=== PATIENT | female | born 1945 | race Two or more races ===

== ENCOUNTER 2021-02-27 16:23 | Emergency (ER) | payer OTHER, SELFPAY ==
--- NOTE | ~2021-02-27 | XR_ITS ---
EXAMINATION: PORTABLE CHEST 1 VIEW CLINICAL INFORMATION: chest pain . COMPARISON: 10/30/2006. TECHNIQUE: Portable frontal view of the chest was obtained. FINDINGS: The lungs are well expanded. No focal infiltrate, effusion, edema, or pneumothorax. Cardiac and mediastinal silhouettes are within normal limits for size. The patient is status post sternotomy and CABG. No acute bony abnormality seen. XR/XR chest 1V IMPRESSION: No evidence of acute disease.
[2021-02-27 17:27] VITALS: BP 169/50; PULSE 72; RESP 18; TEMP 37.1; O2SAT 98; BMI 29.7
[2021-02-27 18:56] VITALS: BP 138/44; PULSE 62; RESP 16; TEMP 36.8
--- NOTE | 2021-02-27 19:01 | ECG_ITS ---
Test Reason : CHEST PAIN Blood Pressure : / mmHG Vent. Rate : 067 BPM Atrial Rate : 067 BPM P-R Int : 152 ms QRS Dur : 080 ms QT Int : 372 ms P-R-T Axes : 002 014 095 degrees QTc Int : 393 ms Normal sinus rhythm Moderate voltage criteria for LVH, may be normal variant Nonspecific T wave abnormality Abnormal ECG When compared with ECG of 01-DEC-2007 13:55, Criteria for Inferior infarct are no longer Present Nonspecific T wave abnormality, worse in Inferior leads Referred By: Generic ED Physician Electronically Signed By:CHRISTA LAWLER MD
[2021-02-27 19:03] VITALS: PULSE 62
[2021-02-27 19:26] LABS: MANUAL DIFF FLAG NO
[2021-02-27 19:28] LABS: Basophils Absolute Auto 0.1 X10*3/uL (0.0-0.2); Basophils Percent Auto 0.5 % (0-2); Eosinophils Absolute Auto 0.1 X10*3/uL (0.0-0.4); Eosinophils Percent Auto 1.4 % (0-4); Hemoglobin 11.1 g/dl (12.0-16.0); Imm Gran Abs Auto 0.04 X10*3/uL (0.00-0.03); Imm Gran Pct Auto 0.4 % (0.0-0.4); Lymphocytes Absolute Auto 3.5 X10*3/uL (1.2-4.9); Lymphocytes Percent Auto 37.9 % (20-40); Mean Corpuscular HGB Conc 31.7 g/dl (31.0-35.0); Mean Corpuscular Hemoglobin 28.5 pg (27.0-33.0); Monocytes Absolute Auto 1.2 X10*3/uL (0.1-1.2); Monocytes Percent Auto 12.9 % (2-11); Neutrophils Absolute Auto 4.3 X10*3/uL (2.0-8.3); Neutrophils Percent Auto 46.9 % (45-73); Platelet Count 233 X10*3/uL (160-400); Red Blood Count 3.89 X10*6/uL (4.20-5.50); Red Cell Distribution Width 14.2 % (11.0-16.0); White Blood Count 9.2 X10*3/uL (4.8-10.8)
[2021-02-27 19:29] LABS: Glucose Urine UA NEG (NEG); Leukocyte Esterase Urine 1+ (NEG); Nitrite Urine NEG (NEG); PH 7.5 (5.0-8.0); UACC Culture Trigger YES; Urine Blood NEG (NEG); Urine Ketones NEG (NEG); Urine Protein NEG (NEG-TRACE)
[2021-02-27 19:30] LABS: Appearance Urine CLEAR; Color Urine YELLOW
--- NOTE | 2021-02-27 19:34 | ED.CHESTPAIN ---
HPI - Chest Pain General Chief Complaint: Chest Pain Stated Complaint: swelling in legs Time Seen by Provider: 02/27/21 19:34 Source: patient Mode of arrival: ambulatory Limitations: no limitations History of Present Illness HPI narrative: 75-year-old female with history of CHF, diabetes, hypertension who presents to the emergency department with reports of bilateral lower extremity edema. Patient thought that she could control this at home with Lasix but states over the last 2 days she feels like her symptoms are getting worse. Denies chest pain or shortness of breath that is new. Denies abdominal pain nausea or vomiting. Denies recent fevers or chills. Admits to chronic cough. Patient states at baseline she urinates in excess denies change in this, denies any recent changes in bowel movements. Related Data Allergies Allergy/AdvReac Type Severity Reaction Status Date / Time Penicillins Allergy Severe RASH Unverified 06/26/20 17:24 Review of Systems Review of Systems: Constitutional : No Weight loss, No Fever, No Chills, No Night Sweats, No Fatigue, No Malaise ENT/Mouth : No Hearing loss, No Ear Pain, No Nasal Congestion, No Sinus Pain, No Hoarseness, No sore throat, No Rhinorrhea, No Swallowing Difficulty Eyes: No Eye Pain, No Swelling, No Redness, No Foreign Body, No Discharge, No Vision Changes Cardiovascular : No Chest Pain, No SOB, No Dyspnea on Exertion, No Orthopnea, + LE Edema, No Palpitations Respiratory : No Cough, No Sputum, No Wheezing, No Smoke Exposure, No Dyspnea Gastrointestinal : No Nausea, No Vomiting, No Diarrhea, No Constipation, No abdominal Pain, No Hematochezia, No Melena Genitourinary : no irregular bleeding, No Dysuria, No Urinary Frequency, No Hematuria, No Urinary Incontinence, No Urgency, No Flank Pain, No Urinary Flow Changes, No Hesitancy Musculoskeletal : No joint pain, No Myalgias, No Joint Swelling Skin : No Skin Lesions, No rash Neuro : No Weakness, No Numbness, No Paresthesias, No Loss of Consciousness, No Dizziness, No Headache Psych : No Anxiety/Panic, No Depression, No SI/HI/AH/VH, No Social Issues, Heme/Lymph: No Bruising, No Bleeding,No Lymphadenopathy Endocrine : No Polyuria, No Polydipsia, No Temperature Intolerance [facility] Past Medical History Attestation statement: The following information was validated with the patient. Source: old records reviewed and nursing notes reviewed Medical History (Updated 02/27/21 @ 21:28 by CARLOTTA Neff) Congestive heart failure Diabetes Hypertension Surgical History (Updated 02/27/21 @ 17:32 by Latrell Ruth) H/O heart bypass surgery Social History Social History Advance Directives: No Advance Directives Information Provided: Yes Physical Exam Vital Signs: Vital Signs: Last Vital Signs Temp 98.3 F 02/27/21 18:56 Pulse 62 02/27/21 18:56 Resp 16 02/27/21 18:56 BP 138/44 L 02/27/21 18:56 Pulse Ox 98 02/27/21 17:27 Body Mass Index 29.7 vital signs have been reviewed as normal and appeared to be correct. Blood pressure normal. Heart rate normal. Respiration rate normal. Temperature normal. Oxygen saturation normal. Appearance: Alert. Oriented X3. No acute distress. Head: Normal external exam. Normocephalic. Atraumatic. No Gupta signs noted. No raccoon eyes noted Eyes: PERRLA. EOMI. Conjunctiva and sclera normal. Eyelids normal. ENT: EAC normal. TM's Normal. Pharynx normal. Uvula midline. Moist mucous membranes. No trismus noted. No drooling noted. No muffled voice noted. Neck: Normal inspection. Neck supple. FROM. No adenopathy. Thyroid Normal. No meningeal signs. No neck mass noted. CVS: Normal heart rate and rhythm. Heart sound normal. No murmurs noted. Pulses normal throughout. Respiratory: No respiratory distress. Painless inspiration. Breath sounds normal. No wheezes/rales/rhonchi noted. Chest nontender. No accessory muscle usage noted or decreased air movement noted. Abdomen: Soft and nontender. Bowel sounds normal in all 4 quadrants. No distention noted. No organomegaly noted. No visible injury noted. Back: No CVA tenderness. Full range of motion noted. Skin: Skin warm and dry. Normal skin color. Normal skin turgor. No rashes/lesions/lacerations noted. Extremities: 1+ bilateral lower extremity edema. Extremities exhibit normal range of motion. Extremities nontender. Neuro: Oriented X 3. No motor deficit. No sensory deficit. Reflexes normal. Course Reevaluation(s) Reevaluation #1: Patient's blood work and chest x-ray returned without acute findings feel that discharge is safe with close outpatient follow-up and strict return precautions. Potassium ever so slightly elevated at 5.2 no EKG changes patient is safe for discharge. MDM - Chest Pain MDM Narrative Medical decision making narrative: Patient's vital signs are stable and she is afebrile. Patient presenting to the ED for bilateral lower extremity and edema no complaints of chest pain or shortness of breath. On exam patient with 1+ pitting edema is on Lasix may need an increase in dosing no posterior calf tenderness no acute concern for DVT. Will check basic blood work including a proBNP will also obtain a chest x-ray and EKG. Patient awake alert appropriate well-appearing in no acute distress no signs of cellulitis or other acute infection will continue to monitor pending the above. Feel this is likely mild lower extremity edema secondary to known CHF. Differential Diagnosis Differential diagnosis: CHF exacerbation, LE edema Medical Records Data Attestation: I reviewed the patient's medical records. Lab Data Attestation: I reviewed the patient's lab results. Result diagrams: 02/27/21 19:19 02/27/21 19:19 Labs: Lab Results 02/27/21 02/27/21 02/27/21 Range/Units 19:19 19:19 19:19 WBC 9.2 (4.8-10.8) X10*3/uL RBC 3.89 L (4.20-5.50) X10*6/uL Hgb 11.1 L (12.0-16.0) g/dl Hct 35.0 L (37-47) % MCV 90.0 (80-98) fL MCH 28.5 (27.0-33.0) pg MCHC 31.7 (31.0-35.0) g/dl RDW 14.2 (11.0-16.0) % Plt Count 233 (160-400) X10*3/uL MPV 11.0 (9.4-12.3) fL Immature Gran % (Auto) 0.4 (0.0-0.4) % Neut % (Auto) 46.9 (45-73) % Lymph % (Auto) 37.9 (20-40) % [place] % (Auto) 12.9 H (2-11) % Eos % (Auto) 1.4 (0-4) % Baso % (Auto) 0.5 (0-2) % Lymph # (Auto) 3.5 (1.2-4.9) X10*3/uL [place] # (Auto) 1.2 (0.1-1.2) X10*3/uL Eos # (Auto) 0.1 (0.0-0.4) X10*3/uL Baso # (Auto) 0.1 (0.0-0.2) X10*3/uL Abs Immat Gran (auto) 0.04 H (0.00-0.03) X10*3/uL Absolute Neuts (auto) 4.3 (2.0-8.3) X10*3/uL Absolute Nucleated RBC 0.000 (0.0-0.012) X10*3/uL Nucleated RBC % (auto) 0.0 (0.0-0.2) /100WBC Hold Blue Top SEE NOTE Sodium 143 (135-145) mmol/L Potassium 5.2 H (3.3-5.1) mmol/L Chloride 107 (96-108) mmol/L Carbon Dioxide 29 (22-29) mmol/L Anion Gap 12 (12-20) BUN 38 H (9-16) mg/dL Creatinine 1.26 (0.5-1.4) mg/dL Estim Creat Clear Calc 37.7 Estimated GFR 41 Random Glucose 76 (60-115) mg/dL Calcium 9.8 (8.4-10.2) mg/dL Troponin I High Sens (<3.5-17.0) ng/L B-Natriuretic Peptide (<100) pg/mL Urine Color Urine Appearance Urine pH (5.0-8.0) Ur Specific [place]emp (1.005-1.025) Urine Protein (NEG-TRACE) MG/DL Urine Glucose (UA) (NEG) MG/DL Urine Ketones (NEG) MG/DL Urine Blood (NEG) Urine Nitrite (NEG) Ur Leukocyte Esterase (NEG) Urine RBC (0) /HPF Urine WBC (0-4) /HPF Ur Squamous Epith Cells /LPF Urine Bacteria /LPF 02/27/21 02/27/21 Range/Units 19:19 19:19 WBC (4.8-10.8) X10*3/uL RBC (4.20-5.50) X10*6/uL Hgb (12.0-16.0) g/dl Hct (37-47) % MCV (80-98) fL MCH (27.0-33.0) pg MCHC (31.0-35.0) g/dl RDW (11.0-16.0) % Plt Count (160-400) X10*3/uL MPV (9.4-12.3) fL Immature Gran % (Auto) (0.0-0.4) % Neut % (Auto) (45-73) % Lymph % (Auto) (20-40) % [place] % (Auto) (2-11) % Eos % (Auto) (0-4) % Baso % (Auto) (0-2) % Lymph # (Auto) (1.2-4.9) X10*3/uL [place] # (Auto) (0.1-1.2) X10*3/uL Eos # (Auto) (0.0-0.4) X10*3/uL Baso # (Auto) (0.0-0.2) X10*3/uL Abs Immat Gran (auto) (0.00-0.03) X10*3/uL Absolute Neuts (auto) (2.0-8.3) X10*3/uL Absolute Nucleated RBC (0.0-0.012) X10*3/uL Nucleated RBC % (auto) (0.0-0.2) /100WBC Hold Blue Top Sodium (135-145) mmol/L Potassium (3.3-5.1) mmol/L Chloride (96-108) mmol/L Carbon Dioxide (22-29) mmol/L Anion Gap (12-20) BUN (9-16) mg/dL Creatinine (0.5-1.4) mg/dL Estim Creat Clear Calc Estimated GFR Random Glucose (60-115) mg/dL Calcium (8.4-10.2) mg/dL Troponin I High Sens 3.8 (<3.5-17.0) ng/L B-Natriuretic Peptide 106 H (<100) pg/mL Urine Color YELLOW Urine Appearance CLEAR Urine pH 7.5 (5.0-8.0) Ur Specific [place]emp 1.010 (1.005-1.025) Urine Protein NEG (NEG-TRACE) MG/DL Urine Glucose (UA) NEG (NEG) MG/DL Urine Ketones NEG (NEG) MG/DL Urine Blood NEG (NEG) Urine Nitrite NEG (NEG) Ur Leukocyte Esterase 1+ H (NEG) Urine RBC 0 (0) /HPF Urine WBC 0-2 (0-4) /HPF Ur Squamous Epith Cells 1+ /LPF Urine Bacteria NONE /LPF Discharge Plan Discharge Clinical Impression: Bilateral edema of lower extremity Patient Disposition: Home, Self-Care Instructions: Leg Edema (ED) Additional Instructions: You were seen in the emergency department today for swelling of the legs. Your Lasix likely needs to be increased slightly however there was no signs of severe fluid overload. Follow-up with your doctor in the next 2-3 days. Referrals: Physician,Unknown [Primary Care Provider] - 2 days (your PCP) Print Language: Setswana
[2021-02-27 19:39] LABS: RBC Urine 0 /HPF (0); Squamous Epithelial Cell Urine 1+ /LPF; UACC CULT YES; WBC Urine 0-2 /HPF (0-4)
[2021-02-27 19:56] LABS: Anion Gap 12 (12-20); Blood Urea Nitrogen 38 mg/dL (9-16); Calcium 9.8 mg/dL (8.4-10.2); Carbon Dioxide 29 mmol/L (22-29); Chloride 107 mmol/L (96-108); Creatinine Clr Calc Pharmacy 37.7; Estimated Glomerular Filt Rate 41; Glucose Random 76 mg/dL (60-115); Potassium 5.2 mmol/L (3.3-5.1); Sodium 143 mmol/L (135-145)
[2021-02-27 20:02] LABS: Troponin-I High Sensitivity 3.8 ng/L (<3.5-17.0)
[2021-02-27 21:08] LABS: B Type Natriuretic Peptide 106 pg/mL (<100)
== END 2021-02-27 22:21 | disposition home or self-care (01) ==
PROVIDERS: Emergency Provider Emergency Medicine
DX: R07.9 Chest pain, unspecified (principal); R60.0 Localized edema; I10 Essential (primary) hypertension; Z79.899 Other long term (current) drug therapy
CPT/HCPCS: 36415; 71045; 80048; 81001; 83880; 84484; 85025; 87086; 93005; 99284

== ENCOUNTER 2021-03-03 13:52 | Emergency (ER) | payer OTHER, SELFPAY ==
--- NOTE | ~2021-03-03 | MR_ITS ---
EXAMINATION: MR BRAIN WITHOUT CONTRAST CLINICAL INFORMATION: Headache. Dizziness. COMPARISON: CT head from 03/03/2021. TECHNIQUE: MRI of the brain was obtained using routine sequences without contrast. FINDINGS: No focal restricted diffusion is demonstrated to suggest acute or subacute cerebral ischemia. No evidence of acute or chronic hemorrhagic products on heme-sensitive imaging. Chronic encephalomalacia of the right precentral gyrus. Scattered periventricular and deep white matter T2 FLAIR hyperintensities consistent with mild underlying microangiopathy. 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 The ventricles are normal in morphology and size. No abnormal mass effect. No midline shift. The sella turcica is mildly expanded and partially empty. Normal positioning of the cerebellar tonsils. Normal arterial and venous vascular flow voids are present. Normal, homogeneous marrow signal. Moderate mucosal thickening of the paranasal sinuses. No signal abnormalities within the mastoids. MR/MR head/brain wo con IMPRESSION: 1. No acute intracranial abnormalities. 2. Chronic encephalomalacia within the right precentral gyrus. Chronic lacunar infarcts of the cerebellum. Mild underlying microangiopathy.
--- NOTE | ~2021-03-03 | CT_ITS ---
EXAMINATION: CT HEAD WITHOUT CONTRAST CLINICAL INFORMATION: Dizziness and headache. COMPARISON: None TECHNIQUE: Contiguous axial imaging was performed from the skull base to vertex without intravenous administration of contrast. This CT examination was performed using dose optimization techniques as appropriate, variously including the following: *Automated exposure control *Adjustment of mA and/or kV according to patient size (this includes techniques or standardized protocols for targeted exams where dose is matched to indication/reason for exam; i.e. extremities or head) *Use of iterative reconstruction technique DLP: 758 mGy-cm FINDINGS: There is no evidence of acute intracranial hemorrhage or territorial infarction. No abnormal mass effect or midline shift is seen. Michael to white matter differentiation is well preserved. No extra-axial fluid collections are identified. The ventricles are normal in size. There is no abnormal attenuation within the brain parenchyma. The osseous structures and soft tissues are normal. The mastoid air cells and visualized portions of the paranasal sinuses are well aerated. CT/CT head/brain wo con IMPRESSION: No acute intracranial process seen.
--- NOTE | ~2021-03-03 | XR_ITS ---
EXAMINATION: XR CHEST CLINICAL INFORMATION: Dizziness COMPARISON: Previous chest x-ray 02/27/2021 TECHNIQUE: Frontal view of the chest was obtained. FINDINGS: The cardiac and mediastinal contours are stable. 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 The lungs are clear. There is no pleural effusion. There are degenerative changes of the spine. XR/XR chest 1V IMPRESSION: No evidence for acute disease in the chest.
[2021-03-03 14:05] VITALS: BP 111/50; BP 140/63; PULSE 74; PULSE 79; RESP 18; TEMP 36.6; O2SAT 98; O2SAT 99; BMI 63.1
--- NOTE | 2021-03-03 14:23 | PC.NURSE ---
pt assisted to the bathroom. she is able to walk with a steady gait with assist of one and verbal encouragement
--- NOTE | 2021-03-03 14:58 | ECG_ITS ---
Test Reason : DIZZINESS Blood Pressure : / mmHG Vent. Rate : 067 BPM Atrial Rate : 067 BPM P-R Int : 152 ms QRS Dur : 068 ms QT Int : 382 ms P-R-T Axes : 034 010 107 degrees QTc Int : 403 ms Sinus rhythm with Premature atrial complexes Moderate voltage criteria for LVH, may be normal variant ST & T wave abnormality, consider lateral ischemia Abnormal ECG When compared with ECG of 27-FEB-2021 17:40, Premature atrial complexes are now Present Referred By: Cassidy Pierre Electronically Signed By:EDWARD POWELL
[2021-03-03 15:32] LABS: MANUAL DIFF FLAG NO
[2021-03-03 15:34] LABS: Basophils Absolute Auto 0.1 X10*3/uL (0.0-0.2); Basophils Percent Auto 0.8 % (0-2); Eosinophils Absolute Auto 0.1 X10*3/uL (0.0-0.4); Eosinophils Percent Auto 1.2 % (0-4); Hematocrit 38.1 % (37-47); Hemoglobin 12.3 g/dl (12.0-16.0); Imm Gran Abs Auto 0.04 X10*3/uL (0.00-0.03); Imm Gran Pct Auto 0.4 % (0.0-0.4); Lymphocytes Percent Auto 32.7 % (20-40); Mean Corpuscular HGB Conc 32.3 g/dl (31.0-35.0); Mean Corpuscular Hemoglobin 28.9 pg (27.0-33.0); Mean Corpuscular Volume 89.6 fL (80-98); Mean Platelet Volume 10.6 fL (9.4-12.3); Monocytes Absolute Auto 0.9 X10*3/uL (0.1-1.2); Monocytes Percent Auto 10.1 % (2-11); Neutrophils Percent Auto 54.8 % (45-73); Platelet Count 264 X10*3/uL (160-400); Red Blood Count 4.25 X10*6/uL (4.20-5.50); Red Cell Distribution Width 14.1 % (11.0-16.0); White Blood Count 9.1 X10*3/uL (4.8-10.8)
[2021-03-03 15:52] LABS: COVID-19 Test Negative (Negative)
[2021-03-03 15:54] LABS: Prothrombin Time 11.5 SEC (10.8-13.0)
[2021-03-03 15:57] LABS: Partial Thromboplastin Time 29.6 SEC (24.1-38.0)
[2021-03-03 16:03] LABS: B Type Natriuretic Peptide 52 pg/mL (<100); Troponin-I High Sensitivity < 3.5 ng/L (<3.5-17.0)
[2021-03-03] MEDS: diphenhydrAMINE HCL 50 MG/ML VIAL 25 MG IVPUSH (16:19)
[2021-03-03] MEDS: Meclizine HCl 25 MG TABLET PO (16:19)
[2021-03-03] MEDS: ondansetron HCL 4 MG/2 ML VIAL IVPUSH (16:19)
[2021-03-03 16:29] LABS: Alanine Aminotransferase 15 U/L (0-31); Albumin Level 4.2 g/dL (3.5-5.0); Alkaline Phosphatase 98 U/L (39-117); Anion Gap 15 (12-20); Aspartate Amino Transferase 14 U/L (5-31); Bilirubin Direct < 0.2 mg/dL (0.0-0.5); Bilirubin Total 0.5 mg/dL (0.0-1.0); Blood Urea Nitrogen 32 mg/dL (9-16); Calcium 9.6 mg/dL (8.4-10.2); Carbon Dioxide 25 mmol/L (22-29); Chloride 105 mmol/L (96-108); Creatinine Clr Calc Pharmacy 57.9; Estimated Glomerular Filt Rate 39; Glucose Random 82 mg/dL (60-115); Magnesium 2.3 mg/dL (1.6-2.6); Potassium 4.9 mmol/L (3.3-5.1); Sodium 140 mmol/L (135-145); Total Protein 7.6 g/dL (6.5-8.0)
--- NOTE | 2021-03-03 17:21 | ED_ITS ---
HPI - Weakness General Chief complaint: Weakness <CARLOTTA Anglin Last Filed: 03/03/21 17:50> Stated complaint: GENERAL MALAISE PER EMS <CARLOTTA Anglin Last Filed: 03/03/21 17:50> Time Seen by Provider: 03/03/21 14:43 <CAROLTTA Anglin Last Filed: 03/03/21 17:50> Source: patient and EMS <CARLOTTA Anglin Last Filed: 03/03/21 17:50> Mode of arrival: ambulatory <CARLOTTA Anglin Last Filed: 03/03/21 17:50> History of Present Illness HPI Narrative: 75-year-old female with a past medical history of CHF, diabetes, hy pertension presenting to the ED complaining of dizziness described as rocking back and forth since waking this morning. Reports associated headache, generalized fatigue. Admits to feeling anxious/nervous about her blood sugar. States had difficulty ambulating at home secondary to dizziness. Patient takes ASA, no other anticoagulation. Denies head trauma/falls, visual changes, CP/SOB, abdominal pain, nausea/vomiting, numbness, tingling, fever, chills <CARLOTTA Anglin Last Filed: 03/03/21 17:50> MD Complaint: difficulty walking <CARLOTTA Anglin Last Filed: 03/03/21 17:50> Related Data Home medications: Home Medications Medication Instructions Recorded Confirmed acetaminophen [Mapap Arthritis 2 tab PO BID PRN 03/03/21 03/03/21 Pain] amlodipine 1 tab PO DAILY 03/03/21 atorvastatin 40 mg PO BEDTIME 03/03/21 03/03/21 docusate sodium [Stool Softener] 1 cap PO BID 03/03/21 03/03/21 furosemide 1 tab PO DAILY PRN 03/03/21 03/03/21 gabapentin 1 cap PO BID 03/03/21 03/03/21 isosorbide mononitrate 1 tab PO QPM 03/03/21 03/03/21 losartan 1 tab PO DAILY 03/03/21 03/03/21 metformin 1 tab PO DAILY 03/03/21 03/03/21 metoprolol succinate 1 tab PO DAILY 03/03/21 03/03/21 nitroglycerin 1 tab SUBLINGUAL NEEDED PRN 03/03/21 03/03/21 sertraline 1 tab PO DAILY 03/03/21 03/03/21 Previous Rx's Medication Instructions Recorded meclizine 25 mg PO TID PRN #30 tab 03/03/21 <CARLOTTA Anglin - Last Filed: 03/03/21 17:50> Allergies/Adverse reactions: Allergies Allergy/AdvReac Type Severity Reaction Status Date / Time Penicillins Allergy Severe RASH Verified 03/03/21 20:12 <CARLOTTA Anglin - Last Filed: 03/03/21 17:50> Review of Systems Review of Systems: Constitutional: No Fever, No Chills, + Fatigue, No Malaise ENT/Mouth: No Hearing loss, No Ear Pain, No sore throat Eyes: No Eye Pain, No Vision Changes Cardiovascular: No Chest Pain, No SOB, No Edema Respiratory: No Cough, No Dyspnea Gastrointestinal: No Nausea, No Vomiting, No Abdominal pain Genitourinary:No Dysuria, No Urinary Frequency, No Hematuria, No Flank Pain Musculoskeletal: No joint pain, No Myalgias, No Joint Swelling Skin: No Skin Lesions, No rash Neuro: No Weakness, No Numbness, No Paresthesias, No Loss of Consciousness, + Dizziness, + Headache <CARLOTTA Anglin Last Filed: 03/03/21 17:50> Yes all other systems are reviewed and are negative <CARLOTTA Anglin - Last Filed: 03/03/21 17:50> Neurologic: Denies Abnormal speech present and Denies Sensory deficit (Neuro) <CARLOTTA Anglin Last Filed: 03/03/21 17:50> [facility]LY [facility] Past Medical History Attestation statement: The following information was validated with the patient. <CARLOTTA Anglin - Last Filed: 03/03/21 17:50> Medical History: Medical History (Updated 03/04/21 @ 00:01 by Jose Narayanan) Congestive heart failure Diabetes Hypertension <CARLOTTA Anglin Last Filed: 03/03/21 17:50> Surgical History: Surgical History (Updated 02/27/21 @ 17:32 by Latrell Ruth) H/O heart bypass surgery <CARLOTTA Anglin Last Filed: 03/03/21 17:50> Social History Social History: Social History Alcohol intake: never Smoking Status: Never smoker Use of substances other than those prescribed or required for medical reasons: No Advance Directives: No Advance Directives Information Provided: No <CARLOTTA Anglin - Last Filed: 03/03/21 17:50> Physical Exam Vital Signs: Vital Signs: Last Vital Signs Temp 97.7 F 03/03/21 20:11 Pulse 64 03/03/21 23:10 Resp 18 03/03/21 23:10 BP 124/34 L 03/03/21 23:10 Pulse Ox 97 03/03/21 23:10 Body Mass Index 63.1 <CARLOTTA Anglin - Last Filed: 03/03/21 17:50> Vital Signs: Last Vital Signs Temp 97.7 F 03/03/21 20:11 Pulse 64 03/03/21 23:10 Resp 18 03/03/21 23:10 BP 124/34 L 03/03/21 23:10 Pulse Ox 97 03/03/21 23:10 Body Mass Index 63.1 <CARLOTTA Leyva - Last Filed: 03/04/21 01:16> Const: General: cooperative, healthy appearing and no acute distress <CARLOTTA Anglin - Last Filed: 03/03/21 17:50> Orientation/consciousness: patient oriented x3 <CARLOTTA Anglin - Last Filed: 03/03/21 17:50> Limitations: no limitations <CARLOTTA Anglin - Last Filed: 03/03/21 17:50> HENMT: Head: Yes normal to inspection <CARLOTTA Anglin - Last Filed: 03/03/21 17:50> Ears: hearing grossly normal bilaterally <CARLOTTA Anglin - Last Filed: 03/03/21 17:50> General nose exam: Normal external nose present <CARLOTTA Anglin - Last Filed: 03/03/21 17:50> Face and sinus: Yes normal facial exam <CARLOTTA Anglin - Last Filed: 03/03/21 17:50> Eyes: General: appearance normal, both eyes and all related structures <CARLOTTA Anglin - Last Filed: 03/03/21 17:50> Pupils: Equal, round and reactive pupils present <CARLOTTA Anglin - Last Filed: 03/03/21 17:50> EOM: EOMs intact bilaterally <Cassidy Gabby IA - Last Filed: 03/03/21 17:50> Neck: Neck: Yes normal visual inspection and Yes no meningeal signs <Cassidy Gabby [facility] Last Filed: 03/03/21 17:50> Chest: Chest palpation & inspection: normal inspection of the chest <Cassidy Pierre [facility] Last Filed: 03/03/21 17:50> Resp: Effort & Inspection: normal respiratory effort and not labored <Cassidy Gabby [facility] Last Filed: 03/03/21 17:50> Auscultation: clear to auscultation bilaterally <Cassidy Pierre IA - Last Filed: 03/03/21 17:50> Cardio: Rate: regular rate <Cassidy Gabby [facility] Last Filed: 03/03/21 17:50> Heart sounds: S1 normal heart sound present and S2 normal heart sound present <Cassidy Gabby IA - Last Filed: 03/03/21 17:50> GI: Inspection: Yes normal to inspection <Cassidy Gabby [facility] Last Filed: 03/03/21 17:50> Palpation (GI): Soft to palpation, nontender, no guarding and not rigid <Cassidy Gabby IA - Last Filed: 03/03/21 17:50> Skin: Rashes: no rashes <Cassidy Gabby [facility] Last Filed: 03/03/21 17:50> Wounds: no wounds <Cassidy Gabby [facility] Last Filed: 03/03/21 17:50> Neuro: Other: Patient unable to stand secondary to dizziness <Cassidy Gabby [facility] Last Filed: 03/03/21 17:50> General: patient oriented x3, gait normal, tone normal, moves all extremities, no meningeal signs, no focal motor deficits, CN's II-XI intact bilaterally and Unable to assess gait <Cassidy Gabby [facility] Last Filed: 03/03/21 17:50> Cranial nerves: Yes CN's II-XII intact bilaterally and Yes Equal, round and reactive pupils present <Cassidy Pierre IA - Last Filed: 03/03/21 17:50> Cognition (Neuro): normal cognition <CARLOTTA Anglin Last Filed: 03/03/21 17:50> Speech: No Abnormal speech present <CARLOTTA Anglin Last Filed: 03/03/21 17:50> Gait exam (Neuro): Unable to assess gait <CARLOTTA Anglin Last Filed: 03/03/21 17:50> Motor exam (neuro): 5/5 motor strength present throughout, Pronator motor function not present and no tremor noted <CARLOTTA Anglin Last Filed: 03/03/21 17:50> Sensory Exam: No Sensory deficit (Neuro) <CARLOTTA Anglin Last Filed: 03/03/21 17:50> Extrem: General: Yes normal to inspection and Yes no pedal edema <CARLOTTA Anglin Last Filed: 03/03/21 17:50> Course Course Course Narrative: -BUN chronically elevated, labs otherwise unremarkable, troponin negative, random glucose 82 -UA not infected XR chest 1V IMPRESSION: No evidence for acute disease in the chest. CT head/brain wo con IMPRESSION: No acute intracranial process seen. -1727--patient is still reporting dizziness sensation of rocking back and forth, is unable to stand or ambulate. Ativan ordered. >> will obtain MRI to rule out subacute stroke -1800--ED care transferred to CARLOTTA Urena pending MRI results and re-evaluation <CARLOTTA Anglin - Last Filed: 03/03/21 17:50> Patient's MRI negative for stroke. Patient usually ambulates with a walker. Patient able to ambulate around the ER with a walker all on her own without any help. Patient does not need any admission. patient no longer has dizziness. Patient will contact CLINICAL RESOURCE COORDINATOR to see if CLINICAL RESOURCE COORDINATOR can pick her up. <CARLOTTA Leyva - Last Filed: 03/04/21 01:16> MDM - Weakness MDM Narrative Medical decision making narrative: 75-year-old female with a past medical history of CHF, diabetes, hypertension presenting to the ED complaining of dizziness described as rocking back and forth since waking this morning. Reports associated headache, generalized fatigue. Admits to feeling anxious/nervous about her blood sugar. On exam VSS, NAD, nontoxic appearing, appears dizzy/unable to stand secondary to dizziness. No focal neuro deficits. Concern for subacute CVA, patient is out of the window for tPA vs BPPV/vertigo vs metabolic abnormalities. Rule out ACS an infectious etiology Plan: EKG, labs, UA, head CT, IVF, symptomatic treatment, reassess <CARLOTTA Anglin - Last Filed: 03/03/21 17:50> Medical Records Attestation: I reviewed the patient's medical records. <CARLOTTA Anglin - Last Filed: 03/03/21 17:50> Lab Data Attestation: I reviewed the patient's lab results. <CARLOTTA Angiln - Last Filed: 03/03/21 17:50> Result diagrams: : 03/03/21 15:21 03/03/21 15:51 <CARLOTTA Anglin - Last Filed: 03/03/21 17:50> Labs: Lab Results 03/03/21 03/03/21 03/03/21 Range/Units 15:21 15:21 15:21 WBC 9.1 (4.8-10.8) X10*3/uL RBC 4.25 (4.20-5.50) X10*6/uL Hgb 12.3 (12.0-16.0) g/dl Hct 38.1 (37-47) % MCV 89.6 (80-98) fL MCH 28.9 (27.0-33.0) pg MCHC 32.3 (31.0-35.0) g/dl RDW 14.1 (11.0-16.0) % Plt Count 264 (160-400) X10*3/uL MPV 10.6 (9.4-12.3) fL Immature Gran % (Auto) 0.4 (0.0-0.4) % Neut % (Auto) 54.8 (45-73) % Lymph % (Auto) 32.7 (20-40) % Grant % (Auto) 10.1 (2-11) % Eos % (Auto) 1.2 (0-4) % Baso % (Auto) 0.8 (0-2) % Lymph # (Auto) 3.0 (1.2-4.9) X10*3/uL Grant # (Auto) 0.9 (0.1-1.2) X10*3/uL Eos # (Auto) 0.1 (0.0-0.4) X10*3/uL Baso # (Auto) 0.1 (0.0-0.2) X10*3/uL Abs Immat Gran (auto) 0.04 H (0.00-0.03) X10*3/uL Absolute Neuts (auto) 5.0 (2.0-8.3) X10*3/uL Absolute Nucleated RBC 0.000 (0.0-0.012) X10*3/uL Nucleated RBC % (auto) 0.0 (0.0-0.2) /100WBC PT 11.5 (10.8-13.0) SEC INR 1.0 (0.9-1.1) APTT 29.6 (24.1-38.0) SEC Sodium (135-145) mmol/L Potassium (3.3-5.1) mmol/L Chloride (96-108) mmol/L Carbon Dioxide (22-29) mmol/L Anion Gap (12-20) BUN (9-16) mg/dL Creatinine (0.5-1.4) mg/dL Estim Creat Clear Calc Estimated GFR Random Glucose (60-115) mg/dL Calcium (8.4-10.2) mg/dL Magnesium (1.6-2.6) mg/dL Total Bilirubin (0.0-1.0) mg/dL Direct Bilirubin (0.0-0.5) mg/dL AST (5-31) U/L ALT (0-31) U/L Alkaline Phosphatase (39-117) U/L Troponin I High Sens < 3.5 (<3.5-17.0) ng/L B-Natriuretic Peptide 52 (<100) pg/mL Total Protein (6.5-8.0) g/dL Albumin (3.5-5.0) g/dL Urine Color Urine Appearance Urine pH (5.0-8.0) Ur Specific Larimer (1.005-1.025) Urine Protein (NEG-TRACE) MG/DL Urine Glucose (UA) (NEG) MG/DL Urine Ketones (NEG) MG/DL Urine Blood (NEG) Urine Nitrite (NEG) Ur Leukocyte Esterase (NEG) COVID-19 (DELMY) (Negative) COVID-19 Clin Com 03/03/21 03/03/21 03/03/21 Range/Units 15:21 15:51 20:36 WBC (4.8-10.8) X10*3/uL RBC (4.20-5.50) X10*6/uL Hgb (12.0-16.0) g/dl Hct (37-47) % MCV (80-98) fL MCH (27.0-33.0) pg MCHC (31.0-35.0) g/dl RDW (11.0-16.0) % Plt Count (160-400) X10*3/uL MPV (9.4-12.3) fL Immature Gran % (Auto) (0.0-0.4) % Neut % (Auto) (45-73) % Lymph % (Auto) (20-40) % Grant % (Auto) (2-11) % Eos % (Auto) (0-4) % Baso % (Auto) (0-2) % Lymph # (Auto) (1.2-4.9) X10*3/uL Grant # (Auto) (0.1-1.2) X10*3/uL Eos # (Auto) (0.0-0.4) X10*3/uL Baso # (Auto) (0.0-0.2) X10*3/uL Abs Immat Gran (auto) (0.00-0.03) X10*3/uL Absolute Neuts (auto) (2.0-8.3) X10*3/uL Absolute Nucleated RBC (0.0-0.012) X10*3/uL Nucleated RBC % (auto) (0.0-0.2) /100WBC PT (10.8-13.0) SEC INR (0.9-1.1) APTT (24.1-38.0) SEC Sodium 140 (135-145) mmol/L Potassium 4.9 (3.3-5.1) mmol/L Chloride 105 (96-108) mmol/L Carbon Dioxide 25 (22-29) mmol/L Anion Gap 15 (12-20) BUN 32 H (9-16) mg/dL Creatinine 1.32 (0.5-1.4) mg/dL Estim Creat Clear Calc 57.9 Estimated GFR 39 Random Glucose 82 (60-115) mg/dL Calcium 9.6 (8.4-10.2) mg/dL Magnesium 2.3 (1.6-2.6) mg/dL Total Bilirubin 0.5 (0.0-1.0) mg/dL Direct Bilirubin < 0.2 (0.0-0.5) mg/dL AST 14 (5-31) U/L ALT 15 (0-31) U/L Alkaline Phosphatase 98 (39-117) U/L Troponin I High Sens (<3.5-17.0) ng/L B-Natriuretic Peptide (<100) pg/mL Total Protein 7.6 (6.5-8.0) g/dL Albumin 4.2 (3.5-5.0) g/dL Urine Color YELLOW Urine Appearance CLEAR Urine pH 7.5 (5.0-8.0) Ur Specific Larimer 1.010 (1.005-1.025) Urine Protein NEG (NEG-TRACE) MG/DL Urine Glucose (UA) NEG (NEG) MG/DL Urine Ketones NEG (NEG) MG/DL Urine Blood NEG (NEG) Urine Nitrite NEG (NEG) Ur Leukocyte Esterase NEG (NEG) COVID-19 (DELMY) Negative (Negative) COVID-19 Clin Com See Note <CARLOTTA Anglin - Last Filed: 03/03/21 17:50> Lab Results 03/03/21 03/03/21 03/03/21 Range/Units 15:21 15:21 15:21 WBC 9.1 (4.8-10.8) X10*3/uL RBC 4.25 (4.20-5.50) X10*6/uL Hgb 12.3 (12.0-16.0) g/dl Hct 38.1 (37-47) % MCV 89.6 (80-98) fL MCH 28.9 (27.0-33.0) pg MCHC 32.3 (31.0-35.0) g/dl RDW 14.1 (11.0-16.0) % Plt Count 264 (160-400) X10*3/uL MPV 10.6 (9.4-12.3) fL Immature Gran % (Auto) 0.4 (0.0-0.4) % Neut % (Auto) 54.8 (45-73) % Lymph % (Auto) 32.7 (20-40) % Grant % (Auto) 10.1 (2-11) % Eos % (Auto) 1.2 (0-4) % Baso % (Auto) 0.8 (0-2) % Lymph # (Auto) 3.0 (1.2-4.9) X10*3/uL Grant # (Auto) 0.9 (0.1-1.2) X10*3/uL Eos # (Auto) 0.1 (0.0-0.4) X10*3/uL Baso # (Auto) 0.1 (0.0-0.2) X10*3/uL Abs Immat Gran (auto) 0.04 H (0.00-0.03) X10*3/uL Absolute Neuts (auto) 5.0 (2.0-8.3) X10*3/uL Absolute Nucleated RBC 0.000 (0.0-0.012) X10*3/uL Nucleated RBC % (auto) 0.0 (0.0-0.2) /100WBC PT 11.5 (10.8-13.0) SEC INR 1.0 (0.9-1.1) APTT 29.6 (24.1-38.0) SEC Sodium (135-145) mmol/L Potassium (3.3-5.1) mmol/L Chloride (96-108) mmol/L Carbon Dioxide (22-29) mmol/L Anion Gap (12-20) BUN (9-16) mg/dL Creatinine (0.5-1.4) mg/dL Estim Creat Clear Calc Estimated GFR Random Glucose (60-115) mg/dL Calcium (8.4-10.2) mg/dL Magnesium (1.6-2.6) mg/dL Total Bilirubin (0.0-1.0) mg/dL Direct Bilirubin (0.0-0.5) mg/dL AST (5-31) U/L ALT (0-31) U/L Alkaline Phosphatase (39-117) U/L Troponin I High Sens < 3.5 (<3.5-17.0) ng/L B-Natriuretic Peptide 52 (<100) pg/mL Total Protein (6.5-8.0) g/dL Albumin (3.5-5.0) g/dL Urine Color Urine Appearance Urine pH (5.0-8.0) Ur Specific Larimer (1.005-1.025) Urine Protein (NEG-TRACE) MG/DL Urine Glucose (UA) (NEG) MG/DL Urine Ketones (NEG) MG/DL Urine Blood (NEG) Urine Nitrite (NEG) Ur Leukocyte Esterase (NEG) COVID-19 (DELMY) (Negative) COVID-19 Clin Com 03/03/21 03/03/21 03/03/21 Range/Units 15:21 15:51 20:36 WBC (4.8-10.8) X10*3/uL RBC (4.20-5.50) X10*6/uL Hgb (12.0-16.0) g/dl Hct (37-47) % MCV (80-98) fL MCH (27.0-33.0) pg MCHC (31.0-35.0) g/dl RDW (11.0-16.0) % Plt Count (160-400) X10*3/uL MPV (9.4-12.3) fL Immature Gran % (Auto) (0.0-0.4) % Neut % (Auto) (45-73) % Lymph % (Auto) (20-40) % Grant % (Auto) (2-11) % Eos % (Auto) (0-4) % Baso % (Auto) (0-2) % Lymph # (Auto) (1.2-4.9) X10*3/uL Grant # (Auto) (0.1-1.2) X10*3/uL Eos # (Auto) (0.0-0.4) X10*3/uL Baso # (Auto) (0.0-0.2) X10*3/uL Abs Immat Gran (auto) (0.00-0.03) X10*3/uL Absolute Neuts (auto) (2.0-8.3) X10*3/uL Absolute Nucleated RBC (0.0-0.012) X10*3/uL Nucleated RBC % (auto) (0.0-0.2) /100WBC PT (10.8-13.0) SEC INR (0.9-1.1) APTT (24.1-38.0) SEC Sodium 140 (135-145) mmol/L Potassium 4.9 (3.3-5.1) mmol/L Chloride 105 (96-108) mmol/L Carbon Dioxide 25 (22-29) mmol/L Anion Gap 15 (12-20) BUN 32 H (9-16) mg/dL Creatinine 1.32 (0.5-1.4) mg/dL Estim Creat Clear Calc 57.9 Estimated GFR 39 Random Glucose 82 (60-115) mg/dL Calcium 9.6 (8.4-10.2) mg/dL Magnesium 2.3 (1.6-2.6) mg/dL Total Bilirubin 0.5 (0.0-1.0) mg/dL Direct Bilirubin < 0.2 (0.0-0.5) mg/dL AST 14 (5-31) U/L ALT 15 (0-31) U/L Alkaline Phosphatase 98 (39-117) U/L Troponin I High Sens (<3.5-17.0) ng/L B-Natriuretic Peptide (<100) pg/mL Total Protein 7.6 (6.5-8.0) g/dL Albumin 4.2 (3.5-5.0) g/dL Urine Color YELLOW Urine Appearance CLEAR Urine pH 7.5 (5.0-8.0) Ur Specific Larimer 1.010 (1.005-1.025) Urine Protein NEG (NEG-TRACE) MG/DL Urine Glucose (UA) NEG (NEG) MG/DL Urine Ketones NEG (NEG) MG/DL Urine Blood NEG (NEG) Urine Nitrite NEG (NEG) Ur Leukocyte Esterase NEG (NEG) COVID-19 (DELMY) Negative (Negative) COVID-19 Clin Com See Note <CARLOTTA Leyva - Last Filed: 03/04/21 01:16> Discharge Plan Discharge Clinical Impression: Dizziness <CARLOTTA Anglin - Last Filed: 03/03/21 17:50> Patient Disposition: Home, Self-Care <CARLOTTA Anglin Last Filed: 03/03/21 17:50> Instructions: Dizziness (ED) <CARLOTTA Anglin - Last Filed: 03/03/21 17:50> Additional Instructions: Return to the ED for slurred speech, facial droop, paralysis of extre mities, chest pain, shortness of breath, return of worsening dizziness, or any other concerning symptoms. <CARLOTTA Anglin - Last Filed: 03/03/21 17:50> Prescriptions: New meclizine 25 mg tablet,chewable 25 mg PO TID PRN (Reason: dizziness) Qty: 30 RF: 0 No Action atorvastatin 40 mg tablet 40 mg PO BEDTIME RF: 0 metformin 500 mg tablet 1 tab PO DAILY RF: 0 metoprolol succinate 50 mg tablet extended release 24 hr 1 tab PO DAILY RF: 0 isosorbide mononitrate 30 mg tablet extended release 24 hr 1 tab PO QPM RF: 0 acetaminophen [Mapap Arthritis Pain] 650 mg tablet extended release 2 tab PO BID PRN (Reason: pain) RF: 0 nitroglycerin 0.4 mg tablet, sublingual 1 tab sublingual NEEDED PRN (Reason: Angina) RF: 0 docusate sodium [Stool Softener] 100 mg capsule 1 cap PO BID RF: 0 sertraline 25 mg tablet 1 tab PO DAILY RF: 0 furosemide 20 mg tablet 1 tab PO DAILY PRN (Reason: Edema) RF: 0 gabapentin 100 mg capsule 1 cap PO BID RF: 0 losartan 100 mg tablet 1 tab PO DAILY RF: 0 amlodipine 10 mg tablet 1 tab PO DAILY RF: 0 <CARLOTTA Anglin - Last Filed: 03/03/21 17:50> Referrals: Jaylene Somers DO [Primary Care Provider] - 2 days (Dizziness. Troponins negative. Chest x-ray normal. Head CT normal. MRI normal. UA negative for UTI) <CARLOTTA Anglin - Last Filed: 03/03/21 17:50> Interventions: ED Discharge Assessment Last Done: 03/03/21 23:49 <CARLOTTA Anglin Last Filed: 03/03/21 17:50> Discharge Date/Time: 03/03/21 23:50 <CARLOTTA Anglin Last Filed: 03/03/21 17:50> Print Language: Tuvaluan <CARLOTTA Anglin Last Filed: 03/03/21 17:50>
--- NOTE | 2021-03-03 19:51 | PC.NURSE ---
Pt alton returned to dept from MRI
[2021-03-03 20:11] VITALS: BP 122/50; PULSE 69; RESP 18; TEMP 36.5; O2SAT 99
[2021-03-03] MEDS: 0.9 % Sodium Chloride 500 ML 999 ML IV (20:13)
[2021-03-03] MEDS: LORazepam 1 MG TABLET PO (20:28)
[2021-03-03 20:31] VITALS: BP 101/79; BP 115/43; PULSE 73; PULSE 80
[2021-03-03 20:34] VITALS: BP 121/58; PULSE 76
[2021-03-03 20:43] LABS: Appearance Urine CLEAR; Color Urine YELLOW; Glucose Urine UA NEG (NEG); Leukocyte Esterase Urine NEG (NEG); Nitrite Urine NEG (NEG); PH 7.5 (5.0-8.0); Urine Blood NEG (NEG); Urine Ketones NEG (NEG); Urine Protein NEG (NEG-TRACE)
--- NOTE | 2021-03-03 21:29 | HE.PHANOTE ---
Pharmacy Consult ? Medication Reconciliation Pharmacy has completed the medication reconciliation and the following issue requires provider intervention: Patient and MANAGER LOCATION state patient takes Amlodipine but the refill history suggest non-adherence
[2021-03-03 23:10] VITALS: BP 124/34; PULSE 64; RESP 18; O2SAT 97
== END 2021-03-03 23:50 | disposition home or self-care (01) ==
PROVIDERS: Physician Assistant; Emergency Provider Internal Medicine; PCP Pediatrics
DX: R42 Dizziness and giddiness (principal); Z20.822 Contact with and (suspected) exposure to COVID-19; I11.0 Hypertensive heart disease with heart failure; I50.9 Heart failure, unspecified; E11.9 Type 2 diabetes mellitus without complications; Z79.02 Long term (current) use of antithrombotics/antiplatelets; Z79.84 Long term (current) use of oral hypoglycemic drugs; Z79.899 Other long term (current) drug therapy
CPT/HCPCS: 36415; 70450; 70551; 71045; 80048; 80076; 81003; 83735; 83880; 84484; 85025; 85610; 85730; 87635; 93005; 96361; 96374; 96375; 99285; J1200; J2405

== ENCOUNTER 2021-07-16 09:47 | Emergency (ER) | payer OTHER, SELFPAY ==
--- NOTE | ~2021-07-16 | XR_ITS ---
EXAMINATION: SOFT TISSUE NECK AND CHEST. CLINICAL INFORMATION: Difficulty swallowing. COMPARISON: None TECHNIQUE: Chest 2 views. Soft tissue neck 2 views. FINDINGS: SOFT TISSUE NECK: There is mild straightening of cervical lordosis. The vertebral heights and alignment is normal. The disc heights are preserved. There is bilateral facet joint arthropathy C3-C4 through C7-T1 disc levels. No visible acute fracture, dislocation or subluxation seen. prevertebral, retropharyngeal soft tissues are normal. The airway is widely patent. CHEST: The lungs are somewhat expanded and clear. The heart size and pulmonary vascularity is normal. There are median sternotomy sutures from previous intervention. No gross bony abnormality seen. XR/XR soft tissue neck IMPRESSION: Degenerative facet joint arthropathy C3-C7 vertebral levels. No acute fracture. The airway is widely patent. No soft tissue mass seen. Unremarkable chest exam.
--- NOTE | ~2021-07-16 | XR_ITS ---
EXAMINATION: SOFT TISSUE NECK AND CHEST. CLINICAL INFORMATION: Difficulty swallowing. COMPARISON: None TECHNIQUE: Chest 2 views. Soft tissue neck 2 views. FINDINGS: SOFT TISSUE NECK: There is mild straightening of cervical lordosis. The vertebral heights and alignment is normal. The disc heights are preserved. There is bilateral facet joint arthropathy C3-C4 through C7-T1 disc levels. No visible acute fracture, dislocation or subluxation seen. prevertebral, retropharyngeal soft tissues are normal. The airway is widely patent. CHEST: The lungs are somewhat expanded and clear. The heart size and pulmonary vascularity is normal. There are median sternotomy sutures from previous intervention. No gross bony abnormality seen. XR/XR chest 2V IMPRESSION: Degenerative facet joint arthropathy C3-C7 vertebral levels. No acute fracture. The airway is widely patent. No soft tissue mass seen. Unremarkable chest exam.
[2021-07-16 10:45] VITALS: BP 131/40; PULSE 82; RESP 18; TEMP 37.1; O2SAT 98; BMI 28.1
[2021-07-16 11:14] LABS: IDNOW Serial# 08D9AD1C; Strep A Nucleic Acid Negative (Negative)
--- NOTE | 2021-07-16 12:47 | ED.URI ---
HPI - URI/Sore Throat General Chief Complaint: Upper Respiratory Symptoms Stated Complaint: DIFF BREATHING COUGH Time Seen by Provider: 07/16/21 12:45 Source: patient Mode of arrival: ambulatory Limitations: no limitations Related Data Home Medications Medication Instructions Recorded Confirmed acetaminophen 650 mg 2 tab PO BID PRN 03/03/21 03/03/21 tablet,extended release (Mapap Arthritis Pain) amlodipine 10 mg tablet 1 tab PO DAILY 03/03/21 atorvastatin 40 mg tablet 40 mg PO BEDTIME 03/03/21 03/03/21 docusate sodium 100 mg capsule 1 cap PO BID 03/03/21 03/03/21 (Stool Softener) furosemide 20 mg tablet 1 tab PO DAILY PRN 03/03/21 03/03/21 gabapentin 100 mg capsule 1 cap PO BID 03/03/21 03/03/21 isosorbide mononitrate 30 mg 1 tab PO QPM 03/03/21 03/03/21 tablet,extended release 24 hr losartan 100 mg tablet 1 tab PO DAILY 03/03/21 03/03/21 metformin 500 mg tablet 1 tab PO DAILY 03/03/21 03/03/21 metoprolol succinate 50 mg 1 tab PO DAILY 03/03/21 03/03/21 tablet,extended release 24 hr nitroglycerin 0.4 mg sublingual 1 tab SUBLINGUAL NEEDED PRN 03/03/21 03/03/21 tablet sertraline 25 mg tablet 1 tab PO DAILY 03/03/21 03/03/21 Previous Rx's Medication Instructions Recorded meclizine 25 mg chewable tablet 25 mg PO TID PRN #30 tab 03/03/21 Allergies Allergy/AdvReac Type Severity Reaction Status Date / Time Penicillins Allergy Severe RASH Verified 07/16/21 10:45 [facility] Past Medical History Medical History Congestive heart failure Diabetes Hypertension Surgical History H/O heart bypass surgery Social History Social History Alcohol intake: never Advance Directives: Yes Advance Directives Information Provided: Yes Advance Directives on File: No Physical Exam Vital Signs: Vital Signs: Last Vital Signs Temp 98.8 F 07/16/21 10:45 Pulse 82 07/16/21 10:45 Resp 18 07/16/21 10:45 BP 131/40 L 07/16/21 10:45 Pulse Ox 98 07/16/21 10:45 Body Mass Index 28.1 MDM - URI/Sore Throat Lab Data Labs: Lab Results 07/16/21 Range/Units 10:51 S. pyogenes GrpA CHACHA Negative (Negative) Discharge Plan Discharge Prescriptions: No Action atorvastatin 40 mg tablet 40 mg PO BEDTIME RF: 0 metformin 500 mg tablet 1 tab PO DAILY RF: 0 metoprolol succinate 50 mg tablet extended release 24 hr 1 tab PO DAILY RF: 0 isosorbide mononitrate 30 mg tablet extended release 24 hr 1 tab PO QPM RF: 0 acetaminophen [Mapap Arthritis Pain] 650 mg tablet extended release 2 tab PO BID PRN (Reason: pain) RF: 0 nitroglycerin 0.4 mg tablet, sublingual 1 tab sublingual NEEDED PRN (Reason: Angina) RF: 0 docusate sodium [Stool Softener] 100 mg capsule 1 cap PO BID RF: 0 sertraline 25 mg tablet 1 tab PO DAILY RF: 0 furosemide 20 mg tablet 1 tab PO DAILY PRN (Reason: Edema) RF: 0 gabapentin 100 mg capsule 1 cap PO BID RF: 0 losartan 100 mg tablet 1 tab PO DAILY RF: 0 amlodipine 10 mg tablet 1 tab PO DAILY RF: 0 meclizine 25 mg tablet,chewable 25 mg PO TID PRN (Reason: dizziness) Qty: 30 RF: 0
--- NOTE | 2021-07-16 13:31 | ED.URI ---
HPI - URI/Sore Throat General Chief Complaint: Upper Respiratory Symptoms Stated Complaint: DIFF BREATHING COUGH Time Seen by Provider: 07/16/21 12:45 Source: patient Mode of arrival: ambulatory History of Present Illness HPI Narrative: 75-year-old female with a past medical history of CHF, DM, gastric bypass, HTN, presenting to the ED complaining of bumps noted on tongue x awhile which she feels are spreading and causing difficulty/inability to swallow. Reports bumps are causing her to cough/choke. Reports she is unable to eat. Admits saw her PCP for similar instance who recommended her to see ENT which she has not seen. Reports mild SOB. Denies fever, chills, sore throat, painful swallowing, CP, COVID-19 exposure MD elicited complaint: cough Related Data Home Medications Medication Instructions Recorded Confirmed acetaminophen 650 mg 2 tab PO BID PRN 03/03/21 03/03/21 tablet,extended release (Mapap Arthritis Pain) amlodipine 10 mg tablet 1 tab PO DAILY 03/03/21 atorvastatin 40 mg tablet 40 mg PO BEDTIME 03/03/21 03/03/21 docusate sodium 100 mg capsule 1 cap PO BID 03/03/21 03/03/21 (Stool Softener) furosemide 20 mg tablet 1 tab PO DAILY PRN 03/03/21 03/03/21 gabapentin 100 mg capsule 1 cap PO BID 03/03/21 03/03/21 isosorbide mononitrate 30 mg 1 tab PO QPM 03/03/21 03/03/21 tablet,extended release 24 hr losartan 100 mg tablet 1 tab PO DAILY 03/03/21 03/03/21 metformin 500 mg tablet 1 tab PO DAILY 03/03/21 03/03/21 metoprolol succinate 50 mg 1 tab PO DAILY 03/03/21 03/03/21 tablet,extended release 24 hr nitroglycerin 0.4 mg sublingual 1 tab SUBLINGUAL NEEDED PRN 03/03/21 03/03/21 tablet sertraline 25 mg tablet 1 tab PO DAILY 03/03/21 03/03/21 Previous Rx's Medication Instructions Recorded meclizine 25 mg chewable tablet 25 mg PO TID PRN #30 tab 03/03/21 aluminum-mag hydroxide-simethicone 5 ml PO 5XD PRN #30 ml 10/07/21 200 mg-200 mg-20 mg/5 mL oral susp (Maalox Advanced) lidocaine HCl 2 % mucosal solution 1 appl MUCOUS MEMBRANE TID PRN 07/16/21 (Lidocaine Viscous) #100 ml Allergies Allergy/AdvReac Type Severity Reaction Status Date / Time Penicillins Allergy Severe RASH Verified 07/16/21 10:45 Review of Systems Review of Systems: Constitutional: No Fever, No Chills, No Fatigue, No Malaise ENT/Mouth: No Ear Pain, No Nasal Congestion, No Hoarseness, No sore throat, No Rhinorrhea, + Swallowing Difficulty Eyes: No Eye Pain, No Swelling Cardiovascular: No Chest Pain, + SOB, No Dyspnea on Exertion, No Orthopnea Respiratory: + Cough, No Dyspnea Gastrointestinal: No Nausea, No Vomiting, No Abdominal pain Musculoskeletal: No joint pain, No Myalgias Skin: No Skin Lesions, No rash Neuro: No Weakness, No Numbness, No Headache Yes all other systems are reviewed and are negative [facility] Past Medical History Attestation statement: The following information was validated with the patient. Medical History (Updated 07/16/21 @ 14:49 by CARLOTTA Anglin) Congestive heart failure Diabetes Hypertension Surgical History H/O heart bypass surgery Social History Social History Alcohol intake: never Patient Tobacco Use Status: Never used Tobacco Use of substances other than those prescribed or required for medical reasons: No Advance Directives: Yes Advance Directives Information Provided: Yes Advance Directives on File: No Physical Exam Vital Signs: Vital Signs: Last Vital Signs Temp 96.5 F L 07/16/21 14:47 Pulse 75 07/16/21 14:47 Resp 16 07/16/21 14:47 BP 136/63 07/16/21 14:47 Pulse Ox 97 07/16/21 14:47 Body Mass Index 28.1 Const: Other: + posterior tongue papillae. Bilateral tonsils without erythema/swelling or exudates. Talking in complete sentences, no respiratory distress, no drooling, no posterior oropharyngeal swelling General: cooperative, healthy appearing and no acute distress Orientation/consciousness: patient oriented x3 Limitations: no limitations HENMT: Head: Yes normal to inspection Ears: hearing grossly normal bilaterally General nose exam: Normal external nose present Face and sinus: Yes normal facial exam Mouth: Normal oral and palatal mucosa present, no drooling and no muffled voice Throat: Yes uvula midline, No peritonsillar mass, No uvula laterally displaced and No uvular edema Eyes: General: appearance normal, both eyes and all related structures EOM: EOMs intact bilaterally Neck: Neck: Yes normal visual inspection, Yes no lymphadenopathy, Yes no meningeal signs, Yes trachea midline, Yes supple and No anterior neck swelling Resp: Effort & Inspection: normal respiratory effort and no stridor Auscultation: clear to auscultation bilaterally and no wheezes Cardio: Rate: regular rate Heart sounds: S1 normal heart sound present and S2 normal heart sound present GI: Inspection: Yes normal to inspection Palpation (GI): Soft to palpation, nontender, no guarding and not rigid Skin: Rashes: no rashes Wounds: no wounds Neuro: General: patient oriented x3 and no meningeal signs Gait exam (Neuro): Normal gait present Extrem: General: Yes normal to inspection Course Course Course Narrative: XR chest 2V / XR soft tissue neck IMPRESSION: Degenerative facet joint arthropathy C3-C7 vertebral levels. No acute fracture. The airway is widely patent. No soft tissue mass seen. Unremarkable chest exam. > rapid strep negative. Will give viscous lidocaine, Maalox, Tessalon Perles, and p.o. challenge >>1532--patient tolerated p.o. pudding without nausea/vomiting or choking MDM - URI/Sore Throat [facility] Narrative Medical decision making narrative: 75-year-old female with a past medical history of CHF, DM, gastric bypass, HTN, presenting to the ED complaining of bumps noted on tongue x awhile which she feels are spreading and causing difficulty/inability to swallow. Reports bumps are causing her to cough/choke. On exam VSS, NAD, well appearing, posterior tongue a papilaer noted, no appreciable intraoral swelling, uvula midline, tonsils WNL, no anterior neck swelling, lungs CTA. Concern for viral syndrome vs ?Esophageal stricture or spasming vs ?Mass although lower on differential due to length of symptoms Plan: Rapid strep, neck soft tissue x-ray and CXR, p.o. challenge Medical Records Attestation: I reviewed the patient's medical records. Lab Data Attestation: I reviewed the patient's lab results. Labs: Lab Results 07/16/21 Range/Units 10:51 S. pyogenes GrpA CHACHA Negative (Negative) Discharge Plan Discharge Clinical Impression: Throat irritation Patient Disposition: Home, Self-Care Instructions: Pharyngitis (ED) Additional Instructions: Your x-rays were unremarkable your rapid strep was negative Viscous lidocaine will help numb the back your throat Maalox will help with acid reduction Is important for you to follow-up with ENT specialist. if your symptoms persist or worsen please return to the ED Prescriptions: New alum-mag hydroxide-simeth [Maalox Advanced] 200-200-20 mg/5 mL suspension 5 ml PO 5XD PRN (Reason: dyspepsia) Qty: 30 RF: 0 lidocaine HCl [Lidocaine Viscous] 2 % solution 1 appl mucous membrane TID PRN (Reason: pain) Qty: 100 RF: 0 No Action atorvastatin 40 mg tablet 40 mg PO BEDTIME RF: 0 metformin 500 mg tablet 1 tab PO DAILY RF: 0 metoprolol succinate 50 mg tablet extended release 24 hr 1 tab PO DAILY RF: 0 isosorbide mononitrate 30 mg tablet extended release 24 hr 1 tab PO QPM RF: 0 acetaminophen [Mapap Arthritis Pain] 650 mg tablet extended release 2 tab PO BID PRN (Reason: pain) RF: 0 nitroglycerin 0.4 mg tablet, sublingual 1 tab sublingual NEEDED PRN (Reason: Angina) RF: 0 docusate sodium [Stool Softener] 100 mg capsule 1 cap PO BID RF: 0 sertraline 25 mg tablet 1 tab PO DAILY RF: 0 furosemide 20 mg tablet 1 tab PO DAILY PRN (Reason: Edema) RF: 0 gabapentin 100 mg capsule 1 cap PO BID RF: 0 losartan 100 mg tablet 1 tab PO DAILY RF: 0 amlodipine 10 mg tablet 1 tab PO DAILY RF: 0 meclizine 25 mg tablet,chewable 25 mg PO TID PRN (Reason: dizziness) Qty: 30 RF: 0 Referrals: Fredrick Hays [Physician] - 2 days Taya Villalta MD [Physician] - 2 days
[2021-07-16] MEDS: Benzonatate 100 MG CAPSULE 200 MG PO (14:35)
[2021-07-16] MEDS: Lidocaine HCl Viscous 2 % 15 ML SOLUTION MUCOUS MEM (14:37)
[2021-07-16] MEDS: Magnesium Hydrox/Alum Hydrox 30 ML ORAL.SUSP PO (14:37)
[2021-07-16 14:47] VITALS: BP 136/63; PULSE 75; RESP 16; TEMP 35.8; O2SAT 97
== END 2021-07-16 15:54 | disposition home or self-care (01) ==
PROVIDERS: Emergency Provider Emergency Medicine; PCP Pediatrics
DX: J02.9 Acute pharyngitis, unspecified (principal); E11.9 Type 2 diabetes mellitus without complications; I11.0 Hypertensive heart disease with heart failure; I50.9 Heart failure, unspecified; Z79.84 Long term (current) use of oral hypoglycemic drugs; Z79.899 Other long term (current) drug therapy; Z98.84 Bariatric surgery status
CPT/HCPCS: 36415; 70360; 71046; 87651; 99283; 99284

== ENCOUNTER 2022-01-27 07:59 | Emergency (ER) | payer OTHER, SELFPAY ==
--- NOTE | ~2022-01-27 | XR_ITS ---
EXAMINATION: XR HIP, LEFT CLINICAL INFORMATION: Left hip pain. COMPARISON: None TECHNIQUE: Two views of the left hip. FINDINGS: Mild left hip degenerative joint changes are seen. There is no acute fracture or dislocation. The left hemipelvis is intact. The soft tissues are unremarkable. XR/XR hip LT w PEL1V IMPRESSION: Mild left hip degenerative joint changes suggesting osteoarthritis. No acute fracture.
[2022-01-27 08:06] VITALS: BP 161/56; BP 168/68; PULSE 70; PULSE 72; RESP 16; TEMP 36.8; O2SAT 98; O2SAT 99; BMI 28.3
--- NOTE | 2022-01-27 08:15 | ED_ITS ---
HPI - General Adult General Chief complaint: Extremity Problem <CARLOTTA Evans Last Filed: 01/27/22 10:55> Stated complaint: hip pain <CARLOTTA Evans - Last Filed: 01/27/22 10:55> Time Seen by Provider: 01/27/22 08:15 <CARLOTTA Evans Last Filed: 01/27/22 10:55> Source: patient <CARLOTTA Evans Last Filed: 01/27/22 10:55> Mode of arrival: ambulatory <CARLOTTA Evans Last Filed: 01/27/22 10:55> Limitations: no limitations <CARLOTTA Evans Last Filed: 01/27/22 10:55> History of Present Illness HPI narrative: Patient is a 76 year old female presenting to the emergency department today with left hip pain. Patient states that the pain woke her out of her sleep and starts in her left low back, radiates through her left hip, down to her left leg. Patient rates the pain at a 5/10 and describes it as dull. Patient denies any dizziness, lightheadedness, abdominal pain, nausea, vomiting, fever, chills, blurry vision, double vision, loss of vision, chest pain, difficulty breathing, shortness of breath, night sweats, pain with urination, increased urinary frequency, increased urinary urgency, blood in her urine or stool, syncope or a near syncopal episode, recent trauma or falls, bowel incontinence, bladder incontinence, bowel retention, bladder retention, or any other complaints at this time. <CARLOTTA Evans - Last Filed: 01/27/22 10:55> Onset (ago): hour(s) <CARLOTTA Evans - Last Filed: 01/27/22 10:55> Location: back, left and lower extremity <CARLOTTA Evans Last Filed: 01/27/22 10:55> Radiation: extremity <CARLOTTA Evans Last Filed: 01/27/22 10:55> Severity: mild <CARLOTTA Evans Last Filed: 01/27/22 10:55> Severity scale (1-10): 5 <CARLOTTA Evans Last Filed: 01/27/22 10:55> Quality: dull <CARLOTTA Evans - Last Filed: 01/27/22 10:55> Pain Consistency: intermittent <CARLOTTA Evans Last Filed: 01/27/22 10:55> Relieving factors: none <CARLOTTA Evans Last Filed: 01/27/22 10:55> Exacerbating factors: none <CARLOTTA Evans Last Filed: 01/27/22 10:55> Associated symptoms: denies other symptoms <CARLOTTA Evans Last Filed: 01/27/22 10:55> Treatments prior to arrival: none <CARLOTTA Evans Last Filed: 01/27/22 10:55> Related Data Home medications: Home Medications Medication Instructions Recorded Confirmed acetaminophen 650 mg 2 tab PO BID PRN 03/03/21 03/03/21 tablet,extended release (Mapap Arthritis Pain) amlodipine 10 mg tablet 1 tab PO DAILY 03/03/21 atorvastatin 40 mg tablet 40 mg PO BEDTIME 03/03/21 03/03/21 docusate sodium 100 mg capsule 1 cap PO BID 03/03/21 03/03/21 (Stool Softener) furosemide 20 mg tablet 1 tab PO DAILY PRN 03/03/21 03/03/21 gabapentin 100 mg capsule 1 cap PO BID 03/03/21 03/03/21 isosorbide mononitrate 30 mg 1 tab PO QPM 03/03/21 03/03/21 tablet,extended release 24 hr losartan 100 mg tablet 1 tab PO DAILY 03/03/21 03/03/21 metformin 500 mg tablet 1 tab PO DAILY 03/03/21 03/03/21 metoprolol succinate 50 mg 1 tab PO DAILY 03/03/21 03/03/21 tablet,extended release 24 hr nitroglycerin 0.4 mg sublingual 1 tab SUBLINGUAL NEEDED PRN 03/03/21 03/03/21 tablet sertraline 25 mg tablet 1 tab PO DAILY 03/03/21 03/03/21 Previous Rx's Medication Instructions Recorded meclizine 25 mg chewable tablet 25 mg PO TID PRN #30 tab 03/03/21 aluminum-mag hydroxide-simethicone 5 ml PO 5XD PRN #30 ml 07/16/21 200 mg-200 mg-20 mg/5 mL oral susp (Maalox Advanced) lidocaine HCl 2 % mucosal solution 1 appl MUCOUS MEMBRANE TID PRN 07/16/21 (Lidocaine Viscous) #100 ml <CARLOTTA Evans Last Filed: 01/27/22 10:55> Allergies/adverse reactions: Allergies Allergy/AdvReac Type Severity Reaction Status Date / Time Penicillins Allergy Severe RASH Verified 07/16/21 10:45 <CARLOTTA Evans Last Filed: 01/27/22 10:55> Review of Systems Constitutional: Constitutional: Reports no additional constitutional complaints, Denies chills, Denies fever(s) and Denies night sweats <CARLOTTA Evans Last Filed: 01/27/22 10:55> Eyes: Eyes: Reports no additional eye complaints, Denies blurry vision, Denies change in vision, Denies diplopia, Denies eye discharge, Denies loss of vision and Denies eye pain <CARLOTTA Evans Last Filed: 01/27/22 10:55> ENT: Denies dizziness <CARLOTTA Evans Last Filed: 01/27/22 10:55> Cardiovascular: Cardiovascular: Reports no additional cardiovascular complaints, Denies chest pain, Denies lightheadedness, Denies Loss of Consciousness and Denies dyspnea <CARLOTTA Evans Last Filed: 01/27/22 10:55> Respiratory: Respiratory: Reports no additional respiratory complaints and Denies dyspnea <CARLOTTA Evans Last Filed: 01/27/22 10:55> Gastrointestinal: Gastrointestinal: Reports no additional gastrointestinal complaints, Denies abdominal pain, Denies melena, Denies hematochezia, Denies change in bowel habits and Denies change in stool character <CARLOTTA Evans Last Filed: 01/27/22 10:55> Genitourinary: Genitourinary: Denies hematuria, Denies urinary frequency, Denies dysuria, Denies urinary incontinence, Denies urinary hesitancy and Denies urinary urgency <CARLOTTA Evans Last Filed: 01/27/22 10:55> Musculoskeletal: Musculoskeletal: Reports no additional musculoskeletal complaints, Reports back pain, Denies numbness and Denies tingling <ACRLOTTA Evans Last Filed: 01/27/22 10:55> Comments: left hip pain <CARLOTTA Evans - Last Filed: 01/27/22 10:55> Neurologic: Denies dizziness, Denies loss of vision, Denies numbness and Denies tingling <CARLOTTA Evans - Last Filed: 01/27/22 10:55> Psychiatric: Psychiatric: Reports no additional psychiatric complaints <CARLOTTA Evans - Last Filed: 01/27/22 10:55> Endocrine: Endocrine: Reports no additional endocrine complaints <CARLOTTA Evans - Last Filed: 01/27/22 10:55> Hematologic/Lymphatic: Hematologic/Lymphatic: Reports no additional hematologic/lymphatic complaints <CARLOTTA Evans - Last Filed: 01/27/22 10:55> Allergic/Immunologic: Allergic/Immunologic: Reports no additional allergic/immunologic complaints <CARLOTTA Evans - Last Filed: 01/27/22 10:55> PMFSH Past Medical History Attestation statement: The following information was validated with the patient. <CARLOTTA Evans - Last Filed: 01/27/22 10:55> Source: old records reviewed <CARLOTTA Evans - Last Filed: 01/27/22 10:55> Medical History: Medical History Congestive heart failure Diabetes Hypertension <CARLOTTA Evans - Last Filed: 01/27/22 10:55> Surgical History: Surgical History H/O heart bypass surgery <CARLOTTA Evans - Last Filed: 01/27/22 10:55> Social History Social History: Social History Alcohol intake: never Patient Tobacco Use Status: Never used Tobacco Use of substances other than those prescribed or required for medical reasons: No Advance Directives: No Advance Directives Information Provided: No <CARLTOTA Evans - Last Filed: 01/27/22 10:55> Physical Exam ED Vital Signs: Vital Signs - 24 hr 01/27/22 08:06 01/27/22 09:20 01/27/22 10:39 Temperature 98.2 F 97.7 F 97.9 F Pulse Rate 72 63 60 Respiratory Rate 16 17 16 Blood Pressure 161/56 H 159/67 H 137/60 Pulse Oximetry 98 95 96 BMI result Body Mass Index 28.3 <CARLOTTA Evans - Last Filed: 01/27/22 10:55> Medical Decision Making MDM Narrative Medical decision making narrative: Patient is a 76 year old female presenting to the emergency department today with left hip pain. Patient's physical exam was unremarkable. Patient's blood work was unremarkable. Patient's left hip and pelvis x-ray showed no acute process but did show osteoarthritis. I explained my physical exam findings as well as all test results to the patient. I answered all questions asked by the patient. Patient received PO Flexeril and IM Toradol which she stated helped her symptoms significantly. I stressed the importance of the patient taking her medication as prescribed. I stressed the importance of the patient following up with her primary care provider and with an orthopedic provider. I stressed the importance of the patient returning to the emergency department immediately if her symptoms were to worsen or if she were to develop any dizziness, shortness of breath, difficulty breathing, chest pain, blurry vision, loss of vision, nausea, vomiting, abdominal pain, fever, chills, back pain, or any other complaints. Patient verbalized agreement and understanding with this treatment plan and discharge. <CARLOTTA Evans - Last Filed: 01/27/22 10:55> Differential Diagnosis Differential Diagnosis: osteoarthritis, left hip pain <CARLOTTA Evans - Last Filed: 01/27/22 10:55> Medical Records Medical records reviewed: Yes I reviewed the patient's medical records. <CARLOTTA Evans - Last Filed: 01/27/22 10:55> Lab Data Lab results reviewed: Yes I reviewed the patient's lab results. <CARLOTTA Evans - Last Filed: 01/27/22 10:55> Result diagrams: : 01/27/22 09:16 01/27/22 09:16 <CARLOTTA Evans - Last Filed: 01/27/22 10:55> Labs: Lab Results 01/27/22 01/27/22 01/27/22 Range/Units 09:16 09:16 09:16 WBC 7.1 (4.8-10.8) X10*3/uL RBC 4.32 (4.20-5.50) X10*6/uL Hgb 12.2 (12.0-16.0) g/dl Hct 38.3 (37.0-47.0) % MCV 88.7 (80.0-98.0) fL MCH 28.2 (27.0-33.0) pg MCHC 31.9 (31.0-35.0) g/dl RDW 13.9 (11.0-16.0) % Plt Count 242 (160-400) X10*3/uL MPV 10.5 (9.4-12.3) fL Immature Gran % (Auto) 0.6 H (0.0-0.4) % Neut % (Auto) 55.7 (45-73) % Lymph % (Auto) 29.0 (20-40) % [place] % (Auto) 12.2 H (2-11) % Eos % (Auto) 1.8 (0-4) % Baso % (Auto) 0.7 (0-2) % Lymph # (Auto) 2.1 (1.2-4.9) X10*3/uL [place] # (Auto) 0.9 (0.1-1.2) X10*3/uL Eos # (Auto) 0.1 (0.0-0.4) X10*3/uL Baso # (Auto) 0.1 (0.0-0.2) X10*3/uL Abs Immat Gran (auto) 0.04 H (0.00-0.03) X10*3/uL Absolute Neuts (auto) 4.0 (2.0-8.3) x10*3/uL Absolute Nucleated RBC 0.000 (0.0-0.012) X10*3/uL Nucleated RBC % (auto) 0.0 (0.0-0.2) /100WBC Sodium 139 (135-145) mmol/L Potassium 5.4 H (3.3-5.1) mmol/L Chloride 107 (96-108) mmol/L Carbon Dioxide 25 (22-29) mmol/L Anion Gap 12 (12-20) BUN 21 H (9-16) mg/dL Creatinine 1.11 (0.5-1.4) mg/dL Estim Creat Clear Calc 41.1 Estimated GFR 48 Random Glucose 118 H (60-115) mg/dL Calcium 9.6 (8.4-10.2) mg/dL Total Bilirubin 0.3 (0.0-1.0) mg/dL AST 19 (5-31) U/L ALT 22 (0-31) U/L Alkaline Phosphatase 106 (39-117) U/L Total Protein 7.6 (6.5-8.0) g/dL Albumin 4.0 (3.5-5.0) g/dL Urine Color STRAW Urine Appearance CLEAR Urine pH 7.0 (5.0-8.0) Ur Specific [place] 1.010 (1.005-1.025) Urine Protein NEG (NEG-TRACE) MG/DL Urine Glucose (UA) NEG (NEG) MG/DL Urine Ketones NEG (NEG) MG/DL Urine Blood NEG (NEG) Urine Nitrite NEG (NEG) Ur Leukocyte Esterase 1+ H (NEG) Urine RBC 0 (0) /HPF Urine WBC 1-4 (0-4) /HPF Ur Squamous Epith Cells 1+ /LPF Ur Renal Epithelial Cell 1+ /LPF Urine Bacteria NONE /LPF <CARLOTTA Evans - Last Filed: 01/27/22 10:55> Imaging Data Left hip and pelvis x-ray: Attestation: I personally reviewed and interpreted this imaging study as follows: <CARLOTTA Evans - Last Filed: 01/27/22 10:55> My impression: No acute fracture. <CARLOTTA Evans - Last Filed: 01/27/22 10:55> Radiologist's impression: EXAMINATION: XR HIP, LEFT CLINICAL INFORMATION: Left hip pain. COMPARISON: None TECHNIQUE: Two views of the left hip. FINDINGS: Mild left hip degenerative joint changes are seen. There is no acute fracture or dislocation. The left hemipelvis is intact. The soft tissues are unremarkable. XR/XR hip LT w PEL1V IMPRESSION: Mild left hip degenerative joint changes suggesting osteoarthritis. No acute fracture. ? Dictated By: Mateo Avitia MD Signed By: Electronically signed by Mateo Avitia MD 01/27/22 0910 <CARLOTTA Evans - Last Filed: 01/27/22 10:55> Discharge Plan Discharge Clinical Impression: Osteoarthritis <CARLOTTA Evans - Last Filed: 01/27/22 10:55> Patient Disposition: Home, Self-Care <CARLOTTA Evans - Last Filed: 01/27/22 10:55> Instructions: Osteoarthritis (DC) <CARLOTTA Evans - Last Filed: 01/27/22 10:55> Additional Instructions: Call to schedule a follow up appointment with an Orthopedic provider. Follow up with your primary care provider. Return to the emergency department immediately if your symptoms worsen or if you develop any dizziness, shortness of breath, difficulty breathing, chest pain, blurry vision, loss of vision, nausea, vomiting, abdominal pain, fever, chills, back pain, or any other complaints. <CARLOTTA Evans - Last Filed: 01/27/22 10:55> Prescriptions: No Action atorvastatin 40 mg tablet 40 mg PO BEDTIME 0RF metformin 500 mg tablet 1 tab PO DAILY 0RF metoprolol succinate 50 mg tablet extended release 24 hr 1 tab PO DAILY 0RF isosorbide mononitrate 30 mg tablet extended release 24 hr 1 tab PO QPM 0RF acetaminophen [Mapap Arthritis Pain] 650 mg tablet extended release 2 tab PO BID PRN (Reason: pain) 0RF nitroglycerin 0.4 mg tablet, sublingual 1 tab sublingual NEEDED PRN (Reason: Angina) 0RF docusate sodium [Stool Softener] 100 mg capsule 1 cap PO BID 0RF sertraline 25 mg tablet 1 tab PO DAILY 0RF furosemide 20 mg tablet 1 tab PO DAILY PRN (Reason: Edema) 0RF gabapentin 100 mg capsule 1 cap PO BID 0RF losartan 100 mg tablet 1 tab PO DAILY 0RF amlodipine 10 mg tablet 1 tab PO DAILY 0RF meclizine 25 mg tablet,chewable 25 mg PO TID PRN (Reason: dizziness) Qty: 30 0RF alum-mag hydroxide-simeth [Maalox Advanced] 200-200-20 mg/5 mL suspension 5 ml PO 5XD PRN (Reason: dyspepsia) Qty: 30 0RF Rx Instructions: administer between meals and at bedtime lidocaine HCl [Lidocaine Viscous] 2 % solution 1 appl mucous membrane TID PRN (Reason: pain) Qty: 100 0RF <CARLOTTA Evans - Last Filed: 01/27/22 10:55> Referrals: [facility] [place] [facility] [Provider Group] (Follow up with an orthopedic provider. ) Physician,Unknown J [Primary Care Provider] - (Follow up with your PCP. ) <CARLOTTA Evans - Last Filed: 01/27/22 10:55> Interventions: ED Discharge Assessment Last Done: 01/27/22 11:30 <CARLOTTA Evans - Last Filed: 01/27/22 10:55> Discharge Date/Time: 01/27/22 11:31 <CARLOTTA Evans - Last Filed: 01/27/22 10:55> Print Language: Frisian <CARLOTTA Evans - Last Filed: 01/27/22 10:55>
[2022-01-27] MEDS: Ketorolac Tromethamine 30 MG/ML VIAL IM (08:46)
[2022-01-27] MEDS: Cyclobenzaprine HCl 5 MG TABLET PO (08:46)
[2022-01-27 09:20] VITALS: BP 159/67; PULSE 63; RESP 17; TEMP 36.5; O2SAT 95
[2022-01-27 09:32] LABS: MANUAL DIFF FLAG NO
[2022-01-27 09:36] LABS: Appearance Urine CLEAR; Color Urine STRAW; Glucose Urine UA NEG (NEG); Leukocyte Esterase Urine 1+ (NEG); Nitrite Urine NEG (NEG); UACC Culture Trigger YES; Urine Blood NEG (NEG); Urine Ketones NEG (NEG); Urine Protein NEG (NEG-TRACE)
[2022-01-27 09:39] LABS: Basophils Absolute Auto 0.1 X10*3/uL (0.0-0.2); Basophils Percent Auto 0.7 % (0-2); Eosinophils Absolute Auto 0.1 X10*3/uL (0.0-0.4); Eosinophils Percent Auto 1.8 % (0-4); Hematocrit 38.3 % (37.0-47.0); Hemoglobin 12.2 g/dl (12.0-16.0); Imm Gran Abs Auto 0.04 X10*3/uL (0.00-0.03); Imm Gran Pct Auto 0.6 % (0.0-0.4); Lymphocytes Absolute Auto 2.1 X10*3/uL (1.2-4.9); Mean Corpuscular HGB Conc 31.9 g/dl (31.0-35.0); Mean Corpuscular Hemoglobin 28.2 pg (27.0-33.0); Mean Corpuscular Volume 88.7 fL (80.0-98.0); Mean Platelet Volume 10.5 fL (9.4-12.3); Monocytes Absolute Auto 0.9 X10*3/uL (0.1-1.2); Monocytes Percent Auto 12.2 % (2-11); Neutrophils Percent Auto 55.7 % (45-73); Platelet Count 242 X10*3/uL (160-400); Red Blood Count 4.32 X10*6/uL (4.20-5.50); Red Cell Distribution Width 13.9 % (11.0-16.0); White Blood Count 7.1 X10*3/uL (4.8-10.8)
[2022-01-27 09:57] LABS: Alanine Aminotransferase 22 U/L (0-31); Alkaline Phosphatase 106 U/L (39-117); Anion Gap 12 (12-20); Aspartate Amino Transferase 19 U/L (5-31); Bilirubin Total 0.3 mg/dL (0.0-1.0); Blood Urea Nitrogen 21 mg/dL (9-16); Calcium 9.6 mg/dL (8.4-10.2); Carbon Dioxide 25 mmol/L (22-29); Chloride 107 mmol/L (96-108); Creatinine Clr Calc Pharmacy 41.1; Estimated Glomerular Filt Rate 48; Glucose Random 118 mg/dL (60-115); Potassium 5.4 mmol/L (3.3-5.1); Sodium 139 mmol/L (135-145); Total Protein 7.6 g/dL (6.5-8.0)
[2022-01-27 10:09] LABS: RBC Urine 0 /HPF (0)
[2022-01-27 10:10] LABS: Renal Epithelial Cells Urine 1+ /LPF; Squamous Epithelial Cell Urine 1+ /LPF
[2022-01-27 10:39] VITALS: BP 137/60; PULSE 60; RESP 16; TEMP 36.6; O2SAT 96
== END 2022-01-27 11:31 | disposition home or self-care (01) ==
PROVIDERS: Physician Assistant Medical; Emergency Provider Emergency Medicine
DX: M16.12 Unilateral primary osteoarthritis, left hip (principal); I11.0 Hypertensive heart disease with heart failure; I50.9 Heart failure, unspecified; E11.9 Type 2 diabetes mellitus without complications
CPT/HCPCS: 36415; 73502; 80053; 81001; 85025; 87086; 96372; 99284; J1885

== ENCOUNTER 2022-10-23 17:15 | Emergency (ER) | payer OTHER, SELFPAY ==
--- NOTE | ~2022-10-23 | XR_ITS ---
EXAMINATION: XR CHEST CLINICAL INFORMATION: Chest pain COMPARISON: Chest x-ray 07/16/2021 TECHNIQUE: Frontal view of the chest was obtained. FINDINGS: The lungs appear clear. No airspace consolidation. No pleural effusion or pneumothorax. Heart size at the upper limits normal. Status post median sternotomy with intact sternal wires. Normal pulmonary vascularity. No evidence of pulmonary edema. No acute osseous injury identified. XR/XR chest 1V IMPRESSION: No acute pulmonary process.
[2022-10-23 17:23] VITALS: BP 142/58; BP 164/97; PULSE 75; PULSE 76; RESP 18; TEMP 36.7; O2SAT 100; O2SAT 96
--- NOTE | 2022-10-23 17:29 | ECG_ITS ---
Test Reason : cx pain Blood Pressure : / mmHG Vent. Rate : 070 BPM Atrial Rate : 070 BPM P-R Int : 164 ms QRS Dur : 066 ms QT Int : 384 ms P-R-T Axes : 043 -03 117 degrees QTc Int : 414 ms Normal sinus rhythm Minimal voltage criteria for LVH, may be normal variant ( R in aVL ) T wave abnormality, consider lateral ischemia Abnormal ECG When compared to the previous EKG of No significant changes seen Referred By: Brielle Oscar Electronically Signed By:Kahlil Grider
--- NOTE | 2022-10-23 17:31 | ED_ITS ---
HPI - Chest Pain General Chief Complaint: Chest Pain Stated Complaint: SOB, chest pain, pain in arm/back per EMS Time Seen by Provider: 10/23/22 17:17 Source: patient and EMS Mode of arrival: EMS Limitations: no limitations History of Present Illness HPI narrative: Patient comes to the emergency room complaining of chest pain that starts under the left breast and radiates towards the back. Patient states that earlier today, she was asymptomatic, patient was sitting in the toilet, accidentally dropped the toilet paper, patient chased the rolling toilet paper, when she got to it and bend over and stood up, patient had a sharp stabbing pain to the left side of the chest. Patient states the pain has been constant since then, approximately has been hurting an hour now. 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 Prior to EMS arrival, patient took her morning dose of baby aspirin and sublingual nitroglycerin. The patient said something about shortness of breath to EMS, but when I asked the patient, she denies shortness of breath Related Data Home Medications Medication Instructions Recorded Confirmed acetaminophen 650 mg 2 tab PO BID PRN pain 03/03/21 03/03/21 tablet,extended release (Mapap Arthritis Pain) amlodipine 10 mg tablet 1 tab PO DAILY 03/03/21 atorvastatin 40 mg tablet 40 mg PO BEDTIME 03/03/21 03/03/21 docusate sodium 100 mg capsule 1 cap PO BID 03/03/21 03/03/21 (Stool Softener) furosemide 20 mg tablet 1 tab PO DAILY PRN Edema 03/03/21 03/03/21 gabapentin 100 mg capsule 1 cap PO BID 03/03/21 03/03/21 isosorbide mononitrate 30 mg 1 tab PO QPM 03/03/21 03/03/21 tablet,extended release 24 hr losartan 100 mg tablet 1 tab PO DAILY 03/03/21 03/03/21 metformin 500 mg tablet 1 tab PO DAILY 03/03/21 03/03/21 metoprolol succinate 50 mg 1 tab PO DAILY 03/03/21 03/03/21 tablet,extended release 24 hr nitroglycerin 0.4 mg sublingual 1 tab sublingual NEEDED PRN 03/03/21 03/03/21 tablet Angina sertraline 25 mg tablet 1 tab PO DAILY 03/03/21 03/03/21 Previous Rx's Medication Instructions Recorded meclizine 25 mg chewable tablet 25 mg PO TID PRN dizziness #30 tabs 03/03/21 aluminum-mag hydroxide-simethicone 5 ml PO 5XD PRN dyspepsia #30 mL 07/16/21 200 mg-200 mg-20 mg/5 mL oral susp (Maalox Advanced) lidocaine HCl 2 % mucosal solution 1 appl mucous membrane TID PRN 07/16/21 (Lidocaine Viscous) pain #100 mL Allergies Allergy/AdvReac Type Severity Reaction Status Date / Time Penicillins Allergy Severe RASH Verified 10/23/22 17:22 Review of Systems Review of Systems: Constitutional : No Weight loss, No Fever, No Chills, No Night Sweats, No Fatigue, No Malaise ENT/Mouth : No Hearing loss, No Ear Pain, No Nasal Congestion, No Sinus Pain, No Hoarseness, No sore throat, No Rhinorrhea, No Swallowing Difficulty Eyes: No Eye Pain, No Swelling, No Redness, No Foreign Body, No Discharge, No Vision Changes Cardiovascular : Complaining of sharp left-sided chest pain radiating towards the neck, pain aggravated by upper torso movement, No SOB, No Dyspnea on Exertion, No Orthopnea, No Edema, No Palpitations Respiratory : No Cough, No Sputum, No Wheezing, No Smoke Exposure, No Dyspnea Gastrointestinal : No Nausea, No Vomiting, No Diarrhea, No Constipation, No abdominal Pain, No Hematochezia, No Melena Genitourinary : no irregular bleeding, No Dysuria, No Urinary Frequency, No Hematuria, No Urinary Incontinence, No Urgency, No Flank Pain, No Urinary Flow Changes, No Hesitancy Musculoskeletal : No joint pain, No Myalgias, No Joint Swelling Skin : No Skin Lesions, No rash Neuro : No Weakness, No Numbness, No Paresthesias, No Loss of Consciousness, No Dizziness, No Headache Psych : No Anxiety/Panic, No Depression, No SI/HI/AH/VH, No Social Issues, Heme/Lymph: No Bruising, No Bleeding,No Lymphadenopathy Endocrine : No Polyuria, No Polydipsia, No Temperature Intolerance [facility] Past Medical History Medical History Congestive heart failure Diabetes Hypertension Surgical History H/O heart bypass surgery Social History Social History Alcohol intake: never Patient Tobacco Use Status: Never used Tobacco Smoked in Last 30 Days: No Use of substances other than those prescribed or required for medical reasons: No Advance Directives: No Physical Exam Vital Signs: Vital Signs: Last Vital Signs Temp 98.1 F 10/23/22 18:47 Pulse 70 10/23/22 20:18 Resp 18 10/23/22 20:18 BP 124/57 L 10/23/22 20:18 Pulse Ox 97 10/23/22 20:18 O2 Del Method 10/23/22 20:18 BMI result Body Mass Index 30.0 Const: Other: Appearance: Alert. Oriented X3. No acute distress, laying on her right side because she has pain to touch on the left side Eyes: Pupils equal, round and reactive to light. ENT: Pharynx normal. Neck: Normal inspection. Neck supple. No lymph nodes noted. No crepitus CVS: Normal heart rate and rhythm. Pulses normal. Normal S1 and S2, reproducible chest pain to palpation on the left side of the chest Respiratory: No respiratory distress. Breath sounds normal. No Wheezing. No rales Abdomen: Soft and nontender. No rigidity. No distention. Skin: Skin warm and dry. Normal skin color. Normal skin turgor. Extremities: No lower extremity edema. No Lacerations. No Rash Neuro: Oriented X 3. No motor deficit. No sensory deficit. Moving all extremities. No slurred speech. CN 2 through 12 grossly intact Psych: calm, cooperative, very anxious Course Course Course Narrative: -patient received here in the hospital full-dose aspirin, patient took nitroglycerin before EMS arrived patient's residence -patient has reproducible chest pain, significant anxiety, but she does have sig nificant cardiac history. -labs pending, EKG being done at this time. Discussed with the patient that she will be staying for several hours, we will get a 2nd set of troponin -troponin x2 negative, EKG shows no acute findings Medications Administered Discontinued Medications Generic Name Dose Route Start Last Admin Trade Name Freq PRN Reason Stop Dose Admin Aspirin 325 mg 10/23/22 17:33 10/23/22 17:51 Aspirin Enteric Coated 325 Mg Tablet. PO 10/23/22 17:34 325 mg ONCE ONE Administration Tramadol HCl 50 mg 10/23/22 20:28 10/23/22 21:00 Tramadol Hcl 50 Mg Tablet PO 10/23/22 20:29 50 mg ONCE ONE Administration Medical Decision Making Medical Decision Making [facility] Narrative: D-dimer negative, troponin x2 negative, EKG within normal limits, chest x-ray negative, physical exam consistent with musculoskeletal pain -patient feeling better, ready for discharge Differential Diagnosis Differential Diagnoses: The differential diagnosis associated with the presentation includes (ACS, costochondritis, musculoskeletal pain) Lab Data [facility] Lab Attestation statement: I reviewed the patient's lab results. 10/23/22 18:22 10/23/22 18:22 Labs: Lab Results 10/23/22 10/23/22 10/23/22 Range/Units 18:22 18:22 18:22 WBC 9.1 (4.8-10.8) X10*3/uL RBC 4.69 (4.20-5.50) X10*6/uL Hgb 12.8 (12.0-16.0) g/dl Hct 40.0 (37.0-47.0) % MCV 85.3 (80.0-98.0) fL MCH 27.3 (27.0-33.0) pg MCHC 32.0 (31.0-35.0) g/dl RDW 14.5 (11.0-16.0) % Plt Count 327 D (160-400) X10*3/uL MPV 11.2 (9.4-12.3) fL Immature Gran % (Auto) 0.4 (0.0-0.4) % Neut % (Auto) 51.6 (45-73) % Lymph % (Auto) 34.4 (20-40) % [place] % (Auto) 11.3 H (2-11) % Eos % (Auto) 1.8 (0-4) % Baso % (Auto) 0.5 (0-2) % Lymph # (Auto) 3.1 (1.2-4.9) X10*3/uL [place] # (Auto) 1.0 (0.1-1.2) X10*3/uL Eos # (Auto) 0.2 (0.0-0.4) X10*3/uL Baso # (Auto) 0.1 (0.0-0.2) X10*3/uL Abs Immat Gran (auto) 0.04 H (0.00-0.03) X10*3/uL Absolute Neuts (auto) 4.7 (2.0-8.3) x10*3/uL Absolute Nucleated RBC 0.000 (0.0-0.012) X10*3/uL Nucleated RBC % (auto) 0.0 (0.0-0.2) /100WBC PT (10.0-13.1) SEC INR (0.9-1.1) D-Dimer High Sensitivty NG/ML Sodium 140 (135-145) mmol/L Potassium 4.4 (3.3-5.1) mmol/L Chloride 105 (96-108) mmol/L Carbon Dioxide 25 (22-29) mmol/L Anion Gap 14 (12-20) BUN 21 H (9-16) mg/dL Creatinine 1.20 (0.5-1.4) mg/dL Estim Creat Clear Calc 40.0 Estimated GFR 44 Random Glucose 91 (60-115) mg/dL Calcium 10.2 D (8.4-10.2) mg/dL Magnesium 2.0 (1.6-2.6) mg/dL Total Bilirubin 0.4 (0.0-1.0) mg/dL Direct Bilirubin 0.2 (0.0-0.5) mg/dL AST 19 (5-31) U/L ALT 25 (0-31) U/L Alkaline Phosphatase 145 H (39-117) U/L Total Creatine Kinase 67 (26-140) U/L Troponin I High Sens < 3.5 (<3.5-17.0) ng/L B-Natriuretic Peptide (<100) pg/mL Total Protein 8.5 H (6.5-8.0) g/dL Albumin 4.4 (3.5-5.0) g/dL COVID-19 (DELMY) (Negative) COVID-19 Clin Com 10/23/22 10/23/22 10/23/22 Range/Units 18:22 18:22 18:22 WBC (4.8-10.8) X10*3/uL RBC (4.20-5.50) X10*6/uL Hgb (12.0-16.0) g/dl Hct (37.0-47.0) % MCV (80.0-98.0) fL MCH (27.0-33.0) pg MCHC (31.0-35.0) g/dl RDW (11.0-16.0) % Plt Count (160-400) X10*3/uL MPV (9.4-12.3) fL Immature Gran % (Auto) (0.0-0.4) % Neut % (Auto) (45-73) % Lymph % (Auto) (20-40) % [place] % (Auto) (2-11) % Eos % (Auto) (0-4) % Baso % (Auto) (0-2) % Lymph # (Auto) (1.2-4.9) X10*3/uL [place] # (Auto) (0.1-1.2) X10*3/uL Eos # (Auto) (0.0-0.4) X10*3/uL Baso # (Auto) (0.0-0.2) X10*3/uL Abs Immat Gran (auto) (0.00-0.03) X10*3/uL Absolute Neuts (auto) (2.0-8.3) x10*3/uL Absolute Nucleated RBC (0.0-0.012) X10*3/uL Nucleated RBC % (auto) (0.0-0.2) /100WBC PT 10.5 (10.0-13.1) SEC INR 0.9 (0.9-1.1) D-Dimer High Sensitivty 151 NG/ML Sodium (135-145) mmol/L Potassium (3.3-5.1) mmol/L Chloride (96-108) mmol/L Carbon Dioxide (22-29) mmol/L Anion Gap (12-20) BUN (9-16) mg/dL Creatinine (0.5-1.4) mg/dL Estim Creat Clear Calc Estimated GFR Random Glucose (60-115) mg/dL Calcium (8.4-10.2) mg/dL Magnesium (1.6-2.6) mg/dL Total Bilirubin (0.0-1.0) mg/dL Direct Bilirubin (0.0-0.5) mg/dL AST (5-31) U/L ALT (0-31) U/L Alkaline Phosphatase (39-117) U/L Total Creatine Kinase (26-140) U/L Troponin I High Sens (<3.5-17.0) ng/L B-Natriuretic Peptide 50 (<100) pg/mL Total Protein (6.5-8.0) g/dL Albumin (3.5-5.0) g/dL COVID-19 (DELMY) Negative (Negative) COVID-19 Clin Com See Note 10/23/22 Range/Units 21:40 WBC (4.8-10.8) X10*3/uL RBC (4.20-5.50) X10*6/uL Hgb (12.0-16.0) g/dl Hct (37.0-47.0) % MCV (80.0-98.0) fL MCH (27.0-33.0) pg MCHC (31.0-35.0) g/dl RDW (11.0-16.0) % Plt Count (160-400) X10*3/uL MPV (9.4-12.3) fL Immature Gran % (Auto) (0.0-0.4) % Neut % (Auto) (45-73) % Lymph % (Auto) (20-40) % [place] % (Auto) (2-11) % Eos % (Auto) (0-4) % Baso % (Auto) (0-2) % Lymph # (Auto) (1.2-4.9) X10*3/uL [place] # (Auto) (0.1-1.2) X10*3/uL Eos # (Auto) (0.0-0.4) X10*3/uL Baso # (Auto) (0.0-0.2) X10*3/uL Abs Immat Gran (auto) (0.00-0.03) X10*3/uL Absolute Neuts (auto) (2.0-8.3) x10*3/uL Absolute Nucleated RBC (0.0-0.012) X10*3/uL Nucleated RBC % (auto) (0.0-0.2) /100WBC PT (10.0-13.1) SEC INR (0.9-1.1) D-Dimer High Sensitivty NG/ML Sodium (135-145) mmol/L Potassium (3.3-5.1) mmol/L Chloride (96-108) mmol/L Carbon Dioxide (22-29) mmol/L Anion Gap (12-20) BUN (9-16) mg/dL Creatinine (0.5-1.4) mg/dL Estim Creat Clear Calc Estimated GFR Random Glucose (60-115) mg/dL Calcium (8.4-10.2) mg/dL Magnesium (1.6-2.6) mg/dL Total Bilirubin (0.0-1.0) mg/dL Direct Bilirubin (0.0-0.5) mg/dL AST (5-31) U/L ALT (0-31) U/L Alkaline Phosphatase (39-117) U/L Total Creatine Kinase (26-140) U/L Troponin I High Sens < 3.5 (<3.5-17.0) ng/L B-Natriuretic Peptide (<100) pg/mL Total Protein (6.5-8.0) g/dL Albumin (3.5-5.0) g/dL COVID-19 (DELMY) (Negative) COVID-19 Clin Com Independent Interpretation I performed an independent interpretation of an: EKG (My interpretation EKG: Sinus rhythm, heart rate 70, no ST segment depression or elevation, no T-wave inversion, QTC 414) and Plain X-Ray (My interpretation of x-rays:) Radiology Impression Discussion of test interpretation with radiology: I have reviewed the radiologist's reading. Radiologist Impression: FINDINGS: The lungs appear clear. No airspace consolidation. No pleural effusion or pneumothorax. Heart size at the upper limits normal. Status post median sternotomy with intact sternal wires. Normal pulmonary vascularity. No evidence of pulmonary edema. No acute osseous injury identified. XR/XR chest 1V IMPRESSION: No acute pulmonary process. Discharge Plan Discharge Clinical Impression: Atypical chest pain Patient Disposition: Home, Self-Care Instructions: Chest Wall Pain (ED) Additional Instructions: Please follow-up with your primary care physician tomorrow. If you have any worsening or new symptoms, please return to the emergency room or call 911 Prescriptions: No Action atorvastatin 40 mg tablet 40 mg PO BEDTIME metformin 500 mg tablet 1 tab PO DAILY metoprolol succinate 50 mg tablet extended release 24 hr 1 tab PO DAILY isosorbide mononitrate 30 mg tablet extended release 24 hr 1 tab PO QPM acetaminophen [Mapap Arthritis Pain] 650 mg tablet extended release 2 tab PO BID PRN (Reason: pain) nitroglycerin 0.4 mg tablet, sublingual 1 tab sublingual NEEDED PRN (Reason: Angina) docusate sodium [Stool Softener] 100 mg capsule 1 cap PO BID sertraline 25 mg tablet 1 tab PO DAILY furosemide 20 mg tablet 1 tab PO DAILY PRN (Reason: Edema) gabapentin 100 mg capsule 1 cap PO BID losartan 100 mg tablet 1 tab PO DAILY amlodipine 10 mg tablet 1 tab PO DAILY meclizine 25 mg tablet,chewable 25 mg PO TID PRN (Reason: dizziness) Qty: 30 0RF alum-mag hydroxide-simeth [Maalox Advanced] 200-200-20 mg/5 mL suspension 5 ml PO 5XD PRN (Reason: dyspepsia) Qty: 30 0RF Rx Instructions: administer between meals and at bedtime lidocaine HCl [Lidocaine Viscous] 2 % solution 1 appl mucous membrane TID PRN (Reason: pain) Qty: 100 0RF
--- OUTSIDE RECORDS SUMMARY | 2022-10-23 17:44 | XMS_ITS ---
:1945 External Reference #:[id number] Author Care Team Providers Name Role Phone [facility] Referring Provider [phone] Allergies Code Code System Name Reaction Severity Status Onset [id number] RxNorm Latex ? ? Active ? Penicillins ? ? Active ? Notes: also states allergic to some ty pe of flu vaccine but was given flu vaccine Aug 2022 Medications Name Status Start Date Stop Date ? ? amlodipine 10 mg tablet Active ? Not avai lable Antacid-[place] 200 mg-200 mg-20 mg/5 mL oral suspension Active ? Not available SHAKE LIQUID WELL THEN TAKE 5ML BY MOUT H FIVE TIMES A DAY NEEDED FOR DYSPEPSIA. ADMINISTER BETWEEN MEALS AND AT BEDTIME aspirin 81 mg tablet,delayed release Active ? Not available atorvastatin 40 mg tablet Active ? Not av ailable bisacodyl 10 mg rectal suppository Active ? Not available PLACE 1 SUPPOSITORY IN RECTUM EVERY DAY NEEDED TO PRODUCE DAILY BOWEL MOVEMENT cetirizine 10 mg tablet Active ? Not avai lable TAKE 1 TABLET BY MOUTH DAILY Chest Congestion Relief 100 mg/5 mL oral liquid Active ? Not available TAKE 10 ML BY MOUTH FOUR TIMES DAILY NEEDED FOR COUGH WITH FLUID. NOT TO EXCEED 2.4 GM DAILY clindamycin HCl 300 mg capsule Active ? N ot available Take 1 capsule every 6 hours by oral route with meals for 7 day s. diclofenac 1 % topical gel Active ? Not a vailable DOK 100 mg capsule Active ? Not available TAKE 1 CAPSULE BY MOUTH TWICE DAILY NEEDED FOR CONSTIPATION famotidine 20 mg tablet Active ? Not avai lable fluticasone propionate 50 mcg/actuation nasal spray,suspension A ctive ? Not available USE 2 SPRAYS INTRANASALLY TWICE DAILY FreeStyle Lancets 28 gauge Active ? Not a vailable USE DIRECTED TO TEST BLOOD SUGAR ONCE DAILY FreeStyle Lite Strips Active ? Not availa ble USE DIRECTED ONCE DAILY TO TEST BLOOD SUGAR furosemide 20 mg tablet Active ? Not avai lable gabapentin 100 mg capsule Active ? Not av ailable ketorolac 30 mg/mL injection solution Active ? Not available 15 mg IM x 1 for pain Lidocaine Viscous 2 % mucosal solution Active ? Not available SWISH AND SPIT THREE TIMES DAILY NEEDED FOR PAIN losartan 100 mg tablet Active ? Not avail able TAKE 1 TABLET BY MOUTH DAILY meclizine 12.5 mg tablet Active ? Not eleanor ilable meclizine 25 mg chewable tablet Active ? Not available med [facility] Active ? Not availa ble metformin 500 mg tablet Active ? Not avai lable metoprolol succinate ER 50 mg tablet,extended release 24 hr Acti ve ? Not available montelukast 10 mg tablet Active ? Not eleanor ilable nitroglycerin 0.4 mg sublingual tablet Active ? Not available PLACE 1 TABLET BY SUBLINGUAL ROUTE NEEDED FOR 14 DAYS. omeprazole 20 mg capsule,delayed release Active ? Not available TAKE 1 CAPSULE BY MOUTH DAILY FOR 14 DAYS polyethylene glycol 3350 17 gram oral powder packet Active ? Not available MIX AND DRINK 1 PACKET BY MOUTH TWICE DAILY FOR 3 DAYS Preparation H Hydrocortisone 1 % topical cream Active ? Not available APPLY A THIN LAYER TO THE RECTUM BY TOPICAL ROUTE 2 TIMES PER D AY for 7 days sertraline 50 mg tablet Active ? Not avai lable Tylenol 8 Hour 650 mg tablet,extended release Active ? Not available Take 1 tablet every 6-8 hours by oral route as needed. Ventolin HFA 90 mcg/actuation aerosol inhaler Active ? Not available INHALE 2 PUFFS INTO THE LUNGS FOUR TIMES DAILY NEEDED FOR WH EEZING Problems None recorded. Procedures None recorded. Results Lab Results Date Name Specimen Result Interpretation Description Value Range Status Address ? 10/19/2022 Glucose, ? Blood 227 ? ? Main - Fingerstick, Glucose: In sted: 30 Blood mg/dl [facility] 02/14/2022 Urinalysis ? Appear/color ? ? Fi nal [facility] W/reflex Referenc e Culture Laborator ies : [address], [place] ? ? ? Sp. [place] 1.015 (1.0 Final [facility] reed 02- Reference .030 Laboratori es ) : [address], [place] ? ? ? Urine pH 7.0 (5.0 Final [facility] -8.0 Reference ) Laboratori es : [address], [place] ? ? ? Urine negative (neg Final [facility] Albumin ) Reference Laboratori es : [address], [place] ? ? ? Urine negative (neg Final [facility] Glucose ) Reference Laboratori es : [address], [place] ? ? ? Urine negative (neg Final [facility] Ketones ) Reference Laboratori es : [address], [place] ? ? ? Urine negative (neg Final [facility] Bilirubin ) Referen ce Laboratori es : [address], [place] ? ? ? Urine negative (neg Final [facility] Hemoglobin ) Refere nce Laboratori es : [address], [place] ? ? ? Urine negative (neg Final [facility] Nitrite ) Reference Laboratori es : [address], [place] ? ? ? Urine negative (neg Final [facility] Leukocyte ) Referen ce Laboratori es : [address], [place] ? ? ? Urobilinogen normal (nor Final [place] [facility] mg/dL m) Reference mg/d Laboratori es L : [address], [place] ? ? ? Urine Wbcs <1 /hpf (0-5 Final [place] ) Reference /hpf Laboratori es : [address], [place] ? ? ? Urine Rbcs <1 /hpf (0-3 Final [facility] ) Reference /hpf Laboratori es : [address], [place] ? ? ABNORMAL Bacteria slight hpf (neg Final [facility] ) Reference hpf Laboratori es : [address], [place] ? ? ? Mucus slight ? Final [facility] /lpf Reference Laboratori es : [address], [place] ? ? ? Squamous <1 /hpf (0-8 Final [facility] ) Reference /hpf Laboratori es : [address], [place] ? ? ? Clarity clear (joseph Final [facility] ar) Reference Laboratori es : [address], [place] ? ? ? Culture culture ? Final [facility] Indication not Refere nce indicated Laborat ories : [address], [place] 02/14/2022 Urinalysis, ? Leukocytes negative ? ? Main - Dipstick Insted: [facility] ? ? ? Nitrite negative ? ? Main - Insted: [facility] ? ? ? Blood 2+ ? ? Main - Insted: [facility] Past Encounters Encounter Date Diagnosis Provider 10/19/2022 Acute Pain in Face Fawn Peters MD: [address] [place] [phone], Ph. 09/28/2022 Low Back Pain; Chest Pain Adam estes MD: [address] [place] [phone], Ph. 09/16/2022 Sebsatián Condon MD: [address] [place] [phone], Ph. 09/16/2022 Chest Pain Sebastián Condon MD: [address] [place] [phone], Ph. 09/16/2022 Sebastián Condon MD: [address] [place] [phone], Ph. 02/14/2022 Constipation Angela Rowe MD: [address] [place] [phone], Ph. Social History None recorded. Vaccine List None recorded. Plan of Care Reminders Provider Appointments None recorded. ? ? Lab None recorded. ? ? Referral None recorded. ? ? Procedures None recorded. ? ? Surgeries None recorded. ? ? Imaging None recorded. ? ? Vitals 10/19/2022 04:49PM Urgent Care Weight Blood Pressure (1) 175 lbs (1) 151/73 mm[Hg] (2) 175 lbs (2) 151/73 mm[Hg] 09/28/2022 10:53AM Urgent Care Blood Pressure 167/81 mm[Hg] 09/16/2022 04:04PM Urgent Care Blood Pressure 138/64 mm[Hg] 09/16/2022 04:04PM Urgent Care Blood Pressure (1) 138/64 mm[Hg] (2) 138/64 mm[Hg] 09/16/2022 04:26PM Urgent Care Blood Pressure 138/64 mm[Hg] 02/14/2022 03:16PM Urgent Care Blood Pressure (1) 146/74 mm[Hg] (2) 146/74 mm[Hg]
--- OUTSIDE RECORDS SUMMARY | 2022-10-23 17:44 | XMS_ITS | Encounter Summary ---
:1945 External Reference #:[id number] Author Care Team Providers Name Role Phone [facility]ca Primary Care Referring Provider [phone] Reason for Visit Edema, Pain, CHF Assessment and Plan Assessment Note 76 YOF being seen after episode of ches t pain yeasterday, having been to ED, having EKG but leaving before being seen by provider, currently being seen for total body pain consistent with her pain from arthritis and bursitits mainly in low back Pt notes not having checked blood sugar in two days. EKG reviewed and shows NSR at 70bpm No S TE noted. Pt given 15mg IM ketorolac. Pt should follow up with PCP in next few days. DIscussed if chest pain returned pt should proceed to ED for evaluation and she expressed understanding 1. Low back pain ? ketorolac 15 mg/mL injection solution 2. Chest pain Discussion Note: None recorded.Patient educational handouts: No information available. Plan of Care Reminders Provider Appointments None recorded. ? ? Lab None recorded. ? ? Referral None recorded. ? ? Procedures None recorded. ? ? Surgeries None recorded. ? ? Imaging None recorded. ? ? Medications Name Start Date ? ? amlodipine 10 mg tablet ? TAKE 1 TABLET BY MOUTH EVERY DAY Antacid-Antigas 200 mg-200 mg-20 mg/5 mL oral suspensi on ? SHAKE LIQUID WELL THEN TAKE 5ML BY MOUT H FIVE TIMES A DAY NEEDED FOR DYSPEPSIA. ADMINISTER BETWEEN MEALS AND AT BEDTIME aspirin 81 mg tablet,delayed release ? TAKE 1 TABLET BY MOUTH EVERY DAY atorvastatin 40 mg tablet ? TAKE 1 TABLET BY MOUTH EVERY DAY bisacodyl 10 mg rectal suppository ? PLACE 1 SUPPOSITORY IN RECTUM EVERY DAY NEEDED TO PRODUCE DAILY BOWEL MOVEMENT cetirizine 10 mg tablet ? TAKE 1 TABLET BY MOUTH DAILY Chest Congestion Relief 100 mg/5 mL oral liquid ? TAKE 10 ML BY MOUTH FOUR TIMES DAILY NEEDED FOR COUGH WITH FLUID. NOT TO EXCEED 2.4 GM DAILY clindamycin HCl 300 mg capsule ? Take 1 capsule every 6 hours by oral route with meals for 7 days. diclofenac 1 % topical gel ? APPLY 2 GM TOPICALLY 4 TIMES A DAY,PRNF OR PAIN,INSTRNOT TO EXCEED 8 GRAMS PER DAY DOK 100 mg capsule ? TAKE 1 CAPSULE BY MOUTH TWICE DAILY NEEDED FOR CON STIPATION famotidine 20 mg tablet ? TAKE 1 TABLET BY MOUTH TWICE DAILY fluticasone propionate 50 mcg/actuation nasal spray,orozco spension ? USE 2 SPRAYS INTRANASALLY TWICE DAILY FreeStyle Lancets 28 gauge ? USE DIRECTED TO TEST BLOOD SUGAR ONCE DAILY FreeStyle Lite Strips ? USE DIRECTED ONCE DAILY TO TEST BLOOD SUGAR furosemide 20 mg tablet ? TAKE 1 TABLET BY MOUTH EVERY DAY FOR SWELLING OR WEIG HT GAIN gabapentin 100 mg capsule ? TAKE 1 CAPSULE BY MOUTH TWICE DAILY ketorolac 30 mg/mL injection solution ? 15 mg IM x 1 for pain Lidocaine Viscous 2 % mucosal solution ? SWISH AND SPIT THREE TIMES DAILY NEEDED FOR PAIN losartan 100 mg tablet ? TAKE 1 TABLET BY MOUTH DAILY meclizine 12.5 mg tablet ? meclizine 25 mg chewable tablet ? CHEW 1 TABLET BY MOUTH EVERY DAY [facility] ? metformin 500 mg tablet ? TAKE 1 TABLET BY MOUTH EVERY DAY metoprolol succinate ER 50 mg tablet,extended release 24 hr ? TAKE 1 TABLET BY MOUTH EVERY DAY montelukast 10 mg tablet ? TAKE 1 TABLET BY MOUTH DAILY AT BEDTIME nitroglycerin 0.4 mg sublingual tablet ? PLACE 1 TABLET BY SUBLINGUAL ROUTE NEEDED FOR 14 D AYS. omeprazole 20 mg capsule,delayed release ? TAKE 1 CAPSULE BY MOUTH DAILY FOR 14 DAYS polyethylene glycol 3350 17 gram oral powder packet ? MIX AND DRINK 1 PACKET BY MOUTH TWICE DAILY FOR 3 DAY S Preparation H Hydrocortisone 1 % topical cream ? APPLY A THIN LAYER TO THE RECTUM BY TOPICAL ROUTE 2 T IMES PER DAY for 7 days sertraline 50 mg tablet ? TAKE 1 TABLET BY MOUTH EVERY DAY Tylenol 8 Hour 650 mg tablet,extended release ? Take 1 tablet every 6-8 hours by oral route as needed . Ventolin HFA 90 mcg/actuation aerosol inhaler ? INHALE 2 PUFFS INTO THE LUNGS FOUR TIMES DAILY NEE DED FOR WHEEZING Medications Administered None recorded. Vitals Blood Pressure 167/81 mm[Hg] Results Lab Results None recorded. Allergies Code Code System Name Reaction Severity Onset 1167857 RxNorm Latex ? ? ? Penicillins ? ? ? Notes: also states allergic to some ty pe of flu vaccine but was given flu vaccine Aug 2022 Problems None recorded. Procedures None recorded. Vaccine List None recorded. Social History None recorded. Functional Status Unknown. Past Encounters Encounter Date Diagnosis Provider 09/28/2022 Low Back Pain; Chest Pain Adam estes MD: [address] [place] [address], Ph. 09/16/2022 Sebastián Condon MD: [address] [place] [address], Ph. 09/16/2022 Chest Pain Sebastián Condon MD: [address] [place] [address], Ph. 09/16/2022 Sebastián Condon MD: [address] [place] [address], Ph. History of Present Illness Note: HPI: Member called into [facility] stating she had Angina yesterday and her [employer] called 911 and she went to hospital and waiting long time and they had trouble and did not put IV in her arm, she waited so long and had her [employer] pick her up and take her home. Iza states she is not having angina today but her body hurts as she says she has arthritis, bursitis, her legs are swelling, shortness of breathe with exertion and she is diabetic. She states she has not checked her blood sugar in two days. She states she isgoing to take tea and toast and then she will take her medications which includes Gabapentin and Tylenol soon. She has appt with her PCP in November. She would like someone to come look at her. ................................................................................ ............................................................. CRC Nursing Assessment: Comments: CRC RN did not require any additional information to process this visit. ................................................................................ ............................................................. Technology And Engineering Teacher Note: Dispatched to home of 76 year-old female patient complaining of global pain. Patient went to the emergency room yesterday but left before being seen as it was a long wait today she said mostly her lower back is bothering her from her arthritis. Patient now denies Chest pain, shortness of breath, nausea or vomiting. Patient denies fever, chills, or cold like symptoms. 7612 lead EKG performed and is unremarkable. Will reach out to doctor Arielle for further instruction. Dr. Guzmán agrees we can administer 15 mg of Toradol I?m. ................................................................................ ............................................................. Disposition: Fulfilled Review of Systems ? Notes: total body pain Physical Exam ? Notes: Per stained glass glazier exam: Heart i s RRR Lungs without evidence of respiratory distress Abdomen is soft. Ex trem: without evidence of edema
--- OUTSIDE RECORDS SUMMARY | 2022-10-23 17:44 | XMS_ITS | Encounter Summary ---
:1945 External Reference #:[id number] Author Care Team Providers Name Role Phone [facility] Primary Care Referring Provider [phone] Reason for Visit Shortness of Breath/Dyspnea Assessment and Plan 1. Chest pain EKG with no ST-T wave changes. Baseline for patient. Will rx refill of nitro paste. No acute chest pain during visit. ? nitroglycerin 0.4 mg sublingual table t Discussion Note: None recorded.Patient educational handouts: No [...] CHEW 1 TABLET BY MOUTH EVERY DAY [facility] ? metformin 500 mg tablet ? TAKE [...] Medications Administered None recorded. Vitals Blood Pressure (1) 138/64 mm[Hg] (2) 138/64 mm[Hg] Results Lab Results None recorded. Allergies Code Code System Name Reaction Severity Onset 6337464 RxNorm Latex ? ? ? Penicillins ? ? ? Notes: also states allergic to some ty pe of flu vaccine but was given flu vaccine Aug 2022 Problems None recorded. Procedures None recorded. Vaccine List None recorded. Social History None recorded. Functional Status Unknown. Past Encounters Encounter Date Diagnosis Provider 09/16/2022 Sebastián Condon MD: [address] [place] [phone], Ph. 09/16/2022 Chest Pain Sebastián Condon MD: [address] [place] [address], Ph. [phone] 09/16/2022 Sebastián Condon MD: [address] [place] [address], Ph. [phone] History of Present Illness Note: CRC Nursing Assessment: Chief Complaints: Shortness of Breath/Dyspnea PMH: CHF, Diabetes, Hypertension Allergies: Penicillin, Latex, Flu vaccine Comments: CP calling to request [facility] visit for member with complaints backpain myalgias and SOB since last night states SOB has resolved deny fever/chills no N/V CP states member deny chest pain but took Nitro x 1 last nightReview of Systems: ROS as noted in the HPI Review of Systems None recorded. Physical Exam None recorded.
--- OUTSIDE RECORDS SUMMARY | 2022-10-23 17:44 | XMS_ITS ---
:1945 Author Care Team Providers Name Role Phone JAZMIN IZQUIERDO DO Primary Care Provider [phone] ZAFAR RODRIGUEZ MD OTHER [phone] Allergies Code Code System Name Reaction Severity Status Onset Fluzone ? ? Active ? Penicillins ? ? Active ? Medications Name Status Start Date Stop Date ? ? amlodipine 2.5 mg tablet Active ? Not eleanor ilable amlodipine 5 mg tablet Completed ? 0 aspirin 81 mg tablet,delayed release Active ? Not available atorvastatin 40 mg tablet Completed ? 2019 diclofenac 1 % topical gel Active ? Not a vailable DOK 100 mg capsule Active ? Not available FreeStyle Lancets 28 gauge Active ? Not a vailable FreeStyle Lite Meter kit Active ? Not eleanor ilable FreeStyle Lite Strips Active ? Not availa ble furosemide 20 mg tablet Active ? Not avai lable gabapentin 100 mg capsule Active ? Not av ailable hydrocortisone 1 % topical cream Completed ? 01/09/2020 levofloxacin 750 mg tablet Completed ? 01/08 lidocaine 5 % topical ointment Completed ? 0 01/09/2020 losartan 100 mg tablet Active ? Not avail able meclizine 12.5 mg tablet Active ? Not eleanor ilable meclizine 25 mg tablet Active ? Not avail able metformin 500 mg tablet Active ? Not avai lable metoprolol succinate ER 50 mg tablet,extended release 24 Complet ed ? 01/09/2020 hr nitroglycerin 0.4 mg sublingual tablet Active ? Not available omeprazole 20 mg tablet,delayed release Active ? Not available oseltamivir 75 mg capsule Completed ? 2019 rifampin 300 mg capsule Active ? Not avai lable Robafen DM Cough 10 mg-100 mg/5 mL oral liquid Active ? Not available [facility] DM 10 mg-100 mg/5 mL oral syrup Active ? Not available Problems None recorded. Procedures None recorded. Results Lab Results Date Name Specimen Result Interpretation Description Value Range Status Address ? 01/09/2020 BMP, Serum or ? Glucose 73 (70-99) Fin al [facility] Plasma mg/dL mg/dL Reference Laboratori es: [address], [place] ? ? ? Bun 16 (8-23) Final [facility] mg/dL mg/dL Reference Laboratori es: [address], [place] ? ? ? Creatinine 1.0 (0.5-1.0) Final [facility] mg/dL mg/dL Reference Laboratori es: [address], [place] ? ? ? Sodium 141 (133-145) Final [facility] mmol/L mmol/L Reference Laboratori es: [address], [place] ? ? ? Potassium 4.7 (3.6-5.2) Final [place] [facility] mmol/L mmol/L Reference Laboratori es: [address], [place] ? ? ? Chloride 100 (98-107) Final [facility] mmol/L mmol/L Reference Laboratori es: [address], [place] ? ? ? Bicarbonate 27 (22-29) Final [place] mmol/L mmol/L Reference Laboratori es: [address], [place] ? ? ? Anion Gap 14 (4-17) Final [facility] Reference [facility]: [address], [place] ? ? ? Calcium 10.3 (8.6-10.5 Final [facility] mg/dL ) mg/dL Reference Laboratori es: [address], [place] ? ? ? Est GFR Non 55 ? Final [facility] mL/min/ Referenc e [place] 1.73 M2 Laborat ories: [address], [place] ? ? ? Est GFR 64 ? Final [facility] mL/min/ Referenc e [place] 1.73 M2 Laborat ories: [address], [place] 01/09/2020 Pro BNP (Pro High Pro BNP 310 (0-125) Leandra l [place] [facility] B-type pg/mL pg/mL Reference Natriuretic Labor atories: Peptide), [address], Plasma [place] Past Encounters None recorded. Social History Tobacco Smoking Status Never Smoker Vaccine List None recorded. Plan of Care Reminders Provider Appointments None recorded. ? ? Lab None recorded. ? ? Referral None recorded. ? ? Procedures None recorded. ? ? Surgeries None recorded. ? ? Imaging None recorded. ? ? Vitals Blood Pressure 150/64 mm[Hg]
--- OUTSIDE RECORDS SUMMARY | 2022-10-23 17:44 | XMS_ITS | Encounter Summary ---
:1945 External Reference #:[id number] Author Care Team Providers Name Role Phone Cca Primary Care Referring Provider [phone] Reason for Visit Pain, ENT Assessment and Plan Assessment Note I provided real -time medical direction via phone for this encounter, and was available for additional phone based ass istance as needed. I have reviewed and agree with the Assessment and Plan as document ed by the Furnace Builder. Patient given the opportunity to ask questions. 1. Acute pain in face exam limited w/ mih-no obvious malignan t otitis externa-advised needs close f/u and exam by clinician belinda- to call pcp tomorrow. May have parotitis-cannot r/o mastoiditis completely- will cover with c lindamycin which will cover oral pathoge ns since patient is very pcn allergic. DO not want to use steroids as could cause worsening hyperglycenia. Aware may need change in atb if s/s worsen or pcp find an acute OE/OM. Has had ketorolac in pas t- will give for pain and may have es tylenol- request RX- ordered pat aware BS up several hours after lunc h- does not check own sugar and not always diet compliant- d/w her avoid concentrated sweets- need to f/u with pcp- also if have infection may be driving bs up. Advised to rest- stay well hydrated/ mov e or change positions/ get up slowly. To apply warm compresses to painful area( do not burn herself) 4 x per day- gargle with warm salt water also 4 x per day. Ad vised if develops near syncope or syncop e/hi fever/ severe headache /any acute neuro or stroke signs( reviewed by the medic) to call 911- she verbalized understanding. ? clindamycin HCl 300 mg capsule ? Tylenol 8 Hour 650 mg tablet,extended release ? glucose, fingerstick, blood ? ketorolac 30 mg/mL injection solution Discussion Note: None recorded.Patient educational handouts: No information available. Plan of Care Reminders Provider Appointments None recorded. ? ? Lab Glucose, Fingerstick, Blood 10/19/2022 [facility] Referral None recorded. ? ? Procedures None [...] CHEW 1 TABLET BY MOUTH EVERY DAY [facility] ? metformin 500 mg tablet ? [...] DAILY NEE DED FOR WHEEZING Medications Administered Name Date ? ? ketorolac 30 mg/mL injection solution [id number]: 38:03 15 mg IM x 1 for pain Vitals Weight Blood Pressure (1) 175 lbs (1) 151/73 mm[Hg] (2) 175 lbs (2) 151/73 mm[Hg] Results Lab Results Date Name Specimen Result Interpretation Description Value Range Status Address ? 10/19/2022 Glucose, Fingerstick, ? Blood Glucose: 227 ? ? Main - [facility]: Blood mg/dl 30 [facility] Allergies Code Code System Name Reaction Severity Onset [id number] RxNorm Latex ? ? ? Penicillins ? ? ? Notes: also states allergic to some ty pe of flu vaccine but was given flu vaccine Aug 2022 Problems None recorded. Procedures None recorded. Vaccine List None recorded. Social History None recorded. Functional Status Unknown. Past Encounters Encounter Date Diagnosis Provider 10/19/2022 Acute Pain in Face Fawn Peters MD: [address] [place] [address], Ph. 09/28/2022 Low Back Pain; Chest Pain Adam estes MD: [address] [place] [address], Ph. History of Present Illness Note: CRC Nursing Assessment: Patient Reports: External Ear concerns Chief Complaints: Pain, ENT PMH: CHF, Diabetes, Hypertension Allergies: Penicillin, Latex Comments: Member calling to request [facility] visit for eval R side of face swelling near R ear deny trauma no fever/chills. aware medics can not visualize inner ear. Deny ED eval request [facility] eval ?need antibiotics deny dental pain speaking full sentences no distress noted ................................................................................ ............................................................. Furnace Builder Note: Pt presents awake and alert c/o right ear/facial pain. 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 Area between the angle ofthe jaw and the ear appears slightly swollen; ear lobe and cartilage is tender to touch; no redness or warmth noted; angle of jaw tender when opening mouth. 15 mg IM toradol administered for pain relief. Pt educated about her prescriptions; advised to gargle with warm salt water; eat a soft diet with minimal complex carbs; strongly advised to see PCP for in person exam; and educated on warning signs t hat would indicate the ED. ................................................................................ ............................................................. Disposition: Fulfilled SEGMD: as above- no headache or fever- denied tinnitus. Is concerned has another infection- aware medic can not look in her ear.Review of Systems: ROS as noted in the HPI Review of Systems None recorded. Physical Exam ? Notes: as per medic: VSS- afebrile - has mild sts ant to right ear/ to angle of jaw - tender right preauricular ar ea right cheek over parotid and angle of right jaw- not red or warm/no disc rete mass or adenopathy palpated per medic. External ear not redo /warm or swollen- c/o pain in ear with any traction or palpation of external ear- n o drainage from right ear. Is also tender over right mastoid( no swelling). Does not have actual trismus but has pain on opening of mouth. No interna l swelling or evidence of actue dental disease per medic- is tender over right buccal mucosa without internal sts/mass or obvious d/c frm Nicki's duct. Neck supple/ post ph and voice nl
[2022-10-23] MEDS: Aspirin Enteric Coated 325 MG TABLET.DR PO (17:51)
[2022-10-23 17:53] VITALS: PULSE 71
[2022-10-23 18:29] LABS: MANUAL DIFF FLAG NO
[2022-10-23 18:34] LABS: Basophils Absolute Auto 0.1 X10*3/uL (0.0-0.2); Basophils Percent Auto 0.5 % (0-2); Eosinophils Absolute Auto 0.2 X10*3/uL (0.0-0.4); Eosinophils Percent Auto 1.8 % (0-4); Hemoglobin 12.8 g/dl (12.0-16.0); Imm Gran Abs Auto 0.04 X10*3/uL (0.00-0.03); Imm Gran Pct Auto 0.4 % (0.0-0.4); Lymphocytes Absolute Auto 3.1 X10*3/uL (1.2-4.9); Lymphocytes Percent Auto 34.4 % (20-40); Mean Corpuscular Hemoglobin 27.3 pg (27.0-33.0); Mean Corpuscular Volume 85.3 fL (80.0-98.0); Mean Platelet Volume 11.2 fL (9.4-12.3); Monocytes Percent Auto 11.3 % (2-11); Neutrophils Absolute Auto 4.7 x10*3/uL (2.0-8.3); Neutrophils Percent Auto 51.6 % (45-73); Platelet Count 327 X10*3/uL (160-400); Red Blood Count 4.69 X10*6/uL (4.20-5.50); Red Cell Distribution Width 14.5 % (11.0-16.0); White Blood Count 9.1 X10*3/uL (4.8-10.8)
[2022-10-23 18:45] LABS: COVID-19 Test Negative (Negative); IDNOW Serial# 55D5AD1C
[2022-10-23 18:47] VITALS: BP 128/60; PULSE 65; RESP 18; TEMP 36.7; O2SAT 95
[2022-10-23 18:48] LABS: INTERNATIONAL NORM RATIO 0.9 (0.9-1.1); Prothrombin Time 10.5 SEC (10.0-13.1)
[2022-10-23 18:50] LABS: D Dimer High Sensitivity 151 NG/ML
[2022-10-23 18:52] LABS: Alanine Aminotransferase 25 U/L (0-31); Albumin Level 4.4 g/dL (3.5-5.0); Alkaline Phosphatase 145 U/L (39-117); Anion Gap 14 (12-20); Aspartate Amino Transferase 19 U/L (5-31); Bilirubin Direct 0.2 mg/dL (0.0-0.5); Bilirubin Total 0.4 mg/dL (0.0-1.0); Blood Urea Nitrogen 21 mg/dL (9-16); Calcium 10.2 mg/dL (8.4-10.2); Carbon Dioxide 25 mmol/L (22-29); Chloride 105 mmol/L (96-108); Estimated Glomerular Filt Rate 44; Glucose Random 91 mg/dL (60-115); Potassium 4.4 mmol/L (3.3-5.1); Sodium 140 mmol/L (135-145); Total Protein 8.5 g/dL (6.5-8.0)
[2022-10-23 18:55] LABS: B Type Natriuretic Peptide 50 pg/mL (<100)
[2022-10-23 18:56] LABS: Troponin-I High Sensitivity < 3.5 ng/L (<3.5-17.0)
[2022-10-23 20:18] VITALS: BP 124/57; PULSE 70; RESP 18; O2SAT 97
[2022-10-23] MEDS: traMADoL HCL 50 MG TABLET PO (21:00)
[2022-10-23 22:12] LABS: Troponin-I High Sensitivity < 3.5 ng/L (<3.5-17.0)
[2022-10-23 23:17] VITALS: BP 142/53; PULSE 65; RESP 20; TEMP 36.9; O2SAT 95
== END 2022-10-23 23:18 | disposition home or self-care (01) ==
PROVIDERS: Emergency Provider Emergency Medicine; PCP Pediatrics
DX: R07.89 Other chest pain (principal); R06.02 Shortness of breath; Z20.822 Contact with and (suspected) exposure to COVID-19; E11.9 Type 2 diabetes mellitus without complications; I10 Essential (primary) hypertension; Z95.1 Presence of aortocoronary bypass graft; Z79.82 Long term (current) use of aspirin; Z79.899 Other long term (current) drug therapy; Z79.02 Long term (current) use of antithrombotics/antiplatelets; Z79.84 Long term (current) use of oral hypoglycemic drugs
CPT/HCPCS: 36415; 71045; 80048; 80076; 82550; 83735; 83880; 84484; 85025; 85379; 85610; 87635; 93005; 99283; 99285

== ENCOUNTER 2022-12-11 16:56 | Emergency (ER) | payer OTHER, SELFPAY ==
--- NOTE | 2022-12-11 17:38 | ED_ITS ---
HPI - General Adult General Chief complaint: Recheck/Abnormal Lab/Rx <Cathryn Griffin CNP - Last Filed: 12/11/22 17:43> Stated complaint: elevated blood sugars <Cathryn Griffin CNP - Last Filed: 12/11/22 17:43> Time Seen by Provider: 12/11/22 19:01 <Cathryn Griffin CNP - Last Filed: 12/11/22 17:43> Source: patient <Aden Juan MD - Last Filed: 12/11/22 21:14> Mode of arrival: ambulatory <Aden Juan MD - Last Filed: 12/11/22 21:14> Limitations: no limitations <Aden Juan MD - Last Filed: 12/11/22 21:14> History of Present Illness HPI narrative: 77-year-old female who presents emergency department for evaluation of lightheadedness, dizziness and elevated glucose. The patient is a non insulin- dependent diabetic and takes metformin in the morning. She states that she has vertigo and gets room spinning sensation daily. She states that yesterday morning she felt like the room was spinning and she felt like she was going to black out which is unusual. She checked her point of care glucose and it was greater than 300. She states that throughout the day yesterday her glucose is 350-390 which is unusual for her. She states she did take an extra dose of metformin. Her POWERHOUSE ELECTRICIAN APPRENTICE did give her an electrolyte drink he does not know the name of and she states she has been drinking this to stay hydrated. She states she still was not feeling well today and her glucose was in the 200 range. She denied being ill in any other way. She denied fever, chills, rhinorrhea, sore throat, cough, chest pain, nausea, vomiting, diarrhea. She has had urinary frequency but no dysuria. The patient was seen by the provider in triage and I did review the RME note. <Aden Juan MD - Last Filed: 12/11/22 21:14> Related Data Home medications: Home Medications Medication Instructions Recorded Confirmed acetaminophen 650 mg 2 tab PO BID PRN pain 03/03/21 03/03/21 tablet,extended release (Mapap Arthritis Pain) amlodipine 10 mg tablet 1 tab PO DAILY 03/03/21 atorvastatin 40 mg tablet 40 mg PO BEDTIME 03/03/21 03/03/21 docusate sodium 100 mg capsule 1 cap PO BID 03/03/21 03/03/21 (Stool Softener) furosemide 20 mg tablet 1 tab PO DAILY PRN Edema 03/03/21 03/03/21 gabapentin 100 mg capsule 1 cap PO BID 03/03/21 03/03/21 isosorbide mononitrate 30 mg 1 tab PO QPM 03/03/21 03/03/21 tablet,extended release 24 hr losartan 100 mg tablet 1 tab PO DAILY 03/03/21 03/03/21 metformin 500 mg tablet 1 tab PO DAILY 03/03/21 03/03/21 metoprolol succinate 50 mg 1 tab PO DAILY 03/03/21 03/03/21 tablet,extended release 24 hr nitroglycerin 0.4 mg sublingual 1 tab sublingual NEEDED PRN 03/03/21 03/03/21 tablet Angina sertraline 25 mg tablet 1 tab PO DAILY 03/03/21 03/03/21 Previous Rx's Medication Instructions Recorded meclizine 25 mg chewable tablet 25 mg PO TID PRN dizziness #30 tabs 03/03/21 aluminum-mag hydroxide-simethicone 5 ml PO 5XD PRN dyspepsia #30 mL 07/16/21 200 mg-200 mg-20 mg/5 mL oral susp (Maalox Advanced) lidocaine HCl 2 % mucosal solution 1 appl mucous membrane TID PRN 07/16/21 (Lidocaine Viscous) pain #100 mL <Cathryn Griffin CNP - Last Filed: 12/11/22 17:43> Allergies/adverse reactions: Allergies Allergy/AdvReac Type Severity Reaction Status Date / Time Penicillins Allergy Severe RASH Verified 10/23/22 17:22 <Cathryn Griffin CNP - Last Filed: 12/11/22 17:43> Review of Systems Review of Systems: Yes all other systems are reviewed and are negative <Aden Juan MD - Last Filed: 12/11/22 21:14> [facility] Past Medical History [facility] Narrative: social history: The patient lives alone. She does have POWERHOUSE ELECTRICIAN APPRENTICE care. She denies tobacco, alcohol and drug use. <Aden Juan MD - Last Filed: 12/11/22 21:14> Medical History: Medical History Congestive heart failure Diabetes Hypertension <Cathryn Griffin CNP - Last Filed: 12/11/22 17:43> Surgical History: Surgical History H/O heart bypass surgery <Cathryn Griffin CNP - Last Filed: 12/11/22 17:43> Social History Social History: Social History Alcohol intake: never Patient Tobacco Use Status: Never used Tobacco Advance Directives: No Advance Directives Information Provided: Yes <Cathryn Griffin CNP - Last Filed: 12/11/22 17:43> Physical Exam ED Vital Signs: Vital Signs - 24 hr 12/11/22 17:39 12/11/22 19:30 Temperature 98.1 F Pulse Rate 80 67 Respiratory Rate 16 16 Blood Pressure 157/52 H 154/69 H Pulse Oximetry 97 97 Oxygen Delivery Method Room Air Room Air BMI result Body Mass Index 30.0 <Cathryn Griffin CNP - Last Filed: 12/11/22 17:43> Vital Signs - 24 hr 12/11/22 17:39 12/11/22 19:30 Temperature 98.1 F Pulse Rate 80 67 Respiratory Rate 16 16 Blood Pressure 157/52 H 154/69 H Pulse Oximetry 97 97 Oxygen Delivery Method Room Air Room Air BMI result Body Mass Index 30.0 <Aden Juan MD - Last Filed: 12/11/22 21:14> Const General: cooperative and no acute distress <Aden Juan MD - Last Filed: 12/11/22 21:14> Orientation/consciousness: oriented to person and oriented to place <Aden Juan MD - Last Filed: 12/11/22 21:14> Limitations: no limitations <Aden Juan MD - Last Filed: 12/11/22 21:14> HENMT Head: Yes normal to inspection, Yes normocephalic and Yes atraumatic <Aden Juan MD - Last Filed: 12/11/22 21:14> Ears: external ears normal <Aden Juan MD - Last Filed: 12/11/22 21:14> General nose exam: Normal external nose present <Aden Juan MD - Last Filed: 12/11/22 21:14> Face and sinus: Yes normal facial exam <Aden Juan MD - Last Filed: 12/11/22 21:14> Mouth: Normal oral and palatal mucosa present <Aden Juan MD - Last Filed: 12/11/22 21:14> Throat: Yes posterior oropharynx normal <Aden Juan MD - Last Filed: 12/11/22 21:14> Eyes General: appearance normal, both eyes and all related structures <Aden Juan MD - Last Filed: 12/11/22 21:14> Pupils: Equal, round and reactive pupils present <Aden Juan MD - Last Filed: 12/11/22 21:14> Neck Neck: Yes normal visual inspection, Yes no lymphadenopathy, Yes trachea midline and Yes supple <Aden Juan MD - Last Filed: 12/11/22 21:14> Chest Chest palpation & inspection: normal inspection of the chest and normal palpation of entire chest wall <Aden Juan MD - Last Filed: 12/11/22 21:14> Resp Effort & Inspection: normal respiratory effort and able to speak in complete sentences <Aden Juan MD - Last Filed: 12/11/22 21:14> Auscultation: clear to auscultation bilaterally <Aden Juan MD - Last Filed: 12/11/22 21:14> Cardio Rate: regular rate <Aden Juan MD - Last Filed: 12/11/22 21:14> Rhythm: regular rhythm <MD Adrian Garcia Last Filed: 12/11/22 21:14> Heart sounds: S1 normal heart sound present, S2 normal heart sound present and no murmurs <Aden Juan MD - Last Filed: 12/11/22 21:14> GI Inspection: Yes normal to inspection <Aden Juan MD - Last Filed: 12/11/22 21:14> Palpation (GI): Soft to palpation, nontender and no guarding <Aden Juan MD - Last Filed: 12/11/22 21:14> Auscultation: normal bowel sounds <Aden Juan MD - Last Filed: 12/11/22 21:14> General: Yes no CVA tenderness <Aden Juan MD - Last Filed: 12/11/22 21:14> Back/Spine/Pelvis Back: no CVA tenderness <Aden Juan MD - Last Filed: 12/11/22 21:14> Skin General skin exam: no rashes or lesions noted <Aden Juan MD - Last Filed: 12/11/22 21:14> Neuro General: oriented to person and oriented to place <Aden Juan MD - Last Filed: 12/11/22 21:14> Cranial nerves: Yes CN's II-XII intact bilaterally and Yes Equal, round and reactive pup ils present <Aden Juan MD - Last Filed: 12/11/22 21:14> Cognition (Neuro): normal cognition <Aden Juan MD - Last Filed: 12/11/22 21:14> Motor exam (neuro): 5/5 motor strength present throughout <Aden Juan MD - Last Filed: 12/11/22 21:14> Extrem General: Yes normal to inspection <Aden Juan MD - Last Filed: 12/11/22 21:14> Psych Appearance: grossly normal <Aden Juan MD - Last Filed: 12/11/22 21:14> Speech and movement: Normal speech and movement present <Aden Juan MD - Last Filed: 12/11/22 21:14> Affect: normal affect <Aden Juan MD - Last Filed: 12/11/22 21:14> Attitude: cooperative <Aden Juan MD - Last Filed: 12/11/22 21:14> Thought process: Normal thought process present <Aden Juan MD - Last Filed: 01/30 21:14> Thought content: Normal thought content present <Aden Juan MD - Last Filed: 12/11/22 21:14> Course Course Course Narrative: This is an RME: Additional HPI, ROS, PE not included below will be de ferred to primary provider. Patient is a 77-year-old, past medical history of diabetes for which she is prescribed metformin, denies any use of insulin. She states that yesterday she was feeling dizzy, she checked her blood sugar noticed it was elevated. She reports a history of dizziness associated with vertigo, but states that this feels different and that ?my vertigo does not usually make me want to knock down . Has been feeling fatigued. She has a blood pressure log which is reading glucose levels ranging 350-390 yesterday, today in the low 200s. Denies any known infections, no recent antibiotics or steroid usage. Denies fevers, chills, URI symptoms, headache, neck pain, chest pain, shortness of breath, nausea, vomiting, abdominal pain, dysuria or frequency/urgency/hesitancy, numbness or tingling of the extremities. Plan: Labs, urinalysis, viral testing <Cathryn Griffin CNP - Last Filed: 12/11/22 17:43> Medications Administered Discontinued Medications Generic Name Dose Route Start Last Admin Trade Name Freq PRN Reason Stop Dose Admin Sodium Chloride 1,000 mls @ 999 mls/hr 12/11/22 19:16 12/11/22 19:20 Ns IV 12/11/22 20:16 999 mls/hr .Q1H1M STA Administration <Cathryn Griffin CNP - Last Filed: 12/11/22 17:43> Medications Administered Discontinued Medications Generic Name Dose Route Start Last Admin Trade Name Freq PRN Reason Stop Dose Admin Sodium Chloride 1,000 mls @ 999 mls/hr 12/11/22 19:16 12/11/22 19:20 Ns IV 12/11/22 20:16 999 mls/hr .Q1H1M STA Administration <Aden Juan MD - Last Filed: 12/11/22 21:14> Medical Decision Making Medical Decision Making [facility] Narrative: 77-year-old female who presents emergency department for evaluation of li ghtheadedness, dizziness / vertigo and elevated glucose x2 days. the patient has been drinking electrolyte during to stay hydrated but she does not know the name of this drink. Patient's glucose is today have been in the 200 range she states normally her glucoses are in the 90-100 range. Vital signs were normal. Physical examination was unremarkable Plan: Laboratory evaluation to include CBC, CMP, urinalysis, COVID-19 and influenza. Treatment: Patient was ordered to get normal saline IV x1 L 2106 : My independent interpretation patient's laboratory evaluation as follows: WBC elevated 13,400. Glucose elevated 181. COVID-19 and influenza negative. The patient's elevated glucose and dizziness could be related to dietary and discussions, I do not think that she has a infectious process this time. Patient was treated with normal saline IV x1 L and she is feeling better. She was advised to continue taking her medications as prescribed by her provider and to increase her water intake to help prevent dehydration from hyperglycemia. <Aden Juan MD - Last Filed: 12/11/22 21:14> Differential Diagnosis Differential Diagnoses: The differential diagnosis associated with the presentation includes <Aden Juan MD - Last Filed: 12/11/22 21:14> Differential diagnosis includes was not limited to electrolyte abnormality, anemia, dehydration, hyper glycemia, COVID-19, influenza <Aden Juan MD - Last Filed: 12/11/22 21:14> Lab Data [facility] Lab Attestation statement: I reviewed the patient's lab results. <Aden Juan MD - Last Filed: 12/11/22 21:14> Please see [facility] for my discussion <Aden Juan MD - Last Filed: 12/11/22 21:14> Result Diagrams: 12/11/22 18:18 12/11/22 18:18 <Cathryn Griffin CNP - Last Filed: 12/11/22 17:43> Labs: Lab Results 12/11/22 12/11/22 12/11/22 Range/Units 18:18 18:18 18:18 WBC 13.4 H (4.8-10.8) X10*3/uL RBC 4.94 (4.20-5.50) X10*6/uL Hgb 13.4 (12.0-16.0) g/dl Hct 42.1 (37.0-47.0) % MCV 85.2 (80.0-98.0) fL MCH 27.1 (27.0-33.0) pg MCHC 31.8 (31.0-35.0) g/dl RDW 14.3 (11.0-16.0) % Plt Count 290 (160-400) X10*3/uL MPV 11.4 (9.4-12.3) fL Immature Gran % (Auto) 1.0 H (0.0-0.4) % Neut % (Auto) 55.2 (45-73) % Lymph % (Auto) 33.9 (20-40) % Dickinson % (Auto) 8.6 (2-11) % Eos % (Auto) 0.7 (0-4) % Baso % (Auto) 0.6 (0-2) % Lymph # (Auto) 4.6 (1.2-4.9) X10*3/uL Dickinson # (Auto) 1.2 (0.1-1.2) X10*3/uL Eos # (Auto) 0.1 (0.0-0.4) X10*3/uL Baso # (Auto) 0.1 (0.0-0.2) X10*3/uL Abs Immat Gran (auto) 0.14 H (0.00-0.03) X10*3/uL Absolute Neuts (auto) 7.4 (2.0-8.3) x10*3/uL Absolute Nucleated RBC 0.000 (0.0-0.012) X10*3/uL Nucleated RBC % (auto) 0.0 (0.0-0.2) /100WBC Sodium (135-145) mmol/L Potassium (3.3-5.1) mmol/L Chloride (96-108) mmol/L Carbon Dioxide (22-29) mmol/L Anion Gap (12-20) BUN (9-16) mg/dL Creatinine (0.5-1.4) mg/dL Estim Creat Clear Calc Estimated GFR POC Glucose (60-115) mg/dL Random Glucose (60-115) mg/dL Calcium (8.4-10.2) mg/dL Total Bilirubin (0.0-1.0) mg/dL AST (5-31) U/L ALT (0-31) U/L Alkaline Phosphatase (39-117) U/L Total Protein (6.5-8.0) g/dL Albumin (3.5-5.0) g/dL COVID-19 (DELMY) Negative (Negative) COVID-19 Clin Com See Note Influenza Type A (CHACHA) Negative (Negative) Influenza Type B (CHACHA) Negative (Negative) Influenza A & B Note See Note 12/11/22 12/11/22 Range/Units 18:24 19:40 WBC (4.8-10.8) X10*3/uL RBC (4.20-5.50) X10*6/uL Hgb (12.0-16.0) g/dl Hct (37.0-47.0) % MCV (80.0-98.0) fL MCH (27.0-33.0) pg MCHC (31.0-35.0) g/dl RDW (11.0-16.0) % Plt Count (160-400) X10*3/uL MPV (9.4-12.3) fL Immature Gran % (Auto) (0.0-0.4) % Neut % (Auto) (45-73) % Lymph % (Auto) (20-40) % Dickinson % (Auto) (2-11) % Eos % (Auto) (0-4) % Baso % (Auto) (0-2) % Lymph # (Auto) (1.2-4.9) X10*3/uL Dickinson # (Auto) (0.1-1.2) X10*3/uL Eos # (Auto) (0.0-0.4) X10*3/uL Baso # (Auto) (0.0-0.2) X10*3/uL Abs Immat Gran (auto) (0.00-0.03) X10*3/uL Absolute Neuts (auto) (2.0-8.3) x10*3/uL Absolute Nucleated RBC (0.0-0.012) X10*3/uL Nucleated RBC % (auto) (0.0-0.2) /100WBC Sodium 140 (135-145) mmol/L Potassium 4.4 (3.3-5.1) mmol/L Chloride 104 (96-108) mmol/L Carbon Dioxide 28 (22-29) mmol/L Anion Gap 12 (12-20) BUN 26 H (9-16) mg/dL Creatinine 1.17 (0.5-1.4) mg/dL Estim Creat Clear Calc 41.0 Estimated GFR 45 POC Glucose 181 H (60-115) mg/dL Random Glucose 176 H (60-115) mg/dL Calcium 9.0 D (8.4-10.2) mg/dL Total Bilirubin 0.5 (0.0-1.0) mg/dL AST 13 (5-31) U/L ALT 22 (0-31) U/L Alkaline Phosphatase 120 H (39-117) U/L Total Protein 6.7 (6.5-8.0) g/dL Albumin 3.7 (3.5-5.0) g/dL COVID-19 (DELMY) (Negative) COVID-19 Clin Com Influenza Type A (CHACHA) (Negative) Influenza Type B (CHACHA) (Negative) Influenza A & B Note <Cathryn Griffin CNP - Last Filed: 12/11/22 17:43> Lab Results 12/11/22 12/11/22 12/11/22 Range/Units 18:18 18:18 18:18 WBC 13.4 H (4.8-10.8) X10*3/uL RBC 4.94 (4.20-5.50) X10*6/uL Hgb 13.4 (12.0-16.0) g/dl Hct 42.1 (37.0-47.0) % MCV 85.2 (80.0-98.0) fL MCH 27.1 (27.0-33.0) pg MCHC 31.8 (31.0-35.0) g/dl RDW 14.3 (11.0-16.0) % Plt Count 290 (160-400) X10*3/uL MPV 11.4 (9.4-12.3) fL Immature Gran % (Auto) 1.0 H (0.0-0.4) % Neut % (Auto) 55.2 (45-73) % Lymph % (Auto) 33.9 (20-40) % Dickinson % (Auto) 8.6 (2-11) % Eos % (Auto) 0.7 (0-4) % Baso % (Auto) 0.6 (0-2) % Lymph # (Auto) 4.6 (1.2-4.9) X10*3/uL Dickinson # (Auto) 1.2 (0.1-1.2) X10*3/uL Eos # (Auto) 0.1 (0.0-0.4) X10*3/uL Baso # (Auto) 0.1 (0.0-0.2) X10*3/uL Abs Immat Gran (auto) 0.14 H (0.00-0.03) X10*3/uL Absolute Neuts (auto) 7.4 (2.0-8.3) x10*3/uL Absolute Nucleated RBC 0.000 (0.0-0.012) X10*3/uL Nucleated RBC % (auto) 0.0 (0.0-0.2) /100WBC Sodium (135-145) mmol/L Potassium (3.3-5.1) mmol/L Chloride (96-108) mmol/L Carbon Dioxide (22-29) mmol/L Anion Gap (12-20) BUN (9-16) mg/dL Creatinine (0.5-1.4) mg/dL Estim Creat Clear Calc Estimated GFR POC Glucose (60-115) mg/dL Random Glucose (60-115) mg/dL Calcium (8.4-10.2) mg/dL Total Bilirubin (0.0-1.0) mg/dL AST (5-31) U/L ALT (0-31) U/L Alkaline Phosphatase (39-117) U/L Total Protein (6.5-8.0) g/dL Albumin (3.5-5.0) g/dL COVID-19 (DELMY) Negative (Negative) COVID-19 Clin Com See Note Influenza Type A (CHACHA) Negative (Negative) Influenza Type B (CHACHA) Negative (Negative) Influenza A & B Note See Note 12/11/22 12/11/22 Range/Units 18:24 19:40 WBC (4.8-10.8) X10*3/uL RBC (4.20-5.50) X10*6/uL Hgb (12.0-16.0) g/dl Hct (37.0-47.0) % MCV (80.0-98.0) fL MCH (27.0-33.0) pg MCHC (31.0-35.0) g/dl RDW (11.0-16.0) % Plt Count (160-400) X10*3/uL MPV (9.4-12.3) fL Immature Gran % (Auto) (0.0-0.4) % Neut % (Auto) (45-73) % Lymph % (Auto) (20-40) % Dickinson % (Auto) (2-11) % Eos % (Auto) (0-4) % Baso % (Auto) (0-2) % Lymph # (Auto) (1.2-4.9) X10*3/uL Dickinson # (Auto) (0.1-1.2) X10*3/uL Eos # (Auto) (0.0-0.4) X10*3/uL Baso # (Auto) (0.0-0.2) X10*3/uL Abs Immat Gran (auto) (0.00-0.03) X10*3/uL Absolute Neuts (auto) (2.0-8.3) x10*3/uL Absolute Nucleated RBC (0.0-0.012) X10*3/uL Nucleated RBC % (auto) (0.0-0.2) /100WBC Sodium 140 (135-145) mmol/L Potassium 4.4 (3.3-5.1) mmol/L Chloride 104 (96-108) mmol/L Carbon Dioxide 28 (22-29) mmol/L Anion Gap 12 (12-20) BUN 26 H (9-16) mg/dL Creatinine 1.17 (0.5-1.4) mg/dL Estim Creat Clear Calc 41.0 Estimated GFR 45 POC Glucose 181 H (60-115) mg/dL Random Glucose 176 H (60-115) mg/dL Calcium 9.0 D (8.4-10.2) mg/dL Total Bilirubin 0.5 (0.0-1.0) mg/dL AST 13 (5-31) U/L ALT 22 (0-31) U/L Alkaline Phosphatase 120 H (39-117) U/L Total Protein 6.7 (6.5-8.0) g/dL Albumin 3.7 (3.5-5.0) g/dL COVID-19 (DELMY) (Negative) COVID-19 Clin Com Influenza Type A (CHACHA) (Negative) Influenza Type B (CHACHA) (Negative) Influenza A & B Note <Aden Juan MD - Last Filed: 12/11/22 21:14> Radiology Impression Discussion of test interpretation with radiology: I have reviewed the radiologist's reading. <Aden Juan MD - Last Filed: 12/11/22 21:14> Radiologist Impression: XR chest 1V IMPRESSION: No acute pulmonary process. Dictated By:Bandar RomoSigned By:<Electronically signed by Bandar Romo in [place]>10/23/22 1801 <Aden Juan MD - Last Filed: 12/11/22 21:14> Discharge Plan Discharge Clinical Impression: Acute hyperglycemia, Fluid volume depletion, Acute dehydration <Cathryn Griffin CNP - Last Filed: 12/11/22 17:43> Additional Instructions: continue to take your medications including her metformin as prescribed by your providers. If your sugars are high, it could be from eating too many carbohydrates or drinking fluids that have sugar in them. When your sugar is high your kidneys dissolve the sugar and water and this makes you pee more frequently and you lose water In your urine. When this happens you get lightheaded dizzy and weak so it is important to increase the amount of water that you drink when your sugars are high. Follow-up with your doctor in 2 days. Please return to the emergency department if your symptoms get worse or if you develop any symptoms that are concerning to you. <Cathryn Griffin CNP - Last Filed: 12/11/22 17:43> Prescriptions: No Action atorvastatin 40 mg tablet 40 mg PO BEDTIME metformin 500 mg tablet 1 tab PO DAILY metoprolol succinate 50 mg tablet extended release 24 hr 1 tab PO DAILY isosorbide mononitrate 30 mg tablet extended release 24 hr 1 tab PO QPM acetaminophen [Mapap Arthritis Pain] 650 mg tablet extended release 2 tab PO BID PRN (Reason: pain) nitroglycerin 0.4 mg tablet, sublingual 1 tab sublingual NEEDED PRN (Reason: Angina) docusate sodium [Stool Softener] 100 mg capsule 1 cap PO BID sertraline 25 mg tablet 1 tab PO DAILY furosemide 20 mg tablet 1 tab PO DAILY PRN (Reason: Edema) gabapentin 100 mg capsule 1 cap PO BID losartan 100 mg tablet 1 tab PO DAILY amlodipine 10 mg tablet 1 tab PO DAILY meclizine 25 mg tablet,chewable 25 mg PO TID PRN (Reason: dizziness) Qty: 30 0RF alum-mag hydroxide-simeth [Maalox Advanced] 200-200-20 mg/5 mL suspension 5 ml PO 5XD PRN (Reason: dyspepsia) Qty: 30 0RF Rx Instructions: administer between meals and at bedtime lidocaine HCl [Lidocaine Viscous] 2 % solution 1 appl mucous membrane TID PRN (Reason: pain) Qty: 100 0RF <Cathryn Griffin, HEADER [employer]OSS - Last Filed: 12/11/22 17:43>
[2022-12-11 17:39] VITALS: BP 157/52; PULSE 80; RESP 16; TEMP 36.7; O2SAT 97
[2022-12-11 18:23] LABS: MANUAL DIFF FLAG NO
[2022-12-11 18:27] LABS: Basophils Absolute Auto 0.1 X10*3/uL (0.0-0.2); Basophils Percent Auto 0.6 % (0-2); Eosinophils Absolute Auto 0.1 X10*3/uL (0.0-0.4); Eosinophils Percent Auto 0.7 % (0-4); Hematocrit 42.1 % (37.0-47.0); Hemoglobin 13.4 g/dl (12.0-16.0); Imm Gran Abs Auto 0.14 X10*3/uL (0.00-0.03); Lymphocytes Absolute Auto 4.6 X10*3/uL (1.2-4.9); Lymphocytes Percent Auto 33.9 % (20-40); Mean Corpuscular HGB Conc 31.8 g/dl (31.0-35.0); Mean Corpuscular Hemoglobin 27.1 pg (27.0-33.0); Mean Corpuscular Volume 85.2 fL (80.0-98.0); Mean Platelet Volume 11.4 fL (9.4-12.3); Monocytes Absolute Auto 1.2 X10*3/uL (0.1-1.2); Monocytes Percent Auto 8.6 % (2-11); Neutrophils Absolute Auto 7.4 x10*3/uL (2.0-8.3); Neutrophils Percent Auto 55.2 % (45-73); Platelet Count 290 X10*3/uL (160-400); Red Blood Count 4.94 X10*6/uL (4.20-5.50); Red Cell Distribution Width 14.3 % (11.0-16.0); White Blood Count 13.4 X10*3/uL (4.8-10.8)
[2022-12-11 18:28] LABS: Glucose, Whole Blood 181 mg/dL (60-115)
--- NOTE | 2022-12-11 18:30 | PC.NURSE ---
Complaining of fluctuating sugars at home, poc 181. IV established, labs drawn and sent.
[2022-12-11 18:50] LABS: IDNOW Serial# 16C4AD1C
[2022-12-11 18:51] LABS: COVID-19 Test Negative (Negative); IDNOW Serial# BCCEAD1C; Influenza A Negative (Negative); Influenza B2 Negative (Negative)
[2022-12-11] MEDS: 0.9 % Sodium Chloride 1,000 ML 999 ML IV (19:20)
[2022-12-11 19:30] VITALS: BP 154/69; PULSE 67; RESP 16; O2SAT 97
[2022-12-11 20:01] LABS: Alanine Aminotransferase 22 U/L (0-31); Albumin Level 3.7 g/dL (3.5-5.0); Alkaline Phosphatase 120 U/L (39-117); Anion Gap 12 (12-20); Aspartate Amino Transferase 13 U/L (5-31); Bilirubin Total 0.5 mg/dL (0.0-1.0); Blood Urea Nitrogen 26 mg/dL (9-16); Carbon Dioxide 28 mmol/L (22-29); Chloride 104 mmol/L (96-108); Estimated Glomerular Filt Rate 45; Glucose Random 176 mg/dL (60-115); Potassium 4.4 mmol/L (3.3-5.1); Sodium 140 mmol/L (135-145); Total Protein 6.7 g/dL (6.5-8.0)
== END 2022-12-11 21:34 | disposition home or self-care (01) ==
PROVIDERS: Nurse Practitioner Family; Emergency Provider Emergency Medicine Emergency Medical Services; PCP Pediatrics
DX: E11.65 Type 2 diabetes mellitus with hyperglycemia (principal); E86.0 Dehydration; Z20.822 Contact with and (suspected) exposure to COVID-19; I11.0 Hypertensive heart disease with heart failure; I50.9 Heart failure, unspecified; Z79.84 Long term (current) use of oral hypoglycemic drugs; Z79.899 Other long term (current) drug therapy
CPT/HCPCS: 36415; 80053; 82947; 85025; 87502; 87635; 96360; 99284

== ENCOUNTER 2023-07-15 13:39 | Emergency (ER) | payer OTHER, SELFPAY ==
[2023-07-15 14:07] VITALS: BP 138/58; PULSE 76; RESP 16; TEMP 36.3; O2SAT 98; BMI 28.3
--- NOTE | 2023-07-15 14:52 | PC.NURSE ---
pt comes in today d/t increased burning/itching when she urinates. pt denies urgency/frequency/hematuria/n/v/chills. pt states that she had fever a few days ago but is currently afebrile at this time. pt states that she has lower back pain at this time. denies hx of kidney stones. pt resting comfortably in stretcher in no apparent distress.
--- NOTE | 2023-07-15 15:13 | ED.FEMALEGU ---
HPI - Female Genitourinary General Chief complaint: Urogenital-Female Stated complaint: Burning Sensation Private Area Time Seen by Provider: 07/15/23 14:19 Source: patient, old records reviewed and [employer] Mode of arrival: ambulatory Limitations: no limitations History of Present Illness HPI Narrative: 77 y/o Guamanian speaking female presents to the ER for evaluation of vaginal itching and discharge for the last 2 days. She states she has pain with urination and wiping. She has been using warm compresses to the area. She has noticed some yellowish discharge in her underwear today. Not sexually active. She has suprapubic discomfort but no abdominal pain, N/V/D. She reports her sugars have been a little high in the 160s at home. No recent abx MD elicited complaint: dysuria, vaginal discharge and genital itching Onset (ago): day(s) Location of symptoms: external genitalia, urethra and vaginal Severity: moderate Female Urogenital Radiation: Suprapubic Quality of pain: burning Consistency: constant Vaginal discharge: white and yellow Vaginal bleeding: none Urinary symptoms: Dysuria Exacerbating factors: urination and palpation Relieving factors: none Associated symptoms: denies other symptoms Treatment prior to arrival: none Sexual activity: No Related Data Home Medications Medication Instructions Recorded Confirmed acetaminophen 650 mg 2 tab PO BID PRN pain 03/03/21 03/03/21 tablet,extended release (Mapap Arthritis Pain) amlodipine 10 mg tablet 1 tab PO DAILY 03/03/21 atorvastatin 40 mg tablet 40 mg PO BEDTIME 03/03/21 03/03/21 docusate sodium 100 mg capsule 1 cap PO BID 03/03/21 03/03/21 (Stool Softener) furosemide 20 mg tablet 1 tab PO DAILY PRN Edema 03/03/21 03/03/21 gabapentin 100 mg capsule 1 cap PO BID 03/03/21 03/03/21 isosorbide mononitrate 30 mg 1 tab PO QPM 03/03/21 03/03/21 tablet,extended release 24 hr losartan 100 mg tablet 1 tab PO DAILY 03/03/21 03/03/21 metformin 500 mg tablet 1 tab PO DAILY 03/03/21 03/03/21 metoprolol succinate 50 mg 1 tab PO DAILY 03/03/21 03/03/21 tablet,extended release 24 hr nitroglycerin 0.4 mg sublingual 1 tab sublingual NEEDED PRN 03/03/21 03/03/21 tablet Angina sertraline 25 mg tablet 1 tab PO DAILY 03/03/21 03/03/21 Previous Rx's Medication Instructions Recorded meclizine 25 mg chewable tablet 25 mg PO TID PRN dizziness #30 tabs 03/03/21 aluminum-mag hydroxide-simethicone 5 ml PO 5XD PRN dyspepsia #30 mL 07/16/21 200 mg-200 mg-20 mg/5 mL oral susp (Maalox Advanced) lidocaine HCl 2 % mucosal solution 1 appl mucous membrane TID PRN 07/16/21 (Lidocaine Viscous) pain #100 mL fluconazole 150 mg tablet 150 mg PO Q3D 2 doses #2 tabs 07/15/23 (Diflucan) Allergies Allergy/AdvReac Type Severity Reaction Status Date / Time Penicillins Allergy Severe RASH Verified 10/23/22 17:22 Review of Systems Review of Systems: Yes all other systems are reviewed and are negative [facility] Past Medical History Medical History Congestive heart failure Diabetes Hypertension Surgical History H/O heart bypass surgery Social History Social History Alcohol intake: never Patient Tobacco Use Status: Never used Tobacco Advance Directives: No Patient : No Physical Exam Vital Signs: Vital Signs: Last Vital Signs Temp 97.3 F 07/15/23 14:07 Pulse 76 07/15/23 14:07 Resp 16 07/15/23 14:07 BP 138/58 L 07/15/23 14:07 Pulse Ox 98 07/15/23 14:07 O2 Del Method Room Air 07/15/23 14:07 BMI result Body Mass Index 28.3 Appearance: Alert. Oriented X3. No acute distress. HEENT: normal inspection CVS: Normal heart rate and rhythm. Pulses normal. Respiratory: No respiratory distress. Skin: Skin warm and dry. Normal skin color. Normal skin turgor. No rashes. : normal inspection of the mons pubis. labia minora with erythema and tenderness, excoriated. vaginal canal with white discharge, small amount. tender. normal appearing cervix. Extremities: normal inspection x4. Neuro: Oriented X 3. No motor deficit. No sensory deficit. Medical Decision Making Medical Decision Making [facility] Narrative: 77 yo female presenting with dysuria, vaginal itching and discharge x2 days. UA negative. exam is c/w yeast infection. will treat w/ diflucan stable for d/c home with plan to f/u with her [employer] or PCP. return precautions discussed Differential Diagnosis Differential Diagnoses: The differential diagnosis associated with the presentation includes vaginitis, yeast infection, UTI, BV, STI less likely Lab Data [facility] Lab Attestation statement: I reviewed the patient's lab results. Labs: Lab Results 07/15/23 Range/Units 14:18 Urine Color Yellow Urine Appearance Clear Urine pH 6.5 (5.0-9.0) Ur Specific [place] >= 1.030 H (1.005-1.025) Urine Protein 30 (1+) H (Neg-Trace) mg/dL Urine Glucose (UA) >=1000 H (Negative) mg/dL Urine Ketones Trace (Negative) mg/dL Urine Blood Negative (Negative) Urine Nitrite Negative (Negative) Ur Leukocyte Esterase Trace H (Negative) Urine RBC 0-2 (0-2) /HPF Urine WBC 0-5 (0-5) /HPF Ur Squamous Epith Cells 3-5 (0-2) /HPF Urine Bacteria None Seen (None Seen) Hyaline Casts 0-2 (0-2) /LPF External Record Review External record reviewed: Prior outpatient labs Tests considered The following testing was considered but not selected: considered BV/STI swabs but clinically impression was made w/ exam and visualization Prescription Management I considered prescription management with: Antibiotic and Other (antifungal) Chronic Conditions Patient?s care impacted by: Diabetes Critical Care Time Critical Care Time Critical Care Time: No Discharge Plan Discharge Clinical Impression: Vaginal yeast infection Patient Disposition: Home, Self-Care Instructions: Yeast Infection (ED) Additional Instructions: Your urine test did not show any bacterial infection of the bladder Your exam showed a vaginal yeast infection Take the prescribed antifungal agents for this Use cool compresses to the area as needed for pain/discomfort Follow up with your PCP next week If you develop new or worsening symptoms call 911 or come back to the ER for further evaluation. Orozco an?lisis de orina no mostr? ninguna infecci?n bacteriana en la vejiga. Orozco examen mostr? franki candidiasis vaginal. Traer los agentes antimic?ticos recetados para esto. Use compresas fr?as en el ?roberto seg?n sea necesario para el dolor o la incomodidad. Gabriel un seguimiento con orozco PCP la pr?xima semana Si desarrolla s?ntomas nuevos o que empeoran, llame al 911 o regrese a la [place] de emergencias para franki evaluaci?n adicional. Prescriptions: New fluconazole [Diflucan] 150 mg tablet 150 mg PO Q3D Qty: 2 0RF No Action atorvastatin 40 mg tablet 40 mg PO BEDTIME metformin 500 mg tablet 1 tab PO DAILY metoprolol succinate 50 mg tablet extended release 24 hr 1 tab PO DAILY isosorbide mononitrate 30 mg tablet extended release 24 hr 1 tab PO QPM acetaminophen [Mapap Arthritis Pain] 650 mg tablet extended release 2 tab PO BID PRN (Reason: pain) nitroglycerin 0.4 mg tablet, sublingual 1 tab sublingual NEEDED PRN (Reason: Angina) docusate sodium [Stool Softener] 100 mg capsule 1 cap PO BID sertraline 25 mg tablet 1 tab PO DAILY furosemide 20 mg tablet 1 tab PO DAILY PRN (Reason: Edema) gabapentin 100 mg capsule 1 cap PO BID losartan 100 mg tablet 1 tab PO DAILY amlodipine 10 mg tablet 1 tab PO DAILY meclizine 25 mg tablet,chewable 25 mg PO TID PRN (Reason: dizziness) Qty: 30 0RF alum-mag hydroxide-simeth [Maalox Advanced] 200-200-20 mg/5 mL suspension 5 ml PO 5XD PRN (Reason: dyspepsia) Qty: 30 0RF Rx Instructions: administer between meals and at bedtime lidocaine HCl [Lidocaine Viscous] 2 % solution 1 appl mucous membrane TID PRN (Reason: pain) Qty: 100 0RF Interventions: ED Discharge Assessment Last Done: 07/15/23 16:06 Discharge Date/Time: 07/15/23 16:07 Print Language: Guamanian
== END 2023-07-15 16:07 | disposition home or self-care (01) ==
PROVIDERS: Emergency Provider Emergency Medicine
DX: B37.31 Acute candidiasis of vulva and vagina (principal); E11.9 Type 2 diabetes mellitus without complications; I11.0 Hypertensive heart disease with heart failure; I50.9 Heart failure, unspecified; Z79.899 Other long term (current) drug therapy
CPT/HCPCS: 81001; 99283

== ENCOUNTER 2023-11-09 22:44 | Emergency (ER) | payer OTHER, SELFPAY ==
[2023-11-09 22:58] VITALS: BP 145/67; BP 169/89; PULSE 87; RESP 16; TEMP 36.8; O2SAT 95; O2SAT 97
--- NOTE | 2023-11-09 22:59 | ED.GENADULT ---
HPI - General Adult General Chief complaint: General Medical Stated complaint: HYPERGLYCEMIA Time Seen by Provider: 11/09/23 22:52 Source: patient Mode of arrival: ambulatory Limitations: no limitations History of Present Illness HPI narrative: Patient history of diabetes on oral hypoglycemic got the blister pack few months ago does not know how to take those medications missing medication off on today patient was feeling dry in the mouth checked blood sugar read high EMS checked blood sugar was 514, on arrival patient's blood sugar was 399 patient taking Jardiance few doses were missing from the blister pack patient does have a help in the evening but in the a.m. does not have help to give her meds Related Data Home Medications Medication Instructions Recorded Confirmed acetaminophen 650 mg 2 tab PO BID PRN pain 03/03/21 03/03/21 tablet,extended release (Mapap Arthritis Pain) amlodipine 10 mg tablet 1 tab PO DAILY 03/03/21 11/10/23 atorvastatin 40 mg tablet 40 mg PO BEDTIME 03/03/21 11/10/23 docusate sodium 100 mg capsule 1 cap PO BID 03/03/21 03/03/21 (Stool Softener) furosemide 20 mg tablet 1 tab PO DAILY PRN Edema 03/03/21 03/03/21 gabapentin 100 mg capsule 1 cap PO BID 03/03/21 03/03/21 isosorbide mononitrate 30 mg 1 tab PO QPM 03/03/21 03/03/21 tablet,extended release 24 hr losartan 100 mg tablet 1 tab PO DAILY 03/03/21 03/03/21 metformin 500 mg tablet 1 tab PO DAILY 03/03/21 03/03/21 metoprolol succinate 50 mg 1 tab PO DAILY 03/03/21 11/10/23 tablet,extended release 24 hr nitroglycerin 0.4 mg sublingual 1 tab sublingual NEEDED PRN 03/03/21 11/10/23 tablet Angina sertraline 25 mg tablet 1 tab PO DAILY 03/03/21 03/03/21 duloxetine 60 mg capsule,delayed 60 mg PO DAILY 11/10/23 11/10/23 release sprinkle empagliflozin 10 mg tablet 10 mg PO DAILY 11/10/23 11/10/23 (Jardiance) famotidine 20 mg tablet 20 mg PO BID 11/10/23 11/10/23 furosemide 20 mg tablet 20 mg PO DAILY 11/10/23 11/10/23 montelukast 10 mg tablet 10 mg PO DAILY 11/10/23 11/10/23 Previous Rx's Medication Instructions Recorded meclizine 25 mg chewable tablet 25 mg PO TID PRN dizziness #30 tabs 03/03/21 aluminum-mag hydroxide-simethicone 5 ml PO 5XD PRN dyspepsia #30 mL 07/16/21 200 mg-200 mg-20 mg/5 mL oral susp (Maalox Advanced) lidocaine HCl 2 % mucosal solution 1 appl mucous membrane TID PRN 07/16/21 (Lidocaine Viscous) pain #100 mL fluconazole 150 mg tablet 150 mg PO Q3D 2 doses #2 tabs 07/15/23 (Diflucan) Allergies Allergy/AdvReac Type Severity Reaction Status Date / Time Penicillins Allergy Severe RASH Verified 10/23/22 17:22 Review of Systems Review of Systems: Yes all other systems are reviewed and are negative [facility] Past Medical History Medical History Diabetes Hypertension Congestive heart failure Surgical History H/O heart bypass surgery Social History Social History Alcohol intake: former Patient Tobacco Use Status: Never used Tobacco Smoked in Last 30 Days: No Use of substances other than those prescribed or required for medical reasons: No Advance Directives: No Advance Directives Information Provided: Yes Physical Exam ED Vital Signs: Vital Signs - 24 hr 11/09/23 22:58 11/09/23 23:42 11/10/23 03:20 Temperature 98.3 F 98.0 F 97.4 F Pulse Rate 87 72 64 Respiratory Rate 16 16 16 Blood Pressure 145/67 H 132/61 158/62 H Pulse Oximetry 97 97 96 Oxygen Delivery Method Room Air Room Air Room Air 11/10/23 05:50 Temperature 98.3 F Pulse Rate 67 Respiratory Rate 16 Blood Pressure 163/61 H Pulse Oximetry 97 Oxygen Delivery Method Room Air BMI result Body Mass Index 30.0 Appearance: Alert. Oriented X3. No acute distress. Eyes: no pallor ENT: Pharynx normal. Oral Mucosa moist Neck: Normal inspection. Neck supple. CVS: Normal heart rate and rhythm. Pulses normal. Respiratory: No respiratory distress. Equal air entry bilateral, no wheezing/rales/rhonchi Abdomen: Soft and nontender. Bowel sounds are present, Skin: Skin warm and dry. Normal skin color. Normal skin turgor. Extremities: No lower extremity edema. No calf tenderness Neuro: Oriented X 3. No motor deficit. Medications Administered Discontinued Medications Generic Name Dose Route Start Last Admin Trade Name Freq PRN Reason Stop Dose Admin Sodium Chloride 1,000 mls @ 999 mls/hr 11/10/23 01:27 11/10/23 03:00 Ns IV 11/10/23 02:27 Infused .Q1H1M ONE Infusion Insulin Glargine 20 unit 11/10/23 01:40 11/10/23 02:30 Insulin Glargine,Hum.Rec.Anlog 100 Unit/Ml 10 Ml Vial SUBCUT 11/10/23 01:41 20 unit ONCE ONE Administration Insulin Human Lispro 8 unit 11/09/23 23:07 11/09/23 23:21 Insulin Lispro 100 Unit/Ml 3 Ml Vial SUBCUT 11/09/23 23:08 8 unit ONCE ONE Administration Medical Decision Making Medical Decision Making [facility] Narrative: Patient diabetic with the memory loss and early dementia unable to manage her medications came with hyperglycemia. Will get case management involved for medication management at home patient may need to be on long-acting insulin Differential Diagnosis Differential Diagnoses: The differential diagnosis associated with the presentation includes Lab Data [facility] Lab Attestation statement: I reviewed the patient's lab results. 11/09/23 23:28 11/09/23 23:28 Labs: Lab Results 11/09/23 11/09/23 11/10/23 Range/Units 22:54 23:28 00:24 WBC 12.1 H (4.8-10.8) X10*3/uL RBC 5.18 (4.20-5.50) X10*6/uL Hgb 13.9 (12.0-16.0) g/dl Hct 43.2 (37.0-47.0) % MCV 83.4 (80.0-98.0) fL MCH 26.8 L (27.0-33.0) pg MCHC 32.2 (31.0-35.0) g/dl RDW 15.3 (11.0-16.0) % Plt Count 330 (160-400) X10*3/uL MPV 11.0 (9.4-12.3) fL Immature Gran % (Auto) 0.7 H (0.0-0.4) % Neut % (Auto) 73.5 H (45-73) % Lymph % (Auto) 18.3 L (20-40) % [place] % (Auto) 7.3 (2-11) % Eos % (Auto) 0.0 (0-4) % Baso % (Auto) 0.2 (0-2) % Lymph # (Auto) 2.2 (1.2-4.9) X10*3/uL [place] # (Auto) 0.9 (0.1-1.2) X10*3/uL Eos # (Auto) 0.0 (0.0-0.4) X10*3/uL Baso # (Auto) 0.0 (0.0-0.2) X10*3/uL Abs Immat Gran (auto) 0.08 H (0.00-0.03) X10*3/uL Absolute Neuts (auto) 8.9 H (2.0-8.3) x10*3/uL Absolute Nucleated RBC 0.000 (0.0-0.012) X10*3/uL Nucleated RBC % (auto) 0.0 (0.0-0.2) /100WBC Sodium 138 (135-145) mmol/L Potassium 4.4 (3.3-5.1) mmol/L Chloride 103 (96-108) mmol/L Carbon Dioxide 25 (22-29) mmol/L Anion Gap 14 (12-20) BUN 32 H (9-16) mg/dL Creatinine 1.46 H (0.5-1.4) mg/dL Estim Creat Clear Calc 29.9 Estimated GFR 35 POC Glucose 399 H* 301 H (60-115) mg/dL Random Glucose 400 H* (60-115) mg/dL Calcium 9.8 D (8.4-10.2) mg/dL Total Bilirubin 0.3 (0.0-1.0) mg/dL AST 13 (5-31) U/L ALT 29 (0-31) U/L Alkaline Phosphatase 129 H (39-117) U/L Total Protein 7.7 (6.5-8.0) g/dL Albumin 3.9 (3.5-5.0) g/dL 11/10/23 Range/Units 05:13 WBC (4.8-10.8) X10*3/uL RBC (4.20-5.50) X10*6/uL Hgb (12.0-16.0) g/dl Hct (37.0-47.0) % MCV (80.0-98.0) fL MCH (27.0-33.0) pg MCHC (31.0-35.0) g/dl RDW (11.0-16.0) % Plt Count (160-400) X10*3/uL MPV (9.4-12.3) fL Immature Gran % (Auto) (0.0-0.4) % Neut % (Auto) (45-73) % Lymph % (Auto) (20-40) % [place] % (Auto) (2-11) % Eos % (Auto) (0-4) % Baso % (Auto) (0-2) % Lymph # (Auto) (1.2-4.9) X10*3/uL [place] # (Auto) (0.1-1.2) X10*3/uL Eos # (Auto) (0.0-0.4) X10*3/uL Baso # (Auto) (0.0-0.2) X10*3/uL Abs Immat Gran (auto) (0.00-0.03) X10*3/uL Absolute Neuts (auto) (2.0-8.3) x10*3/uL Absolute Nucleated RBC (0.0-0.012) X10*3/uL Nucleated RBC % (auto) (0.0-0.2) /100WBC Sodium (135-145) mmol/L Potassium (3.3-5.1) mmol/L Chloride (96-108) mmol/L Carbon Dioxide (22-29) mmol/L Anion Gap (12-20) BUN (9-16) mg/dL Creatinine (0.5-1.4) mg/dL Estim Creat Clear Calc Estimated GFR POC Glucose 124 H (60-115) mg/dL Random Glucose (60-115) mg/dL Calcium (8.4-10.2) mg/dL Total Bilirubin (0.0-1.0) mg/dL AST (5-31) U/L ALT (0-31) U/L Alkaline Phosphatase (39-117) U/L Total Protein (6.5-8.0) g/dL Albumin (3.5-5.0) g/dL Discharge Plan Discharge Clinical Impression: Hyperglycemia due to type 2 diabetes mellitus Patient Disposition: Still a Patient Prescriptions: No Action atorvastatin 40 mg tablet 40 mg PO BEDTIME metformin 500 mg tablet 1 tab PO DAILY metoprolol succinate 50 mg tablet extended release 24 hr 1 tab PO DAILY isosorbide mononitrate 30 mg tablet extended release 24 hr 1 tab PO QPM acetaminophen [Mapap Arthritis Pain] 650 mg tablet extended release 2 tab PO BID PRN (Reason: pain) nitroglycerin 0.4 mg tablet, sublingual 1 tab sublingual NEEDED PRN (Reason: Angina) docusate sodium [Stool Softener] 100 mg capsule 1 cap PO BID sertraline 25 mg tablet 1 tab PO DAILY furosemide 20 mg tablet 1 tab PO DAILY PRN (Reason: Edema) gabapentin 100 mg capsule 1 cap PO BID losartan 100 mg tablet 1 tab PO DAILY amlodipine 10 mg tablet 1 tab PO DAILY meclizine 25 mg tablet,chewable 25 mg PO TID PRN (Reason: dizziness) Qty: 30 0RF alum-mag hydroxide-simeth [Maalox Advanced] 200-200-20 mg/5 mL suspension 5 ml PO 5XD PRN (Reason: dyspepsia) Qty: 30 0RF Rx Instructions: administer between meals and at bedtime lidocaine HCl [Lidocaine Viscous] 2 % solution 1 appl mucous membrane TID PRN (Reason: pain) Qty: 100 0RF fluconazole [Diflucan] 150 mg tablet 150 mg PO Q3D Qty: 2 0RF famotidine 20 mg tablet 20 mg PO BID montelukast 10 mg tablet 10 mg PO DAILY furosemide 20 mg tablet 20 mg PO DAILY Jardiance 10 mg tablet 10 mg PO DAILY duloxetine 60 mg Capsule, Delayed Rel Sprinkle 60 mg PO DAILY
[2023-11-09 23:03] LABS: Glucose, Whole Blood 399 mg/dL (60-115)
--- NOTE | 2023-11-09 23:09 | MHC.EDTECH ---
Patient was biba from home ,vitals taken ,blood sugar check ,LAILA Owens aware of result of 399,Patient was change into hospital gown ,LAILA Perez in room Triaging Patient .
[2023-11-09] MEDS: Insulin Lispro 100 UNIT/ML 3 ML VIAL 8 UNIT SUBCUT (23:21)
[2023-11-09 23:40] LABS: MANUAL DIFF FLAG NO
[2023-11-09 23:42] VITALS: BP 132/61; PULSE 72; RESP 16; TEMP 36.7; O2SAT 97
[2023-11-09 23:42] LABS: Basophils Percent Auto 0.2 % (0-2); Hematocrit 43.2 % (37.0-47.0); Hemoglobin 13.9 g/dl (12.0-16.0); Imm Gran Abs Auto 0.08 X10*3/uL (0.00-0.03); Imm Gran Pct Auto 0.7 % (0.0-0.4); Lymphocytes Absolute Auto 2.2 X10*3/uL (1.2-4.9); Lymphocytes Percent Auto 18.3 % (20-40); Mean Corpuscular HGB Conc 32.2 g/dl (31.0-35.0); Mean Corpuscular Hemoglobin 26.8 pg (27.0-33.0); Mean Corpuscular Volume 83.4 fL (80.0-98.0); Monocytes Absolute Auto 0.9 X10*3/uL (0.1-1.2); Monocytes Percent Auto 7.3 % (2-11); Neutrophils Absolute Auto 8.9 x10*3/uL (2.0-8.3); Neutrophils Percent Auto 73.5 % (45-73); Platelet Count 330 X10*3/uL (160-400); Red Blood Count 5.18 X10*6/uL (4.20-5.50); Red Cell Distribution Width 15.3 % (11.0-16.0); White Blood Count 12.1 X10*3/uL (4.8-10.8)
[2023-11-09 23:57] LABS: Alanine Aminotransferase 29 U/L (0-31); Albumin Level 3.9 g/dL (3.5-5.0); Alkaline Phosphatase 129 U/L (39-117); Anion Gap 14 (12-20); Aspartate Amino Transferase 13 U/L (5-31); Bilirubin Total 0.3 mg/dL (0.0-1.0); Blood Urea Nitrogen 32 mg/dL (9-16); Calcium 9.8 mg/dL (8.4-10.2); Carbon Dioxide 25 mmol/L (22-29); Chloride 103 mmol/L (96-108); Creatinine Clr Calc Pharmacy 29.9; Estimated Glomerular Filt Rate 35; Glucose Random 400 mg/dL (60-115); Potassium 4.4 mmol/L (3.3-5.1); Sodium 138 mmol/L (135-145); Total Protein 7.7 g/dL (6.5-8.0)
[2023-11-10 00:28] LABS: Glucose, Whole Blood 301 mg/dL (60-115)
--- OUTSIDE RECORDS SUMMARY | 2023-11-10 01:32 | XMS_ITS | Continuity of Care Document ---
Author Name Unknown Organization [facility] Address [address] [place] [address]- Care Team Providers Care Retail Director Name Role Phone Jaylene Somers DO Primary Care Phys[place] [facility] [place]19[place]23 [place] 09[place]26/23 [facility] [address] [place], [place] [address] Attending Physician: Ethel Mcintyre NP Allergies, Adverse Reactions, Alerts Substance Reaction Severity Status penicillin Active Fluzone Active Latex Active Immunizations Given and Recorded Vaccine Date Status Refusal Reason pneumococcal 23-valent vaccine 1 07/29/22 Given influenza virus vaccine, inactivated 2 07/29/22 Gi lois SARS-CoV-2 (COVID-19) Ad26 vaccine 12/31/20 Record ed Influenza Virus Vaccine (oldterm) 09/02/20 Recorde d pneumococcal 13-valent vaccine 03/15/16 Recorded tetanus/diphtheria/pertussis, acel(Tdap) 03/15/16 Recorded 1Result Comment: [facility] [id number] 2Result Comment: [facility] [id number] Medications acetaminophen 650 mg oral tablet, extended release 2 tablet, By Mouth, 2 times a day, PRN NEEDED FOR PAIN,INSTR, TO REPLACE OTHER DOSE TYLENOL DIRECTED, # 100 tablet, 3 Refills, [facility], 153, cm, 02/19/22 13:43:00 EDT, Height, 76.2, kg, 06/22/21 9:04:00 EDT, Dry Weight Start Date: 03/18/22 Status: Ordered Alcohol Pads See Instructions, # 200 each, Refills 4, Tot. Refills 4, Maintenance, aodm 2/ e11.9 use once a day,02/09/23 11:09:00 EDT, Compound, 153, cm, 12/31/22 14:23:00 EDT, Height, 76.2, kg, 06/22/21 9:04:00EDT, Dry Weight Start Date: 02/09/23 Stop Date: 07/09/23 Status: Ordered amLODIPine 10 mg oral tablet 1 tablet, By Mouth, Daily, # 90 tablet, 1 Refills, 07/29/22 12:19:00 EDT, [facility], 153, cm, 07/29/22 11:58:00 EDT, Height, 76.2, kg, 06/22/21 9:04:00 EDT, Dry Weight Start Date: 07/29/22 Status: Ordered Aspirin Low Dose 81 mg oral delayed release tablet 1 tablet, By Mouth, Daily, # 90 tablet, 1 Refills, Maintenance, 11/13/22 21:29:00 EST, [facility], 153, cm, 11/05/22 10:57:00 EST, Height, 76.2, kg, 06/22/21 9:04:00 EDT, Dry Weight Start Date: 11/13/22 Stop Date: 05/12/23 Status: Ordered atorvastatin 40 mg oral tablet 1 tablet = 40 mg, By Mouth, Daily, # 90 tablet, 3 Refills, Maintenance, 07/29/22 12:09:00 EDT, Tablet, [facility], 153, cm, 07/29/22 11:58:00 EDT, Height, 76.2, kg, 06/22/21 9:04:00 EDT,Dry Weight Start Date: 07/29/22 Status: Ordered Compression Stockings See Instructions, # 2 each, Refills 3, Tot. Refills 3, Maintenance, surgical, thigh high length 20-30 mm Hg I95.1 R42, 03/10/21 10:39:00 EDT, Compound Start Date: 03/10/21 Status: Ordered Contour Next EZ Glucometer See Instructions, # 1 each, Maintenance, use as directed for Type 2 Diabetes Mellitus, 12/17/22 14:47:00 EST, Supply, 153, cm, 11/19/22 12:10:00 EST, Height, 76.2, kg, 06/22/21 9:04:00 EDT, Dry Weight Start Date: 12/17/22 Status: Ordered Contour Next EZ Test Strips See Instructions, # 50 each, Refills 5, Tot. Refills 5, Maintenance, aodm 2/ e11.9 use once a day, 04/07/23 15:18:00 EDT, Supply, 153, cm, 04/01/23 13:38:00 EDT, Height, 75.7, kg, 04/01/23 13:38:00 EDT, Dry Weight Start Date: 04/07/23 Status: Ordered diclofenac 1% topical gel = 4 Gm, Topically, 3 times a day, # 100 Gm, 4 Refills, Maintenance, 07/29/22 12:04:00 EDT, Gel, [facility], 153, cm, 07/29/22 11:58:00 EDT, Height, 76.2, kg, 06/22/21 9:04:00 EDT, Dry Weight Start Date: 07/29/22 Status: Ordered docusate sodium 100 mg oral capsule 1 capsule, By Mouth, 2 times a day, PRN NEEDED FOR CONSTIPATION, # 100 capsule, 1 Refills, Maintenance, 04/22/23 13:21:00 EDT, [facility], 153, cm, 04/01/23 13:38:00 EDT, Height, 75.7, kg, 04/01/23 13:38:00 EDT, Dry Weight Start Date: 04/22/23 Status: Ordered duloxetine 60 mg oral enteric coated capsule 1 capsule = 60 mg, By Mouth, Daily, note dose change, ok to start with next bubble pack, # 90 capsule, 1 Refills, Maintenance, 04/08/23 17:26:00 EDT, EC Capsule, [facility], Partial fill upon patient request if the prescription is for a sche... Start Date: 04/08/23 Status: Ordered famotidine 20 mg oral tablet See Instructions, TAKE 1 TABLET BY MOUTH TWICE DAILY, # 56 tablet, Refills 5, Maintenance, 05/23/2321:50:00 EDT, Instructions Replace Required Details, Route to Pharmacy Electronically, [facility], 153, cm, 04/01/23 13:38:00 EDT, Height, 75... Start Date: 05/23/23 Status: Ordered Fish Oil By Mouth, 0 Refills, Maintenance, 07/29/22 11:57:00 EDT, Partial fill upon patient request if the prescription is for a schedule II opioid drug. Start Date: 07/29/22 Status: Ordered Flonase 50 mcg/inh nasal spray 1 sprays, Nares, Both, 2 times a day, # 16 Gm, 0 Refills, Maintenance, 06/22/21 15:47:00 EDT, [place], [id number], Partial fill upon patient request if the prescription is for a schedule II opioid drug., 1 sprays Nares, Both 2 times a d... Start Date: 06/22/21 Status: Ordered fluticasone 50 mcg/inh nasal spray See Instructions, SHAKE LIQUID AND USE 1 SPRAY IN EACH NOSTRIL TWICE DAILY, # 48 Gm, 0 Refills, 11/05/21 13:57:00 EST, [facility], 90, SHAKE LIQUID AND USE 1 SPRAY IN EACH NOSTRIL TWICE DAILY, 153, cm, 10/01/21 9:25:00 EST, Height, 76.2,... Start Date: 11/05/21 Status: Ordered furosemide 20 mg oral tablet 1, capsule, By Mouth, Once, # 1 tablet, Refills 0, Maintenance, 11/15/22 10:57:00 EST, Partial fillupon patient request if the prescription is for a schedule II opioid drug. Start Date: 11/15/22 Status: Ordered gabapentin 100 mg oral capsule 100 mg, 1, capsule, By Mouth, Daily at bedtime, to replace twice a day dosing, # 30 capsule, Refills 5, Tot. Refills 5, Maintenance, 12/31/22 14:35:00 EDT, Route to Pharmacy Electronically, [facility], Partial fill upon patient request if... Start Date: 12/31/22 Status: Ordered Jardiance 10 mg oral tablet 1 tablet = 10 mg, By Mouth, Daily in AM, # 90 tablet, 1 Refills, Maintenance, 04/08/23 17:26:00 EDT, Tablet, [facility], Partial fill upon patient request if the prescription is for a schedule II opioid drug., 153, cm, 04/01/23 13:38:00 EDT,... Start Date: 04/08/23 Status: Ordered Lidoderm 5% film 1 patch, Topically, Daily, dx costochondritis remove patches after 12 hours, # 30 patch, 0 Refills,Maintenance, 11/19/22 12:45:00 EST, [facility], Partial fill upon patient request if the prescription is for a schedule II opioid drug.,... Start Date: 11/19/22 Status: Ordered Macrobid macrocrystals-monohydrate 100 mg oral capsule 1 capsule = 100 mg, By Mouth, 2 times a day, for 5 days, # 10 capsule, 0 Refills, Acute 10/01/23 11:53:00 EST, 09/26/23 11:53:00 EST, Capsule, [facility], Partial fill upon patient request if the prescription is for a schedule II opioid drug... Start Date: 09/26/23 Stop Date: 10/01/23 Status: Ordered meclizine 12.5 mg oral tablet 1 tablet, By Mouth, 3 times a day, PRN NEEDED FOR DIZZINESS, to replace prior dose, # 30 tablet,5 Refills, Maintenance, 02/02/23 8:57:00 EDT, [facility], 153, cm, 12/31/22 14:23:00 EDT, Height, 76.2, kg, 06/22/21 9:04:00 EDT, Dry Weight Start Date: 02/02/23 Status: Ordered metoprolol 50 mg oral tablet, extended release 50 mg, 1, tablet, By Mouth, Daily, # 90 tablet, Refills 3, Tot. Refills 3, Maintenance, 07/29/22 12:09:00 EDT, Route to Pharmacy Electronically, [facility], 153, cm, 07/29/22 11:58:00 EDT, Height, 76.2, kg, 06/22/21 9:04:00 EDT, Dry Weight Start Date: 07/29/22 Status: Ordered Nitrostat 0.4 mg sublingual tablet 1 tablet = 0.4 mg, Sublingual, Every 5 minutes, PRN for chest pain, If chest pain not relieved in 5minutes after first dose, seek immediate medical attention, # 10 tablet, 0 Refills, Maintenance, 02/16/19 14:19:57 EDT, Tablet Start Date: 02/16/19 Status: Ordered OneTouch Verio Glucose Meter See Instructions, # 1 each, Refills 0, Tot. Refills 0, Maintenance, e11.9 T2DM to check blood sugars once a day, 01/13/23 15:01:00 EDT, Supply, 153, cm, 12/31/22 14:23:00 EDT, Height, 76.2, kg, 06/22/21 9:04:00 EDT, Dry Weight Start Date: 01/13/23 Status: Ordered OneTouch Verio Test Strips See Instructions, # 100 each, Refills 4, Tot. Refills 4, Maintenance, e11.9 T2DM to check blood sugars once a day, 04/05/23 14:33:00 EDT, Supply, 153, cm, 04/01/23 13:38:00 EDT, Height, 75.7, kg, 04/01/23 13:38:00 EDT, Dry Weight Start Date: 04/05/23 Status: Ordered pneumococcal 13-valent conjugate vaccine intramuscular suspension 0.5 mL, Intramuscular, Once, # 1 each, 0 Refills, Soft Stop, 06/06/20 15:49:00 EDT, Suspension, [facility] #[id number], 0.5 mL Intramuscular Once, 160, cm, 03/20/20 12:56:00 EDT, Height, 73, kg,01/21/20 5:01:00 EDT, Dry Weight Start Date: 06/06/20 Status: Ordered pure comfort lancets pure comfort lancets, See Instructions, # 100 each, Refills 4, Tot. Refills 4, Maintenance, E11.9 Check blood sugar once daily, 04/01/23 13:50:00 EDT, Supply, 153, cm, 04/01/23 13:38:00 EDT, Height, 75.7, kg, 04/01/23 13:38:00 EDT, Dry Weight Start Date: 04/01/23 Status: Ordered Shingrix intramuscular injection 0.5 mL, Intramuscular, Once, # 0.5 mL, 1 Refills, Soft Stop, 06/06/20 15:49:00 EDT, [id number], 0.5 mL Intramuscular Once, 160, cm, 03/20/20 12:56:00 EDT, Height, 73, kg, 01/21/20 5:01:00 EDT, Dry Weight Start Date: 06/06/20 Status: Ordered Singulair 10 mg oral tablet 10 mg, 1, tablet, By Mouth, Daily, Refills 0, Maintenance, 07/29/22 11:58:00 EDT, Partial fill uponpatient request if the prescription is for a schedule II opioid drug. Start Date: 07/29/22 Status: Ordered True Metrix Lancets True Metrix Lancets, See Instructions, # 100 each, Refills 3, Tot. Refills 3, Maintenance, T2DM; E11.9; testing daily + when symptomatic; 90 day supply, 03/20/19 16:44:49 EDT, Compound Start Date: 03/20/19 Status: Ordered True Metrix Test Strips True Metrix Test Strips, See Instructions, # 100 each, Refills 3, Tot. Refills 3, Maintenance, T2DM; E11.9; testing daily + when symptomatic; 90 day supply, 03/20/19 16:44:53 EDT, Compound Start Date: 03/20/19 Status: Ordered Ventolin HFA 108 mcg/inh inhalation aerosol with adapter 2 puffs, Inhalation, 4 times a day, PRN NEEDED FOR WHEEZING, one for home and one for program, #2 each, 1 Refills, 02/09/23 10:27:00 EDT, [facility], 153, cm, 12/31/22 14:23:00 EDT, Height, 76.2, kg, 06/22/21 9:04:00 EDT, Dry Weight Start Date: 02/09/23 Status: Ordered Walker See Instructions, # 1 each, Refills 0, Tot. Refills 0, Maintenance, Rollator walker with seat, brakes and basket R26.2 I25.10, 01/10/20 15:56:00 EDT, Compound Start Date: 01/10/20 Status: Ordered Problem List Condition Confirmation Course Effective Dates Status Health St atus Informant Asthma Confirmed Active Choking episode occurring both during daytime and at night Confirmed Active Chronic kidney disease, stage 3b 1 Confirmed Active Chronic low back pain Confirmed Active CAD (coronary artery disease) Confirmed Active Dyslipidemia Confirmed Active Fibromyalgia syndrome Confirmed Active GERD - Gastro-esophageal reflux disease Confirmed Active Hx of carotid stenosis Confirmed Active Status post CVA Confirmed Active Hx of CABG Confirmed Active HTN (hypertension) Confirmed Active 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, 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/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 Meniere disease Confirmed Active Urinary incontinence, mixed Confirmed Active Nocturia Confirmed Active Obese class I Confirmed Active Obesity Confirmed Active Major depression Confirmed Active Total body pain Confirmed Active T2DM (type 2 diabetes mellitus) Confirmed Active Vertigo Confirmed Active 1Per chart review meeting GFR criteria 2Last dose of Rifampin 600 mg taken 03/14- LTBI therapy complete 3#1 bottle Rifampin 600 mg qd dispensed Vital Signs Most recent to oldest [Reference Range]: 1 Height 153 cm (09/19/23 3:21 PM) Weight 76.8 kg (09/19/23 3:21 PM) Oxygen Saturation [94-100 %] 98 % (09/19/23 3:21 PM) Pulse Rate [55-90 bpm] 90 bpm (09/19/23 3:21 PM) Body Mass Index [18.5-24.99 kg/m2] 32.81 kg/m2 *>HHI* (09/19/23 3:21 PM) Blood Pressure [90-138/55-84 mm Hg] 134/ 81mm Hg (09/19/23 3:21 PM) Mode of Delivery (Oxygen) Room air (09/19/23 3:21 PM) Blood pressure sites Arm, left (09/19/23 3:21 PM) Social History Social History Type Response Smoking Status Never (less than 100 in lifetime) entered on: 08/30/19 Sex Note * Jonna Montero: PERFORM, SIGN, VERIFY Event Display: Patient Education/Instruction Authored Date: [facility] Clinical Summary Name IMAN FLAHERTY Age 77 Years 1945 PCP Jaylene Somers DO PCP Visit Date 09/19/2023 15:14:00 Additional Instructions: Scheduled Appointments?? Future Appointments ?*[facility] ?[address],??[place],??[address] ?Phone:??--?Fax:??-- ?Appt. Date:??10/07/2023?1:00 PM ?Scheduled Provider:??Jaylene Somers DO ?*[facility] ?[address]??[place],??[place],??[address] ?Phone:??--?Fax:??-- ?Appt. Date:??10/18/2023?10:30 AM ?Scheduled Provider:??Abimbola ESCOTO , Demi L ?*[facility] ?[address],??[place],??[address] ?Phone:??--?Fax:??-- ?Appt. Date:??11/17/2023?11:20 AM ?Scheduled Provider:??Jaylene Somers DO Follow-Up Instructions ?? Diagnosis Medications: Please continue your medications until treatment is completed or stopped by your provider. Discuss any questions related to medications with your provider. Medications to Continue with No Changes These medications were not printed or sent to your pharmacy Acetaminophen (acetaminophen 650 mg oral tablet, extended release) 2 tab(s) Oral twice a day as needed NEEDED FOR PAIN,INSTR. TO REPLACE OTHER DOSE TYLENOL DIRECTED. Refills: 3. Next Dose: Albuterol (Ventolin HFA 108 mcg/inh inhalation aerosol with adapter) 2 puff(s) Inhalation 4 times aday as needed NEEDED FOR WHEEZING. one for home and one for program. Refills: 1. Next Dose: Amlodipine (amLODIPine 10 mg oral tablet) 1 tab(s) Oral Daily. Refills: 1. Next Dose: Aspirin (Aspirin Low Dose 81 mg oral delayed release tablet) 1 tab(s) Oral Daily for 90 Days. Refills: 1. Next Dose: Atorvastatin (atorvastatin 40 mg oral tablet) 1 tab(s) Oral Daily. Refills: 3. Next Dose: Diclofenac Topical (diclofenac 1% topical gel) 4 gram Topically 3 times a day. Refills: 4. Next Dose: Docusate (docusate sodium 100 mg oral capsule) 1 capsule Oral twice a day as needed NEEDED FOR CONSTIPATION. Refills: 1. Next Dose: Duloxetine (duloxetine 60 mg oral enteric coated capsule) 1 capsule Oral Daily. note dose change, ok to start with next bubble pack. Refills: 1. Next Dose: Durable Medical Equipment (Alcohol Pads) aodm 2/ e11.9 use once a day. Refills: 4. Next Dose: Durable Medical Equipment (Compression Stockings) surgical, thigh high length 20-30 mm Hg I95.1 R42. Refills: 3. Next Dose: Durable Medical Equipment (Contour Next EZ Glucometer) use as directed for Type 2 Diabetes Mellitus. Refills: 0. Next Dose: Durable Medical Equipment (Contour Next EZ Test Strips) aodm 2/ e11.9 use once a day. Refills: 5. Next Dose: Durable Medical Equipment (OneTouch Verio Glucose Meter) e11.9 T2DM to check blood sugars once a day. Refills: 0. Next Dose: Durable Medical Equipment (OneTouch Verio Test Strips) e11.9 T2DM to check blood sugars once a day.Refills: 4. Next Dose: Durable Medical Equipment (Walker) Rollator walker with seat, brakes and basket R26.2 I25.10. Refills: 0. Next Dose: empagliflozin (Jardiance 10 mg oral tablet) 1 tab(s) Oral Daily in the morning. Refills: 1. Next Dose: Famotidine (famotidine 20 mg oral tablet) TAKE 1 TABLET BY MOUTH TWICE DAILY. Refills: 5. Next Dose: Fluticasone Nasal (Flonase 50 mcg/inh nasal spray) 1 spray(s) Nares, Both twice a day. Refills: 0. Next Dose: Fluticasone Nasal (fluticasone 50 mcg/inh nasal spray) SHAKE LIQUID AND USE 1 SPRAY IN EACH NOSTRILTWICE DAILY. Refills: 0. Next Dose: Furosemide (furosemide 20 mg oral tablet) 1 capsule Oral once. Next Dose: Gabapentin (gabapentin 100 mg oral capsule) 1 capsule Oral Daily at Bedtime. to replace twice a daydosing. Refills: 5. Next Dose: Lidocaine Topical (Lidoderm 5% film) 1 patch Topically Daily. dx costochondritis remove patches after 12 hours. Refills: 0. Next Dose: Meclizine (meclizine 12.5 mg oral tablet) 1 tab(s) Oral 3 times a day as needed NEEDED FOR DIZZINESS. to replace prior dose. Refills: 5. Next Dose: Metoprolol (metoprolol 50 mg oral tablet, extended release) 1 tab(s) Oral Daily. Refills: 3. Next Dose: Miscellaneous Rx (pure comfort lancets) E11.9 Check blood sugar once daily. Refills: 4. Next Dose: Miscellaneous Rx (True Metrix Lancets) T2DM; E11.9; testing daily + when symptomatic; 90 day supply. Refills: 3. Next Dose: Miscellaneous Rx (True Metrix Test Strips) T2DM; E11.9; testing daily + when symptomatic; 90 day supply. Refills: 3. Next Dose: Montelukast (Singulair 10 mg oral tablet) 1 tab(s) Oral Daily. Next Dose: Nitroglycerin (Nitrostat 0.4 mg sublingual tablet) 1 tab(s) Sublingual every 5 minutes as needed for chest pain. If chest pain not relieved in 5 minutes after first dose, seek immediate medical attention. Next Dose: Ellis-3 Polyunsaturated Fatty Acids (Fish Oil) Oral. Next Dose: pneumococcal 13-valent vaccine (pneumococcal 13-valent conjugate vaccine intramuscular suspension) 0.5 Milliliter Intramuscular once. Refills: 0. Next Dose: zoster vaccine, inactivated (Shingrix intramuscular injection) 0.5 Milliliter Intramuscular once. Refills: 1. Next Dose: Allergy Info:?? Latex; Fluzone; penicillin Medications Given This Visit Future Orders ?No future orders Vital Signs Height 153 cm Weight 76.8 kg BMI 32.81 kg/m2 Blood Pressure 134 mm Hg/81 mm Hg Temperature Pulse Rate 90 bpm Respiratory Rate 02 Sat Mode of Delivery 98 %/Room air You can now view a summary of your hospital visit from the comfort of your home through a free online portal called [employer]. [employer] is a website that allows you to securely view your medical information including discharge summary, medications and follow-up visits. ??You can alsosend a secure electronic message to your doctor???s office to request appointments, renew medications or just ask a question. You can enroll at [email or web address] or register during your next office visit. Disclaimer:?? The information provided is of a general nature and is intended to be used in conjunction with the recommendations and advice of your health care practitioner. ??Every effort has been made to ensure that the information provided is accurate and complete at the time it is provided to you however, as your needs change, or, as new ??information becomes available, different or additional instructions may be required. If you have questions, please consult with your primary care provider or pharmacist, as appropriate. ??This information is not intended to serve as substitution for assessment and evaluation by a qualified health care provider. If you do not have a primary care provider, you may find a [facility] provider by calling [facility] [employer] at [phone]. [facility], in keeping with [facility] guidance, no longer requires face masks for staff, patientsor visitors in most situations. Similar to time spent indoors at other locations, there is the chance that you were exposed to respiratory viruses during your time with us (such as flu or COVID-19).? If you develop symptoms concerning for a viral respiratory infection, please seek testing (and treatment if indicated) from your medical provider or home test kit. For information about the plan of care including goals and instructions for your diagnosis, please see the patient education orders section of this document. Patient Education Materials?? The content of this educational material or handout may have been modified, supplemented, or adapted from its original content and format to support your individualized medical care. * Jonna Montero: PERFORM, SIGN, VERIFY Event Display: Patient Education/Instruction Authored Date: [id number] [facility] *[facility] Clinical Summary Name IMAN FLAHERTY Age 77 Years 1945 PCP Jaylene Somers DO PCP Visit Date 09/19/2023 15:14:00 Additional Instructions: Scheduled Appointments?? Future Appointments ?*[facility] ?[address],??[place],??[address] ?Phone:??--?Fax:??-- ?Appt. Date:??10/07/2023?1:00 PM ?Scheduled Provider:??Jaylene Somers DO ?*[facility] ?[address],??[place],??[address] ?Phone:??--?Fax:??-- ?Appt. Date:??10/18/2023?10:30 AM ?Scheduled Provider:??Abimbola ESCOTO , Demi Kwon ?*[facility] ?[address],??[place],??[address] ?Phone:??--?Fax:??-- ?Appt. Date:??11/17/2023?11:20 AM ?Scheduled Provider:??Jaylene Somers DO Follow-Up Instructions ?? Diagnosis Medications: Please continue your medications until treatment is completed or stopped by your provider. Discuss any questions related to medications with your provider. Medications to Continue with No Changes These medications were not printed or sent to your pharmacy Acetaminophen (acetaminophen 650 mg oral tablet, extended release) 2 tab(s) Oral twice a day as needed NEEDED FOR PAIN,INSTR. TO REPLACE OTHER DOSE TYLENOL DIRECTED. Refills: 3. Next Dose: Albuterol (Ventolin HFA 108 mcg/inh inhalation aerosol with adapter) 2 puff(s) Inhalation 4 times aday as needed NEEDED FOR WHEEZING. one for home and one for program. Refills: 1. Next Dose: Amlodipine (amLODIPine 10 mg oral tablet) 1 tab(s) Oral Daily. Refills: 1. Next Dose: Aspirin (Aspirin Low Dose 81 mg oral delayed release tablet) 1 tab(s) Oral Daily for 90 Days. Refills: 1. Next Dose: Atorvastatin (atorvastatin 40 mg oral tablet) 1 tab(s) Oral Daily. Refills: 3. Next Dose: Diclofenac Topical (diclofenac 1% topical gel) 4 gram Topically 3 times a day. Refills: 4. Next Dose: Docusate (docusate sodium 100 mg oral capsule) 1 capsule Oral twice a day as needed NEEDED FOR CONSTIPATION. Refills: 1. Next Dose: Duloxetine (duloxetine 60 mg oral enteric coated capsule) 1 capsule Oral Daily. note dose change, ok to start with next bubble pack. Refills: 1. Next Dose: Durable Medical Equipment (Alcohol Pads) aodm 2/ e11.9 use once a day. Refills: 4. Next Dose: Durable Medical Equipment (Compression Stockings) surgical, thigh high length 20-30 mm Hg I95.1 R42. Refills: 3. Next Dose: Durable Medical Equipment (Contour Next EZ Glucometer) use as directed for Type 2 Diabetes Mellitus. Refills: 0. Next Dose: Durable Medical Equipment (Contour Next EZ Test Strips) aodm 2/ e11.9 use once a day. Refills: 5. Next Dose: Durable Medical Equipment (OneTouch Verio Glucose Meter) e11.9 T2DM to check blood sugars once a day. Refills: 0. Next Dose: Durable Medical Equipment (OneTouch Verio Test Strips) e11.9 T2DM to check blood sugars once a day.Refills: 4. Next Dose: Durable Medical Equipment (Walker) Rollator walker with seat, brakes and basket R26.2 I25.10. Refills: 0. Next Dose: empagliflozin (Jardiance 10 mg oral tablet) 1 tab(s) Oral Daily in the morning. Refills: 1. Next Dose: Famotidine (famotidine 20 mg oral tablet) TAKE 1 TABLET BY MOUTH TWICE DAILY. Refills: 5. Next Dose: Fluticasone Nasal (Flonase 50 mcg/inh nasal spray) 1 spray(s) Nares, Both twice a day. Refills: 0. Next Dose: Fluticasone Nasal (fluticasone 50 mcg/inh nasal spray) SHAKE LIQUID AND USE 1 SPRAY IN EACH NOSTRILTWICE DAILY. Refills: 0. Next Dose: Furosemide (furosemide 20 mg oral tablet) 1 capsule Oral once. Next Dose: Gabapentin (gabapentin 100 mg oral capsule) 1 capsule Oral Daily at Bedtime. to replace twice a daydosing. Refills: 5. Next Dose: Lidocaine Topical (Lidoderm 5% film) 1 patch Topically Daily. dx costochondritis remove patches after 12 hours. Refills: 0. Next Dose: Meclizine (meclizine 12.5 mg oral tablet) 1 tab(s) Oral 3 times a day as needed NEEDED FOR DIZZINESS. to replace prior dose. Refills: 5. Next Dose: Metoprolol (metoprolol 50 mg oral tablet, extended release) 1 tab(s) Oral Daily. Refills: 3. Next Dose: Miscellaneous Rx (pure comfort lancets) E11.9 Check blood sugar once daily. Refills: 4. Next Dose: Miscellaneous Rx (True Metrix Lancets) T2DM; E11.9; testing daily + when symptomatic; 90 day supply. Refills: 3. Next Dose: Miscellaneous Rx (True Metrix Test Strips) T2DM; E11.9; testing daily + when symptomatic; 90 day supply. Refills: 3. Next Dose: Montelukast (Singulair 10 mg oral tablet) 1 tab(s) Oral Daily. Next Dose: Nitroglycerin (Nitrostat 0.4 mg sublingual tablet) 1 tab(s) Sublingual every 5 minutes as needed for chest pain. If chest pain not relieved in 5 minutes after first dose, seek immediate medical attention. Next Dose: Ellis-3 Polyunsaturated Fatty Acids (Fish Oil) Oral. Next Dose: pneumococcal 13-valent vaccine (pneumococcal 13-valent conjugate vaccine intramuscular suspension) 0.5 Milliliter Intramuscular once. Refills: 0. Next Dose: zoster vaccine, inactivated (Shingrix intramuscular injection) 0.5 Milliliter Intramuscular once. Refills: 1. Next Dose: Allergy Info:?? Latex; Fluzone; penicillin Medications Given This Visit Future Orders ?No future orders Vital Signs Height 153 cm Weight 76.8 kg BMI 32.81 kg/m2 Blood Pressure 134 mm Hg/81 mm Hg Temperature Pulse Rate 90 bpm Respiratory Rate 02 Sat Mode of Delivery 98 %/Room air You can now view a summary of your hospital visit from the comfort of your home through a free online portal called [employer]. [employer] is a website that allows you to securely view your medical information including discharge summary, medications and follow-up visits. ??You can alsosend a secure electronic message to your doctor???s office to request appointments, renew medications or just ask a question. You can enroll at [email or web address] or register during your next office visit. Disclaimer:?? The information provided is of a general nature and is intended to be used in conjunction with the recommendations and advice of your health care practitioner. ??Every effort has been made to ensure that the information provided is accurate and complete at the time it is provided to you however, as your needs change, or, as new ??information becomes available, different or additional instructions may be required. If you have questions, please consult with your primary care provider or pharmacist, as appropriate. ??This information is not intended to serve as substitution for assessment and evaluation by a qualified health care provider. If you do not have a primary care provider, you may find a [facility] provider by calling [facility] [employer] at [phone]. [facility], in keeping with [facility] guidance, no longer requires face masks for staff, patientsor visitors in most situations. Similar to time spent indoors at other locations, there is the chance that you were exposed to respiratory viruses during your time with us (such as flu or COVID-19).? If you develop symptoms concerning for a viral respiratory infection, please seek testing (and treatment if indicated) from your medical provider or home test kit. For information about the plan of care including goals and instructions for your diagnosis, please see the patient education orders section of this document. Patient Education Materials?? The content of this educational material or handout may have been modified, supplemented, or adapted from its original content and format to support your individualized medical care. Patient Care team information Care Team Personnel Name: Christie Bradley RN Position: [facility] RN Member Role: Primary Care Nurse Name: Marline San RN Position: [facility] RN Member Role: Primary Care Nurse Name: Jaylene Somers DO Position: [facility] Physician - Primary Care Member Role: PCP Address: Address: [address] [place] [address] Adult [place] [address]- [place] Name: Casie Cassidy RN Position: [facility] HBO Wound Member Role: Primary Care Nurse Name: Toni Ramsey MD Position: [facility] Renal MD Member Role: Lifetime Consulting Physician Address: Address: [address] [facility] [place] [address]- Name: Essence Ruelas RN Position: [facility] RN Member Role: Primary Care Nurse Name: Essence Wallace RN Position: [facility] RN Member Role: Primary Care Nurse Care Team Related Persons Name: CL PAULA Address: home [address] [address] Name: ERICK DAVIS Address: [address] [place] [address]
--- OUTSIDE RECORDS SUMMARY | 2023-11-10 01:32 | XMS_ITS | Continuity of Care Document ---
Author Name Unknown Organization [facility] Address [address] [place] [address]- Care Team Providers Care Bar Attendant Name Role Phone Jaylene Somers DO Primary Care Phys[id number] Date[facility] - 11[facility]06/23 [facility] [address] [place], [place] [address] Attending Physician: Jaylene Somers DO Allergies, Adverse Reactions, Alerts Substance Reaction Severity Status penicillin Active Fluzone Active Latex Active Immunizations Given and Recorded Vaccine Date Status Refusal Reason pneumococcal 23-valent vaccine 1 07/29/22 Given influenza virus vaccine, inactivated 2 07/29/22 Gi lois SARS-CoV-2 (COVID-19) Ad26 vaccine 12/31/20 Record ed Influenza Virus Vaccine (oldterm) 09/02/20 Recorde d pneumococcal 13-valent vaccine 03/15/16 Recorded tetanus/diphtheria/pertussis, acel(Tdap) 03/15/16 Recorded 1Result Comment: [facility] 0006 [id number] 01 2Result Comment: [facility] [id number] 88 Medications acetaminophen 650 mg oral tablet, extended release 2 tablet, By Mouth, 2 times a day, PRN NEEDED FOR PAIN,INSTR, TO REPLACE OTHER DOSE TYLENOL DIRECTED, # 100 tablet, 3 Refills, [facility], 153, cm, 02/19/22 13:43:00 EDT, [...] 90 tablet, 1 Refills, 07/29/22 12:19:00 EDT, [facility], 153, cm, 07/29/22 11:58:00 EDT, Height, 76.2, kg, 06/22/21 9:04:00 EDT, Dry Weight Start Date: 07/29/22 Status: Ordered Aspirin Low Dose 81 mg oral delayed release tablet 1 tablet, By Mouth, Daily, # 90 tablet, 1 Refills, Maintenance, 11/13/22 21:29:00 EST, [facility], 153, cm, 11/05/22 10:57:00 EST, Height, 76.2, kg, 06/22/21 9:04:00 EDT, Dry Weight Start Date: 11/13/22 Stop Date: 05/12/23 Status: Ordered atorvastatin 40 mg oral tablet 1 tablet = 40 mg, By Mouth, Daily, # 90 tablet, 3 Refills, Maintenance, 07/29/22 12:09:00 EDT, Tablet, [facility], 153, cm, 07/29/22 11:58:00 EDT, [...] Dry Weight Start Date: 04/07/23 Status: Ordered Diapers See Instructions, # 240 each, Refills 11, Tot. Refills 11, Maintenance, Depends diapers Fit Right Size Medium Dx: Urinary incontinence, mixed N39.46, 10/19/23 15:37:00 EST, Supply Start Date: 10/19/23 Status: Ordered diclofenac 1% topical gel = 4 Gm, Topically, 3 times a day, # 100 Gm, 4 Refills, Maintenance, 07/29/22 12:04:00 EDT, Gel, [facility], 153, cm, 07/29/22 11:58:00 EDT, Height, 76.2, kg, 06/22/21 9:04:00 EDT, Dry Weight Start Date: 07/29/22 Status: Ordered docusate sodium 100 mg oral capsule 1 capsule, By Mouth, 2 times a day, PRN NEEDED FOR CONSTIPATION, # 100 capsule, 1 Refills, Maintenance, 04/22/23 13:21:00 EDT, [facility], 153, cm, 04/01/23 13:38:00 EDT, Height, 75.7, kg, 04/01/23 13:38:00 EDT, Dry Weight Start Date: 04/22/23 Status: Ordered duloxetine 60 mg oral enteric coated capsule 1 capsule = 60 mg, By Mouth, Daily, note dose change, ok to start with next bubble pack, # 90 capsule, 1 Refills, Maintenance, 04/08/23 17:26:00 EDT, EC Capsule, [facility], Partial fill upon patient request if the prescription is for a sche... Start Date: 04/08/23 Status: Ordered famotidine 20 mg oral tablet See Instructions, TAKE 1 TABLET BY MOUTH TWICE DAILY, # 56 tablet, Refills 5, Maintenance, 05/23/2321:50:00 EDT, Instructions Replace Required Details, Route to Pharmacy Electronically, [facility], 153, cm, 04/01/23 13:38:00 EDT, Height, [...] Gm, 0 Refills, Maintenance, 06/22/21 15:47:00 EDT, [place], [id number], Partial fill upon patient request if the prescription is for a schedule II opioid drug., 1 sprays Nares, Both 2 times a d... Start Date: 06/22/21 Status: Ordered fluticasone 50 mcg/inh nasal spray See Instructions, SHAKE LIQUID AND USE 1 SPRAY IN EACH NOSTRIL TWICE DAILY, # 48 Gm, 0 Refills, 11/05/21 13:57:00 EST, [facility], 90, SHAKE LIQUID AND USE [...] 12/31/22 14:35:00 EDT, Route to Pharmacy Electronically, [facility], Partial fill upon patient request if... Start Date: 12/31/22 Status: Ordered Golytely - oral powder for reconstitution See Instructions, Per instructions from GI., # 4,000 mL, 0 Refills, Maintenance, 10/18/23 10:52:00 EST, [facility], Partial fill upon patient request if the prescription is for a schedule II opioid drug., Per instructions from GI., 153, cm,... Start Date: 10/18/23 Status: Ordered Jardiance 10 mg oral tablet 1 tablet = 10 mg, By Mouth, Daily in AM, # 90 tablet, 1 Refills, Maintenance, 04/08/23 17:26:00 EDT, Tablet, [facility], Partial fill upon patient request if the prescription is for a schedule II opioid drug., 153, cm, 04/01/23 13:38:00 EDT,... Start Date: 04/08/23 Status: Ordered Lidoderm 5% film 1 patch, Topically, Daily, dx costochondritis remove patches after 12 hours, # 30 patch, 0 Refills,Maintenance, 11/19/22 12:45:00 EST, [facility], Partial fill upon patient request if the prescription is for a schedule II opioid drug.,... Start Date: 11/19/22 Status: Ordered meclizine 12.5 mg oral tablet 1 tablet, By Mouth, 3 times a day, PRN NEEDED FOR DIZZINESS, to replace prior dose, # 30 tablet,5 Refills, Maintenance, 02/02/23 8:57:00 EDT, [facility], 153, cm, 12/31/22 14:23:00 EDT, Height, 76.2, kg, 06/22/21 9:04:00 EDT, Dry Weight Start Date: 02/02/23 Status: Ordered metoprolol 50 mg oral tablet, extended release 50 mg, 1, tablet, By Mouth, Daily, # 90 tablet, Refills 3, Tot. Refills 3, Maintenance, 07/29/22 12:09:00 EDT, Route to Pharmacy Electronically, [facility], 153, cm, 07/29/22 11:58:00 EDT, [...] EDT, Tablet Start Date: 02/16/19 Status: Ordered omeprazole 20 mg oral enteric coated capsule 1 capsule = 20 mg, By Mouth, Daily, take on empty stomach 30min before breakfast, # 56 capsule, 0 Refills, Maintenance, 10/18/23 10:53:00 EST, EC Capsule, [facility], Partial fill upon patient request if the prescription is for a schedule II... Start Date: 10/18/23 Stop Date: 12/13/23 Status: Ordered OneTouch Verio Glucose Meter See [...] Refills, Soft Stop, 06/06/20 15:49:00 EDT, Suspension, [id number], 0.5 mL Intramuscular Once, 160, cm, 03/20/20 [...] 1 Refills, Soft Stop, 06/06/20 15:49:00 EDT, [facility] #[id number], 0.5 mL Intramuscular Once, 160, cm, 03/20/20 [...] #2 each, 1 Refills, 02/09/23 10:27:00 EDT, [facility], 153, cm, 12/31/22 14:23:00 EDT, [...] 3#1 bottle Rifampin 600 mg qd dispensed Social History Social History Type Response Smoking Status Former smoker, quit more than 30 days ago entered on: 10/18/23 Sex Patient Care team information Care Team Personnel Name: Christie Bradley RN Position: [facility] RN Member Role: Primary Care Nurse Name: Marline San RN Position: [facility] RN Member Role: Primary Care Nurse Name: Jaylene Somers DO Position: [facility] Physician - Primary Care Member Role: PCP Address: Address: [address] [place] [address] Adult & [place] [address]- Name: Casie Cassidy RN Position: [facility] HBO Wound Member Role: Primary Care Nurse Name: Toni Ramsey MD Position: [facility] Renal MD Member Role: Lifetime Consulting Physician Address: Address: [address] [facility] [place], [place] [address] Name: Essence Ruelas RN Position: [facility] RN Member Role: Primary Care Nurse Name: Essence Wallace RN Position: [facility] RN Member Role: Primary Care Nurse Care Team Related Persons Name: CL PAULA Address: home [address] [address] Name: ERICK DAVIS Address: home [address] [place] [address]
--- OUTSIDE RECORDS SUMMARY | 2023-11-10 01:32 | XMS_ITS | Continuity of Care Document ---
Author Name Unknown Organization [facility] Address [address] [place] [address]- Care Team Providers Care Obstetric Anaesthetist Name Role Phone Jaylene Somers DO Primary Care Physician ( [phone] Encounter [facility] Date(s): 09/12/23 - 10/12/23 [facility] [address] [place], [place] [address] Allergies, Adverse Reactions, Alerts Substance Reaction Severity Status penicillin Active Fluzone Active Latex Active Immunizations Given and Recorded Vaccine Date Status Refusal Reason pneumococcal 23-valent vaccine 1 07/29/22 Given influenza virus vaccine, inactivated 2 07/29/22 Gi lois SARS-CoV-2 (COVID-19) Ad26 vaccine 12/31/20 Record ed Influenza Virus Vaccine (oldterm) 09/02/20 Recorde d pneumococcal 13-valent vaccine 03/15/16 Recorded tetanus/diphtheria/pertussis, acel(Tdap) 03/15/16 Recorded 1Result Comment: [facility] 0006 [id number] 01 2Result Comment: [facility] [id number] 122 88 Medications acetaminophen 650 mg oral tablet, extended release 2 tablet, By Mouth, 2 times a day, PRN NEEDED FOR PAIN,INSTR, TO REPLACE OTHER DOSE TYLENOL DIRECTED, # 100 tablet, 3 Refills, [facility], 153, cm, 02/19/22 13:43:00 EDT, [...] 90 tablet, 1 Refills, 07/29/22 12:19:00 EDT, [facility], 153, cm, 07/29/22 11:58:00 EDT, Height, 76.2, kg, 06/22/21 9:04:00 EDT, Dry Weight Start Date: 07/29/22 Status: Ordered Aspirin Low Dose 81 mg oral delayed release tablet 1 tablet, By Mouth, Daily, # 90 tablet, 1 Refills, Maintenance, 11/13/22 21:29:00 EST, [facility], 153, cm, 11/05/22 10:57:00 EST, Height, 76.2, kg, 06/22/21 9:04:00 EDT, Dry Weight Start Date: 11/13/22 Stop Date: 05/12/23 Status: Ordered atorvastatin 40 mg oral tablet 1 tablet = 40 mg, By Mouth, Daily, # 90 tablet, 3 Refills, Maintenance, 07/29/22 12:09:00 EDT, Tablet, [facility], 153, cm, 07/29/22 11:58:00 EDT, [...] 4 Refills, Maintenance, 07/29/22 12:04:00 EDT, Gel, [facility], 153, cm, 07/29/22 11:58:00 EDT, Height, 76.2, kg, 06/22/21 9:04:00 EDT, Dry Weight Start Date: 07/29/22 Status: Ordered docusate sodium 100 mg oral capsule 1 capsule, By Mouth, 2 times a day, PRN NEEDED FOR CONSTIPATION, # 100 capsule, 1 Refills, Maintenance, 04/22/23 13:21:00 EDT, [facility], 153, cm, 04/01/23 13:38:00 EDT, Height, 75.7, kg, 04/01/23 13:38:00 EDT, Dry Weight Start Date: 04/22/23 Status: Ordered duloxetine 60 mg oral enteric coated capsule 1 capsule = 60 mg, By Mouth, Daily, note dose change, ok to start with next bubble pack, # 90 capsule, 1 Refills, Maintenance, 04/08/23 17:26:00 EDT, EC Capsule, [facility], Partial fill upon patient request if the prescription is for a sche... Start Date: 04/08/23 Status: Ordered famotidine 20 mg oral tablet See Instructions, TAKE 1 TABLET BY MOUTH TWICE DAILY, # 56 tablet, Refills 5, Maintenance, 05/23/2321:50:00 EDT, Instructions Replace Required Details, Route to Pharmacy Electronically, [facility], 153, cm, 04/01/23 13:38:00 EDT, Height, [...] Gm, 0 Refills, Maintenance, 06/22/21 15:47:00 EDT, [place], [id number], Partial fill upon patient request if the prescription is for a schedule II opioid drug., 1 sprays Nares, Both 2 times a d... Start Date: 06/22/21 Status: Ordered fluticasone 50 mcg/inh nasal spray See Instructions, SHAKE LIQUID AND USE 1 SPRAY IN EACH NOSTRIL TWICE DAILY, # 48 Gm, 0 Refills, 11/05/21 13:57:00 EST, [facility], 90, SHAKE LIQUID AND USE [...] 12/31/22 14:35:00 EDT, Route to Pharmacy Electronically, [facility], Partial fill upon patient request if... Start Date: 12/31/22 Status: Ordered Jardiance 10 mg oral tablet 1 tablet = 10 mg, By Mouth, Daily in AM, # 90 tablet, 1 Refills, Maintenance, 04/08/23 17:26:00 EDT, Tablet, [facility], Partial fill upon patient request if the prescription is for a schedule II opioid drug., 153, cm, 04/01/23 13:38:00 EDT,... Start Date: 04/08/23 Status: Ordered Lidoderm 5% film 1 patch, Topically, Daily, dx costochondritis remove patches after 12 hours, # 30 patch, 0 Refills,Maintenance, 11/19/22 12:45:00 EST, [facility], Partial fill upon patient request if the prescription is for a schedule II opioid drug.,... Start Date: 11/19/22 Status: Ordered meclizine 12.5 mg oral tablet 1 tablet, By Mouth, 3 times a day, PRN NEEDED FOR DIZZINESS, to replace prior dose, # 30 tablet,5 Refills, Maintenance, 02/02/23 8:57:00 EDT, [facility], 153, cm, 12/31/22 14:23:00 EDT, Height, 76.2, kg, 06/22/21 9:04:00 EDT, Dry Weight Start Date: 02/02/23 Status: Ordered metoprolol 50 mg oral tablet, extended release 50 mg, 1, tablet, By Mouth, Daily, # 90 tablet, Refills 3, Tot. Refills 3, Maintenance, 07/29/22 12:09:00 EDT, Route to Pharmacy Electronically, [facility], 153, cm, 07/29/22 11:58:00 EDT, [...] Refills, Soft Stop, 06/06/20 15:49:00 EDT, Suspension, [id number], 0.5 mL Intramuscular Once, 160, cm, 03/20/20 [...] 1 Refills, Soft Stop, 06/06/20 15:49:00 EDT, [facility][id number], 0.5 mL Intramuscular Once, 160, cm, 03/20/20 [...] #2 each, 1 Refills, 02/09/23 10:27:00 EDT, [facility], 153, cm, 12/31/22 14:23:00 EDT, [...] 100 in lifetime) entered on: 08/30/19 Sex Patient Care team information Care Team Personnel Name: Christie Bradley RN Position: [facility] RN Member Role: Primary Care Nurse Name: Marline San RN Position: [facility] RN Member Role: Primary Care Nurse Name: Jaylene Somers DO Position: [facility] Physician - Primary Care Member Role: PCP Address: Address: [address] [place] [address] Adult & [place] [address]- [place] Name: Casie Cassidy RN Position: [facility] HBO Wound Member Role: Primary Care Nurse Name: Toni Ramsey MD Position: [facility] Renal MD Member Role: Lifetime Consulting Physician Address: Address: [address] [facility] [facility] [address] [facility] [place] [address]- [place] Name: Essence Ruelas RN Position: [facility] RN Member Role: Primary Care Nurse Name: Essence Wallace RN Position: [facility] RN Member Role: Primary Care Nurse Care Team Related Persons Name: CL PAULA Address: home [address] [facility] [address] [place] [address] Name: ERICK DAVIS Address: [address] [place] [address]
--- OUTSIDE RECORDS SUMMARY | 2023-11-10 01:34 | XMS_ITS | Continuity of Care Document ---
Author Name Unknown Organization [facility] Address [address] [place] [address]- Care Team Providers Care Division Commander Name Role Phone Jaylene Somers DO Primary Care Physician [place] [facility] [place] 07/19[place]23 - 08/18/23 [facility] [address], [place] [address] Allergies, Adverse Reactions, Alerts Substance Reaction Severity [...] Recorded 1Result Comment: [facility] 0006 [id number] 01 2Result Comment: [facility] 00114 122 88 Medications acetaminophen 650 mg oral tablet, extended release 2 tablet, By Mouth, 2 times a day, PRN NEEDED FOR PAIN,INSTR, TO REPLACE OTHER DOSE TYLENOL DIRECTED, # 100 tablet, 3 Refills, [facility], 153, cm, 02/19/22 13:43:00 EDT, [...] 90 tablet, 1 Refills, 07/29/22 12:19:00 EDT, [facility], 153, cm, 07/29/22 11:58:00 EDT, Height, 76.2, kg, 06/22/21 9:04:00 EDT, Dry Weight Start Date: 07/29/22 Status: Ordered Aspirin Low Dose 81 mg oral delayed release tablet 1 tablet, By Mouth, Daily, # 90 tablet, 1 Refills, Maintenance, 11/13/22 21:29:00 EST, [facility], 153, cm, 11/05/22 10:57:00 EST, Height, 76.2, kg, 06/22/21 9:04:00 EDT, Dry Weight Start Date: 11/13/22 Stop Date: 05/12/23 Status: Ordered atorvastatin 40 mg oral tablet 1 tablet = 40 mg, By Mouth, Daily, # 90 tablet, 3 Refills, Maintenance, 07/29/22 12:09:00 EDT, Tablet, [facility], 153, cm, 07/29/22 11:58:00 EDT, [...] 06/22/21 9:04:00 EDT, Dry Weight Start Date: 3/10/23 Status: Ordered Contour Next EZ Test Strips [...] 4 Refills, Maintenance, 07/29/22 12:04:00 EDT, Gel, [facility], 153, cm, 07/29/22 11:58:00 EDT, Height, 76.2, kg, 06/22/21 9:04:00 EDT, Dry Weight Start Date: 07/29/22 Status: Ordered docusate sodium 100 mg oral capsule 1 capsule, By Mouth, 2 times a day, PRN NEEDED FOR CONSTIPATION, # 100 capsule, 1 Refills, Maintenance, 04/22/23 13:21:00 EDT, [facility], 153, cm, 04/01/23 13:38:00 EDT, Height, 75.7, kg, 04/01/23 13:38:00 EDT, Dry Weight Start Date: 04/22/23 Status: Ordered duloxetine 60 mg oral enteric coated capsule 1 capsule = 60 mg, By Mouth, Daily, note dose change, ok to start with next bubble pack, # 90 capsule, 1 Refills, Maintenance, 04/08/23 17:26:00 EDT, EC Capsule, [facility], Partial fill upon patient request if the prescription is for a sche... Start Date: 04/08/23 Status: Ordered famotidine 20 mg oral tablet See Instructions, TAKE 1 TABLET BY MOUTH TWICE DAILY, # 56 tablet, Refills 5, Maintenance, 05/23/2321:50:00 EDT, Instructions Replace Required Details, Route to Pharmacy Electronically, [facility], 153, cm, 04/01/23 13:38:00 EDT, Height, [...] Gm, 0 Refills, Maintenance, 06/22/21 15:47:00 EDT, [place], [facility] #[id number], Partial fill upon patient request if the prescription is for a schedule II opioid drug., 1 sprays Nares, Both 2 times a d... Start Date: 06/22/21 Status: Ordered fluticasone 50 mcg/inh nasal spray See Instructions, SHAKE LIQUID AND USE 1 SPRAY IN EACH NOSTRIL TWICE DAILY, # 48 Gm, 0 Refills, 11/05/21 13:57:00 EST, [facility], 90, SHAKE LIQUID AND USE [...] 12/31/22 14:35:00 EDT, Route to Pharmacy Electronically, [facility], Partial fill upon patient request if... Start Date: 12/31/22 Status: Ordered Jardiance 10 mg oral tablet 1 tablet = 10 mg, By Mouth, Daily in AM, # 90 tablet, 1 Refills, Maintenance, 04/08/23 17:26:00 EDT, Tablet, [facility], Partial fill upon patient request if the prescription is for a schedule II opioid drug., 153, cm, 04/01/23 13:38:00 EDT,... Start Date: 04/08/23 Status: Ordered Lidoderm 5% film 1 patch, Topically, Daily, dx costochondritis remove patches after 12 hours, # 30 patch, 0 Refills,Maintenance, 11/19/22 12:45:00 EST, [facility], Partial fill upon patient request if the prescription is for a schedule II opioid drug.,... Start Date: 11/19/22 Status: Ordered meclizine 12.5 mg oral tablet 1 tablet, By Mouth, 3 times a day, PRN NEEDED FOR DIZZINESS, to replace prior dose, # 30 tablet,5 Refills, Maintenance, 02/02/23 8:57:00 EDT, [facility], 153, cm, 12/31/22 14:23:00 EDT, Height, 76.2, kg, 06/22/21 9:04:00 EDT, Dry Weight Start Date: 02/02/23 Status: Ordered metoprolol 50 mg oral tablet, extended release 50 mg, 1, tablet, By Mouth, Daily, # 90 tablet, Refills 3, Tot. Refills 3, Maintenance, 07/29/22 12:09:00 EDT, Route to Pharmacy Electronically, [facility], 153, cm, 07/29/22 11:58:00 EDT, [...] Refills, Soft Stop, 06/06/20 15:49:00 EDT, Suspension, [facility] #[id number], 0.5 mL Intramuscular Once, 160, cm, 03/20/20 [...] 1 Refills, Soft Stop, 06/06/20 15:49:00 EDT, [facility] #[id number], 0.5 mL Intramuscular Once, 160, cm, 03/20/20 [...] #2 each, 1 Refills, 02/09/23 10:27:00 EDT, [facility], 153, cm, 12/31/22 14:23:00 EDT, [...] Team Personnel Name: Christie Bradley RN Position: [facility] RN Member Role: Primary Care Nurse Name: Marline San RN Position: [facility] RN Member Role: Primary Care Nurse Name: Jaylene Somers DO Position: [facility] Physician - Primary Care Member Role: PCP Address: Address: [address] [place] [address] Adult [place] [address]- [place] Name: Casie Cassidy RN Position: [facility] HBO Wound Member Role: Primary Care Nurse Name: Toni Ramsey MD Position: [facility] Renal MD Member Role: Lifetime Consulting Physician Address: Address: [address] [facility], [place] [address]- [place] Name: Essence Ruelas RN Position: [facility] RN Member Role: Primary Care Nurse Name: Essence Wallace RN Position: [facility] RN Member Role: Primary Care Nurse Care Team Related Persons Name: CL PAULA Address: home [address] [facility] [address] [address] Name: ERICK DAVIS Address: home [address] [place] [address]
--- OUTSIDE RECORDS SUMMARY | 2023-11-10 01:34 | XMS_ITS | Continuity of Care Document ---
Author Name Unknown Organization [facility] Address [address] [place] [address]- Care Team Providers Care Claim Professional Name Role Phone Jaylene Somers DO Primary Care Physician Encounter [facility] Date(s): 08/30/23 - 09/29/23 [facility] [address] [place] [address]- Allergies, Adverse Reactions, Alerts Substance Reaction Severity Status penicillin Active Fluzone Active Latex Active Immunizations Given and Recorded Vaccine Date Status Refusal Reason pneumococcal 23-valent vaccine 1 07/29/22 Given influenza virus vaccine, inactivated 2 07/29/22 Gi lois SARS-CoV-2 (COVID-19) Ad26 vaccine 12/31/20 Record ed Influenza Virus Vaccine (oldterm) 09/02/20 Recorde d pneumococcal 13-valent vaccine 03/15/16 Recorded tetanus/diphtheria/pertussis, acel(Tdap) 03/15/16 Recorded 1Result Comment: [facility] 0006 [id number] 01 2Result Comment: [facility] [id number] 122 88 Medications acetaminophen 650 mg oral tablet, extended release 2 tablet, By Mouth, 2 times a day, PRN NEEDED FOR PAIN,INSTR, TO REPLACE OTHER DOSE TYLENOL DIRECTED, # 100 tablet, 3 Refills, [facility], 153, cm, 02/19/22 13:43:00 EDT, [...] 90 tablet, 1 Refills, 07/29/22 12:19:00 EDT, [facility], 153, cm, 07/29/22 11:58:00 EDT, Height, 76.2, kg, 06/22/21 9:04:00 EDT, Dry Weight Start Date: 07/29/22 Status: Ordered Aspirin Low Dose 81 mg oral delayed release tablet 1 tablet, By Mouth, Daily, # 90 tablet, 1 Refills, Maintenance, 11/13/22 21:29:00 EST, [facility], 153, cm, 11/05/22 10:57:00 EST, Height, 76.2, kg, 06/22/21 9:04:00 EDT, Dry Weight Start Date: 11/13/22 Stop Date: 05/12/23 Status: Ordered atorvastatin 40 mg oral tablet 1 tablet = 40 mg, By Mouth, Daily, # 90 tablet, 3 Refills, Maintenance, 07/29/22 12:09:00 EDT, Tablet, [facility], 153, cm, 07/29/22 11:58:00 EDT, [...] 4 Refills, Maintenance, 07/29/22 12:04:00 EDT, Gel, [facility], 153, cm, 07/29/22 11:58:00 EDT, Height, 76.2, kg, 06/22/21 9:04:00 EDT, Dry Weight Start Date: 07/29/22 Status: Ordered docusate sodium 100 mg oral capsule 1 capsule, By Mouth, 2 times a day, PRN NEEDED FOR CONSTIPATION, # 100 capsule, 1 Refills, Maintenance, 04/22/23 13:21:00 EDT, [facility], 153, cm, 04/01/23 13:38:00 EDT, Height, 75.7, kg, 04/01/23 13:38:00 EDT, Dry Weight Start Date: 04/22/23 Status: Ordered duloxetine 60 mg oral enteric coated capsule 1 capsule = 60 mg, By Mouth, Daily, note dose change, ok to start with next bubble pack, # 90 capsule, 1 Refills, Maintenance, 04/08/23 17:26:00 EDT, EC Capsule, [facility], Partial fill upon patient request if the prescription is for a sche... Start Date: 04/08/23 Status: Ordered famotidine 20 mg oral tablet See Instructions, TAKE 1 TABLET BY MOUTH TWICE DAILY, # 56 tablet, Refills 5, Maintenance, 05/23/2321:50:00 EDT, Instructions Replace Required Details, Route to Pharmacy Electronically, [facility], 153, cm, 04/01/23 13:38:00 EDT, Height, [...] Gm, 0 Refills, Maintenance, 06/22/21 15:47:00 EDT, [place], [facility] #[id number], Partial fill upon patient request if the prescription is for a schedule II opioid drug., 1 sprays Nares, Both 2 times a d... Start Date: 06/22/21 Status: Ordered fluticasone 50 mcg/inh nasal spray See Instructions, SHAKE LIQUID AND USE 1 SPRAY IN EACH NOSTRIL TWICE DAILY, # 48 Gm, 0 Refills, 11/05/21 13:57:00 EST, [facility], 90, SHAKE LIQUID AND USE [...] 12/31/22 14:35:00 EDT, Route to Pharmacy Electronically, [facility], Partial fill upon patient request if... Start Date: 12/31/22 Status: Ordered Jardiance 10 mg oral tablet 1 tablet = 10 mg, By Mouth, Daily in AM, # 90 tablet, 1 Refills, Maintenance, 04/08/23 17:26:00 EDT, Tablet, [facility], Partial fill upon patient request if the prescription is for a schedule II opioid drug., 153, cm, 04/01/23 13:38:00 EDT,... Start Date: 04/08/23 Status: Ordered Lidoderm 5% film 1 patch, Topically, Daily, dx costochondritis remove patches after 12 hours, # 30 patch, 0 Refills,Maintenance, 11/19/22 12:45:00 EST, [facility], Partial fill upon patient request if the prescription is for a schedule II opioid drug.,... Start Date: 11/19/22 Status: Ordered Macrobid macrocrystals-monohydrate 100 mg oral capsule 1 capsule = 100 mg, By Mouth, 2 times a day, for 5 days, # 10 capsule, 0 Refills, Acute 10/01/23 11:53:00 EST, 09/26/23 11:53:00 EST, Capsule, [facility], Partial fill upon patient request if the prescription is for a schedule II opioid drug... Start Date: 09/26/23 Stop Date: 10/01/23 Status: Ordered meclizine 12.5 mg oral tablet 1 tablet, By Mouth, 3 times a day, PRN NEEDED FOR DIZZINESS, to replace prior dose, # 30 tablet,5 Refills, Maintenance, 02/02/23 8:57:00 EDT, [facility], 153, cm, 12/31/22 14:23:00 EDT, Height, 76.2, kg, 06/22/21 9:04:00 EDT, Dry Weight Start Date: 02/02/23 Status: Ordered metoprolol 50 mg oral tablet, extended release 50 mg, 1, tablet, By Mouth, Daily, # 90 tablet, Refills 3, Tot. Refills 3, Maintenance, 07/29/22 12:09:00 EDT, Route to Pharmacy Electronically, [facility], 153, cm, 07/29/22 11:58:00 EDT, [...] Maintenance, 02/16/19 14:19:57 EDT, Tablet Start Date: 5/10/19 Status: Ordered OneTouch Verio Glucose Meter See [...] Refills, Soft Stop, 06/06/20 15:49:00 EDT, Suspension, [facility] #[id number], 0.5 mL Intramuscular Once, 160, cm, 03/20/20 [...] 1 Refills, Soft Stop, 06/06/20 15:49:00 EDT, [facility] #[id number], 0.5 mL Intramuscular Once, 160, cm, 03/20/20 [...] #2 each, 1 Refills, 02/09/23 10:27:00 EDT, [facility], 153, cm, 12/31/22 14:23:00 EDT, [...] Team Personnel Name: Christie Bradley RN Position: [facility] RN Member Role: Primary Care Nurse Name: Marline San RN Position: [facility] RN Member Role: Primary Care Nurse Name: Jaylene Somers DO Position: [facility] Physician - Primary Care Member Role: PCP Address: Address: [address] [place] [address] Adult & [place] [address]- Name: Casie Cassidy RN Position: [facility] HBO Wound Member Role: Primary Care Nurse Name: Toni Ramsey MD Position: [facility] Renal MD Member Role: Lifetime Consulting Physician Address: Address: [address] [facility] [address] [facility] [place] [address]- [place] Name: Essence Ruelas RN Position: [facility] RN Member Role: Primary Care Nurse Name: Essence Wallace RN Position: [facility] RN Member Role: Primary Care Nurse Care Team Related Persons Name: CL PAULA Address: home [address] [facility] [address] [place] [address] Name: ERICK DAIVS Address: home [address] [place] [address]
--- OUTSIDE RECORDS SUMMARY | 2023-11-10 01:34 | XMS_ITS | Continuity of Care Document ---
Author Name Unknown Organization [facility] Address [address] [place] [address]- Care Team Providers Care Changer Fixer Name Role Phone Jaylene Somers DO Primary Care Physician [place] [facility]23 [place] 10[place]/23 [facility] [address] [place], [place] [address] Allergies, Adverse Reactions, Alerts Substance Reaction Severity Status penicillin Active Fluzone Active Latex Active Immunizations Given and Recorded Vaccine Date Status Refusal Reason pneumococcal 23-valent vaccine 1 07/29/22 Given influenza virus vaccine, inactivated 2 07/29/22 Gi lois SARS-CoV-2 (COVID-19) Ad26 vaccine 12/31/20 Record ed Influenza Virus Vaccine (oldterm) 09/02/20 Recorde d pneumococcal 13-valent vaccine 03/15/16 Recorded tetanus/diphtheria/pertussis, acel(Tdap) 03/15/16 Recorded 1Result Comment: [facility] 0006 [id number] 01 2Result Comment: [facility] [address] 122 88 Medications acetaminophen 650 mg oral tablet, extended release 2 tablet, By Mouth, 2 times a day, PRN NEEDED FOR PAIN,INSTR, TO REPLACE OTHER DOSE TYLENOL DIRECTED, # 100 tablet, 3 Refills, [facility], 153, cm, 02/19/22 13:43:00 EDT, [...] 90 tablet, 1 Refills, 07/29/22 12:19:00 EDT, [facility], 153, cm, 07/29/22 11:58:00 EDT, Height, 76.2, kg, 06/22/21 9:04:00 EDT, Dry Weight Start Date: 07/29/22 Status: Ordered Aspirin Low Dose 81 mg oral delayed release tablet 1 tablet, By Mouth, Daily, # 90 tablet, 1 Refills, Maintenance, 11/13/22 21:29:00 EST, [facility], 153, cm, 11/05/22 10:57:00 EST, Height, 76.2, kg, 06/22/21 9:04:00 EDT, Dry Weight Start Date: 11/13/22 Stop Date: 05/12/23 Status: Ordered atorvastatin 40 mg oral tablet 1 tablet = 40 mg, By Mouth, Daily, # 90 tablet, 3 Refills, Maintenance, 07/29/22 12:09:00 EDT, Tablet, [facility], 153, cm, 07/29/22 11:58:00 EDT, [...] 4 Refills, Maintenance, 07/29/22 12:04:00 EDT, Gel, [facility], 153, cm, 07/29/22 11:58:00 EDT, Height, 76.2, kg, 06/22/21 9:04:00 EDT, Dry Weight Start Date: 07/29/22 Status: Ordered docusate sodium 100 mg oral capsule 1 capsule, By Mouth, 2 times a day, PRN NEEDED FOR CONSTIPATION, # 100 capsule, 1 Refills, Maintenance, 04/22/23 13:21:00 EDT, [facility], 153, cm, 04/01/23 13:38:00 EDT, Height, 75.7, kg, 04/01/23 13:38:00 EDT, Dry Weight Start Date: 04/22/23 Status: Ordered duloxetine 60 mg oral enteric coated capsule 1 capsule = 60 mg, By Mouth, Daily, note dose change, ok to start with next bubble pack, # 90 capsule, 1 Refills, Maintenance, 04/08/23 17:26:00 EDT, EC Capsule, [facility], Partial fill upon patient request if the prescription is for a sche... Start Date: 04/08/23 Status: Ordered famotidine 20 mg oral tablet See Instructions, TAKE 1 TABLET BY MOUTH TWICE DAILY, # 56 tablet, Refills 5, Maintenance, 05/23/2321:50:00 EDT, Instructions Replace Required Details, Route to Pharmacy Electronically, [facility], 153, cm, 04/01/23 13:38:00 EDT, Height, [...] Gm, 0 Refills, Maintenance, 06/22/21 15:47:00 EDT, [place], [facility][id number], Partial fill upon patient request if the prescription is for a schedule II opioid drug., 1 sprays Nares, Both 2 times a d... Start Date: 06/22/21 Status: Ordered fluticasone 50 mcg/inh nasal spray See Instructions, SHAKE LIQUID AND USE 1 SPRAY IN EACH NOSTRIL TWICE DAILY, # 48 Gm, 0 Refills, 11/05/21 13:57:00 EST, [facility], 90, SHAKE LIQUID AND USE [...] 12/31/22 14:35:00 EDT, Route to Pharmacy Electronically, [facility], Partial fill upon patient request if... Start Date: 12/31/22 Status: Ordered Golytely - oral powder for reconstitution See Instructions, Per instructions from GI., # 4,000 mL, 0 Refills, Maintenance, 10/18/23 10:52:00 EST, [facility], Partial fill upon patient request if the prescription is for a schedule II opioid drug., Per instructions from GI., 153, cm,... Start Date: 10/18/23 Status: Ordered Jardiance 10 mg oral tablet 1 tablet = 10 mg, By Mouth, Daily in AM, # 90 tablet, 1 Refills, Maintenance, 04/08/23 17:26:00 EDT, Tablet, [facility], Partial fill upon patient request if the prescription is for a schedule II opioid drug., 153, cm, 04/01/23 13:38:00 EDT,... Start Date: 04/08/23 Status: Ordered Lidoderm 5% film 1 patch, Topically, Daily, dx costochondritis remove patches after 12 hours, # 30 patch, 0 Refills,Maintenance, 11/19/22 12:45:00 EST, [facility], Partial fill upon patient request if the prescription is for a schedule II opioid drug.,... Start Date: 11/19/22 Status: Ordered meclizine 12.5 mg oral tablet 1 tablet, By Mouth, 3 times a day, PRN NEEDED FOR DIZZINESS, to replace prior dose, # 30 tablet,5 Refills, Maintenance, 02/02/23 8:57:00 EDT, [facility], 153, cm, 12/31/22 14:23:00 EDT, Height, 76.2, kg, 06/22/21 9:04:00 EDT, Dry Weight Start Date: 02/02/23 Status: Ordered metoprolol 50 mg oral tablet, extended release 50 mg, 1, tablet, By Mouth, Daily, # 90 tablet, Refills 3, Tot. Refills 3, Maintenance, 07/29/22 12:09:00 EDT, Route to Pharmacy Electronically, [facility], 153, cm, 07/29/22 11:58:00 EDT, [...] Refills, Maintenance, 10/18/23 10:53:00 EST, EC Capsule, [facility], Partial fill upon patient request if [...] Refills, Soft Stop, 06/06/20 15:49:00 EDT, Suspension, [facility] #[id number], 0.5 mL Intramuscular Once, 160, cm, 03/20/20 [...] 1 Refills, Soft Stop, 06/06/20 15:49:00 EDT, [facility] #[id number], 0.5 mL Intramuscular Once, 160, cm, 03/20/20 [...] #2 each, 1 Refills, 02/09/23 10:27:00 EDT, [facility], 153, cm, 12/31/22 14:23:00 EDT, [...] Personnel Name: Christie Bradley RN Position: [facility] RN Member Role: Primary Care Nurse Name: Marline San RN Position: [facility] RN Member Role: Primary Care Nurse Name: Jaylene Somers DO Position: [facility] Physician - Primary Care Member Role: PCP Address: Address: [address] [place] [address]- Name: Casie Cassidy RN Position: [facility] HBO Wound Member Role: Primary Care Nurse Name: Toni Ramsey MD Position: [facility] Renal MD Member Role: Lifetime Consulting Physician Address: Address: [address] [facility] [address] [facility] [place] [address]- Name: Essence Ruelas RN Position: [facility] RN Member Role: Primary Care Nurse Name: Essence Wallace RN Position: [facility] RN Member Role: Primary Care Nurse Care Team Related Persons Name: CL PAULA Address: home [address] [facility] [address], [place] [address] Name: ERICK DAVIS Address: home [address] [place] [id number]
--- OUTSIDE RECORDS SUMMARY | 2023-11-10 01:34 | XMS_ITS | Continuity of Care Document ---
Author Name Unknown Organization [facility] Address [address] [place] [address]- Care Team Providers Care Manager Trust Name Role Phone Jaylene Somers DO Primary Care Physician Encounter [facility] Date(s): 09/28/23 - 10/28/23 [facility] [address] [place], [place] [address] Allergies, Adverse Reactions, Alerts Substance Reaction Severity Status penicillin Active Fluzone Active Latex Active Immunizations Given and Recorded Vaccine Date Status Refusal Reason pneumococcal 23-valent vaccine 1 07/29/22 Given influenza virus vaccine, inactivated 2 07/29/22 Gi lois SARS-CoV-2 (COVID-19) Ad26 vaccine 12/31/20 Record ed Influenza Virus Vaccine (oldterm) 09/02/20 Recorde d pneumococcal 13-valent vaccine 03/15/16 Recorded tetanus/diphtheria/pertussis, acel(Tdap) 03/15/16 Recorded 1Result Comment: [facility] [id number] 2Result Comment: [facility] [id number] Medications acetaminophen 650 mg oral tablet, extended release 2 tablet, By Mouth, 2 times a day, PRN NEEDED FOR PAIN,INSTR, TO REPLACE OTHER DOSE TYLENOL DIRECTED, # 100 tablet, 3 Refills, [facility], 153, cm, 02/19/22 13:43:00 EDT, [...] 90 tablet, 1 Refills, 07/29/22 12:19:00 EDT, [facility], 153, cm, 07/29/22 11:58:00 EDT, Height, 76.2, kg, 06/22/21 9:04:00 EDT, Dry Weight Start Date: 07/29/22 Status: Ordered Aspirin Low Dose 81 mg oral delayed release tablet 1 tablet, By Mouth, Daily, # 90 tablet, 1 Refills, Maintenance, 11/13/22 21:29:00 EST, [facility], 153, cm, 11/05/22 10:57:00 EST, Height, 76.2, kg, 06/22/21 9:04:00 EDT, Dry Weight Start Date: 11/13/22 Stop Date: 05/12/23 Status: Ordered atorvastatin 40 mg oral tablet 1 tablet = 40 mg, By Mouth, Daily, # 90 tablet, 3 Refills, Maintenance, 07/29/22 12:09:00 EDT, Tablet, [facility], 153, cm, 07/29/22 11:58:00 EDT, [...] 4 Refills, Maintenance, 07/29/22 12:04:00 EDT, Gel, [facility], 153, cm, 07/29/22 11:58:00 EDT, Height, 76.2, kg, 06/22/21 9:04:00 EDT, Dry Weight Start Date: 07/29/22 Status: Ordered docusate sodium 100 mg oral capsule 1 capsule, By Mouth, 2 times a day, PRN NEEDED FOR CONSTIPATION, # 100 capsule, 1 Refills, Maintenance, 04/22/23 13:21:00 EDT, [facility], 153, cm, 04/01/23 13:38:00 EDT, Height, 75.7, kg, 04/01/23 13:38:00 EDT, Dry Weight Start Date: 04/22/23 Status: Ordered duloxetine 60 mg oral enteric coated capsule 1 capsule = 60 mg, By Mouth, Daily, note dose change, ok to start with next bubble pack, # 90 capsule, 1 Refills, Maintenance, 04/08/23 17:26:00 EDT, EC Capsule, [facility], Partial fill upon patient request if the prescription is for a sche... Start Date: 04/08/23 Status: Ordered famotidine 20 mg oral tablet See Instructions, TAKE 1 TABLET BY MOUTH TWICE DAILY, # 56 tablet, Refills 5, Maintenance, 05/23/2321:50:00 EDT, Instructions Replace Required Details, Route to Pharmacy Electronically, [facility], 153, cm, 04/01/23 13:38:00 EDT, Height, [...] Gm, 0 Refills, Maintenance, 06/22/21 15:47:00 EDT, [place], [id number], Partial fill upon patient request if the prescription is for a schedule II opioid drug., 1 sprays Nares, Both 2 times a d... Start Date: 06/22/21 Status: Ordered fluticasone 50 mcg/inh nasal spray See Instructions, SHAKE LIQUID AND USE 1 SPRAY IN EACH NOSTRIL TWICE DAILY, # 48 Gm, 0 Refills, 11/05/21 13:57:00 EST, [facility], 90, SHAKE LIQUID AND USE [...] 12/31/22 14:35:00 EDT, Route to Pharmacy Electronically, [facility], Partial fill upon patient request if... Start Date: 12/31/22 Status: Ordered Golytely - oral powder for reconstitution See Instructions, Per instructions from GI., # 4,000 mL, 0 Refills, Maintenance, 10/18/23 10:52:00 EST, [facility], Partial fill upon patient request if the prescription is for a schedule II opioid drug., Per instructions from GI., 153, cm,... Start Date: 10/18/23 Status: Ordered Jardiance 10 mg oral tablet 1 tablet = 10 mg, By Mouth, Daily in AM, # 90 tablet, 1 Refills, Maintenance, 04/08/23 17:26:00 EDT, Tablet, [facility], Partial fill upon patient request if the prescription is for a schedule II opioid drug., 153, cm, 04/01/23 13:38:00 EDT,... Start Date: 04/08/23 Status: Ordered Lidoderm 5% film 1 patch, Topically, Daily, dx costochondritis remove patches after 12 hours, # 30 patch, 0 Refills,Maintenance, 11/19/22 12:45:00 EST, [facility], Partial fill upon patient request if the prescription is for a schedule II opioid drug.,... Start Date: 11/19/22 Status: Ordered meclizine 12.5 mg oral tablet 1 tablet, By Mouth, 3 times a day, PRN NEEDED FOR DIZZINESS, to replace prior dose, # 30 tablet,5 Refills, Maintenance, 02/02/23 8:57:00 EDT, [facility], 153, cm, 12/31/22 14:23:00 EDT, Height, 76.2, kg, 06/22/21 9:04:00 EDT, Dry Weight Start Date: 02/02/23 Status: Ordered metoprolol 50 mg oral tablet, extended release 50 mg, 1, tablet, By Mouth, Daily, # 90 tablet, Refills 3, Tot. Refills 3, Maintenance, 07/29/22 12:09:00 EDT, Route to Pharmacy Electronically, [facility], 153, cm, 07/29/22 11:58:00 EDT, [...] Refills, Maintenance, 10/18/23 10:53:00 EST, EC Capsule, [facility], Partial fill upon patient request if [...] Refills, Soft Stop, 06/06/20 15:49:00 EDT, Suspension, [id number], 0.5 mL Intramuscular Once, 160, cm, 03/20/20 [...] 1 Refills, Soft Stop, 06/06/20 15:49:00 EDT, [facility] #[id number], 0.5 mL Intramuscular Once, 160, cm, 03/20/20 [...] #2 each, 1 Refills, 02/09/23 10:27:00 EDT, [facility], 153, cm, 12/31/22 14:23:00 EDT, [...] Team Personnel Name: Christie Bradley RN Position: [facility] RN Member Role: Primary Care Nurse Name: Marline San RN Position: [facility] RN Member Role: Primary Care Nurse Name: Jaylene Somers DO Position: [facility] Physician - Primary Care Member Role: PCP Address: Address: [address] [place] [address]- Name: Casie Cassidy RN Position: [facility] HBO Wound Member Role: Primary Care Nurse Name: Toni Ramsey MD Position: [facility] Renal MD Member Role: Lifetime Consulting Physician Address: Address: [address] [facility] [place] [address]- Name: Essence Ruelas RN Position: [facility] RN Member Role: Primary Care Nurse Name: Essence Wallace RN Position: [facility] RN Member Role: Primary Care Nurse Care Team Related Persons Name: CL PAULA Address: home [address], [place] [address] Name: ERICK DAVIS Address: home [address] [place] [id number]
[2023-11-10] MEDS: 0.9 % Sodium Chloride 1,000 ML 999 ML IV (01:48)
[2023-11-10] MEDS: Insulin Glargine,Hum.rec.anlog 100 UNIT/ML 10 ML VIAL 20 UNIT SUBCUT (02:30)
[2023-11-10 03:20] VITALS: BP 158/62; PULSE 64; RESP 16; TEMP 36.3; O2SAT 96
[2023-11-10 05:17] LABS: Glucose, Whole Blood 124 mg/dL (60-115)
[2023-11-10 05:50] VITALS: BP 163/61; PULSE 67; RESP 16; TEMP 36.8; O2SAT 97
[2023-11-10 08:41] VITALS: BP 172/74; PULSE 69; RESP 20; TEMP 36.6; O2SAT 96
[2023-11-10 08:51] LABS: Glucose, Whole Blood 118 mg/dL (60-115)
--- NOTE | 2023-11-10 10:31 | PC.NURSE ---
this nurse took over for patient at 9am, patient a&ox3, vss, pt concerned over her DM, pt currently denies pain/discomfort, awaiting pt/cm, call anthony within reach, will speak with provider about POC orders, will continue to monitor
--- NOTE | 2023-11-10 10:45 | MHC.CM.ED ---
Received case management consult overnight. Patient came to the ER due to hyperglycemia. It appears patient has not been compliant with medications. Patient is active with [facility]. Spoke with Megan at [facility]. Patient has [employer] hours, goes to Adult day health and has a lifeline. Patient has been missing adult day health recently. Megan will reach out to patient's health care assistant to follow up in the community. Megan will authorize VNA to help assist with medication management. Referral broadcasted in [employer] at this time. Met with patient in regards to discharge planning. Patient is primarily Korean speaking but is able to speak and understand Croatian and declines an polishing pad mounter at this time. Patient lives alone, uses a walker for mobility, has an electric wheelchair and confirms [employer] and day program. Patient states she has been missing days at the day program because she was recently sick with asthma and bronchitis. PCP verified. Patient agreeable to VNA referral being broadcasted to help with medication administration. Patient admits to not always remembering her night time diabetes medication because she has memory issues. Patient is worried about her blood sugar being elevated after breakfast. She wants to have her blood sugar checked before lunch, have lunch and then call her son for transportation home. Inocencia ULLOA and Coty LAGUERRE aware. VNA referral broadcasted in [employer] at this time. Continue to monitor for d/c needs.
[2023-11-10 11:35] LABS: Glucose, Whole Blood 252 mg/dL (60-115)
[2023-11-10 13:58] VITALS: BP 129/53; PULSE 70; RESP 18; TEMP 36.7; O2SAT 96
== END 2023-11-10 16:00 | disposition home or self-care (01) ==
PROVIDERS: Emergency Provider Internal Medicine; PCP Pediatrics
DX: E11.65 Type 2 diabetes mellitus with hyperglycemia (principal); I11.0 Hypertensive heart disease with heart failure; I50.9 Heart failure, unspecified; Z79.84 Long term (current) use of oral hypoglycemic drugs; Z79.899 Other long term (current) drug therapy
CPT/HCPCS: 36415; 80053; 82947; 85025; 96360; 99284; 99285

== ENCOUNTER 2024-04-24 14:01 | Outpatient (AMB) | payer OTHER, SELFPAY ==
[2024-04-24 14:06] VITALS: BMI 28.2
--- NOTE | 2024-04-24 14:06 | A.OFFVIS_ITS ---
VS Expanded 04/24/24 14:06 04/24/24 14:22 Height 5 ft 4 in 5 ft 4 in Weight 164 lb 3.91 oz 164 lb BMI 28.2 28.1 Intake Visit Reasons: OBESITY, T2DM/CONFIRMED Allergies Penicillins Allergy (Severe, Verified 10/23/22 17:22) RASH Nutrition Presentation Details: Pt presents for MNT for T2DM. Pt sees Dr. Covarrubias ( [address] [facility]) Pt reports having a good appetite , participates in the day center 4-5 times a week, has snack and lunch there typical meal 6: 7am tea with chamomile , sandwich toast with cheese and fruit 10 center : applesauce, cheerios with almond milk and tea chamomile and brown 12 : rice/beans/chicken , water and almond milk 2pm : fruit and almond milk 6pm : rice/vegetable and chicken [employer] presents during this appt physical activity : sedentary: uses walker BS Monitoring Most Recent Diabetes Results: Creatinine 1.46 mg/dL (0.5-1.4) H 11/09/23 Blood Urea Nitrogen 32 mg/dL (9-16) H 11/09/23 Sodium 138 mmol/L (135-145) 11/09/23 Potassium 4.4 mmol/L (3.3-5.1) 11/09/23 Chloride 103 mmol/L (96-108) 11/09/23 Carbon Dioxide 25 mmol/L (22-29) 11/09/23 Calcium 9.8 mg/dL (8.4-10.2) 11/09/23 AST 13 U/L (5-31) 11/09/23 ALT 29 U/L (0-31) 11/09/23 Total Protein 7.7 g/dL (6.5-8.0) 11/09/23 Albumin 3.9 g/dL (3.5-5.0) 11/09/23 RRE-Zwfwioo-Kk.Jeor Equation Height: 5 ft 4 in Weight: 164 lb Resting Metabolic Rate: 1214.39 Calculated Activity Level: Sedentary Calories Needed to Maintain Weight: 1457.27 Diagnosis Nutrition problem #1: food nutri know defi As related to (etiology) #1: diagnosis As evidenced by (sign/symptom) #1: knowledge deficit of diet [facility] Medical History Diabetes Hypertension Congestive heart failure Surgical History H/O heart bypass surgery Social History Alcohol intake: former Patient Tobacco Use Status: Never used Tobacco Assessment & Plan Assessment & Plan (1) T2DM (type 2 diabetes mellitus): Code(s): E11.9 - Type 2 diabetes mellitus without complications Category: Medical Plan: Wt: 74 Kg ( 04/2024 ) Est kcal needs as per MSJ: 1500 (40% carb, 30% protein/fat) Est fluid needs as per 25-30 ml/d: 2200 Est prot per day as per 1 g/kg bw: 74 Recommend fiber intake : 8-10 g per day and gradually increase to 25-28 g per day for women and 35-38 g for men or as tolerated Recommend sodium intake per day : less than 2000 mg Educated patient on: ( R = reviewed V = verbalizes understanding N/R = needs review N/A = not applicable * Food sources of carbohydrate, adequate serving sizes and its role in various health conditions: R * Differences between complex carbohydrates a simple carbohydrates, role of fiber in diet: R V N/R * Lean protein sources of foods: R * Differences between types of fats and role in diet (mono on saturated fat fatty acids, saturated fatty acids, trans fats): R V N/R * Food sources of sodium in salt and healthy modifications for heart health in kidney health: R V R/V * Vitamins and minerals: R * Healthy plate method concept: R * Physical activity: Benefits a precaution: R V N/R * Hypoglycemia protocol (rule of 15): R V N/R * Dietary prevention of Hyperglycemia: R Patient Instructions: Follow healthy plate method at dinner time Choose a fruit in place of pastry as bedtime snack - see list of snack options keep hydrated by having water with meals/snacks Coding Level of Care Code Nutr Indiv Intake (79823) Diagnoses T2DM (type 2 diabetes mellitus) E11.9 Time Spent (min) 30
[2024-04-30 14:37] VITALS: BMI 28.1
== END 2024-04-24 14:43 | disposition home or self-care (01) ==
PROVIDERS: PCP Pediatrics; Visit Provider Dietitian, Registered
DX: E11.9 Type 2 diabetes mellitus without complications (principal)

== ENCOUNTER → 2024-04-24 14:01 | Outpatient (BNVA) | payer OTHER, SELFPAY | PROVIDERS: PCP Pediatrics; Visit Provider Dietitian, Registered | DX: E66.9 Obesity, unspecified (principal); E11.9 Type 2 diabetes mellitus without complications; Z71.3 Dietary counseling and surveillance; Z68.28 Body mass index [BMI] 28.0-28.9, adult | CPT/HCPCS: 97802 ==

== ENCOUNTER 2024-06-06 13:41 | Outpatient (AMB) | payer OTHER, SELFPAY ==
[2024-06-06 14:15] VITALS: BMI 28.5
--- NOTE | 2024-06-06 14:15 | A.OFFVIS_ITS ---
VS Expanded 06/06/24 14:15 Height 5 ft 4 in Weight 166 lb 3.657 oz BMI 28.5 Intake Visit Reasons: OBESITY,T2DM/CONFIRMED Allergies Penicillins Allergy (Severe, Verified 10/23/22 17:22) RASH Nutrition Presentation Details: Pt presents for MNT f/u for T2DM Pt reports working on diet modifications however having decreased bowel movements. BS Monitoring Most Recent Diabetes Results: Creatinine 1.46 mg/dL (0.5-1.4) H 11/09/23 Blood Urea Nitrogen 32 mg/dL (9-16) H 11/09/23 Sodium 138 mmol/L (135-145) 11/09/23 Potassium 4.4 mmol/L (3.3-5.1) 11/09/23 Chloride 103 mmol/L (96-108) 11/09/23 Carbon Dioxide 25 mmol/L (22-29) 11/09/23 Calcium 9.8 mg/dL (8.4-10.2) 11/09/23 AST 13 U/L (5-31) 11/09/23 ALT 29 U/L (0-31) 11/09/23 Total Protein 7.7 g/dL (6.5-8.0) 11/09/23 Albumin 3.9 g/dL (3.5-5.0) 11/09/23 [facility] Medical History Diabetes Hypertension Congestive heart failure Surgical History H/O heart bypass surgery Social History Alcohol intake: former Patient Tobacco Use Status: Never used Tobacco Assessment & Plan Assessment & Plan (1) T2DM (type 2 diabetes mellitus): Code(s): E11.9 - Type 2 diabetes mellitus without complications Category: Medical Plan: Wt: 74 Kg ( 04/2024 ) Est kcal needs as per MSJ: 1500 (40% carb, 30% protein/fat) Est fluid needs as per 25-30 ml/d: 2200 Est prot per day as per 1 g/kg bw: 74 Recommend fiber intake : 8-10 g per day and gradually increase to 25-28 g per day for women and 35-38 g for men or as tolerated Recommend sodium intake per day : less than 2000 mg Educated patient on: ( R = reviewed V = verbalizes understanding N/R = needs review N/A = not applicable * Food sources of carbohydrate, adequate serving sizes and its role in various health conditions: R * Differences between complex carbohydrates a simple carbohydrates, role of fiber in diet: R V N/R * Lean protein sources of foods: R * Differences between types of fats and role in diet (mono on saturated fat fatty acids, saturated fatty acids, trans fats): R * Food sources of sodium in salt and healthy modifications for heart health in kidney health: R V R/V * Vitamins and minerals: R * Healthy plate method concept: R * Physical activity: Benefits a precaution: R V N/R * Hypoglycemia protocol (rule of 15): R V N/R * Dietary prevention of Hyperglycemia: R Patient Instructions: * Include fiber rich foods ( carrots, salads, peppers, green beans, broccoli , lentils ) and increase water intake as you increase fiber * Dilute juices with water (prune juice, carrot/beet juice. olya juice) Coding Level of Care Code Nutr Indiv Subseq (82214) Diagnoses T2DM (type 2 diabetes mellitus) E11.9 Time Spent (min) 20
== END 2024-06-06 14:33 | disposition home or self-care (01) ==
PROVIDERS: PCP Pediatrics; Visit Provider Dietitian, Registered
DX: E11.9 Type 2 diabetes mellitus without complications (principal)

== ENCOUNTER → 2024-06-06 13:41 | Outpatient (BNVA) | payer OTHER, SELFPAY | PROVIDERS: PCP Pediatrics; Visit Provider Dietitian, Registered | DX: E11.9 Type 2 diabetes mellitus without complications (principal); Z71.3 Dietary counseling and surveillance | CPT/HCPCS: 97803 ==

== ENCOUNTER 2024-09-09 12:50 | Emergency (ER) | payer OTHER, SELFPAY ==
--- NOTE | ~2024-09-09 | CT_ITS ---
EXAMINATION: CT ABDOMEN AND PELVIS WITHOUT CONTRAST CLINICAL INFORMATION: Flank pain, concern for stone COMPARISON: None available. TECHNIQUE: Multidetector volumetric imaging was performed from the superior aspect of the liver through the pubic symphysis. Sagittal and coronal reformatted images were obtained on the technologist's workstation. This CT examination was performed using dose optimization techniques as appropriate, variously including the following: *Automated exposure control *Adjustment of mA and/or kV according to patient size (this includes techniques or standardized protocols for targeted exams where dose is matched to indication/reason for exam; i.e. extremities or head) *Use of iterative reconstruction technique DLP: 566 mGy-cm FINDINGS: LUNG BASES: The visualized lung bases are unremarkable. LIVER, GALLBLADDER, AND BILIARY TREE: The liver is diffusely low in attenuation in keeping with hepatic steatosis, but otherwise normal in size and shape. No focal hepatic lesion or biliary ductal dilatation is present. The gallbladder is unremarkable with no evidence of radiopaque gallstones, gallbladder wall thickening, or obvious pericholecystic inflammatory changes. PANCREAS: Unremarkable. SPLEEN: Unremarkable. ADRENAL GLANDS: Unremarkable. KIDNEYS AND URETERS: The kidneys are normal in size, shape, and attenuation. No hydronephrosis, hydroureter, or calculi seen. No perinephric stranding. Simple bilateral renal cysts measure 6.6 x 5.8 cm and the upper pole of the right kidney and 2.2 x 1.9 cm in the lower pole of the left kidney, are likely benign and do not require further imaging follow-up. Calcifications within the kidneys are likely vascular. BLADDER: Unremarkable. GASTROINTESTINAL TRACT: Colonic diverticulosis throughout the entire colon, but most prominently in the sigmoid colon, without secondary signs of acute diverticulitis. The small bowel is unremarkable. The appendix is unremarkable. ABDOMINAL WALL: No significant hernia is appreciated. LYMPH NODES: Normal. VASCULAR: Atherosclerosis of the aorta and its branches. No abdominal aortic aneurysm. PELVIC VISCERA: Status post hysterectomy. OSSEOUS STRUCTURES: Mild degenerative changes of the spine. No acute osseous abnormality. CT/CT abdomen pelvis wo IV con IMPRESSION: 1. No acute abnormality within the abdomen or pelvis. Specifically, no evidence of ureteral stone as clinically queried. 2. Colonic diverticulosis without secondary signs of acute diverticulitis. 3. Hepatic steatosis. Fleischner guidelines were followed. Electronically signed by: Mady Low MD 09/09/2024 02:03 PM [facility]
[2024-09-09 12:57] VITALS: BP 128/80; PULSE 88; RESP 18; TEMP 36.7; O2SAT 97; BMI 31.0
--- NOTE | 2024-09-09 12:58 | ED.GENADULT ---
HPI - General Adult General Chief complaint: Back Pain/Injury Stated complaint: lower back pain Time Seen by Provider: 09/09/24 15:00 Source: patient Mode of arrival: ambulatory Limitations: no limitations History of Present Illness ED Provider: Romel RINALDI HPI narrative: 78-year-old female history of diabetes presents to ED for right flank pain radiating down right low back pain that is worse on movement without any trauma. Patient denies any dysuria, hematuria, nausea or vomiting. Patient states no fever or chills. Patient denies any urinary/bowel incontinence. Patient denies any IV drug use or pmh of immunocomprimised diseases. Related Data Home Medications ?Medication ?Instructions ?Recorded ?Confirmed acetaminophen 650 mg 2 tab PO BID PRN pain 03/03/21 03/03/21 tablet,extended release (Mapap Arthritis Pain) amlodipine 10 mg tablet 1 tab PO DAILY 03/03/21 11/10/23 atorvastatin 40 mg tablet 40 mg PO BEDTIME 03/03/21 11/10/23 docusate sodium 100 mg capsule 1 cap PO BID 03/03/21 03/03/21 (Stool Softener) furosemide 20 mg tablet 1 tab PO DAILY PRN Edema 03/03/21 03/03/21 gabapentin 100 mg capsule 1 cap PO BID 03/03/21 03/03/21 isosorbide mononitrate 30 mg 1 tab PO QPM 03/03/21 03/03/21 tablet,extended release 24 hr losartan 100 mg tablet 1 tab PO DAILY 03/03/21 03/03/21 metformin 500 mg tablet 1 tab PO DAILY 03/03/21 03/03/21 metoprolol succinate 50 mg 1 tab PO DAILY 03/03/21 11/10/23 tablet,extended release 24 hr nitroglycerin 0.4 mg sublingual 1 tab sublingual NEEDED PRN 03/03/21 11/10/23 tablet Angina sertraline 25 mg tablet 1 tab PO DAILY 03/03/21 03/03/21 duloxetine 60 mg capsule,delayed 60 mg PO DAILY 11/10/23 11/10/23 release sprinkle empagliflozin 10 mg tablet 10 mg PO DAILY 11/10/23 11/10/23 (Jardiance) famotidine 20 mg tablet 20 mg PO BID 11/10/23 11/10/23 furosemide 20 mg tablet 20 mg PO DAILY 11/10/23 11/10/23 montelukast 10 mg tablet 10 mg PO DAILY 11/10/23 11/10/23 Previous Rx's ?Medication ?Instructions ?Recorded meclizine 25 mg chewable tablet 25 mg PO TID PRN dizziness #30 tabs 03/03/21 aluminum-mag hydroxide-simethicone 5 ml PO 5XD PRN dyspepsia #30 mL 07/16/21 200 mg-200 mg-20 mg/5 mL oral susp (Maalox Advanced) lidocaine HCl 2 % mucosal solution 1 appl mucous membrane TID PRN 07/16/21 (Lidocaine Viscous) pain #100 mL fluconazole 150 mg tablet 150 mg PO Q3D 2 doses #2 tabs 07/15/23 (Diflucan) naproxen 500 mg tablet 500 mg PO BID PRN pain 7 days #14 09/09/24 tabs nitrofurantoin 100 mg PO Q12H 7 days #14 caps 09/09/24 monohydrate/macrocrystals 100 mg capsule (Macrobid) Allergies Allergy/AdvReac Type Severity Reaction Status Date / Time Penicillins Allergy Severe RASH Verified 09/09/24 12:59 Review of Systems Review of Systems: Right sided flank/back pain that is worse on movement. Yes all other systems are reviewed and are negative PMFSH Past Medical History Medical History Diabetes Hypertension Congestive heart failure Surgical History H/O heart bypass surgery Social History Social History Alcohol intake: former Patient Tobacco Use Status: Never used Tobacco Advance Directives: No Advance Directives Information Provided: Yes Do you have a plan to hurt others: No Plan Physical Exam ED Vital Signs: Vital Signs - 24 hr 09/09/24 12:57 09/09/24 16:31 Temperature 98.0 F 98.0 F Pulse Rate 88 75 Respiratory Rate 18 15 Blood Pressure 128/80 147/75 H Pulse Oximetry 97 96 Oxygen Delivery Method Room Air Room Air BMI result Body Mass Index 31.0 Const General: cooperative, healthy appearing, comfortable, no acute distress, well developed, alert, awake and Physically active Orientation/consciousness: patient oriented x3 [facility] Head: Yes normal to inspection, Yes No palpable skull fracture present, Yes normocephalic and Yes atraumatic Eyes General: appearance normal, both eyes and all related structures Neck Neck: Yes normal visual inspection, Yes full ROM, Yes no lymphadenopathy, Yes no meningeal signs, Yes trachea midline, Yes supple, No anterior neck swelling and No tender Chest Chest palpation & inspection: normal inspection of the chest and normal palpation of entire chest wall Resp Effort & Inspection: normal respiratory effort and able to speak in complete sentences Auscultation: clear to auscultation bilaterally Cardio Jugular venous distension: no JVD Heart sounds: S1 normal heart sound present and S2 normal heart sound present GI Inspection: Yes normal to inspection Palpation (GI): Soft to palpation, not firm, nontender, no guarding and not rigid General: Yes no CVA tenderness Back/Spine/Pelvis Back: no CVA tenderness and No back tenderness Back/spine/pelvis image: 1. Positive for tenderness on palpation and range of motion. Negative for ecchymosis, erythema, rash, or crepitus. Skin General skin exam: no rashes or lesions noted, elasticity normal and turgor normal Neuro General: patient oriented x3, gait normal, tone normal, moves all extremities, Normal light touch and pain sensation, no meningeal signs, no focal motor deficits, CN's II-XI intact bilaterally and normal sensation to monofilament Extrem General: Yes normal to inspection, Yes full ROM and Yes capillary refill normal Psych Appearance: grossly normal, well kempt and not disheveled Course Course Course Narrative: RME performed by Gayathri Mark PA-C. Patient is a 78 year old assigned female at presenting to the emergency department with right sided flank pain. Detailed physical exam and review of systems are deferred to the software sales executive. Labs and imaging ordered. Patient placed back in the waiting room pending room availability and results. Medications Administered Discontinued Medications Generic Name Dose Route Start Last Admin Trade Name Freq PRN Reason Stop Dose Admin Cyclobenzaprine HCl 5 mg 09/09/24 16:16 09/09/24 16:29 Cyclobenzaprine Hcl 5 Mg Tablet PO 09/09/24 16:17 5 mg ONCE ONE Administration Ketorolac Tromethamine 30 mg 09/09/24 16:16 09/09/24 16:29 Ketorolac Tromethamine 30 Mg/Ml Vial IM 09/09/24 16:17 30 mg ONCE ONE Administration Medical Decision Making Medical Decision Making [facility] Narrative: 78-year-old female presents to ED for right-sided back pain without any recent trauma. Back pain worse on movement. Patient denies any pleurisy, shortness of breath, calf pain, recent long travel, recent surgery, estrogen hormone use, or any history of blood clots. UA shows possible urinary tract infection. CT scan normal. Patient given Toradol muscle relaxer pain improved. Patient will be discharged with antibiotics. Patient explained worrisome signs and informed to return to the ED immediately. Not suspecting urosepsis, pyelonephritis, PE, cauda equinus counter epidural abscess, osteomyelitis, renal artery stenosis, renal artery emboli, any life-threatening etiology. Differential Diagnosis Differential Diagnoses: The differential diagnosis associated with the presentation includes (Flank pain, UTI, pyelo) Admission/Observation Consideration of admission/observation: Escalation of care including admission/observation considered Lab Data [facility] Lab Attestation statement: I reviewed the patient's lab results. 09/09/24 13:25 09/09/24 13:25 Labs: Lab Results 09/09/24 09/09/24 Range/Units 13:25 16:03 WBC 7.8 (4.8-10.8) X10*3/uL RBC 5.33 (4.20-5.50) X10*6/uL Hgb 15.0 (12.0-16.0) g/dl Hct 45.9 (37.0-47.0) % MCV 86.1 (80.0-98.0) fL MCH 28.1 (27.0-33.0) pg MCHC 32.7 (31.0-35.0) g/dl RDW 14.9 (11.0-16.0) % Plt Count 280 (160-400) X10*3/uL MPV 10.7 (9.4-12.3) fL Immature Gran % (Auto) 0.6 H (0.0-0.4) % Neut % (Auto) 60.2 (45-73) % Lymph % (Auto) 27.9 (20-40) % Haakon % (Auto) 9.9 (2-11) % Eos % (Auto) 0.6 (0-4) % Baso % (Auto) 0.8 (0-2) % Lymph # (Auto) 2.2 (1.2-4.9) X10*3/uL Haakon # (Auto) 0.8 (0.1-1.2) X10*3/uL Eos # (Auto) 0.1 (0.0-0.4) X10*3/uL Baso # (Auto) 0.1 (0.0-0.2) X10*3/uL Abs Immat Gran (auto) 0.05 H (0.00-0.03) X10*3/uL Absolute Neuts (auto) 4.7 (2.0-8.3) x10*3/uL Absolute Nucleated RBC 0.000 (0.0-0.012) X10*3/uL Nucleated RBC % (auto) 0.0 (0.0-0.2) /100WBC Sodium 140 (135-145) mmol/L Potassium 4.6 (3.3-5.1) mmol/L Chloride 103 (96-108) mmol/L Carbon Dioxide 28 (22-29) mmol/L Anion Gap 14 (12-20) BUN 26 H (9-16) mg/dL Creatinine 1.30 (0.5-1.4) mg/dL Estim Creat Clear Calc 35.5 Estimated GFR 40 Random Glucose 158 H (60-115) mg/dL Calcium 10.0 (8.4-10.2) mg/dL Magnesium 2.1 (1.6-2.6) mg/dL Total Bilirubin 0.5 (0.0-1.0) mg/dL AST 23 (5-31) U/L ALT 25 (0-31) U/L Alkaline Phosphatase 133 H (39-117) U/L Total Protein 8.6 H (6.5-8.0) g/dL Albumin 4.5 (3.5-5.0) g/dL Urine Color Yellow Urine Appearance Cloudy Urine pH 5.5 (5.0-9.0) Ur Specific Dahlgren 1.025 (1.005-1.025) Urine Protein Trace (Neg-Trace) mg/dL Urine Glucose (UA) >=1000 H (Negative) mg/dL Urine Ketones Negative (Negative) mg/dL Urine Blood Negative (Negative) Urine Nitrite Negative (Negative) Ur Leukocyte Esterase Trace H (Negative) Urine RBC 0-2 (0-2) /HPF Urine WBC 6-10 H (0-5) /HPF Ur Squamous Epith Cells 6-10 (0-2) /HPF Urine Bacteria 2+ (None Seen) Hyaline Casts 0-2 (0-2) /LPF Independent Interpretation I performed an independent interpretation of an: CT Scan Radiology Impression Discussion of test interpretation with radiology: I have reviewed the radiologist's reading. Independent Historian Clinical information obtained from an independent historian. History obtained from or confirmed by: Other (patient) External Record Review External record reviewed: Other (prior visit) Prescription Management I considered prescription management with: Pain Medication and Antibiotic Discharge Plan Discharge Clinical Impression: Flank pain, Acute UTI Patient Disposition: Home, Self-Care Instructions: Urinary Tract Infection in Women (ED), Flank Pain (ED) Additional Instructions: Urine shows possible urine tract infection you will be discharged with antibiotics. Abdominal CT scan does not show any acute life-threatening etiologies. Return to the ED for any severe flank back pain, nausea, vomiting, vaginal discharge, blood in urine, fever, chills, increased urinary frequency, chest pain, shortness of breath, coughing up blood, or any other concerning symptoms. Recommend follow up with primary care provider. CT/CT abdomen pelvis wo IV con IMPRESSION: 1. No acute abnormality within the abdomen or pelvis. Specifically, no evidence of ureteral stone as clinically queried. 2. Colonic diverticulosis without secondary signs of acute diverticulitis. 3. Hepatic steatosis. Fleischner guidelines were followed. Electronically signed by: Mady Low MD 09/09/2024 02:03 PM [facility] [place] Prescriptions: New naproxen 500 mg tablet 500 mg PO BID PRN (Reason: pain) 7 Days Qty: 14 0RF nitrofurantoin monohyd/m-cryst [Macrobid] 100 mg capsule 100 mg PO Q12H 7 Days Qty: 14 0RF Rx Instructions: must administer with a meal/food No Action atorvastatin 40 mg tablet 40 mg PO BEDTIME metformin 500 mg tablet 1 tab PO DAILY metoprolol succinate 50 mg tablet extended release 24 hr 1 tab PO DAILY isosorbide mononitrate 30 mg tablet extended release 24 hr 1 tab PO QPM acetaminophen [Mapap Arthritis Pain] 650 mg tablet extended release 2 tab PO BID PRN (Reason: pain) nitroglycerin 0.4 mg tablet, sublingual 1 tab sublingual NEEDED PRN (Reason: Angina) docusate sodium [Stool Softener] 100 mg capsule 1 cap PO BID sertraline 25 mg tablet 1 tab PO DAILY furosemide 20 mg tablet 1 tab PO DAILY PRN (Reason: Edema) gabapentin 100 mg capsule 1 cap PO BID losartan 100 mg tablet 1 tab PO DAILY amlodipine 10 mg tablet 1 tab PO DAILY meclizine 25 mg tablet,chewable 25 mg PO TID PRN (Reason: dizziness) Qty: 30 0RF alum-mag hydroxide-simeth [Maalox Advanced] 200-200-20 mg/5 mL suspension 5 ml PO 5XD PRN (Reason: dyspepsia) Qty: 30 0RF Rx Instructions: administer between meals and at bedtime lidocaine HCl [Lidocaine Viscous] 2 % solution 1 appl mucous membrane TID PRN (Reason: pain) Qty: 100 0RF fluconazole [Diflucan] 150 mg tablet 150 mg PO Q3D Qty: 2 0RF famotidine 20 mg tablet 20 mg PO BID montelukast 10 mg tablet 10 mg PO DAILY furosemide 20 mg tablet 20 mg PO DAILY Jardiance 10 mg tablet 10 mg PO DAILY duloxetine 60 mg Capsule, Delayed Rel Sprinkle 60 mg PO DAILY Discharge Date/Time: 09/09/24 17:07 Print Language: Vietnamese
[2024-09-09 13:34] LABS: Basophils Absolute Auto 0.1 X10*3/uL (0.0-0.2); Basophils Percent Auto 0.8 % (0-2); Eosinophils Absolute Auto 0.1 X10*3/uL (0.0-0.4); Eosinophils Percent Auto 0.6 % (0-4); Hematocrit 45.9 % (37.0-47.0); Imm Gran Abs Auto 0.05 X10*3/uL (0.00-0.03); Imm Gran Pct Auto 0.6 % (0.0-0.4); Lymphocytes Absolute Auto 2.2 X10*3/uL (1.2-4.9); Lymphocytes Percent Auto 27.9 % (20-40); MANUAL DIFF FLAG NO; Mean Corpuscular HGB Conc 32.7 g/dl (31.0-35.0); Mean Corpuscular Hemoglobin 28.1 pg (27.0-33.0); Mean Corpuscular Volume 86.1 fL (80.0-98.0); Mean Platelet Volume 10.7 fL (9.4-12.3); Monocytes Absolute Auto 0.8 X10*3/uL (0.1-1.2); Monocytes Percent Auto 9.9 % (2-11); Neutrophils Absolute Auto 4.7 x10*3/uL (2.0-8.3); Neutrophils Percent Auto 60.2 % (45-73); Platelet Count 280 X10*3/uL (160-400); Red Blood Count 5.33 X10*6/uL (4.20-5.50); Red Cell Distribution Width 14.9 % (11.0-16.0); White Blood Count 7.8 X10*3/uL (4.8-10.8)
[2024-09-09 13:50] LABS: Alanine Aminotransferase 25 U/L (0-31); Albumin Level 4.5 g/dL (3.5-5.0); Alkaline Phosphatase 133 U/L (39-117); Anion Gap 14 (12-20); Aspartate Amino Transferase 23 U/L (5-31); Bilirubin Total 0.5 mg/dL (0.0-1.0); Blood Urea Nitrogen 26 mg/dL (9-16); Carbon Dioxide 28 mmol/L (22-29); Chloride 103 mmol/L (96-108); Creatinine Clr Calc Pharmacy 35.5; Estimated Glomerular Filt Rate 40; Glucose Random 158 mg/dL (60-115); Magnesium 2.1 mg/dL (1.6-2.6); Potassium 4.6 mmol/L (3.3-5.1); Sodium 140 mmol/L (135-145); Total Protein 8.6 g/dL (6.5-8.0)
[2024-09-09 16:24] LABS: Appearance Urine Cloudy; Color Urine Yellow; Glucose Urine UA >=1000 mg/dL (Negative); Leukocyte Esterase Urine Trace (Negative); Nitrite Urine Negative (Negative); PH 5.5 (5.0-9.0); Specific Gravity - Urine 1.025 (1.005-1.025); UMIC TRIGGER UACC YES; Urine Blood Negative (Negative); Urine Ketones Negative (Negative); Urine Protein Trace mg/dL (Neg-Trace)
[2024-09-09] MEDS: Ketorolac Tromethamine 30 MG/ML VIAL IM (16:29)
[2024-09-09] MEDS: Cyclobenzaprine HCl 5 MG TABLET PO (16:29)
[2024-09-09 16:30] LABS: Bacteria Urine 2+ (None Seen); Hyaline Casts Urine 0-2 /LPF (0-2); RBC Urine 0-2 /HPF (0-2); UACC Culture Trigger YES
[2024-09-09 16:31] VITALS: BP 147/75; PULSE 75; RESP 15; TEMP 36.7; O2SAT 96
[2024-09-09 17:06] VITALS: BP 147/75; PULSE 75; RESP 15; TEMP 36.7; O2SAT 96
== END 2024-09-09 17:07 | disposition home or self-care (01) ==
PROVIDERS: Physician Assistant Medical; Emergency Provider Emergency Medicine; PCP Internal Medicine
DX: N39.0 Urinary tract infection, site not specified (principal); M54.50 Low back pain, unspecified; R10.2 Pelvic and perineal pain; Z79.899 Other long term (current) drug therapy
CPT/HCPCS: 36415; 74176; 80053; 81001; 83735; 85025; 87086; 96372; 99283; 99284; J1885

== ENCOUNTER → 2024-09-25 13:43 | Outpatient (AMB) | payer OTHER, SELFPAY ==
[2024-09-25 14:12] VITALS: BMI 29.5
--- NOTE | 2024-09-25 14:12 | A.OFFVIS_ITS ---
VS Expanded 09/25/24 14:12 Height 5 ft 3 in Weight 166 lb 7.184 oz BMI 29.5 Intake Visit Reasons: DM Allergies Penicillins Allergy (Severe, Verified 09/09/24 12:59) RASH Nutrition Presentation Details: Pt presents for MNT for T2DM Pt presents with fam member. Working on diet modifications, reducing sugary foods (pastries and similar), diluting juices with water Pt having 3 meals/day B varies: sandw and coffee with mil or oatmeal with coffee/milk L: sand (tuna or chicken or ham/cheese) or rice/duke/chicken/salad or root veg and cod and green beans D: same as lunch snack: crackers with peanut butter and juice BS Monitoring Most Recent Diabetes Results: Creatinine 1.30 mg/dL (0.5-1.4) 09/09/24 Blood Urea Nitrogen 26 mg/dL (9-16) H 09/09/24 Sodium 140 mmol/L (135-145) 09/09/24 Potassium 4.6 mmol/L (3.3-5.1) 09/09/24 Chloride 103 mmol/L (96-108) 09/09/24 Carbon Dioxide 28 mmol/L (22-29) 09/09/24 Calcium 10.0 mg/dL (8.4-10.2) 09/09/24 AST 23 U/L (5-31) 09/09/24 ALT 25 U/L (0-31) 09/09/24 Total Protein 8.6 g/dL (6.5-8.0) H 09/09/24 Albumin 4.5 g/dL (3.5-5.0) 09/09/24 [facility] Medical History Diabetes Hypertension Congestive heart failure Surgical History H/O heart bypass surgery Social History Alcohol intake: former Patient Tobacco Use Status: Never used Tobacco Assessment & Plan Assessment & Plan (1) T2DM (type 2 diabetes mellitus): Code(s): E11.9 - Type 2 diabetes mellitus without complications Category: Medical Plan: Wt: 74 Kg ( 04/2024 ) Est kcal needs as per MSJ: 1500 (40% carb, 30% protein/fat) Est fluid needs as per 25-30 ml/d: 2200 Est prot per day as per 1 g/kg bw: 74 Recommend fiber intake : 8-10 g per day and gradually increase to 25-28 g per day for women and 35-38 g for men or as tolerated Recommend sodium intake per day : less than 2000 mg Educated patient on: ( R = reviewed V = verbalizes understanding N/R = needs review N/A = not applicable * Food sources of carbohydrate, adequate serving sizes and its role in various health conditions: R * Differences between complex carbohydrates a simple carbohydrates, role of fiber in diet: R * Lean protein sources of foods: R * Differences between types of fats and role in diet (mono on saturated fat fatty acids, saturated fatty acids, trans fats): R * Food sources of sodium in salt and healthy modifications for heart health in kidney health: R V R/V * Vitamins and minerals: R * Healthy plate method concept: R * Physical activity: Benefits a precaution: R V N/R * Hypoglycemia protocol (rule of 15): R V N/R * Dietary prevention of Hyperglycemia: R Patient Instructions: Have yogurt once a day at bedtime Increase fluids: water, water with lemon, tea, soups Coding Level of Care Code Nutr Indiv Subseq ([id number]) Diagnoses T2DM (type 2 diabetes mellitus) E11.9 Time Spent (min) 30
== END ==
PROVIDERS: PCP Pediatrics; Visit Provider Dietitian, Registered
DX: E11.9 Type 2 diabetes mellitus without complications (principal)

== ENCOUNTER → 2024-09-25 13:43 | Outpatient (BNVA) | payer OTHER, SELFPAY | PROVIDERS: PCP Pediatrics; Visit Provider Dietitian, Registered | DX: E11.9 Type 2 diabetes mellitus without complications (principal) | CPT/HCPCS: 97803 ==

== ENCOUNTER 2025-05-06 09:52 | Emergency (ER) | payer OTHER, SELFPAY ==
[2025-05-06 10:07] VITALS: BP 143/60; PULSE 87; RESP 16; TEMP 36.6; O2SAT 96; BMI 29.3
[2025-05-06 10:29] LABS: Appearance Urine Clear; Glucose Urine UA >=1000 mg/dL (Negative); PH 6.5 (5.0-9.0); Specific Gravity - Urine 1.020 (1.005-1.025); UMIC TRIGGER UACC YES
[2025-05-06 10:35] LABS: UACC Culture Trigger YES
--- NOTE | 2025-05-06 11:10 | ED.FEMALEGU ---
HPI - Female Genitourinary General Chief complaint: Urogenital-Female Stated complaint: freq urination Time Seen by Provider: 05/06/25 11:10 Source: patient and rehabilitation liaison Mode of arrival: ambulatory Limitations: no limitations History of Present Illness ED Provider: HPI Narrative: 79-year-old patient diabetic with history of UTIs and yeast infections, was using diapers that had her develop redness around the area now she is having vaginal itch and dysuria, she has also incontinent of urine but this is not a new issue, currently not using diapers but using pads because of the discomfort. No fevers or chills no nausea no vomiting. Related Data Home Medications ?Medication ?Instructions ?Recorded ?Confirmed acetaminophen 650 mg 2 tab PO BID PRN pain 03/03/21 03/03/21 tablet,extended release (Mapap Arthritis Pain) amlodipine 10 mg tablet 1 tab PO DAILY 03/03/21 11/10/23 atorvastatin 40 mg tablet 40 mg PO BEDTIME 03/03/21 11/10/23 docusate sodium 100 mg capsule 1 cap PO BID 03/03/21 03/03/21 (Stool Softener) furosemide 20 mg tablet 1 tab PO DAILY PRN Edema 03/03/21 03/03/21 gabapentin 100 mg capsule 1 cap PO BID 03/03/21 03/03/21 isosorbide mononitrate 30 mg 1 tab PO QPM 03/03/21 03/03/21 tablet,extended release 24 hr losartan 100 mg tablet 1 tab PO DAILY 03/03/21 03/03/21 metformin 500 mg tablet 1 tab PO DAILY 03/03/21 03/03/21 metoprolol succinate 50 mg 1 tab PO DAILY 03/03/21 11/10/23 tablet,extended release 24 hr nitroglycerin 0.4 mg sublingual 1 tab sublingual NEEDED PRN 03/03/21 11/10/23 tablet Angina sertraline 25 mg tablet 1 tab PO DAILY 03/03/21 03/03/21 duloxetine 60 mg capsule,delayed 60 mg PO DAILY 11/10/23 11/10/23 release sprinkle empagliflozin 10 mg tablet 10 mg PO DAILY 11/10/23 11/10/23 (Jardiance) famotidine 20 mg tablet 20 mg PO BID 11/10/23 11/10/23 furosemide 20 mg tablet 20 mg PO DAILY 11/10/23 11/10/23 montelukast 10 mg tablet 10 mg PO DAILY 11/10/23 11/10/23 Previous Rx's ?Medication ?Instructions ?Recorded meclizine 25 mg chewable tablet 25 mg PO TID PRN dizziness #30 tabs 03/03/21 aluminum-mag hydroxide-simethicone 5 ml PO 5XD PRN dyspepsia #30 mL 07/16/21 200 mg-200 mg-20 mg/5 mL oral susp (Maalox Advanced) lidocaine HCl 2 % mucosal solution 1 appl mucous membrane TID PRN 07/16/21 (Lidocaine Viscous) pain #100 mL fluconazole 150 mg tablet 150 mg PO Q3D 2 doses #2 tabs 07/15/23 (Diflucan) naproxen 500 mg tablet 500 mg PO BID PRN pain 7 days #14 09/09/24 tabs nitrofurantoin 100 mg PO Q12H 7 days #14 caps 09/09/24 monohydrate/macrocrystals 100 mg capsule (Macrobid) clotrimazole-betamethasone 1 1 appl topical BID #45 grams 05/06/25 %-0.05 % topical cream fluconazole 150 mg tablet 150 mg PO Q3D 2 days #2 tabs 05/06/25 metronidazole 0.75 % (37.5 mg/5 1 appful vaginal DAILY 5 days #70 05/06/25 gram) vaginal gel (Vandazole) grams Allergies Allergy/AdvReac Type Severity Reaction Status Date / Time Penicillins Allergy Severe RASH Verified 05/06/25 10:09 Review of Systems Constitutional: Constitutional: Reports as per [facility] Past Medical History Medical History Diabetes Hypertension Congestive heart failure Surgical History H/O heart bypass surgery Social History Social History Alcohol intake: former Patient Tobacco Use Status: Never used Tobacco Advance Directives: No Advance Directives Information Provided: Yes Physical Exam Vital Signs: Vital Signs: Last Vital Signs Temp 97.8 F 05/06/25 10:07 Pulse 87 05/06/25 10:07 Resp 16 05/06/25 10:07 BP 143/60 H 05/06/25 10:07 Pulse Ox 96 05/06/25 10:07 O2 Del Method Room Air 05/06/25 10:07 BMI result Body Mass Index 29.3 Const: Other: Examined in the chair Well-appearing alert and orient x4 exam deferred Patient ambulated to the bathroom by herself and provided a sample, Medical Decision Making Medical Decision Making MDM Narrative: Urinalysis does not show any evidence of a UTI, patient has had yeast infection in the past, per history this is most likely yeast infection, exam deferred, she has no fevers no tachycardia nothing else to suspect significant infection such as cellulitis, abscess, pyelonephritis necessitating further blood work or pelvic exam Differential Diagnosis Differential Diagnoses: The differential diagnosis associated with the presentation includes (See above) Lab Data Labs: Lab Results 05/06/25 Range/Units 10:21 Urine Color Yellow Urine Appearance Clear Urine pH 6.5 (5.0-9.0) Ur Specific [place] 1.020 (1.005-1.025) Urine Protein Negative (Neg-Trace) mg/dL Urine Glucose (UA) >=1000 H (Negative) mg/dL Urine Ketones Negative (Negative) mg/dL Urine Blood Negative (Negative) Urine Nitrite Negative (Negative) Ur Leukocyte Esterase Small (1+) H (Negative) Urine RBC 0-2 (0-2) /HPF Urine WBC 6-10 H (0-5) /HPF Ur Squamous Epith Cells 0-2 (0-2) /HPF Urine Bacteria None Seen (None Seen) Hyaline Casts 3-5 (0-2) /LPF Discharge Plan Discharge Clinical Impression: Vaginitis Patient Disposition: Home, Self-Care Additional Instructions: Please use fluconazole 150 mg x1 dose, and then repeat in 3 days in the meantime I am also going to provide you with a vaginal cream that you going to use for the infection in the vaginal area applied at bedtime for the next 5 days, separately there is going to be clotrimazole ointment it has steroid, and that you can apply in the groin area, along the buttocks and outside of the vaginal canal to help with the itching Follow up with the PCP worsening symptoms concerns come back to the ER Urine did not show evidence for urinary tract infection You are getting treatment for presumed bacterial vaginosis and yeast infection of the skin/likely caused by either sensitivity to the diapers that you have had or the fact that moisture entrapment caused flare up Por favor, use fluconazol 150 mg x1 dosis y repita el tratamiento en 3 d?as. Mientras tanto, tambi?n le proporcionar? franki crema vaginal para la infecci?n vaginal, que se aplicar? antes de acostarse david los pr?ximos 5 d?as. Adem?s, le lady? un mike?ento de clotrimazol (contiene esteroides) que puede aplicar en la andrew, a lo mouna de los gl?teos y fuera del canal vaginal para aliviar la picaz?n. Si los s?ntomas empeoran, consulte con orozco m?dico de cabecera. Si tiene alguna inquietud, vuelva a urgencias. La orina no mostr? evidencia de infecci?n del tracto urinario. Est? recibiendo tratamiento para franki presunta vaginosis bacteriana e infecci?n cut?lorene por hongos, probablemente causada por la sensibilidad a los pa?ales que ortega usado o por el hecho de que la humedad le provoc? un brote. Prescriptions: New fluconazole 150 mg tablet 150 mg PO Q3D 2 Days Qty: 2 0RF Rx Instructions: Take 1 pill, then repeat 3 days later metronidazole [Vandazole] 0.75 % (37.5mg/5 gram) gel 1 appful vaginal DAILY 5 Days Qty: 70 0RF clotrimazole-betamethasone 1-0.05 % cream 1 appl topical BID Qty: 45 0RF Rx Instructions: Apply to the affected area twice daily until symptoms improve No Action atorvastatin 40 mg tablet 40 mg PO BEDTIME metformin 500 mg tablet 1 tab PO DAILY metoprolol succinate 50 mg tablet extended release 24 hr 1 tab PO DAILY isosorbide mononitrate 30 mg tablet extended release 24 hr 1 tab PO QPM acetaminophen [Mapap Arthritis Pain] 650 mg tablet extended release 2 tab PO BID PRN (Reason: pain) nitroglycerin 0.4 mg tablet, sublingual 1 tab sublingual NEEDED PRN (Reason: Angina) docusate sodium [Stool Softener] 100 mg capsule 1 cap PO BID sertraline 25 mg tablet 1 tab PO DAILY furosemide 20 mg tablet 1 tab PO DAILY PRN (Reason: Edema) gabapentin 100 mg capsule 1 cap PO BID losartan 100 mg tablet 1 tab PO DAILY amlodipine 10 mg tablet 1 tab PO DAILY meclizine 25 mg tablet,chewable 25 mg PO TID PRN (Reason: dizziness) Qty: 30 0RF alum-mag hydroxide-simeth [Maalox Advanced] 200-200-20 mg/5 mL suspension 5 ml PO 5XD PRN (Reason: dyspepsia) Qty: 30 0RF Rx Instructions: administer between meals and at bedtime lidocaine HCl [Lidocaine Viscous] 2 % solution 1 appl mucous membrane TID PRN (Reason: pain) Qty: 100 0RF fluconazole [Diflucan] 150 mg tablet 150 mg PO Q3D Qty: 2 0RF famotidine 20 mg tablet 20 mg PO BID montelukast 10 mg tablet 10 mg PO DAILY furosemide 20 mg tablet 20 mg PO DAILY Jardiance 10 mg tablet 10 mg PO DAILY duloxetine 60 mg Capsule, Delayed Rel Sprinkle 60 mg PO DAILY naproxen 500 mg tablet 500 mg PO BID PRN (Reason: pain) 7 Days Qty: 14 0RF nitrofurantoin monohyd/m-cryst [Macrobid] 100 mg capsule 100 mg PO Q12H 7 Days Qty: 14 0RF Rx Instructions: must administer with a meal/food Print Language: Telugu
[2025-05-06 12:10] VITALS: BP 143/60; PULSE 87; RESP 16; TEMP 36.6; O2SAT 96
--- OUTSIDE RECORDS SUMMARY | 2025-05-06 12:46 | XMS_ITS | Clinical Summary ---
Author Organization [facility] [employer] [facility] it Address [address] [place] [address] Care Team Providers Care Application Services Manager Name Role Phone Jaylene Somers DO Primary Care Provider Medications furosemide (LASIX) 20 mg tablet TAKE ONE TABLET BY MOUTH EVERY DAY ^1R1 90 tablet 1 12/11/2024 Active Encounters Date Type Department Care Team Description 02/08/2025 Telephone [facility] [address] [place] [address] Manpreet Agarwal MD Colonoscopy (Colonoscopy ); pre-op (Pre-op) from Last 3 Months Surgical History Surgery Date Site/Laterality Comments OTHER SURGICAL HISTORY PROCEDURE: HISTORY OTHER; COMMENT: Heart Bypass Surgey x4 HYSTERECTOMY PROCEDURE: HISTORICAL TOTAL HYSTERECTOMY WITH BSO TUBAL LIGATION PROCEDURE: HISTORICAL TUBAL LIGATION Medical History Medical History Date Comments Chronic low back pain DX:Chronic low back pain Fibromyalgia syndrome DX:Fibromy algia syndrome Hx of CABG DX:Hx of CABG Hx of carotid stenosis DX:Hx of carotid stenosis 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 Major depression DX:Major depres noé Status post CVA DX:Status post C VA T2DM (type 2 diabetes mell us) ([facility] V24, [facility] V28) DX:T2DM (type 2 diabetes me llitus) ([facility]) Total body pain DX:Total body pa in Vertigo DX:Vertigo Stroke ([facility] V24, [facility] V28) 03/27/2021 DX:Stroke ([facility]) Asthma DX:Asthma GERD (gastroesophageal reflu x disease) DX:GERD (gastroesophageal re flux disease) Nocturia DX:Nocturia Class 1 obesity DX:Class 1 obesi ty Urinary incontinence, mixed DX:U rinary incontinence, mixed Social History Tobacco Use Types Packs/Day Years Used Date Smoking Tobacco: Former Smokeless Tobacco: Former Alcohol Use Standard Drinks/Week Comments Not Currently 0 (1 standard drink = 0.6 oz pur e alcohol) Comments Unknown Sex and Gender Information Value Date Recorded Sex Assigned at Not on file Legal Sex Female 5:42 PM EST Gender Identity Not on file Sexual Orientation Not on file Obstetrics History Last Filed Vital Signs Vital Sign Reading Time Taken Comments Blood Pressure 156/75 06/28/2024 2:52 PM EDT Sit ting R Arm Pulse 65 04/11/2024 8:57 AM EDT Temperature - - Respiratory Rate - - Oxygen Saturation - - Inhaled Oxygen Concentration - - Weight 75.8 kg (167 lb) 06/28/2024 2:52 PM EDT Height 162.6 cm (5' 4 ) 06/28/2024 2:52 PM EDT Body Mass Index 28.67 06/28/2024 2:52 PM EDT Plan of Treatment Upcoming Encounters Date Type Department Care Team (Late st Contact Info) Description 06/07/2025 10:50 AM EDT Office Visit [facility] [address] [place] [address] Ruiz-Manpreet Garner MD [address] [place] [address] [address] [place] [address] Health Maintenance Due Date Last Done Comments Diabetes: Annual GFR (Glomer ular Filtration Rate) 1945 Diabetes: Annual Foot Exam 1955 Diabetes: Annual Retina Eye Exam 1955 DTaP,Tdap,and Td Vaccines (1 - Tdap) 1964 Pneumococcal Vaccine: 50+ Ye ars (1 of 1 - PCV) 1995 Zoster Vaccines (1 of 2) 1995 RSV Immunization Adult Patie nts (1 - 1-dose 75+ series) 2020 Cholesterol Screening (Lipid Panel) 09/18/2022 Falls Risk Assessment 09/18/2022 Hepatitis C Screening 09/18/2022 Hypertension/CHF/CAD Annual BMP Blood Test 09/18/2022 Osteoporosis Screening (Bone Density Screening) 09/18/2022 Social Influencers of Health Screening 09/18/2022 Diabetes: Annual Urine Albumin-Creatinine Ratio (uACR) 11/11/2023 Diabetes: Blood Sugar Contro l Test (HGBA1C) 11/11/2023 06/08/2021 COVID-19 Vaccine (1 - 2023-2 5 season) 2024 Depression Screening 10/10/2024 Influenza Vaccine (#1) 2025 HIB Vaccines Aged Out No longer eligi ble based on patient's age to complete this topic HPV Vaccines Aged Out No longer eligi ble based on patient's age to complete this topic Hepatitis A Vaccines Aged Out No long er eligible based on patient's age to complete this topic Hepatitis B Vaccines Aged Out No long er eligible based on patient's age to complete this topic IPV Vaccines Aged Out No longer eligi ble based on patient's age to complete this topic MMR Vaccines Aged Out No longer eligi ble based on patient's age to complete this topic Meningococcal ACWY Vaccine Aged Out N o longer eligible based on patient's age to complete this topic Meningococcal B Vaccine Aged Out No l onger eligible based on patient's age to complete this topic RSV Immunization Patients Un hector 20 months Aged Out No longer eligible b ased on patient's age to complete this topic Varicella Vaccines Aged Out No longer eligible based on patient's age to complete this topic Insurance Member Subscriber Plan / Payer (Ef fective 2019-Present) Name:Iza Ramirez Relation to Subscriber:Self Name:Iaz Mendez Payer ID:[id number] Group ID:[id number] Type:Not on file Address: [place] [address] [place] [id number] Care Teams Application Services Manager Relationship Specialty Start Date End Date Jaylene Somers DO [address] [place] [address] PCP - General 02/28/19
--- OUTSIDE RECORDS SUMMARY | 2025-05-06 12:46 | XMS_ITS | Encounter Summary ---
Author Organization [facility] Address [address] [place] [address] Phone Care Team Providers Care Casino Cage Supervisor Name Role Phone Jaylene Somers DO Primary Care Provider [phone] Encounter Details Date Type Department Care Team (Late st Contact Info) Description 01/01/2021 Orders Only [facility] [address] [place] [address] Provider, Beverley, Social History Tobacco Use Types Packs/Day Years Used Date Smoking Tobacco: Never Smokeless Tobacco: Never Alcohol Use Standard Drinks/Week Comments No 0 (1 standard drink = 0.6 oz pur e alcohol) Comments Unknown Sex and Gender Information Value Date Recorded Sex Assigned at Not on file Legal Sex Female 4:56 PM EST Gender Identity Not on file Sexual Orientation Not on file COVID-19 Exposure Response Date Recorded In the last month, have you been in contact with someone who was confirmed or suspected to have Coronavirus / COVID-19? No / Unsure 01/01/2021 2:27 PM EDT documented as of this encounter Plan of Treatment Not on file documented as of this encounter Procedures Procedure Name Priority Date/Time Associated Diagnosis Comments EXT RESULT ENTRY Routine 01/01/2021 EXT RESULT ENTRY Routine 01/01/2021 documented in this encounter Results * EXT RESULT ENTRY (01/01/2021) Historical Provider LAB BLOOD ORDERABLES Leandra l Result * EXT RESULT ENTRY (01/01/2021) us Historical Provider LAB BLOOD ORDERABLES Leandra l Result documented in this encounter Visit Diagnoses Not on filedocumented in this encounter Care Teams Casino Cage Supervisor Relationship Specialty Start Date End Date Jaylene Somers DO [address] [place] [id number] PCP - General Animal Ecologist 06/08/21 documented as of this encounter
--- OUTSIDE RECORDS SUMMARY | 2025-05-06 12:46 | XMS_ITS | Patient Health Record ---
Author Organization [facility] Address [address] [place] [phone] Care Team Providers Care Retail Cosmetics Sales Beauty Advisor Name Role Phone Latrell Van MD Primary Care Provider Con Martinez Unavailable [phone] Allergies Allergen (clinical drug ingredient) Drug/Non Drug Allergy documented on EMR Reaction Allergy Type Onset Date Status Penicillin Unknown Drug Allergy Active Reason For Referral No Information Medications Medication SIG (Take, Route, Frequency, Duration) Notes Start Date End Date Status Furosemide 40 MG 1 tablet Orally Once a day; Duration: 30 day(s) Active Metoprolol & Diet Manage Prod 50 MG as directed Orally Active amLODIPine Besylate 5 MG 1 tablet Orally Once a day; Duration: 30 day(s) Active Simvastatin 10 MG 1 tablet every eveni ng Orally Once a day; Duration: 30 day(s) Active Aspirin 81 MG 1 tablet Orally Once a day; Duration: 30 day(s) Active PriLOSEC 20 MG 1 capsule Orally Onc e a day; Duration: 30 day(s) Active Plan Of Treatment No Information Insurance Providers Payer Name Payer Address Payer Phone Subscriber Number Group Number Insured Name Patient Relationship to Insured Coverage Start Date Coverage End Date [facility] [address] [address] [place] [phone] [id number] Iza Lozano Self - patient is the insured Medical (General) History Medical History History ICD Code 1. Carotid artery disease s/p CEA right Surgical History Surgery Date(Month/Year) R CEA 2009 01 Bypass 2001 hysterectomy
--- OUTSIDE RECORDS SUMMARY | 2025-05-06 12:47 | XMS_ITS | Data Portability ---
Author Organization [place] - [facility] Address [address] [place] [address] Care Team Providers Care Medical Scientific Officer Name Role Phone JAZMIN IZQUIERDO Primary Care Provider [phone] ZAFAR RODRIGUEZ OTHER [phone] Assessment Encounter Date Assessment Date Assessment LastModified by Organization Details LastModified Time 01/09/2020 01/09/2020 Overview/History :T is a 74 year old female that is new to . She has a medical history significant for latent TB, CAD s/p CABG and prior strokes. She was reporting to her PCP some lower extremity swelling, she was given some lasix which she has finished a week ago. She is concerned that the swelling is returning. Denies SOB or orthopnea. She has not been weighing herself since she stopped taking lasix. Exam: Pt is awake and alert, NAD. Hemodynamically stable. LS CTA, HR irregular. Trace R pedal ankle swelling noted, no erythema. RLE not hot to touch. palpable peripheral pulses DDx considered, but not limited to: CHF possible, pt reports being on diuretics in the past, not SOB and minimal swelling. DVT considered as pt has had strokes in the past but swelling is pretty minimal and only on foot, so not likely. Soft tissue injury possible but pt denies any trauma. Cellulitis considered but no fever or erythema Work up/Results:Probnp and BMP drawn. ECG shows SR, TWI in V5-V6, no elevations or depression, no chest pain today no concern ACS Plan/Discussion: I have discussed with patient that she has minimal swelling to R foot. We are going to send off some lab work today, I do not see a need to start diuretics at this time, will await lab work. I reviewed with pt her ECG. She was assured that this note would be shared with PCP. Advised pt to weight herself daily and avoid salt. If she were to have chest pain that was not relieved with nitro x3 she should call 911. She verbalized understanding of D/C instructions. In order to obtain further information and compare any laboratory results/values, I have accessed patient records on the [facility] [employer]. This information was pertinent in my medical decision making today. Proper Personal Protective Equipment (PPE), including gloves, eye protection and masks were donned and doffed appropriately and all equipment cleaned using approved technique with germicidal disposable wipes prior to and after care of this patient according to [facility]'s infection prevention protocols. [email or web address] Not available 01/09/2020 14:47:32 Plan of Treatment Reminders Order Date Submit Date Provider Last Modified By Organization Details Last Modified Time Details Appointments None recorded. Lab pro BNP (pro B-type natriuretic peptide), serum or plasma 2019 ONEL [facility] (Centralized Electronic Ordering - All Locations), Patient Can Go To The Location Of Their Choice, 0 21:37:16 BMP, serum or plasma 2019 020 ONEL [facility] (Centralized Electronic Ordering - All Locations), Patient Can Go To The Location Of Their Choice, 0 21:24:28 Referral None recorded. Procedures None recorded. Surgeries None recorded. Imaging None recorded. Medication Orders None recorded. Patient TargetsNo targets recorded. Patient InstructionsNo instructions recorded. Reason for Referral None Reported. Results Created Date Observation Date Name Description Value Unit Range Abnormal Flag Note LastModifiedBy Organization Detail LastModifiedTime 01/09/2001/09/2020 BMP, serum or plasm a glucose 73 mg/dL (70-99 ) Not Available [facility] (Centralized Electronic Ordering - All Locations) Patient Can Go To The Location Of Their Choice, 01/09/2020 21:24:28 01/09/2001/09/2020 BMP, serum or plasm a BUN 16 mg/dL (8-23) Not Available [facility] (Centralized Electronic Ordering - All Locations) Patient Can Go To The Location Of Their Choice, 01/09/2020 21:24:28 01/09/2001/09/2020 BMP, serum or plasm a creatinine 1.0 mg/dL (0.5-1 .0) Not Available [facility] (Centralized Electronic Ordering - All Locations) Patient Can Go To The Location Of Their Choice, 01/09/2020 21:24:01/09/2001/09/2020 BMP, serum or plasm a sodium 141 mmol/ L (133-1 45) Not Available [facility] (Centralized Electronic Ordering - All Locations) Patient Can Go To The Location Of Their Choice, 01/09/2020 21:24:01/09/2001/09/2020 BMP, serum or plasm a potassium 4.7 mmol/ L (3.6-5 .2) Not Available [facility] (Centralized Electronic Ordering - All Locations) Patient Can Go To The Location Of Their Choice, 01/09/2020 21:24:01/09/2001/09/2020 BMP, serum or plasm a chloride 100 mmol/ L (98-10 7) Not Available [facility] (Centralized Electronic Ordering - All Locations) Patient Can Go To The Location Of Their Choice, 01/09/2020 21:24:01/09/2001/09/2020 BMP, serum or plasm a bicarbonate 27 mmol/ L (22-29 ) Not Available [facility] (Centralized Electronic Ordering - All Locations) Patient Can Go To The Location Of Their Choice, 01/09/2020 21:24:01/09/2001/09/2020 BMP, serum or plasm a anion gap 14 (4-17) Not Available [facility] (Centralized Electronic Ordering - All Locations) Patient Can Go To The Location Of Their Choice, 01/09/2020 21:24:01/09/2001/09/2020 BMP, serum or plasm a calcium 10.3 mg/dL (8.6-1 0.5) NIKKY METCALF CALCI UM LEVEL S SHOUL D BE BAUTISTA METCALF ON A ATE DAY CLINI SHANKAR INDIC ATED. Not Available [facility] (Centralized Electronic Ordering - All Locations) Patient Can Go To The Location Of Their Choice, 01/09/2020 21:24:01/09/2001/09/2020 BMP, serum or plasm a est GFR non 55 mL/mi n/1.7 3_M2 Creat inine based estim ated glome rular filtr ation rate (eGFR ) is calcu lated using the Chron ic Kidne y Disea se Epide miolo gy Colla borat ion (CKD- EPI). The CKD-E PI creat inine equat ion has not been valid ated in child jenni (<18 years ), pregn ant women or in some racia l or ethni c subgr oups other than Cauca sians and Afric an Ameri cans. Not Available [facility] (Centralized Electronic Ordering - All Locations) Patient Can Go To The Location Of Their Choice, [id number] 01/09/2020 21:24:28 01/09/20 20 01/09/2020 BMP, serum or plasm a est GFR 64 mL/mi n/1.7 3_M2 Creat inine based estim ated glome rular filtr ation rate (eGFR ) is calcu lated using the Chron ic Kidne y Disea se Epide miolo gy Colla borat ion (CKD- EPI). The CKD-E PI creat inine equat ion has not been valid ated in child jenni (<18 years ), pregn ant women or in some racia l or ethni c subgr oups other than Cauca sians and Afric an Ameri cans. Not Available [facility] (Centralized Electronic Ordering - All Locations) Patient Can Go To The Location Of Their Choice, [id number] 01/09/2020 21:24:28 01/09/20 20 01/09/2020 pro BNP (pro B-typ e natri ureti c pepti de), serum or plasm a pro BNP 310 pg/mL (0-125 ) high Not Available [facility] (Centralized Electronic Ordering - All Locations) Patient Can Go To The Location Of Their Choice, [id number] 01/09/2020 21:37:16 01/22/20 elect dipak huizargr am No observ ation record ed. BARCODE Not Available 2019 18:58:30 Result Notes None recorded. Procedures Surgical History Date Name Laterality Status Provider Name and Address Organization Details Recorded Time 01/09/20 Medication Review completed LIVIER MONACO NP [facility] [address], [place], [address], [place] [facility] 01/09/2020 11:53:44 01/09/20 20 ECG Interpretation - DH completed LIVIER MONACO, JEVON [address] [facility], [place], [address], [place] [facility] 01/09/2020 12:17:38 Imaging Results None recorded. Procedure Notes None recorded. Medical Equipment None Reported. Allergies Allergen ID Allergen Name Allergen Category Reaction Reaction Severity Criticality Documentation Date Start Date Code Code System Note Provider Name and Address Organization Details Recorded Time 77346 Product containin g penicilli n (product) medicatio n Not available Not available Not available 01/09/2020 76873 8001 SNOMED LIVIER MONACO , [employer] [address], [facility] [place], [address], [place] [facility] 0 11:20:22 48075 trivalent influenza vaccine medicatio n Not available Not available Not available 01/09/2020 34173 9 RxNorm LIVIER MONACO , JEVON [address], [facility] [place], [address], [place] [facility] 0 11:22:51 Medications Name Sig Start Date Stop Date Status Note LastModified by Organization Details LastModified Time atorvastatin 40 mg tablet 01/08 completed Not Available Not Available Not Available metformin 500 mg tablet active Not Available Not Available Not Available metoprolol succinate ER 50 mg tablet,extended release 24 hr 01/08 completed Not Available Not Available Not Available FreeStyle Lancets 28 gauge active Not Available Not Avail able Not Available meclizine 12.5 mg tablet active Not Available Not Available No t Available amlodipine 2.5 mg tablet active Not Available Not Available No t Available amlodipine 5 mg tablet 01/08 completed Not Available Not Available Not Available aspirin 81 mg tablet,delayed release active Not Available Not Available Not Available rifampin 300 mg capsule active Not Available Not Available Not Available DOK 100 mg capsule active Not Available Not Available Not Available meclizine 25 mg tablet active Not Available Not Available Not Available hydrocortisone 1 % topical cream 01/08 completed Not Available Not Available Not Available oseltamivir 75 mg capsule 01/08 completed Not Available Not Available Not Available nitroglycerin 0.4 mg sublingual tablet active Not Available Not Available Not Available furosemide 20 mg tablet active Not Available Not Available Not Available gabapentin 100 mg capsule active Not Available Not Available N ot Available levofloxacin 750 mg tablet 01/08 completed Not Available Not Available Not Available losartan 100 mg tablet active Not Available Not Available Not Available Donovan DM 10 mg-100 mg/5 mL oral syrup active Not Available Not Available N ot Available FreeStyle Lite Meter kit active Not Available Not Available No t Available FreeStyle Lite Strips active Not Available Not Available Not Available omeprazole 20 mg tablet,delayed release active Not Available Not Available Not Available diclofenac 1 % topical gel active Not Available Not Available Not Available lidocaine 5 % topical ointment 01/08 completed Not Available Not Available Not Available Robafen DM Cough 10 mg-100 mg/5 mL oral liquid active Not Available Not Availab le Not Available Vitals Date Recorded Heart rate Body temperature Oxygen saturation Oxygen saturation in Arterial blood by Pulse oximetry Respiratory rate Systolic And Diastolic Provider Name and Address Organization Details Last Updated DateTime 0 95 /min 97.5 [degF] 100 % 100 % 20 /min 150/64 mm[Hg] Not Available [facility] 0 11:30:01 Social History Question Answer Notes LastModified by Organizat ion Details LastModified Time Tobacco Smoking Status Never Smoker LIVIER MONACO NP [address] [facility], [place], [address], [place] [facility] 01/09/2020 11:39:30 What Is Your Code Status? Full Code [email or web address] Information not available 01/09/2020 Within The Past 12 Months, Has It Happened That The Food You Bought Just Didn't Last And You Didn't Have Money To Get More. No [email or web address] Information not available 01/09/2020 Within The Past 12 Months, Have You Worried That Your Food Would Run Out Before You Got Money To Buy More. No [email or web address] Information not available 01/09/2020 Fall Risk: Do You Feel Unsteady When Standing Or Walking? No [email or web address] Information not available 01/09/2020 We Know That How And When People Interact With Friends And Family Can Be Very Different From Person To Person. How Often Do You Have The Opportunity To See Or Talk To People That You Care About And Feel Close To? (Ex: Talking To Friends On The Phone Or Visiting Friends Or Family Or Going To Congregation Or Club Meetings) Choose Not To Answer This Question [email or web address] Information not available 01/09/2020 Excessive Alcohol Or Drug Use No [email or web address] Information not available 01/09/2020 We Know From Many Of Our Patients That Covering All Of Their Costs Can Be Difficult At Times. This Can Cause Stress And Impact Health. In The Past Year, Have You Been Unable To Get Any Of The Following When It Was Really Needed? No [email or web address] Information not available 01/09/2020 What Is Your Housing Situation Today? I Have Housing [email or web address] Information not available 01/09/2020 Would You Like Help Connecting To Resources? None [email or web address] Information not available 01/09/2020 Sex: Unknown Functional Status None recorded. Mental Status None recorded. Family History Relationship Description Onset Age of this Age Resolved Age Notes LastModified by Organization Details LastModified Time Maternal Grandmother Diabetes mellitus [email or web address] Not available 10/2019 11:40:44 Medical History Condition Response Diabetes Y Coronary Artery Disease Y High Cholesterol Y Cancer N Pulmonary Embolism N Stroke Y Hypertension Y Asthma N COPD N Depression Y Kidney Disease N Gynecological HistoryNo gynecological history recorded. Obstetrics History GPAL:G 0 P 0 0 0 0 Past Encounters Encounter ID Performer Location Encounter Start Date Encounter Closed Date Diagnosis/Indication Diagnosis SNOMED-CT Code Diagnosis ICD10 Code Diagnosis Note [id number] LIVIER MONACO NP [address] [address] 01/09/2020 11:16:58 01/10/2020 20:27:26 Swelling of lower leg 988793849 R22.41 Health Concerns Section Related Observation LastModified by Organization Detai ls LastModified Time None Recorded Concern Status LastModified by Organization Details LastModified Time None Recorded Advance Directives Directive None Recorded Payers Insurance Date Sequence Insurance Name Policy Number Policy Hankins Covered Member ID Hankins Member ID Guarantor Name 01/09/2020 2 [place] Iza berger [id number] Iza loza 01/10/2020 1 [place] [employer] Iza berger [id number] Iza loza 12/28/2019 1 *SELF PAY* Iza berger [id number] Iza loza 01/10/2020 1 [facility] PRIOR TO 2023 - DUAL ELIGIBLE (MEDICARE REPLACEMENT/ADV ANTAGE - HMO) Iza berger [id number] Iza loza OBGyn Episode No OBEpisode recorded.
== END 2025-05-06 12:11 | disposition home or self-care (01) ==
PROVIDERS: Emergency Provider Emergency Medicine; PCP Pediatrics
DX: N76.0 Acute vaginitis (principal); R30.0 Dysuria; E11.9 Type 2 diabetes mellitus without complications; I10 Essential (primary) hypertension
CPT/HCPCS: 81001; 87086; 99282; 99283

== ENCOUNTER 2025-09-14 17:26 | Emergency (ER) | payer OTHER, SELFPAY ==
--- NOTE | 2025-09-14 | ECG_ITS ---
Test Reason : SOB Blood Pressure : */* mmHG Vent. Rate : 86 BPM Atrial Rate : 86 BPM P-R Int : 142 ms QRS Dur : 90 ms QT Int : 368 ms P-R-T Axes : 46 -4 155 degrees QTcB Int : 440 ms Normal sinus rhythm Left ventricular hypertrophy with repolarization abnormality ( R in aVL , Sokolow-Caba , [place] product , [place]hilt-[place] ) ST elevation consider anterior injury or acute infarct ACUTE MS / STEMI Abnormal ECG When compared with ECG of 23-Oct-2022 17:47, ST elevation now present in Anterior leads ST now depressed in Lateral leads Referred By: Generic ED Physician Electronically Signed By: EDWARD POWELL
[2025-09-14 17:33] VITALS: BP 148/84; PULSE 97; O2SAT 97
[2025-09-14 17:53] VITALS: BP 149/78; PULSE 88; RESP 16; TEMP 36.6; O2SAT 98; BMI 28.7
[2025-09-14 18:29] LABS: Hematocrit 44.3 % (37.0-47.0); Hemoglobin 14.3 g/dl (12.0-16.0); Imm Gran Abs Auto 0.04 X10*3/uL (0.00-0.03); Imm Gran Pct Auto 0.4 % (0.0-0.4); Lymphocytes Absolute Auto 2.5 X10*3/uL (1.2-4.9); MANUAL DIFF FLAG NO; Mean Corpuscular HGB Conc 32.3 g/dl (31.0-35.0); Mean Corpuscular Hemoglobin 27.7 pg (27.0-33.0); Mean Corpuscular Volume 85.9 fL (80.0-98.0); NRBC Abs Auto 0.000 X10*3/uL (0.0-0.012); NRBC Pct Auto 0.0 /100WBC (0.0-0.2); Platelet Count 278 X10*3/uL (160-400); Red Blood Count 5.16 X10*6/uL (4.20-5.50); White Blood Count 9.4 X10*3/uL (4.8-10.8)
[2025-09-14 18:30] LABS: Appearance Urine Clear; Glucose Urine UA >=1000 mg/dL (Negative); PH 5.5 (5.0-9.0); Specific Gravity - Urine >= 1.030 (1.005-1.025); UMIC TRIGGER UA YES
[2025-09-14 18:44] LABS: Alanine Aminotransferase 26 U/L (0-31); Albumin Level 4.6 g/dL (3.5-5.0); Alkaline Phosphatase 134 U/L (39-117); Anion Gap 14 (12-20); Aspartate Amino Transferase 19 U/L (5-31); Blood Urea Nitrogen 25 mg/dL (9-16); Calcium 10.0 mg/dL (8.4-10.2); Carbon Dioxide 27 mmol/L (22-29); Chloride 103 mmol/L (96-108); Creatinine Clr Calc Pharmacy 37.1; Estimated Glomerular Filt Rate 44; Potassium 4.3 mmol/L (3.3-5.1); Sodium 140 mmol/L (135-145); Total Protein 8.4 g/dL (6.5-8.0)
[2025-09-14 18:52] LABS: NT Pro B Type Natriuretic Pept 236.0 pg/mL (<300); Troponin-I High Sensitivity 7.9 ng/L (<3.5-17.0)
--- NOTE | 2025-09-14 19:01 | ED_ITS ---
HPI - General Adult General Chief complaint: Recheck/Abnormal Lab/Rx Stated complaint: HIGH BS 408 PER EMS Time Seen by Provider: 09/14/25 18:19 History of Present Illness HPI narrative: PATIENT IS A 79-YEAR-OLD FEMALE PRESENTEd today with having generalized malaise weakness. Patient did not take her blood pressure medicine did not take her diabetes medicine. Did not take her insulin. Has pain to the side of her neck on the left side. Has a history of the same. There is no chest pain there is no shortness of breath there is no diaphoresis associated with this. Patient is from home. She has a visiting nurse that sees her once a month. Has a history of bypass surgery in the past. No fever no chills. But does have a history of UTI question is Macrobid. Patient denies any coughing congestion upper respiratory symptoms. Denies any diaphoresis. Related Data Home Medications ?Medication ?Instructions ?Recorded ?Confirmed acetaminophen 650 mg 2 tab PO BID PRN pain 03/03/21 tablet,extended release (Mapap Arthritis Pain) amlodipine 10 mg tablet 1 tab PO DAILY 03/03/2111/02 atorvastatin 40 mg tablet 40 mg PO BEDTIME 03/03/21 docusate sodium 100 mg capsule 1 cap PO BID 03/03/21 0 03/03/21 (Stool Softener) furosemide 20 mg tablet 1 tab PO DAILY PRN Edema 03/03/21 gabapentin 100 mg capsule 1 cap PO BID 03/03/21 isosorbide mononitrate 30 mg 1 tab PO QPM 03/03/21 tablet,extended release 24 hr losartan 100 mg tablet 1 tab PO DAILY 03/03/2102/08 metformin 500 mg tablet 1 tab PO DAILY 03/03/2102/08 metoprolol succinate 50 mg 1 tab PO DAILY 03/03/2111/02 tablet,extended release 24 hr nitroglycerin 0.4 mg sublingual 1 tab sublingual NE EDED PRN 03/03/21 11/10/23 tablet Angina sertraline 25 mg tablet 1 tab PO DAILY 03/03/2102/08 duloxetine 60 mg capsule,delayed 60 mg PO DAILY 11/10/23 release sprinkle empagliflozin 10 mg tablet 10 mg PO DAILY 11/10/2311/02 (Jardiance) famotidine 20 mg tablet 20 mg PO BID 11/10/23 furosemide 20 mg tablet 20 mg PO DAILY 11/10/2311/02 montelukast 10 mg tablet 10 mg PO DAILY 11/10/2311/02 Previous Rx's ?Medication ?Instructions ?Recorded meclizine 25 mg chewable tablet 25 mg PO TID PRN dizzi ness #30 tabs 03/03/21 aluminum-mag hydroxide-simethicone 5 ml PO 5XD PRN dys pepsia #30 mL 07/16/21 200 mg-200 mg-20 mg/5 mL oral susp (Maalox Advanced) lidocaine HCl 2 % mucosal solution 1 appl mucous membr ane TID PRN 07/16/21 (Lidocaine Viscous) pain #100 mL fluconazole 150 mg tablet 150 mg PO Q3D 2 doses #2 tab s 07/15/23 (Diflucan) naproxen 500 mg tablet 500 mg PO BID PRN pain 7 day s #14 09/09/24 tabs nitrofurantoin 100 mg PO Q12H 7 days #14 ca ps 09/09/24 monohydrate/macrocrystals 100 mg capsule (Macrobid) clotrimazole-betamethasone 1 1 appl topical BID #45 gr ams 05/06/25 %-0.05 % topical cream fluconazole 150 mg tablet 150 mg PO Q3D 2 days #2 tabs 05/06/25 metronidazole 0.75 % (37.5 mg/5 1 appful vaginal DAILY 5 days #70 05/06/25 gram) vaginal gel (Vandazole) grams Allergies Allergy/AdvReac Type Severity Reaction Status Date / Time Penicillins Allergy Severe RASH Verified 09/14/25 18:07 Review of Systems 2 Review of Systems: No chest pain or diaphoresis Yes all other systems are reviewed and are negative [facility] Past Medical History Attestation statement: The following information was validated with the patient. Medical History Diabetes Hypertension Congestive heart failure Surgical History H/O heart bypass surgery Social History Social History Alcohol intake: former Patient Tobacco Use Status: Never used Tobacco Smoked in Last 30 Days: No Use of substances other than those prescribed or required for medical reasons: No Any prior treatment program specific to substance use: No Advance Directives: No Advance Directives Information Provided: No Do you have a plan to hurt others: No Plan Physical Exam ED Exam Exam: Appearance: Alert. Oriented X3. No acute distress. Eyes: Pupils equal, round and reactive to light. ENT: Pharynx normal. Neck: Normal inspection. Neck supple. No lymph nodes noted. No crepitus CVS: Normal heart rate and rhythm. Pulses normal. Normal S1 and S2 Respiratory: No respiratory distress. Breath sounds normal. No Wheezing. No rales Abdomen: Soft and nontender. No rigidity. No distention. good BS x4 Skin: Skin warm and dry. Normal skin color. Normal skin turgor. Extremities: No lower extremity edema. Neurovascular intact to all extremities. No Lacerations. No Rash Neuro: Oriented X 3. No motor deficit. No sensory deficit. Moving all extermities. No slurred speech Vital Signs: Vital Signs - 24 hr 09/14/25 17:53 09/14/25 19:37 Temperature 97.9 F Pulse Rate 88 84 Respiratory Rate 16 19 Blood Pressure 149/78 H 132/74 Pulse Oximetry 98 96 Oxygen Delivery Method Room Air Room Air BMI result Body Mass Index 28.7 Medications Administered Discontinued Medications Generic Name Dose Route Start Last Admin Trade Name Freq PRN Reason Stop Dose Admin Acetaminophen 650 mg 09/14/25 19:01 09/14/25 19:42 Acetaminophen 325 Mg Tablet PO 09/14/25 19:02 650 mg ONCE ONE Administration Aspirin 324 mg 09/14/25 19:39 09/14/25 19:42 Aspirin 81 Mg Tab.Chew PO 09/14/25 19:40 324 mg ONCE ONE Administration Medical Decision Making Medical Decision Making MDM Narrative: Patient is glucose came back at 292 normal anion gap. BUN and creatinine consistent with mild dehydration. Patient's hemoglobin is normal urine showed no signs of infection. Patient's pain on the side of the neck seems very musculoskeletal. There is no chest pain there is no diaphoresis. Patient's troponin is negative. However patient's EKG was done at 17:02. That EKG showed a sinus rhythm heart rate of 90 NH QRS QTC within normal limits there is significant ST segment elevation with tubes doming noted in V2 and V3. When compared to previous EKG this is more significant than prior. I went ahead and repeated the patient's EKG at 19:14 it showed a proximally the same type of to sewing the heart rate was still 80 NH QRS QTC was normal there is significant ST segment elevation in V1 V2 and V3 with significant tubes doming noted. No reciprocal changes noted. I proceeded to contact the garage mechanic at [facility]. After discussion with Cardiology. [place] patient should be transferred to [facility] for further evaluation. I discussed the case with the hospitalist here at [facility]. [place] uncomfortable about keeping the patient here. Currently in stable condition. Being admitted to [facility]. Risk and benefits of transfer discussed with patient. Ambulance crew present to take patient to [facility]. Differential Diagnosis Differential Diagnoses: The differential diagnosis associated with the presentation includes Hyperglycemia, DKA, electrolyte disturbance Admission/Observation Consideration of admission/observation: Escalation of care including admission/observation considered Consult Healthcare Provider Management of the patient was discussed with: Hospitalist and Office Services Specialist ( Interventional cardiology at [facility]) Lab Data MDM Lab Attestation statement: I reviewed the patient's lab results. 09/14/25 18:12 09/14/25 18:12 Labs: Lab Results 09/14/25 09/14/25 Range/Units 18:12 18:14 WBC 9.4 (4.8-10.8) X10*3/uL RBC 5.16 (4.20-5.50) X10*6/uL Hgb 14.3 (12.0-16.0) g/dl Hct 44.3 (37.0-47.0) % MCV 85.9 (80.0-98.0) fL MCH 27.7 (27.0-33.0) pg MCHC 32.3 (31.0-35.0) g/dl RDW 14.0 (11.0-16.0) % Plt Count 278 (160-400) X10*3/uL MPV 10.9 (9.4-12.3) fL Immature Gran % (Auto) 0.4 (0.0-0.4) % Neut % (Auto) 61.0 (45-73) % Lymph % (Auto) 26.6 (20-40) % Hardy % (Auto) 10.9 (2-11) % Eos % (Auto) 0.6 (0-4) % Baso % (Auto) 0.5 (0-2) % Lymph # (Auto) 2.5 (1.2-4.9) X10*3/uL Hardy # (Auto) 1.0 (0.1-1.2) X10*3/uL Eos # (Auto) 0.1 (0.0-0.4) X10*3/uL Baso # (Auto) 0.1 (0.0-0.2) X10*3/uL Abs Immat Gran (auto) 0.04 H (0.00-0.03) X10*3/uL Absolute Neuts (auto) 5.7 (2.0-8.3) x10*3/uL Absolute Nucleated RBC 0.000 (0.0-0.012) X10*3/uL Nucleated RBC % (auto) 0.0 (0.0-0.2) /100WBC Sodium 140 (135-145) mmol/L Potassium 4.3 (3.3-5.1) mmol/L Chloride 103 (96-108) mmol/L Carbon Dioxide 27 (22-29) mmol/L Anion Gap 14 (12-20) BUN 25 H (9-16) mg/dL Creatinine 1.18 (0.5-1.4) mg/dL Estim Creat Clear Calc 37.1 Estimated GFR 44 Random Glucose 296 H (60-115) mg/dL Calcium 10.0 (8.4-10.2) mg/dL Total Bilirubin 0.3 (0.0-1.0) mg/dL AST 19 (5-31) U/L ALT 26 (0-31) U/L Alkaline Phosphatase 134 H (39-117) U/L Troponin I High Sens 7.9 D (<3.5-17.0) ng/L NT-Pro-B Natriuret Pep 236.0 (<300) pg/mL Total Protein 8.4 H (6.5-8.0) g/dL Albumin 4.6 (3.5-5.0) g/dL Urine Color Yellow Urine Appearance Clear Urine pH 5.5 (5.0-9.0) Ur Specific [place] >= 1.030 H (1.005-1.025) Urine Protein Negative (Neg-Trace) mg/dL Urine Glucose (UA) >=1000 H (Negative) mg/dL Urine Ketones Negative (Negative) mg/dL Urine Blood Negative (Negative) Urine Nitrite Negative (Negative) Ur Leukocyte Esterase Negative (Negative) Urine RBC 0-2 (0-2) /HPF Urine WBC 6-10 H (0-5) /HPF Ur Squamous Epith Cells 0-2 (0-2) /HPF Urine Bacteria None Seen (None Seen) Hyaline Casts 0-2 (0-2) /LPF Independent Interpretation I performed an independent interpretation of an: EKG ( sinus rhythm heart rate is 80 NH QRS QTC within normal limits significant ST segment elevation in V1 V2 V3) Independent Historian Clinical information obtained from an independent historian. History obtained from or confirmed by: Parent External Record Review External record reviewed: Office record from nutrition services Prescription Management no need for additional antibiotics Chronic Conditions Patient?s care impacted by: Diabetes history of coronary artery disease Social Determinants Patient?s care significantly limited by Social Determinants of Health including: Problems related to primary support group Critical Care Time Critical Care Time Critical Care Time: Yes Total Critical Care Time: 40 Attestation: I have personally provided 40 minutes of critical care time exclusive of time spent on separately billable procedures. Time includes review of lab data, radiology results, discussion with consultants, and monitoring for potential decompensation. Interventions were performed as documented above Discharge Plan Discharge Clinical Impression: T2DM (type 2 diabetes mellitus), ST elevation (STEMI) myocardial infarction Patient Disposition: [facility] Instructions: How to Draw Up Insulin (ED), Type 2 Diabetes in the Older Adult (ED), Diabetes and Nutrition (ED), How to Check your Blood Sugar (DC), Type 2 Diabetes Management for Adults (ED) Additional Instructions: please take your Medications. Prescriptions: No Action atorvastatin 40 mg tablet 40 mg PO BEDTIME metformin 500 mg tablet 1 tab PO DAILY metoprolol succinate 50 mg tablet extended release 24 hr 1 tab PO DAILY isosorbide mononitrate 30 mg tablet extended release 24 hr 1 tab PO QPM acetaminophen [Mapap Arthritis Pain] 650 mg tablet extended release 2 tab PO BID PRN (Reason: pain) nitroglycerin 0.4 mg tablet, sublingual 1 tab sublingual NEEDED PRN (Reason: Angina) docusate sodium [Stool Softener] 100 mg capsule 1 cap PO BID sertraline 25 mg tablet 1 tab PO DAILY furosemide 20 mg tablet 1 tab PO DAILY PRN (Reason: Edema) gabapentin 100 mg capsule 1 cap PO BID losartan 100 mg tablet 1 tab PO DAILY amlodipine 10 mg tablet 1 tab PO DAILY meclizine 25 mg tablet,chewable 25 mg PO TID PRN (Reason: dizziness) Qty: 30 0RF alum-mag hydroxide-simeth [Maalox Advanced] 200-200-20 mg/5 mL suspension 5 ml PO 5XD PRN (Reason: dyspepsia) Qty: 30 0RF Rx Instructions: administer between meals and at bedtime lidocaine HCl [Lidocaine Viscous] 2 % solution 1 appl mucous membrane TID PRN (Reason: pain) Qty: 100 0RF fluconazole [Diflucan] 150 mg tablet 150 mg PO Q3D Qty: 2 0RF famotidine 20 mg tablet 20 mg PO BID montelukast 10 mg tablet 10 mg PO DAILY furosemide 20 mg tablet 20 mg PO DAILY Jardiance 10 mg tablet 10 mg PO DAILY duloxetine 60 mg Capsule, Delayed Rel Sprinkle 60 mg PO DAILY naproxen 500 mg tablet 500 mg PO BID PRN (Reason: pain) 7 Days Qty: 14 0RF nitrofurantoin monohyd/m-cryst [Macrobid] 100 mg capsule 100 mg PO Q12H 7 Days Qty: 14 0RF Rx Instructions: must administer with a meal/food fluconazole 150 mg tablet 150 mg PO Q3D 2 Days Qty: 2 0RF Rx Instructions: Take 1 pill, then repeat 3 days later metronidazole [Vandazole] 0.75 % (37.5mg/5 gram) gel 1 appful vaginal DAILY 5 Days Qty: 70 0RF clotrimazole-betamethasone 1-0.05 % cream 1 appl topical BID Qty: 45 0RF Rx Instructions: Apply to the affected area twice daily until symptoms improve Referrals: [facility] [Outside] Jaylene Somers DO [Physician, Internal Medicine] Print Language: Sammarinese
--- OUTSIDE RECORDS SUMMARY | 2025-09-14 19:02 | XMS_ITS | Clinical Summary ---
Author Organization [facility] [place] [facility] Address [address] [address] Phone Care Team Providers Care Rn Iv Therapy Name Role Phone Jaylene Somers DO Primary Care Provider Allergies Active Allergy Reactions Criticality Noted Date Comments Penicillins Rash 06/07/2025 Medications nitroglycerin (NITROSTAT) 0.[address] 1 TABLET UNDER TONGUE AND ALLOW TO DISSOLVE ONCE EVERY 5 MINUTES IF NEEDED FOR CHEST PAIN; IF NO RELIEF AFTER THIRD DOSE CALL 911 (BULK) 100 tablet 1 5 Active acetaminophen (TYLENOL 8 HOUR) 650 mg 8 hr tablet Take 2 tablets (1,300 mg total) by mouth every 8 (eight) hours if needed. Active amLODIPine (NORVASC) 10 mg tablet Take 1 tablet (10 mg total) by mouth 1 (one) time each day. Active aspirin 81 mg EC tablet Take 1 tablet (81 mg total) by mouth 1 (one) time each day. Active atorvastatin (LIPITOR) 40 mg tablet Take 1 tablet (40 mg total) by mouth 1 (one) time each day. Active Trulicity 0.75 mg/0.5 mL pen injector injection Inject 0.5 mL (0.75 mg total) under the skin. 4 Active DULoxetine (CYMBALTA) [address] capsule Take 1 capsule (60 mg total) by mouth 1 (one) time each day. 5 Active furosemide (LASIX) 20 mg tablet TAKE ONE TABLET BY MOUTH EVERY DAY ^1R1 90 tablet 2 5 Active furosemide (LASIX) 20 mg tablet TAKE ONE TABLET BY MOUTH EVERY DAY ^1R1 30 tablet 2 5 025 Discontinued Active Problems Problem Noted Date Diagnosed Date Carotid artery stenosis 05/24/2025 Overview (05/24/2025): Last Assessment & Plan: Recent bilateral carotid duplex completed August 2023 showed calcified plaque along the vertebrals bilaterally greater on the left side without significant stenosis. She will continue on aspirin and statin as prescribed. Coronary artery disease invo lving [place] coronary artery of [place] heart without angina pectoris 03/27/2021 Overview (05/24/2025): Last Assessment & Plan: Patient has history of coronary artery disease status post coronary artery bypass in the past. Given her symptoms of chest discomfort, recommend she undergo a pharmacological nuclear stress test to rule out ischemia as a cause of her symptoms. Also ordered her for an echocardiogram to assess her LV function and assess for any valvular abnormalities as a cause. She continues on cardioprotective medical therapy with statin, isosorbide mononitrate, amlodipine, metoprolol, and aspirin as prescribed. I will notify her of the results as soon as they become available. Patient advised to seek emergency medical attention by calling 911 if they were to develop severe dyspnea, chest pain that did not resolve with rest or nitroglycerin, or if they were to faint. Assessment & Plan (06/07/2025 11:41 AM EDT): The patient has a history of coronary artery disease. Currently, the patient denies any chest pain at rest or with exertion. The patient continues on secondary preventive therapy for CAD, including: aspirin, statin and calcium channel balbir. Will continue current therapy. Orders: Lipid panel; Future Dyslipidemia 03/27/2021 Overview (05/24/2025): Last Assessment & Plan: Patient has a history of hyperlipidemia as well as a history of coronary artery disease. Will update a new fasting lipid panel to reassess her lipid control make any adjustments as necessary. In the meantime, she will continue her current dose of atorvastatin as prescribed. Assessment & Plan (06/07/2025 11:41 AM EDT): The patient has a history of hyperlipidemia. The patient is currently on atorvastatin 40 mg orally daily. We will order a new lipid panel to evaluate the patient's current lipid control and determine if any adjustment are needed in the lipid lowering therapy. 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 She continues on her current antihypertensive medication regimen as prescribed. No changes to medical therapies. Assessment & Plan (06/07/2025 11:41 AM EDT): The patient has a history of arterial hypertension. The patient's blood pressure today was noted to be well controlled. We'll continue the current antihypertensive medication regimen. Stage 3 chronic kidney disease ([facility] V24, [facility] V28) 01/01/2021 Resolved Problems Problem Noted Date Diagnosed Date Resolved Date Chest pain 11/03/2022 06/07/2025 Hx of CABG 11/03/2022 06/07/2025 Hypertensive heart disease w [facility] heart failure 01/01/2021 06/07/2025 Surgical History Surgery Date Site/Laterality Comments OTHER [...] post C VA T2DM (type 2 diabetes [facility]) ([facility] V24, [facility] V28) DX:T2DM (type 2 diabetes me ll[place]) ([facility]) Total body pain DX:Total body pa in Vertigo DX:Vertigo Stroke ([facility] V24, [facility] V28) 03/27/2021 DX:Stroke ([facility]) Asthma DX:Asthma GERD (gastroesophageal reflu x disease) [...] Sign Reading Time Taken Comments Blood Pressure 118/60 06/07/2025 10:42 AM EDT Pulse 80 06/07/2025 10:42 AM EDT Temperature - - Respiratory Rate - - Oxygen Saturation 98% 06/07/2025 10:42 AM EDT Inhaled Oxygen Concentration - - Weight 73.9 kg (163 lb) 06/07/2025 10:42 AM EDT Height 165.1 cm (5' 5 ) 06/07/2025 10:42 AM EDT Body Mass Index 27.12 06/07/2025 10:42 AM EDT Plan of Treatment Health Maintenance Due Date Last Done Comments Diabetes: Annual GFR (Glomerular Filtration Rate) 1945 Diabetes: Annual Foot Exam 1955 Diabetes: Annual Retina Eye Exam 1955 Zoster Vaccines (1 of 2) 1995 RSV Immunization Adult Patients (1 - 1-dose 75+ series) 2020 Cholesterol Screening (Lipid Panel) 09/18/2022 Falls Risk Assessment 09/18/2022 Hepatitis C Screening 09/18/2022 Hypertension/CHF/CAD Annual BMP Blood Test 09/18/2022 Osteoporosis Screening (Bone Density Screening) 09/18/2022 Social Influencers of Health Screening 09/18/2022 Depression Screening 10/10/2024 Diabetes: Annual Urine Albumin-Creatinine Ratio (uACR) 06/07/2025 Diabetes: Blood Sugar Contro l Test (HGBA1C) 06/07/2025 06/08/2021 COVID-19 Vaccine (2 - 2024-2 6 season) 2025 12/31/2020 Influenza Vaccine (#1) 2025 2, 09/02/2020 DTaP,Tdap,and Td Vaccines (2 - Td or Tdap) 03/15/2026 03/15/2016 Pneumococcal Vaccine: 50+ Years Completed 07/29/2022, 03/15/2016 HIB Vaccines Aged Out No longer eligi [...] to complete this topic RSV Immunization Patients Under 20 months Aged Out No longer eligible b ased on patient's age to complete this topic Varicella Vaccines Aged Out No longer eligible based on patient's age to complete this topic Insurance Member Subscriber Plan / Payer (Ef fective 2019-Present) Name:Iza Ramirez Relation to Subscriber:Self Name:Iza Mendez Payer ID:[id number] Group ID:[id number] Type:Not on file Address: [place] [facility] [place] [address] Care Teams Rn Iv Therapy Relationship Specialty Start Date End Date Jaylene Somers DO [address] [place] [address] PCP - General 02/28/19
--- OUTSIDE RECORDS SUMMARY | 2025-09-14 19:02 | XMS_ITS | Data Portability ---
Author Organization [place] [facility] Address [address] [place] [address] Care Team Providers Care Log Cutter Name Role Phone JAZMIN IZQUIERDO Primary Care Provider ZAFAR RODRIGUEZ OTHER Assessment Encounter Date Assessment Date Assessment LastModified [...] I have accessed patient records on the [place] [employer] [facility]. This information was pertinent in my medical decision making today. Proper Personal Protective Equipment (PPE), including gloves, eye protection and masks were donned and doffed appropriately and all equipment cleaned using approved technique with germicidal disposable wipes prior to and after care of this patient according to [facility]'s infection prevention protocols. [email or web address] Not available 01/09/2020 14:47:32 Plan of Treatment [...] Go To The Location Of Their Choice, [id number] 01/09/2020 21:24:28 01/09/20 20 01/09/2020 BMP, serum [...] Go To The Location Of Their Choice, [id number] 01/09/2020 21:24:28 01/09/20 20 01/09/2020 pro BNP (pro B-typ e natri ureti c pepti de), serum or plasm a pro BNP 310 pg/mL (0-125 ) high Not Available [facility] (Centralized Electronic Ordering - All Locations) Patient Can Go To The Location Of Their Choice, [id number] 01/09/2020 21:37:16 01/22/20 elect dipak huizargr am No observ ation record ed. BARCODE Not Available 2019 18:58:30 Result Notes None recorded. Procedures Surgical History Date Name Laterality Status Provider Name and Address Organization Details Recorded Time 01/09/20 Medication Review completed LIVIER MONACO NP [facility] [address], [place], [address], [place] [facility] 01/09/2020 11:53:44 01/09/20 20 ECG Interpretation - DH completed LIVIER MONACO, JEVON [address] [facility], [place], [address], [place] [facility] 01/09/2020 12:17:38 Imaging Results None recorded. Procedure Notes None recorded. Medical Equipment None Reported. Allergies Allergen ID Allergen Name Allergen Category Reaction Reaction Severity Criticality Documentation Date Start Date Code Code System Note Provider Name and Address Organization Details Recorded Time 44374 Product containin g penicilli n (product) medicatio n Not available Not available Not available 01/09/2020 39527 8001 SNOMED LIVIER MONACO , [employer] [address], [place], [address], [place] [facility] 0 11:20:22 [id number] trivalent influenza vaccine medicatio n Not available Not available Not available 01/09/2020 20301 9 RxNorm LIVIER MONACO , JEOVN [address], [place], [address], [place] [facility] 0 11:22:51 [...] Recorded Heart rate Body temperature Oxygen saturation Respiratory rate Systolic And Diastolic Provider Name and Address Organization Details Last Updated DateTime 0 95 /min 97.5 [degF] 100 % 20 /min 150/64 mm[Hg] Not Available [facility] 0 11:30:01 Social History Question Answer Notes LastModified by Organizat ion Details LastModified Time Tobacco Smoking Status Never Smoker LIVIER MONACO, JEVON [address], [place], [address], [place] [facility] 01/09/2020 11:39:30 What Is Your Code Status? Full Code [email or web address] Information not available 01/09/2020 Within The Past 12 Months, Has It Happened That The Food You Bought Just Didn't Last And You Didn't Have Money To Get More. No [email or web address] Information not available 01/09/2020 Within The Past 12 Months, Have You Worried That Your Food Would Run Out Before You Got Money To Buy More. No [email or web address] Information not available 01/09/2020 Fall Risk: Do You Feel Unsteady When Standing Or Walking? No Information not available 01/09/2020 We Know That How And When People Interact With Friends And Family Can Be Very Different From Person To Person. How Often Do You Have The Opportunity To See Or Talk To People That You Care About And Feel Close To? (Ex: Talking To Friends On The Phone Or Visiting Friends Or Family Or Going To [employer] Or Club Meetings) Choose Not To Answer This Question [email or web address] Information not available 01/09/2020 Excessive Alcohol Or Drug Use No [email or web address] Information not available 01/09/2020 We Know From Many Of Our Patients That Covering All Of Their Costs Can Be Difficult At Times. This Can Cause Stress And Impact Health. In The Past Year, Have You Been Unable To Get Any Of The Following When It Was Really Needed? No [email or web address] Information not available 01/09/2020 What Is Your Housing Situation Today? I Have Housing Information not available 01/09/2020 Would You Like Help Connecting To Resources? None [email or web address] Information not available 01/09/2020 Sex: Unknown Functional Status None recorded. Mental Status None recorded. Family History Relationship Description Onset Age of this Age Resolved Age Notes LastModified by Organization Details LastModified Time Maternal Grandmother Diabetes mellitus [email or web address] Not available 10/2019 11:40:44 Medical History Condition Response Coronary Artery Disease Y COPD N Depression Y Cancer N Stroke Y High Cholesterol Y Kidney Disease N Diabetes Y Asthma N Pulmonary Embolism N Hypertension Y Gynecological HistoryNo gynecological history recorded. Obstetrics History GPAL:G 0 P 0 0 0 0 Past Encounters Encounter ID Performer Location Encounter Start Date Encounter Closed Date Diagnosis/Indication Diagnosis SNOMED-CT Code Diagnosis ICD10 Code Diagnosis IMO Codes Diagnosis Note [id number] LIVIER MONACO NP [facility] [address] [place] [address] 01/09/2020 11:16:58 01/10/2020 20:27:26 Swelling of lower leg 185011379 R22.41 Health Concerns Section Related Observation LastModified by Organization Detai ls LastModified Time None Recorded Concern Status LastModified by Organization Details LastModified Time None Recorded Advance Directives Directive None Recorded Payers Insurance Date Sequence Insurance Name Policy Number Policy Hankins Covered Member ID Hankins Member ID Guarantor Name 01/09/2020 2 [place] Iza berger [id number] Iza loza 01/10/2020 1 [place] [employer] Iza berger [id number] Iza loza 12/28/2019 1 *SELF PAY* Iza berger [id number] Iza loza 01/10/2020 1 [facility] PRIOR TO 01/08/2023 - DUAL ELIGIBLE (MEDICARE REPLACEMENT/ADV ANTAGE - HMO) Iza berger [id number] Iza loza Notes Date Note Type Note Provider Name and Address Organization Details Recorded Time 01/09/2020 text/html General HPI Template - DHReported by Patient This is a 74 year old female that is new to . She has a medical history significant for latent TB, CVA, vertigo, CAD s/p CABG, DM and back pain. She reports that she had been on diuretics in the past but they were stopped. She tells me that she reported to her PCP she was having some swelling and was started on a week of lasix. She finished this last week, she weighed herself while on lasix but has stopped doing this so unclear if she has gained weight. She feels that her foot is swelling again. She is denying shortness of breath or orthopnea. She denies eating too much salt and tells me I don't use salt I use sea salt . She tells me that she had an echo earlier this year but those results are not available for me to review. LIVIER MONACO, JEVON [address], [place], [address], [place] [facility] 01/09/2020 14:47:43 OBGyn Episode No OBEpisode recorded.
--- OUTSIDE RECORDS SUMMARY | 2025-09-14 19:02 | XMS_ITS | Data Portability ---
Author Organization [employer] - [employer], [facility] Address [address] [place] [address] Care Team Providers Care Low Altitude Air Defense Officer Name Role Phone JAZMIN IZQUIERDO Primary Care Provider [facility] OTHER Assessment Encounter Date Assessment Date Assessment LastModified by Organization Details LastModified Time 09/13/2023 09/13/2023 Ms. Iza Martinez is a 77yoF w/ a PmHx of osteoarthritis, DM2, HTN who is seen today for further evaluation of leg pain. Ms. Andrea Martinez reports that she has had left leg for the past two weeks. She describes the pain as exacerbated with any movement or weightbearing and reports that it hurts her to ambulate even with her walker. She states that the pain is different than her arthritis pain and is having trouble managing the pain at home with tylenol and ice packs. She presented to [facility] ED two days ago where she had an x-ray and ultrasound of her leg without etiology to her pain. VSS. Asbestos Removal Supervisor on site reports that she tender to touch on the outside of her left montero without any visible external skin changes. Notes that she is ambulating with a limp. Given 30mg IM toradol x1 and encouraged ongoing use of OTC therapies, with once daily NSAID use if pain is not controlled by tylenol. Offered 30mg IM toradol x1 today for relief, which she accepts. Primary team, Ms. Andrea Martinez would benefit from follow up in the next few days to have her leg evaluated and to pursue advanced imaging if warranted, as she is having pain with weightbearing. [email or web address] Not available 09/13/2023 12:27:53 10/03/2023 10/03/2023 I provided real -time medical direction via phone for this encounter, and was available for additional phone based assistance as needed. I have reviewed and agree with the Assessment and Plan as documented by the Asbestos Removal Supervisor. Patient given the opportunity to ask questions. Advised need to f/u with pcp [place] due to issues and pain- advised limited what we can prescribe thru this programi f develops CP/severe SOB/turning blue/uncontrolle d n/v/d or black/bloody emesis or stool/ AMS/ syncope/focal weakness /intolerable arm or neck pain/ very swollen or very red arm/hi fever to call 911- verbalized understanding of instructions [email or web address] Not available 10/03/2023 19:44:51 04/24/2025 04/24/2025 Impression: 79yo/f referred to [facility] for rash. Triage note initially described urinary symptoms. However denies any urinary symptoms today and able to clearly state she is only experiencing rash. Patient states for last 1 month she began developing adult diapers. They contain latex. Over the month she developed a red, pruritic rash in groin. Called for evaluation today. Patient had requested female medic for exam but none available, she declined an external exam for medic. On medic evaluation she is awake, alert, in no distress. She denies any urinary symptoms, no dysuria, frequency/hesita ncy, flank pain. No abdominal pain, fevers/chills, flank pain. No nausea/vomiting, or other systemic symptoms of illness. She describes a red pruritic rash isolated to the perineum. Denies lesions or vesicles. No pain or discharge. Has been applying desitin without improvement. No other areas of rash, no involvement of palms/soles/muco us membranes. No preceding illness. Denies other ROS. Plan: Patient describes pruritic erythematous skin in diaper area after she began wearing adult diapers that contain latex. Unfortunately we are unable to visualize the area at this time due to patient's preference. No other red flag symptoms for rash, I have a low clinical suspicion this represent hightower-johnsons /TENS, necrotizing soft tissue infection, sepsis. Patient plans to discontinue exposure to diapers, monitor area, and followup with PCP. Unclear if this represents contact dermatitis versus skin allergic reaction versus fungal infection. Regardless advised she continue to observe symptoms at home, followup with PCP for recheck, and seek care immediately with any acute worsening or change in symptoms which she understands. Primary care, consider 2-3 day followup for in person exam Disposition: We discussed the diagnostic uncertainty of home visits and the risk associated with this. In this case, the patient and I felt this to be an acceptable and reasonable amount of risk given the benefit of avoiding an ED visit. We discussed the need to seek care urgently/emergen tly in the setting of any new or worsening serious symptoms [email or web address] Not available 04/24/2025 14:31:49 Plan of Treatment Reminders Order Date Submit Date Provider Last Modified By Organization Details Last Modified Time Details Appointments None recorded. Lab rapid strep group A, throat 2024 025 [email or web address] [facility], [address] [place] [address], [id number] 5 20:21:58 rapid flu (A+B) 2024 025 [email or web address] [facility], [address] [place] [address], [id number] 5 20:21:58 rapid SARS CoV 2 Ag, QL IA, respiratory specimen 2024 025 [email or web address] [facility], [address] [place] [address], [id number] 5 20:22:00 rapid SARS CoV 2 Ag, QL IA, respiratory specimen [email or web address], [address] 4 10:27:38 rapid flu (A+B) 2023 024 [email or web address] [facility], [address] [place] [address], [id number] 4 10:27:36 rapid strep group A, throat 2023 [email or web address], [address] 4 10:27:39 culture, urine 2022 023 ONEL [facility] (Centralized Electronic Ordering - All Locations), Patient Can Go To The Location Of Their Choice, [id number] 3 18:39:00 urinalysis, dipstick 2022 023 [email or web address] 0 [facility], [address] [place] [address], [id number] 3 19:41:07 BMP, serum or plasma 2022 023 [email or web address] 0 [facility], [address] [place], [id number] 3 19:50:39 Referral None recorded. Procedures None recorded. Surgeries None recorded. Imaging None recorded. Medication Orders doxycycline monohydrate 100 mg capsule [address] [facility], [address] [place] [address], [address], [id number], 4 10:24:41 ipratropium bromide 17 mcg/actuati on HFA aerosol inhaler 2023 024 [facility], [address] [place] [address], [address], [id number], 4 10:30:06 prednisone 20 mg tablet 2023 024 [facility], [address] [place] [address], [address], [id number], 4 10:30:04 prednisone 20 mg tablet [address] [facility] [address] [facility], [address] [place] [address], [address], [id number], 4 10:28:21 doxycycline monohydrate 100 mg capsule [address] [facility] [address] [facility], [address] [facility], [address], [id number], 4 10:28:21 ipratropium 0.5 mg-albutero l 3 mg (2.5 mg base)/3 mL nebulizatio n soln 2023 024 [facility], [address] [place] [address], [address], [id number], 4 10:30:08 Tylenol Arthritis Pain 650 mg tablet,exte nded release 2022 023 ONEL [facility], [address] [place] [address], [id number], 3 20:00:41 Tylenol 325 mg tablet 2022 023 [email or web address] 0 [facility], [address] [place] [address], [id number], 3 19:50:35 ketorolac 30 mg/mL (1 mL) injection solution 2022 023 [email or web address] [facility], [address] [place] [address], [id number], 3 12:28:20 Patient TargetsNo targets recorded. Patient InstructionsNo instructions recorded. Reason for Referral None Reported. Results Created Date Observation Date Name Description Value Unit Range Abnormal Flag Note LastModifiedBy Organization Detail LastModifiedTime 08/21/2008/21/2023 URINE CULTU RE specimen description URINE Not Available [facility] (Centralized [facility] Ordering - All Locations) Patient Can Go To The Location Of Their Choice, [id number] 08/22/2023 21:52:10 08/21/2008/21/2023 URINE CULTU RE special requests NONE Not Available [facility] (Centralized Electronic Ordering - All Locations) Patient Can Go To The Location Of Their Choice, [id number] 08/22/2023 21:52:10 08/21/2008/22/2023 URINE CULTU RE culture Mixed bacter ial palak, indica tive of urogen ital contam inatio n. Not Available [facility] (Centralized Electronic Ordering - All Locations) Patient Can Go To The Location Of Their Choice, [id number] 08/22/2023 21:52:10 08/21/2008/22/2023 URINE CULTU RE report status FINAL 2022 Not Available [facility] (Centralized Electronic Ordering - All Locations) Patient Can Go To The Location Of Their Choice, [id number] 08/22/2023 21:52:10 10/03/20 23 10/03/2023 URINE CULTU RE specimen description URINE Not Available [facility] (Centralized Electronic Ordering - All Locations) Patient Can Go To The Location Of Their Choice, [facility] 10/06/2023 10:32:00 10/03/20 23 10/03/2023 URINE CULTU RE special requests NONE Not Available [facility] (Centralized Electronic Ordering - All Locations) Patient Can Go To The Location Of Their Choice, [id number] 10/06/2023 10:32:00 10/03/20 23 10/06/2023 URINE CULTU RE culture abnormal 50-10 0,000 COL/M L STREP TOCOC CUS AGALA CTIAE SERO GROUP B SUSCE PTIBI LITY TESTI NG NOT ROUTI ANITA PERFO RMED ON THIS ISOLA TE. This isola te was ident ified using Maldi -TOF syste m Not Available [facility] (Centralized Electronic Ordering - All Locations) Patient Can Go To The Location Of Their Choice, [facility] 10/06/2023 10:32:00 10/03/2010/06/2023 URINE CULTU RE report status FINAL 2022 Not Available [facility] (Centralized Electronic Ordering - All Locations) Patient Can Go To The Location Of Their Choice, [facility] 10/06/2023 10:32:00 10/03/2010/03/2023 BMP, serum or plasm a BUN 29 Not Available [facility] [address], [id number] 10/03/2023 19:41:15 10/03/20 23 10/03/2023 BMP, serum or plasm a Ca Ionize d calciu m 1.19 Not Available [facility] [address], [id number] 10/03/2023 19:41:15 10/03/20 23 10/03/2023 BMP, serum or plasm a CI- 103 Not Available [facility] [address], [address] 10/03/2023 19:41:15 10/03/20 23 10/03/2023 BMP, serum or plasm a CRE 1.5 Not Available [facility] [address], [address] 10/03/2023 19:41:15 10/03/20 23 10/03/2023 BMP, serum or plasm a GLU 189 Not Available [facility] [address], [address] [place] [address] 10/03/2023 19:41:15 10/03/20 23 10/03/2023 BMP, serum or plasm a K+ 4.1 Not Available [facility] [address], [address] [place] [address] 10/03/2023 19:41:15 10/03/20 23 10/03/2023 BMP, serum or plasm a Na+ 134 Not Available [facility] [address], [address] [place] [address] 10/03/2023 19:41:15 10/03/20 23 10/03/2023 BMP, serum or plasm a tCO2 25 Not Available [facility] [address], [address] [place] [address] 10/03/2023 19:41:15 10/03/20 23 10/03/2023 BMP, serum or plasm a eGFR calcul ated 36 Not Available [facility] [address] [place] [address], [address] [place] [address] 10/03/2023 19:41:15 10/03/20 23 10/03/2023 urina lysis , dipst ick Leukocytes 2+ Not Available [facility] [address] [place] [address], [address] [place] [address] 10/03/2023 18:54:58 10/03/20 23 10/03/2023 urina lysis , dipst ick Nitrite negati ve Not Available [facility] [address] [place] [address], [address] [place] [address] 10/03/2023 18:54:58 10/03/20 23 10/03/2023 urina lysis , dipst ick Urobilinogen neg Not Available [facility] [address] [place] [address], [address] [place] [address] 10/03/2023 18:54:58 10/03/20 23 10/03/2023 urina lysis , dipst ick Protein neg Not Available [facility] [address], [address] [place] [address] 10/03/2023 18:54:58 10/03/20 23 10/03/2023 urina lysis , dipst ick pH 5 Not Available [facility] [address], [address] 10/03/2023 18:54:58 10/03/20 23 10/03/2023 urina lysis , dipst ick Blood neg Not Available [facility] [address], [address] 10/03/2023 18:54:58 10/03/20 23 10/03/2023 urina lysis , dipst ick Specific Decker 1.010 Not Available [facility] [address] [place] [address], [address] 10/03/2023 18:54:58 10/03/20 23 10/03/2023 urina lysis , dipst ick Ketone neg Not Available [facility] [address], [address] [place] [address] 10/03/2023 18:54:58 10/03/20 23 10/03/2023 urina lysis , dipst ick Bilirubin neg Not Available [facility] [address] [place] [address], [address] [place] [address] 10/03/2023 18:54:58 10/03/20 23 10/03/2023 urina lysis , dipst ick Glucose 5+ Not Available [facility] [address], [address] 10/03/2023 18:54:58 10/03/20 23 10/03/2023 urina lysis , dipst ick Appearance cloudy Not Available [facility] [address] [place] [address], [phone] 10/03/2023 18:54:58 10/03/20 23 10/03/2023 urina lysis , dipst ick Color yellow Not Available [facility] [address], [address] 10/03/2023 18:54:58 10/22/19 24 10/22/2023 rapid flu (A+B) Flu negati ve Not Available [facility] [address] [place] [address], [id number] 10/22/2023 10:27:19 10/22/19 24 10/22/2023 rapid SARS CoV 2 Ag, QL IA, respi rator y speci men rapid SARS CoV 2 Ag, QL IA, respiratory specimen negati ve Not Available [facility] [address] [place] [address], [address] 10/22/2023 10:27:18 10/22/19 24 10/22/2023 rapid strep group A, throa t Strep negati ve Not Available [address], [address] 10/22/2023 10:27:20 03/21/20 25 03/21/2025 rapid SARS CoV 2 Ag, QL IA, respi rator y speci men rapid SARS CoV 2 Ag, QL IA, respiratory specimen negati ve Not Available [address], [address] 03/21/2025 20:21:35 03/21/20 25 03/21/2025 rapid flu (A+B) Flu negati ve Not Available [address], [address] 03/21/2025 20:21:30 03/21/20 25 03/21/2025 rapid strep group A, throa t Strep negati ve Not Available [address], [address] 03/21/2025 20:21:19 Result Notes None recorded. Medical Equipment None Reported. Allergies Allergen ID Allergen Name Allergen Category Reaction Reaction Severity Criticality Documentation Date Start Date Code Code System Note Provider Name and Address Organization Details Recorded Time 1736 Product containin g penicilli n (product) medicatio n Not available Not available Not available 10/19/2022 85934 8001 SNOMED Not Available [facility] - production 4 03:41:56 1737 latex environme nt,medica tion Not available Not available Not available 10/19/2022 31226 91 RxNorm Not Available [facility] - production 4 03:41:56 Medications Name Sig Start Date Stop Date Status Note LastModified by Organization Details LastModified Time comfrt touch pad alc prep active Not Available Not Available Not Available med sync [place] active Not Available Not Available Not Available Preparation H Hydrocortiso ne 1 % topical cream APPLY A THIN LAYER TO THE RECTUM BY TOPICAL ROUTE 2 TIMES PER DAY for 7 days 2021 active Not Available Not Available Not Avai lable atorvastatin 40 mg tablet TAKE 1 TABLET BY MOUTH EVERY DAY active Not Available Not Available No t Available metformin 500 mg tablet TAKE 1 TABLET BY MOUTH EVERY DAY active Not Available Not Available No t Available atorvastatin 80 mg tablet active Not Available Not Available Not Available prednisone 10 mg tablet take 4 tablets daily for 3 days, then 2 tablets daily for 3 days then 1 tablet daily for 3 days- take w/ food active Not Available Not Available No t Available ipratropium 0.5 mg-albuterol 3 mg (2.5 mg base)/3 mL nebulization soln Take 3 mL via nebulizer every 6 hours as needed for dyspnea (use inhalers or neb) active Not Available Not Available No t Available clindamycin HCl 300 mg capsule TAKE 1 CAPSULE BY MOUTH EVERY 6 HOURS WITH MEALS FOR 7 DAYS active Not Available Not Available N ot Available polyethylene glycol 3350 17 gram oral powder packet MIX AND DRINK 1 PACKET BY MOUTH TWICE DAILY FOR 3 DAYS active Not Available Not Available No t Available cetirizine 10 mg tablet TAKE 1 TABLET BY MOUTH DAILY active Not Available Not Available Not Available Lidocaine Viscous 2 % mucosal solution SWISH AND SPIT THREE TIMES DAILY NEEDED FOR PAIN active Not Available Not Available No t Available fluconazole 150 mg tablet active Not Available Not Available Not Available metoprolol succinate ER 50 mg tablet,exten ded release 24 hr TAKE 1 TABLET BY MOUTH EVERY DAY active Not Available Not Available No t Available FreeStyle Lancets 28 gauge USE DIRECTED TO TEST BLOOD SUGAR ONCE DAILY active Not Available Not Available No t Available prednisone 20 mg tablet 2 tablets x1 now active Not Available Not Available No t Available meclizine 12.5 mg tablet TAKE 1 TABLET BY MOUTH 3 TIMES A DAY,PRNAS NEEDED FOR DIZZINESS,I NSTRTO REPLACE PRIOR DOSE active Not Available Not Available N ot Available aspirin 81 mg tablet,delay ed release TAKE 1 TABLET BY MOUTH EVERY DAY active Not Available Not Available No t Available acetaminophe n ER 650 mg tablet,exten ded release Take 1 tablet every 6-8 hours by oral route as needed. active Not Available Not Available N ot Available famotidine 20 mg tablet TAKE 1 TABLET BY MOUTH TWICE DAILY active Not Available Not Available No t Available amlodipine 10 mg tablet TAKE 1 TABLET BY MOUTH EVERY DAY active Not Available Not Available No t Available doxycycline monohydrate 100 mg capsule 100 mg x1 now 2023 active Not Available Not Available Not Avai lable bisacodyl [address] SUPPOSITORY IN RECTUM EVERY DAY NEEDED TO PRODUCE DAILY BOWEL MOVEMENT active Not Available Not Available No t Available clotrimazole -betamethaso ne 1 %-0.05 % topical cream active Not Available Not Available Not Available nitroglyceri n 0.[address] TABLET UNDER THE TONGUE EVERY 5 MINUTES NEEDED FOR CHEST PAIN. DO NOT EXCEED THREE DOSE WITHOUT SEEKING EMERGENCY CARE active Not Available Not Available No t Available docusate sodium 100 mg capsule TAKE 1 CAPSULE BY MOUTH TWICE DAILY NEEDED FOR CONSTIPATIO N active Not Available Not Available No t Available omeprazole 20 mg capsule,blue yed release TAKE 1 CAPSULE BY MOUTH DAILY FOR 14 DAYS active Not Available Not Available Not Available Tylenol 325 mg tablet 3 tablets 2022 active Not Available Not Available Not Avai lable montelukast 10 mg tablet TAKE 1 TABLET BY MOUTH DAILY AT BEDTIME active Not Available Not Available N ot Available furosemide 20 mg tablet TAKE 1 TABLET BY MOUTH EVERY DAY FOR SWELLING OR WT GAIN active Not Available Not Available No t Available gabapentin 100 mg capsule TAKE 1 CAPSULE BY MOUTH TWICE DAILY active Not Available Not Available No t Available levofloxacin 500 mg tablet Take 1 tablet every 24 hours by oral route for 5 days. active Not Available Not Available Not Available losartan 100 mg tablet TAKE 1 TABLET BY MOUTH DAILY active Not Available Not Available Not Available fluticasone propionate 50 mcg/actuatio n nasal spray,suspen noé USE 2 SPRAYS INTRANASALL Y TWICE DAILY active Not Available Not Available No t Available sertraline 50 mg tablet TAKE 1 TABLET BY MOUTH EVERY DAY active Not Available Not Available No t Available Ventolin HFA 90 mcg/actuatio n aerosol inhaler INHALE 2 PUFFS INTO THE LUNGS FOUR TIMES DAILY NEEDED FOR WHEEZING active Not Available Not Available No t Available meclizine 25 mg chewable tablet CHEW 1 TABLET BY MOUTH EVERY DAY active Not Available Not Available No t Available nitrofuranto in monohydrate/ macrocrystal s 100 mg capsule active Not Available Not Available Not Available duloxetine 30 mg capsule,blue yed release TAKE 1 CAPSULE BY MOUTH DAILY active Not Available Not Available Not Available duloxetine 60 mg capsule,blue yed release active Not Available Not Available Not Available Atrovent HFA 17 mcg/actuatio n aerosol inhaler Inhale 2 puffs 4 times a day by inhalation route for 7 days. active Not Available Not Available No t Available peg 3350-electro lytes 236 gram-22.74 gram-6.74 gram-5.86 gram solution active Not Available Not Available Not Available Chest Congestion Relief 100 mg/5 mL oral liquid TAKE 10 ML BY MOUTH FOUR TIMES DAILY NEEDED FOR COUGH WITH FLUID. NOT TO EXCEED 2.4 GM DAILY active Not Available Not Available No t Available diclofenac 1 % topical gel APPLY 2 GM TOPICALLY 4 TIMES A DAY,PRNFOR PAIN,INSTRN OT TO EXCEED 8 GRAMS PER DAY active Not Available Not Available No t Available ketorolac 30 mg/mL injection solution 15 mg IM x 1 for pain 2022 active Not Available Not Available Not Avai lable Antacid-Anti gas 200 mg-200 mg-20 mg/5 mL oral suspension SHAKE LIQUID WELL THEN TAKE 5ML BY MOUTH FIVE TIMES A DAY NEEDED FOR DYSPEPSIA. ADMINISTER BETWEEN MEALS AND AT BEDTIME active Not Available Not Available N ot Available Contour Next Test Strips USE DIRECTED ONCE DAILY TO TEST BLOOD SUGAR active Not Available Not Available Not Available Contour Next EZ Meter active Not Available Not Available Not Available Jardiance 10 mg tablet active Not Available Not Available No t Available Pure Comfort Safety Lancets 30 gauge active Not Available Not Available Not Available Vitals Date Recorded Body weight Oxygen saturation Body height Body temperature Respiratory rate Heart rate Systolic And Diastolic Provider Name and Address Organization Details Last Updated DateTime 4 60044.7 2 g 92 % 162.56 cm 100.9 [degF] 18 /min 74 /min 101/69 mm[Hg] Not Available [facility] - production 4 10:21:12 Date Recorded Body temperature Respiratory rate Heart rate Oxygen saturation Systolic And Diastolic Provider Name and Address Organization Details Last Updated DateTime 5 98 [degF] 16 /min 86 /min 96 % 142/80 mm[Hg] Not Available [facility] - production 5 15:46:55 Date Recorded Heart rate Oxygen saturation Respiratory rate Body temperature Systolic And Diastolic Provider Name and Address Organization Details Last Updated DateTime 5 80 /min 99 % 16 /min 98.2 [degF] 148/82 mm[Hg] Not Available [facility] - production 5 14:20:23 Date Recorded Oxygen saturation Heart rate Body temperature Respiratory rate Systolic And Diastolic Provider Name and Address Organization Details Last Updated DateTime 3 97 % 78 /min 97.6 [degF] 16 /min 156/96 mm[Hg] Not Available [facility] - production 3 18:47:47 Social History None recorded. Functional Status None recorded. Mental Status None recorded. Family History Nothing Reported. Medical History No medical history recorded. Gynecological HistoryNo gynecological history recorded. Obstetrics History GPAL:G 0 P 0 0 0 0 Past Encounters Encounter ID Performer Location Encounter Start Date Encounter Closed Date Diagnosis/Indication Diagnosis SNOMED-CT Code Diagnosis ICD10 Code Diagnosis IMO Codes Diagnosis Note [id number] Angela Rowe MD [facility] [address] [place] [id number] 02/14/2022 15:16:07 06/15/2022 15:28:06 Constipation 10538889 K59.00 Pt presenting with decreased stool output and LLQ pain c/w constipati on not responding to home colace. BRBPR w/ wiping only most c/w hemorrhoid s. Plan for empiric tx constipati on w/ miralax and bisacodyl suppositor y along w/ topical tx for presumed external hemorrhoid s. No infectious sx at this time. UA not c/w UTI but blood raises possibilit y for nephrolith iasis, will send for formal UA and UCx. DDx includes early diverticul itis vs enteritis (less likely given no diarrhea). VS and abdominal exam reassuring . No current acute indication for imaging to ED evaluation but red flag symptoms reviewed including worsening pain or not relieved w/ BM, focal RLQ pain, N/V, fever, melena, BRBPR not a/w wiping or mixed w/ stool, pt instructed to call 911 if condition worsens or new symptoms develop, pt expressed understand ing. [id number] Sebastián Condon MD [facility] [address] [place] [id number] 09/16/2022 16:04:54 09/20/2022 11:11:14 Chest pain 59173606 R07.[address]-T wave changes. Baseline for patient. Will rx refill of nitro paste. No acute chest pain during visit. [id number] Sebastián Condon MD Main - [facility] [address] [place] [address] [id number] 09/16/2022 16:26:37 12/14/2024 11:25:29 [id number] Sebastián Condon MD Main - [facility] [address] [place] [address] [phone] 0 09/16/2022 16:26:49 12/14/2024 11:24:44 [id number] Adam Guzmán MD Main - [facility] [address] [place] [address] [phone] 09/28/2022 10:51:37 09/30/2022 11:44:59 Low back pain [id number] M54.50 Chest pain [id number] R07. 9 [id number] Fawn Peters MD Main - [facility] [address] [place] [address] [phone] [id number] 10/19/2022 16:49:44 10/21/2022 12:19:14 Acute pain in face [id number] R51.9 exam limited w/ mih-no obvious malignant otitis externa-ad vised needs close f/u and exam by clinician belinda- to call pcp tomorrow. May have parotitis- cannot r/o mastoiditi s completely - will cover with clindamyci n which will cover oral pathogens since patient is very pcn allergic. DO not want to use steroids as could cause worsening hyperglyce moiz. Aware may need change in atb if s/s worsen or pcp find an acute OE/OM. Has had ketorolac in past- will give for pain and may have es tylenol- request RX- orderedpat aware BS up several hours after lunch- does not check own sugar and not always diet compliant- d/w her avoid concentrat ed sweets- need to f/u with pcp- also if have infection may be driving bs up. Advised to rest- stay well hydrated/ move or change positions/ get up slowly. To apply warm compresses to painful area( do not burn herself) 4 x per day- gargle with warm salt water also 4 x per day. Advised if develops near syncope or syncope/hi fever/ severe headache /any acute neuro or stroke signs( reviewed by the medic) to call 911- she verbalized understand ing. [id number] Adam Aleman MD Main - [facility] [address] [place] [address] [phone] 11/07/2022 16:26:51 11/09/2022 09:59:54 Left side sciatica [id number] M54.32 As noted, we were called to see this patient regarding concerns of back pain. Evaluation in the field was performed by my auto finance sales rep colleague, as noted above, I provided real-time direction and supervisio n for this visit. The evaluation revealed back pain from sciatic area radiating to the leg, with some pain when walking with neutral foot, but not flexed or extended. As noted, exam notable for +straight leg raise and some para-spina l tenderness , and with intact strength and sensation. Impression :Seemingly a case of acute/suba cute sciatica without red flags -- trauma, deficits, fevers, cancer, IVDU, etc. Discussed pathophysi ology and natural history of this condition. Will treat with combined anti-infla mmatory regimen. Nothing in this case points to more serious cause but counseled on red flags, including new weakness/n umbness, bowel/blad hector compromise , or infectious sx. Plan:Ketor olac 30 mg nowStart prednisone 60mg 7-day taper tomorrow, counseled on this medRx acetaminop hen as she is out of this Primary care, considerPT or other back pain referral for care in 1-2 weeks when improving. Dispositio n: We discussed the diagnostic uncertaint y of home visits and the risk associated with this. In this case, the patient and I felt this to be an acceptable and reasonable amount of risk given the benefit of avoiding an ED visit. We discussed the need to seek care urgently/e mergently in the setting of any new or worsening serious symptoms, particular ly pain, neruo deficits, fever. Pain [id number] [id number] Fawn Peters MD Main - [facility] [address] [place] [address] [phone] 12/01/2022 14:13:48 12/03/2022 09:30:47 Chronic low back pain [id number] M54.50 acute on chronic w/ sciatica right- no evidence acute UTI// pat has hx ckd- seeing urology for f/u and labs next week: pat has hx cysts on kidneys w/ fam hx polycystic kidney ds. BUN/cr went from 18/1 on 02/20/20 to 29/ 1.5 w/ GFR 33 on 06/08/21- last labs available in [facility]. Medic attempted to draw BMP and was unable after several attempts( pat reports she is a difficult stick- chronic issue). FS 143- advised since we cannot check renal function cannot risk giving NSAIDS due to risk of affecting her already compromise d renal function. She verbalized understand ing. Did well w/ prednisone taper previously . Made her aware BS would rise w/ that and to stay well hydrated w/ SF fluids. Advised may do heat 15- 20 min q3-n 4 hr- advised not to sit on heating pad continuous ly- risk of lee-Advi sed close f/u with pcp. Reviewed red flags as abovePat had prior rx for APAP 650 mg- 2 tabs BID- she reports it did not help and her PCP told her she could not take it anymore(un sure why ? hepatic issues) [id number] Lissa Coppola MD Main - [facility] [address] [place] [address] [phone] 08/21/2023 14:36:29 08/22/2023 14:36:49 Urinary symptoms [id number] R39.9 [id number] Lani Doll MD Main - [facility] [address] [place] [address] [phone] 08/29/2023 18:31:25 08/29/2023 18:39:08 [id number] Ashlee Davalos MD Main - [facility] [address] [place] [address] [id number] 09/13/2023 11:35:40 09/14/2023 10:21:17 Pain in lower limb [id number] M79.606 [id number] Fawn Peters MD Main - [facility] [address] [place] [address] [id number] 0 10/03/2023 18:47:39 10/04/2023 10:20:09 Pain in right arm [id number] M79.601 Possible reaction to influenza vaccine/lo calized muscular / neuropathi c inflammati on. Advised ibuprofen/ NSAIDs are not the best way to manage her pain given her history of CAD/CKD.( last gfr 1 yr ago 46) She has received ketorolac on record review - advised needed to check her current renal function prior to administer ing more.- cr has worsened - calculated gfr is down to 36- too risky to give ketorolac- expl to patient- medic is fluent in Portuguese-of fered APAP-advis ed to stop all NSAIDs./ risk of continued use could cause ARF/SAIRA Advised PCP will need to prescribe stronger medication as we cannot prescribe controlled substances to this program- to call pcp in am tomorrow- Advised ice / wrapped in a towel alternatin g w/ gentle heat q 3-4H for 15 min each w/a to affected area Urinary symptoms [id number] R39.9 pat has residual UTI s/s so recheck urine- some of the frequency may be driven by glycosuria - advised would call if uc + would not treat given recent treatment without C& S results- advised to f/u with pcp this week [id number] Angela Rowe MD Main - [address] [phone] 10/22/2023 10:21:08 10/24/2023 17:30:51 Community acquired pneumonia [id number] J18.9 Evaluation in the field was performed by my auto finance sales rep colleague, as noted above, I provided real-time direction and supervisio n for this visit. 78yoF PmHx of asthma/APPLIANCE SERVICE REPRESENTATIVE D, CKD3, DM2, HTN, ?CHF p/w 2 days dyspnea and productive cough + chills. On auto finance sales rep assessment VS notable for sat 92-97% RA, T 100.9F, wheezing on rhonchi in L lung field improved s/p DuoNeb. Rapid COVID, flu, and Strep negative. No known COVID exposures and no URI sx so will not send COVID PCR. Overall presentati on c/w CAP leading to asthma/APPLIANCE SERVICE REPRESENTATIVE D exacerbati on, will tx with abx and prednisone burst. Reviewed if sx worsening would recommend in person eval for imaging. We discussed the diagnostic uncertaint y of home visits and the risk associated with this. In this case, the patient and I felt this to be an acceptable and reasonable amount of risk given the benefit of avoiding an ED visit. We discussed the need to seek care urgently/e mergently in the setting of any new or worsening serious symptoms, shortness of breath, cough, chest pain, fever. [id number] Gaby Branham MD [facility] ED Medical [address] [phone] 0 03/21/2025 15:46:53 03/21/2025 20:55:14 Viral pharyngitis [id number] J02.9 10068 79 year old female being evaluated for 3 days of sore throat. Patient reporting no fever, but had chills. No cough or dyspnea. Patient tolerating PO. Exam notable for normal vital signs, clear lungs, no oropharyng eal erythema or tonsillar exudates, POC strep/covi d/flu negative. Presentati on consistent with uncomplica danni viral pharyngiti s, recommend supportive care and FU outpatient team if persistent or worsening symptoms. I have reviewed and agree with the assessment and plan as documented by the auto finance sales rep. I provided real-time medical direction for this encounter and was immediatel y available to provide additional phone-base d assistance as needed. We discussed the diagnostic uncertaint y of home visits and associated risks. We discussed the need to seek care urgently/e mergently in the setting of any new or worsening symptoms. [id number] Destin Hayes MD [facility] ED Medical [address] [phone] 04/24/2025 14:20:20 04/24/2025 15:16:55 [facility] [id number] Health Concerns Section Related Observation LastModified by Organization Detai ls LastModified Time None Recorded Concern Status LastModified by Organization Details LastModified Time None Recorded Advance Directives Directive None Recorded Payers Insurance Date Sequence Insurance Name Policy Number Policy Hankins Covered Member ID Hankins Member ID Guarantor Name 12/14/2024 1 [facility] - DOS PRIOR TO 2023 - DUAL ELIGIBLE (MEDICARE REPLACEMENT/ADV ANTAGE - HMO) Iza Martinez [id number] Iza Martinez 04/24/2025 1 [facility] - DOS ON OR AFTER 2023 - DUAL ELIGIBLE - [facility] OPTIONS AND ONE CARE (MEDICARE REPLACEMENT/ADV ANTAGE - HMO) Iza Martinez [id number] Iza Martinez Notes Date Note Type Note Provider Name and Address Organization Details Recorded Time 10/03/2023 text/html ROS as noted in the HPI CRC Nurse Triage Notes (Amy Mojica): Chief Complaints: Pain PMH: CHF, Diabetes, Hypertension Allergies: Penicillin, Latex Comments: Member called in c/o pain in R arm and hand. Identity confirmed via name/. New pain- bone in the upper arm near her neck. Does not appear swollen. No redness that she can see. Applying heat back with minimal effect. Ibuprofen not helping. Jan Mojica RN SEGMD: Patient received a flu vaccine in her right deltoid 09/30/2023. Since the day after she has had pain going up to her right ear and down to her wrist. The pain is totally reproducible with movement or palpation. 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 Patient has OTC ibuprofen. Unsure how many she took yesterday she states she has taken 200 mg once today Just finished macrodantin yesterday for uti- still having some s/s:- frequency and incontinence only................ .................... .................... .................... .................... .................... .................... ..... Asbestos Removal Supervisor Note From Padilla Pearson: Encountered patient conscious, alert and ambulatory. Patient states she received a flu shot to the right deltoid on 09/30. Patient states this morning she began feeling extreme pain with movement and palpation. Patient also expresses UTI symptoms, states she has been treated for a UTI for the past week, but still having urinary frequency and incontinence. Patient denies any chest pain, shortness of breath or changes in vision at this time. [facility] contacted: orders for urinalysis, dipstick and BMP performed. Results uploaded for physician. Per physician urine culture to be sent to [facility]. Per [facility] patient is to immediately discontinue the use of any and all medications due to patients lab values and kidney function being poor. [facility] states Toradol in this situation is contraindicated, 975 mg of PO Tylenol administered. [facility] to write prescription for Tylenol regimen at patient s pharmacy of choice. Patient also advised that she could alternate between moist heat and ice wrapped in a towel for pain. Red flags discussed with patient, patient urged to seek further medical attention should she notice any change in status of her right arm, any fever, chills, chest pain, or other priority symptoms. Patient expresses she is comfortable with the plan, states she has a primary care visit on 10/07 in which she plans on bringing up today s visit. Skin warm, dry end of appropriate color for ethnicity. Head and neck, free of trauma and edema. -JVD. breath sounds present clear and equal in all merchant. Extremity free of trauma and edema; right upper extremity examined, no swelling or changes in color noted. Asbestos Removal Supervisor Allergies: Penicillin, Latex .................... .................... .................... .................... .................... .................... .................... . Disposition: Fulfilled Fawn Peters MD [address] [facility],[address], [place], [phone], [employer] 10/03/2023 22:04:34 10/22/2023 text/html CRC Nurse Triage Notes (Guy Charles): Patient Reports: Lower extremity swelling; History of asthma, increased use of inhaler; Sputum increase ; Cough; Shortness of breath with exertion; Pain with inspiration Denies: Increased work of breathing/labored with or without fever Unable to speak in full sentences without distress Discoloration of skin -cyanosis Needs to sleep sitting up, can t catch breath Shortness of breath in setting of confusion Cough, fever greater than 2 days COPD COVID Exposure Chief Complaints: Shortness of Breath/Dyspnea PMH: CHF, Diabetes, Hypertension Allergies: Penicillin, Latex Comments: Taxation Accountant verified the pt. s address and phone number - Education provided on the response time and was advised to monitor reported s/s and seek emergency treatment if needed. Member reports having a hx of asthma - Cough/congestion - Chills - Breathing is non labored -Speaking full sentences - Member has been using her inhaler -SOB - Denies N/V - S/S started yesterday -Martha ULLOA .................... .................... .................... .................... .................... .................... .................... . Asbestos Removal Supervisor Note From Moncho Yang: Pt reports productive cough (unsure what color phlegm) and SCHWARTZ since yesterday afternoon. Pt also reporting increased ventolin MDI usage. Pt denies CP, SOB at rest, n/v/d. Pt is alert, NAD. VSS. Temp 100.9. Non focal neuro exam. Normal gait. Left sided expiratory wheezing. Benign ABD exam. No LE edema. Rapid covid, flu and strep negative. Pt treated with a duoneb resulting in clear LS and pt endorsing improved breathing. Pt also treated with doxycycline 100 mg and prednisone 40 mg PO. Pt educated on prescriptions and other supportive care measures. Pt instructed to f/u with PCP next week and to seek emergent medical care for new or worsening sx, which are reviewed with her and her son. .................... .................... .................... .................... .................... .................... .................... . Disposition: Fulfilled Angela Rowe MD [address] [facility],[address], [place], [phone], [employer] 10/22/2023 10:46:15 03/21/2025 text/html HPI: Iza hasn't been feeling good, she might have a cold and declines going to the ER. .................... .................... .................... .................... .................... .................... .................... . CRC Nurse Triage Notes (Donna Salazar): Reason For Request: Patient feels pains on her bones, and coughing. Denies: Increased work of breathing/labored with or without fever Unable to speak in full sentences without distress Discoloration of skin -cyanosis Needs to sleep sitting up, can t catch breath Shortness of breath in setting of confusion Chief Complaints: Common Cold PMH: Congestive Heart Failure, Hypertension PMH Reviewed at 03/21/2025:56 Allergies Reviewed at 03/21/2025:56 Comments: 79 y.o female complains of Common Cold CCA worker requested visit on portal on behalf of patient. Call to patient to further triage. Patient with productive cough, endorses phlegm, wheezes and congestion, no audible wheezes/congestion heard during intake, pleuritic chest pain, and shortness of breath, patient speaking in full, clear and complete sentences during call. Reports subjective fever/chills. Denies nausea, vomiting or diarrhea, no headache or dizziness. She denies swelling, unsure if she is on a diuretic, has a list of medications in the home. She reports her joints hurt. She reports SKATING RINK ICE MAKER was sick, went to the doctor and was given a medication, and her SKATING RINK ICE MAKER gave her some of the medication. Patient would like to be evaluated. I provided information on the mobile health provider response time and advised the patient and/or caregiver to monitor reported signs and symptoms. I discussed the warning signs of when to seek emergency care. Asbestos Removal Supervisor Organization Information for Ricco Alberto Business Legal Name: [facility] Address: [address] [place] [address], [place] [id number], Steam Shovelman: Oliver Grant MD [facility] No.: [id number] Asbestos Removal Supervisor POC Test Results from Ricco Alberto Rapid COVID antigen (15:42:40) COVID: - Rapid influenza antigen (15:42:43) Flu: - Rapid strep test (15:42:46) Strep: - .................... .................... .................... .................... .................... .................... .................... . Asbestos Removal Supervisor Note From Ricco Alberto: Pt is a 79 yof found ambulatory downstairs by her mail box. Pt states she has had a sore throat and chills x3 days. -cough/congestion, -sob/CP, - SCHWARTZ. Throat appears swollen and red, pt reports pain when swallowing. POC covid, Flu A/B, strep all negative. [facility] contacted, likely viral and will run its course. Pt instructed to treat symptoms with supportive care. Red flags addressed. .................... .................... .................... .................... .................... .................... .................... . [facility] Consulted: Gaby Branham .................... .................... .................... .................... .................... .................... .................... . Disposition: Fulfilled Gaby Branham MD [address] [place] [address],[address], [place], [id number] [employer] 03/21/2025 20:22:41 04/24/2025 text/html ROS as noted in the HPI CRC Nurse Triage Notes (Guy Charles): Reason For Request: UTI Patient Reports: Painful urination; Frequent and increased urination with flank pain; Painful urination with or without fever; Inability to fully empty bladder Denies: Unable to void greater than 5 hours Erection that will not go away after 2 hours Fall or trauma that results in urinary incontinence in the setting of pain Fall or injury that results in incontinence in the absence of pain Lower back pain either unilateral or bilateral, unable to void, painful urination -hematuria Chief Complaints: Urinary Symptoms PMH: Congestive Heart Failure, Hypertension PMH Reviewed at 04/24/2025 - 13:35 Allergies Reviewed at 04/24/2025 - 13:35 Comments: 79 y.o female complains of Urinary Symptoms - x 1 month CCA RN reports the pt is feeling unwell with vaginal burning and itchiness Increased frequency and urgency - Lower back pain (Baseline) - Urine cloudiness with blood Denies fever Reports using Desitin ointment with no relief Wellness check requested I provided information on the mobile health provider response time and advised the patient and/or caregiver to monitor reported signs and symptoms. I discussed the warning signs of when to seek emergency care. Asbestos Removal Supervisor Organization Information for Rink[employer] Legal Name: [employer]. Address: [address] [place] [address], Steam Shovelman: Harley Weiss MD [place] No.: [id number] Asbestos Removal Supervisor POC Test Results from Rinku Griffith Urine Dipstick (14:15:26) Urine leukocytes: - MOISES Urine nitrites: - NIT Urine urobilinogen: - URO Urine protein: - PRO Urine pH: 5 pH Urine blood: - BLO Urine specific gravity: 1.000 SG Urine ketones: + KET Urine bilirubin: - PEYTON Urine glucose: + GLU .................... .................... .................... .................... .................... .................... .................... . Asbestos Removal Supervisor Note From GladisRinku: Dispatched to the call address for the female with a vaginal itch. Pt states that she started wearing adult diapers about a month ago and shortly after that she started with a rash on her vagina. Pts advises that a nurse suggested to her that it may be from her adult diapers as she is allergic to latex. Pt denies abd pain, flank pain, urgency, frequency, inability to empty bladder, chest pain, diff breathing, n/v/d, fevers or cough. Upon inspection of the diaper packaging the ones she is currently using are made with latex however, she does have several other packs of a different brand that are noted to be latex free. Pt was found opening door, CAOx4, airway open and patent, breathing non labored, able to speak in full sentences, -JVD, -HEENT, skin PWD with good turgor, mucous membranes pink and moist, +CMSx4, -edema/swelling, lungs CTA, afebrile, abd soft non distended/tended. UA (-) . rash/possible fungal infection Pt was assessed. UA conducted via clean catch. C consulted. Pt advised that she would like to not wear any diapers for a week to see if that clears things up and then start again with the latex free ones. [facility] agreed that it was a good plan. Pt was also advised of OTC steroid creams as well as antifungal creams. Red flags discussed. ALL times are approx. .................... .................... .................... .................... .................... .................... .................... . [facility] Consulted: Destin Hayes .................... .................... .................... .................... .................... .................... .................... . Disposition: Ad Hayes MD [address] [facility],[address], [place], [address], [facility] - [employer] JUANJOSE 04/24/2025 15:01:39 OBGyn Episode No OBEpisode recorded.
--- NOTE | 2025-09-14 19:10 | ECG_ITS ---
Test Reason : REPEAT EKG CHANGES Blood Pressure : */* mmHG Vent. Rate : 83 BPM Atrial Rate : 83 BPM P-R Int : 148 ms QRS Dur : 90 ms QT Int : 372 ms P-R-T Axes : 46 -1 159 degrees QTcB Int : 437 ms Sinus rhythm with Premature atrial complexes Left ventricular hypertrophy with repolarization abnormality ( R in aVL , Sokolow-Caba , [place] product , [place] ) ST elevation consider anterior injury or acute infarct ACUTE TX / STEMI Abnormal ECG When compared with ECG of 14-Sep-2025 19:02, Premature atrial complexes are now Present Referred By: Gabby Cummings Electronically Signed By: EDWARD POWELL
--- NOTE | 2025-09-14 19:22 | PC.NURSE ---
pt placed on school bus monitor. denies chest pain at this time.
--- NOTE | 2025-09-14 19:24 | MHC.EDTECH ---
patient ambulated from strecher to bed no sob no chest pain dizziness
--- NOTE | 2025-09-14 19:32 | PC.NURSE ---
upon further questioning, asking about her heart and chest pain. pt states well i didn't mention it to anyone because its on the left side and i don't care about the left side, but i have had chest pain off/on for months 2nd IV placed to L forearm
[2025-09-14 19:37] VITALS: BP 132/74; PULSE 84; RESP 19; O2SAT 96
--- NOTE | 2025-09-14 20:23 | PC.NURSE ---
Jose Shah update on transfer plan. [phone]
[2025-09-14 20:24] VITALS: BP 134/72; PULSE 82; RESP 18; TEMP 36.5; O2SAT 96
== END 2025-09-14 20:24 | disposition short-term general hospital (02) ==
PROVIDERS: Emergency Provider Emergency Medicine Emergency Medical Services
DX: I21.3 ST elevation (STEMI) myocardial infarction of unspecified site (principal); E11.65 Type 2 diabetes mellitus with hyperglycemia; R07.9 Chest pain, unspecified; R06.02 Shortness of breath; I10 Essential (primary) hypertension
CPT/HCPCS: 36415; 80053; 81001; 83036; 83880; 84484; 85025; 93005; 99285

== ENCOUNTER → 2025-09-14 19:02 | Outpatient (BNV) | payer OTHER, SELFPAY | PROVIDERS: Emergency Provider Emergency Medicine Emergency Medical Services; Visit Provider Internal Medicine | DX: I51.7 Cardiomegaly (principal); I49.1 Atrial premature depolarization | CPT/HCPCS: 93010 ==